=== PATIENT | female | born 1955 | race African-American/Black ===

== ENCOUNTER 2017-02-17 15:59 | Emergency (ER) | payer OTHER ==
[2017-02-17 17:03] LABS: #Eosinphils 0.2 thou/uL (0.0-0.7); #Lymphocytes 3.4 thou/uL (1.20-3.40); #Monocytes 0.9 thou/uL (0.11-0.59); #Neutrophils 5.4 thou/uL (1.40-6.50); %Basophils 0.5 % (0.0-1.0); %Eosinophils 1.8 % (0.0-10.0); Hematocrit 37.9 % (36.0-47.0); Mean Platelet Volume 5.7 fL (7.4-10.4); Red Blood Cell (RBC) Count 4.04 mill/uL (4.20-5.40); White Blood Cell (WBC) Count 9.9 thou/uL (4.8-10.8)
[2017-02-17 17:21] LABS: ALT (SGPT) 20 U/L (8-55); AST (SGOT) 18 U/L (5-34); Alkaline Phosphatase 105 U/L (40-150); Anion Gap 11 mmol/L (10-20); BUN (Urea Nitrogen) 14 mg/dL (9.8-20.1); Bilirubin, Total 0.4 mg/dL (0.2-1.2); Calc. Creatinine Clearance 0 mL/min (70-130); Calcium 9.7 mg/dL (7.8-10.44); Carbon Dioxide 32 mmol/L (23-31); Chloride 101 mmol/L (98-107); Estimated GFR-MDRD Greater than 90; Globulin 3.4 g/dL (2.4-3.5); Protein, Total 6.9 g/dL (6.0-8.3)
[2017-02-17 17:25] LABS: Troponin I Less than 0.010 ng/mL (< 0.028)
--- NOTE | 2017-02-17 17:46 | RAD ---
RADIOGRAPH CHEST 1 VIEW: Date: 02/17/17 Time: 1639 HOURS HISTORY: 62-year-old female with acute chest pain, wheezing, and atrial fibrillation. COMPARISON: 12/13/16. FINDINGS: Chronic severe volume loss of the right lung, with extensive scarring and stranding of the right mad[place] g, and ex vacuo cardiomediastinal shift to the right. No pulmonary edema or pneumothorax. Right apic al pleural thickening. New finding of mild streaky densities at the left lower lobe base. IMPRESSION: 1. Mild streaky densities at the base of the left lower lobe. Nonspecific. Recommend follow-up. 2. Severe volume loss and extensive chronic changes, involving the right lung. ETTA [] POS: [facility]
== END 2017-02-17 17:41 | disposition home or self-care (01) ==
LOC: ERS 15:59
DX: R07.9 Chest pain, unspecified (principal); G89.29 Other chronic pain; I25.10 Atherosclerotic heart disease of native coronary artery without angina pectoris; J43.9 Emphysema, unspecified; F31.9 Bipolar disorder, unspecified; F20.9 Schizophrenia, unspecified; Z87.891 Personal history of nicotine dependence; Z79.82 Long term (current) use of aspirin; Z79.899 Other long term (current) drug therapy; Z79.51 Long term (current) use of inhaled steroids
CPT/HCPCS: 36415; 71010; 80053; 82553; 84484; 85025; 93005; 94760

== ENCOUNTER 2017-02-26 13:38 | Emergency (ER) | payer OTHER ==
[2017-02-26] MEDS ORDERED: Dexamethasone 10 MG/ML VIAL ONE (14:13)
[2017-02-26 14:38] LABS: #Eosinphils 0.2 thou/uL (0.0-0.7); #Lymphocytes 1.9 thou/uL (1.20-3.40); #Monocytes 0.4 thou/uL (0.11-0.59); #Neutrophils 3.3 thou/uL (1.40-6.50); %Basophils 0.7 % (0.0-1.0); %Eosinophils 3.1 % (0.0-10.0); %Lymphocytes 32.5 % (21.0-51.0); %Monocytes 6.1 % (0.0-10.0); Hematocrit 38.2 % (36.0-47.0); Mean Platelet Volume 6.2 fL (7.4-10.4); Red Blood Cell (RBC) Count 4.05 mill/uL (4.20-5.40); White Blood Cell (WBC) Count 5.8 thou/uL (4.8-10.8)
--- NOTE | 2017-02-26 14:49 | RAD ---
PORTABLE CHEST: HISTORY: Chest pain. COMPARISON: 02/17/2017 FINDINGS: Heart size is enlarged. Chronic appearing lung changes are seen. No focal infiltrative process. IMPRESSION: Cardiomegaly with chronic appearing lung change. POS: [facility]
[2017-02-26 14:59] LABS: ALT (SGPT) 36 U/L (8-55); AST (SGOT) 30 U/L (5-34); Alkaline Phosphatase 97 U/L (40-150); Anion Gap 6 mmol/L (10-20); BUN (Urea Nitrogen) 11 mg/dL (9.8-20.1); Bilirubin, Total 0.6 mg/dL (0.2-1.2); CK (CPK) 106 U/L (29-168); Calc. Creatinine Clearance 0 mL/min (70-130); Calcium 10.1 mg/dL (7.8-10.44); Carbon Dioxide 36 mmol/L (23-31); Chloride 102 mmol/L (98-107); Estimated GFR-MDRD Greater than 90; Globulin 3.3 g/dL (2.4-3.5); Protein, Total 6.8 g/dL (6.0-8.3)
[2017-02-26 15:03] LABS: Troponin I Less than 0.010 ng/mL (< 0.028)
[2017-02-26 15:32] LABS: Bilirubin Negative (Negative); Blood, Urine Negative (Negative); Glucose, Urine (Dipstick) Negative (Negative); Ketone, Urine Negative (Negative); Protein, Urine (Dipstick) Negative (Neg-Trace)
[2017-02-26 15:34] LABS: Bacteria/HPF None Seen HPF (None Seen); Hyaline Casts/LPF 0-3 HYALINE CAST LPF (0-3 Hyaline); RBC/HPF 0-3 HPF (0-3); WBC/HPF 0-3 HPF (0-3)
[2017-02-26 15:35] LABS: Nitrite Unable to Interpret (Negative)
== END 2017-02-26 16:00 | disposition home or self-care (01) ==
LOC: ERS 13:38
DX: R07.9 Chest pain, unspecified (principal); I25.10 Atherosclerotic heart disease of native coronary artery without angina pectoris; J43.9 Emphysema, unspecified; F41.9 Anxiety disorder, unspecified; F31.9 Bipolar disorder, unspecified; F20.9 Schizophrenia, unspecified; Z87.891 Personal history of nicotine dependence; Z87.442 Personal history of urinary calculi
CPT/HCPCS: 51701; 71010; 80053; 81003; 81015; 82553; 84484; 85025; 93005; 94640; 94760; 96374; A4353; J1100

== ENCOUNTER 2017-03-21 15:28 | Emergency (ER) | payer OTHER ==
[2017-03-21 15:56] LABS: #Eosinphils 0.1 thou/uL (0.0-0.7); #Lymphocytes 2.5 thou/uL (1.20-3.40); #Monocytes 0.5 thou/uL (0.11-0.59); #Neutrophils 4.1 thou/uL (1.40-6.50); %Basophils 0.5 % (0.0-1.0); %Eosinophils 1.4 % (0.0-10.0); %Lymphocytes 34.9 % (21.0-51.0); %Monocytes 6.6 % (0.0-10.0); Hematocrit 37.7 % (36.0-47.0); Mean Platelet Volume 5.8 fL (7.4-10.4); Red Blood Cell (RBC) Count 3.95 mill/uL (4.20-5.40); White Blood Cell (WBC) Count 7.3 thou/uL (4.8-10.8)
--- NOTE | 2017-03-21 16:03 | RAD ---
CHEST ONE VIEW 03/21/17 HISTORY: Chest pain. COMPARISON: Chest one view 03/01/17. FINDINGS: Continued volume loss in the right lower lobe with rightward shift of the mediastinum. Left lung is r elatively clear. No pneumothorax. No focal air space consolidation. No acute osseous abnormality. IMPRESSION: Similar appearance of the chest. No acute intrathoracic abnormality. POS: [facility]
[2017-03-21 16:21] LABS: ALT (SGPT) 24 U/L (8-55); AST (SGOT) 21 U/L (5-34); Alkaline Phosphatase 97 U/L (40-150); Anion Gap 11 mmol/L (10-20); BUN (Urea Nitrogen) 14 mg/dL (9.8-20.1); Bilirubin, Total 0.3 mg/dL (0.2-1.2); CK (CPK) 115 U/L (29-168); Calc. Creatinine Clearance 0 mL/min (70-130); Calcium 9.6 mg/dL (7.8-10.44); Carbon Dioxide 31 mmol/L (23-31); Chloride 102 mmol/L (98-107); Estimated GFR-MDRD Greater than 90; Globulin 3.5 g/dL (2.4-3.5); Lipase 26 U/L (8-78); Magnesium 1.9 mg/dL (1.6-2.6); Protein, Total 7.4 g/dL (6.0-8.3)
[2017-03-21 16:22] LABS: Troponin I Less than 0.010 ng/mL (< 0.028)
[2017-03-21] MEDS ORDERED: Potassium Chloride 20 MEQ TAB ONE (16:44)
== END 2017-03-21 17:10 | disposition home or self-care (01) ==
LOC: ERS 15:28
DX: R07.89 Other chest pain (principal); F31.9 Bipolar disorder, unspecified; J44.9 Chronic obstructive pulmonary disease, unspecified; F41.9 Anxiety disorder, unspecified; F20.9 Schizophrenia, unspecified; Z87.891 Personal history of nicotine dependence
CPT/HCPCS: 71010; 80053; 82553; 83690; 83735; 83880; 84484; 85025; 93005

== ENCOUNTER 2017-04-22 10:03 | Emergency (ER) | payer OTHER ==
--- NOTE | 2017-05-05 15:51 | EKG ---
Test Reason : Blood Pressure : / mmHG Vent. Rate : 098 BPM Atrial Rate : 098 BPM P-R Int : 148 ms QRS Dur : 066 ms QT Int : 346 ms P-R-T Axes : 000 -12 150 degrees QTc Int : 441 ms Normal sinus rhythm Septal infarct , age undetermined Lateral infarct , age undetermined T wave abnormality, consider anterior ischemia Left ventricular hypertrophy Left axis deviation Abnormal ECG Confirmed by JEFF MANNING, RANDY Salazar ([id number]), department editor TARA VOGEL ([id number]) on 05/05/2017 3:50:31 PM Referred By: Confirmed By:RANDY AGUILAR MD
== END 2017-04-22 11:07 | disposition home or self-care (01) ==
LOC: ERS 10:03
DX: J44.9 Chronic obstructive pulmonary disease, unspecified (principal); I25.10 Atherosclerotic heart disease of native coronary artery without angina pectoris; F41.9 Anxiety disorder, unspecified; F20.0 Paranoid schizophrenia; F17.210 Nicotine dependence, cigarettes, uncomplicated; Z79.891 Long term (current) use of opiate analgesic; Z79.899 Other long term (current) drug therapy
CPT/HCPCS: 93005; 94760

== ENCOUNTER 2017-05-10 14:10 | Outpatient (CLI) | payer OTHER ==
--- NOTE | 2017-05-10 15:37 | CT ---
LOW DOSE CT CHEST WITHOUT IV CONTRAST: HISTORY: Thirty-year smoking history, COPD, coronary artery disease. FINDINGS: Comparison is made to the exam dated 09/06/16. Chronic changes of bruise formation, scarring, and traction bronchiectasis are again seen. The mass- like density in the medial right upper lung is stable. Volume loss in the right lung apex with retra ction of the mediastinum and right hilum redemonstrated. Calcific densities in the left lung apex with a surrounding soft tissue density are stable. A tiny p eripheral lung nodule is noted in the superior segment of the right lower lobe (image 16 series 3). IMPRESSION: Lung RADS-3, probably benign findings. Recommend continued followup with repeat low-dose CT in 6 mon ths. POS: [facility]
== END 2017-05-10 14:11 | disposition home or self-care (01) ==
LOC: CT 14:10
PROVIDERS: ATTEND Internal Medicine Sleep Medicine
DX: R93.8 Abnormal findings on diagnostic imaging of other specified body structures (principal); F17.211 Nicotine dependence, cigarettes, in remission
CPT/HCPCS: G0297

== ENCOUNTER 2017-05-22 12:10 | Emergency (ER) | payer OTHER ==
--- NOTE | 2017-05-22 12:55 | RAD ---
CHEST TWO VIEWS: Comparison: 03-21-17 Indication: Cough. FINDINGS: There is stable interstitial densities as well as a prominent region of lucency in the right hemithor ax. Reticular nodular density of the left upper lung zone is stable. There is biapical pleural irregu larity again seen. Chest is otherwise similar in appearance. IMPRESSION: Stable chest with evidence of bullous emphysema. POS: [facility]
[2017-05-22] MEDS ORDERED: predniSONE 20 MG TAB ONE (13:12)
== END 2017-05-22 14:00 | disposition home or self-care (01) ==
LOC: ERS 12:10
DX: J20.9 Acute bronchitis, unspecified (principal); I25.10 Atherosclerotic heart disease of native coronary artery without angina pectoris; J44.9 Chronic obstructive pulmonary disease, unspecified; F31.9 Bipolar disorder, unspecified; F41.9 Anxiety disorder, unspecified; B19.20 Unspecified viral hepatitis C without hepatic coma; F20.9 Schizophrenia, unspecified; Z87.891 Personal history of nicotine dependence; Z79.899 Other long term (current) drug therapy; Z79.82 Long term (current) use of aspirin
CPT/HCPCS: 71046; 94640; 99406; J7506; J7620

== ENCOUNTER 2017-06-02 20:27 | Emergency (ER) | payer OTHER ==
--- NOTE | 2017-06-02 21:02 | RAD ---
EXAM: ONE VIEW CHEST 06/02/17 HISTORY: Chest pain. COMPARISON: 03/21/17, 05/22/17. FINDINGS: Postsurgical and chronic changes in the right hemithorax with an overall decreased right lung volume. There is rightward deviation of the cardiomediastinal silhouette. Stable hyperinflation of the left lung. Stable configuration of the cardiac silhouette. No consolidation, No pleural effusion or pneumo thorax. IMPRESSION: No significant interval change. No acute cardiopulmonary process. POS: [facility]
[2017-06-02 21:12] LABS: #Basophils 0.1 thou/uL (0.0-0.2); #Eosinphils 0.1 thou/uL (0.0-0.7); #Lymphocytes 2.2 thou/uL (1.20-3.40); #Monocytes 0.5 thou/uL (0.11-0.59); #Neutrophils 5.2 thou/uL (1.40-6.50); %Basophils 0.9 % (0.0-1.0); %Eosinophils 1.2 % (0.0-10.0); %Lymphocytes 27.7 % (21.0-51.0); %Monocytes 5.8 % (0.0-10.0); %Neutrophils 64.5 % (42.0-75.0); Hemoglobin 12.5 g/dL (12.0-16.0); Mean Corpuscular HGB CONC 32.5 g/dL (32.0-36.0); Mean Corpuscular Hemoglobin 30.6 pg (27.0-31.0); Mean Platelet Volume 6.3 fL (7.4-10.4); Platelet Count 289 thou/uL (130-400); RBC Distribution Width 12.5 % (11.5-14.5); Red Blood Cell (RBC) Count 4.09 mill/uL (4.20-5.40); White Blood Cell (WBC) Count 8.1 thou/uL (4.8-10.8)
--- NOTE | 2017-06-02 21:26 | CT ---
NONCONTRAST HEAD CT 06/02/17 HISTORY: Palpitations. Myalgia. COMPARISON: 02/08/15. TECHNIQUE: Noncontrast head CT is performed from skull base to skull vertex. FINDINGS: No parenchymal hemorrhage. No extra-axial hematoma. No midline shift. Basilar cisterns are patent. Br ain volume is age appropriate. Cortical vo-white matter differentiation is preserved. Ventricles and sulci are patent and symmetric. Chronic small vessel ischemic changes of the white matter are noted. Intact calvarium. Adequate aeration of the sinuses and mastoid air cells. IMPRESSION: No acute intracranial process. POS: [facility]
[2017-06-02 21:29] LABS: ALT (SGPT) 23 U/L (8-55); AST (SGOT) 20 U/L (5-34); Alkaline Phosphatase 98 U/L (40-150); Anion Gap 14 mmol/L (10-20); BUN (Urea Nitrogen) 17 mg/dL (9.8-20.1); Bilirubin, Total 0.8 mg/dL (0.2-1.2); CK (CPK) 100 U/L (29-168); Calc. Creatinine Clearance 0 mL/min (70-130); Calcium 9.5 mg/dL (7.8-10.44); Carbon Dioxide 28 mmol/L (23-31); Chloride 102 mmol/L (98-107); Estimated GFR-MDRD Greater than 90; Globulin 3.3 g/dL (2.4-3.5); Glucose 97 mg/dL (80-115); Potassium 3.6 mmol/L (3.5-5.1); Protein, Total 7.3 g/dL (6.0-8.3); Sodium 140 mmol/L (136-145)
[2017-06-02 21:34] LABS: CKMB 2.4 ng/mL (0-6.6); Troponin I Less than 0.010 ng/mL (< 0.028)
--- NOTE | 2017-06-09 13:46 | EKG ---
Test Reason : PALPATATIONS
== END 2017-06-02 23:16 | disposition home or self-care (01) ==
LOC: ERS 20:27
DX: R00.2 Palpitations (principal); I25.10 Atherosclerotic heart disease of native coronary artery without angina pectoris; J43.9 Emphysema, unspecified; F41.9 Anxiety disorder, unspecified; F31.9 Bipolar disorder, unspecified; F20.9 Schizophrenia, unspecified; Z87.891 Personal history of nicotine dependence; Z79.82 Long term (current) use of aspirin; Z79.52 Long term (current) use of systemic steroids; Z79.899 Other long term (current) drug therapy
CPT/HCPCS: 36415; 70450; 71045; 80053; 82550; 82553; 84484; 85025; 93005

== ENCOUNTER 2017-06-30 11:52 | Emergency (ER) | payer OTHER ==
[2017-06-30] MEDS ORDERED: Dexamethasone 4 mg/ml Vial ONE (12:37)
[2017-06-30] MEDS ORDERED: Ketorolac Tromethamine 30 MG/ML VIAL ONE (12:39)
--- NOTE | 2017-06-30 14:31 | RAD ---
2 VIEWS CHEST: Date: 06/30/17 COMPARISON: 05/22/17. HISTORY: Productive cough with green sputum. FINDINGS: The lung parenchyma is markedly abnormal with architectural distortion and extensive interstitial pro minence with multifocal scarring and right hilar retraction, stable. Heart and mediastinal contours a re unchanged. There is no pneumothorax, pleural fluid, focal consolidation, or alveolar edema. The mirela ngs are hyperinflated. The severe interstitial opacity within both lungs was better assessed on CT ex am performed 05/10/17. Severe anterior wedge compression fracture noted at thoracolumbar junction, as seen on prior CT exam. IMPRESSION: Severe chronic findings as above. No focal consolidation or alveolar edema. POS: [facility]
== END 2017-06-30 13:34 | disposition home or self-care (01) ==
LOC: ERS 11:52
DX: J44.1 Chronic obstructive pulmonary disease with (acute) exacerbation (principal); I25.10 Atherosclerotic heart disease of native coronary artery without angina pectoris; F41.9 Anxiety disorder, unspecified; F31.9 Bipolar disorder, unspecified; F20.9 Schizophrenia, unspecified; Z87.891 Personal history of nicotine dependence
CPT/HCPCS: 71046; 94640; 96372; J1100; J1885; J7620

== ENCOUNTER 2017-07-15 19:03 | Emergency (ER) | payer OTHER ==
[2017-07-15 19:35] LABS: #Lymphocytes 1.8 thou/uL (1.20-3.40); #Monocytes 0.9 thou/uL (0.11-0.59); #Neutrophils 8.2 thou/uL (1.40-6.50); %Basophils 0.1 % (0.0-1.0); %Eosinophils 0.3 % (0.0-10.0); %Lymphocytes 16.1 % (21.0-51.0); %Monocytes 8.3 % (0.0-10.0); %Neutrophils 75.2 % (42.0-75.0); Hemoglobin 12.7 g/dL (12.0-16.0); Mean Corpuscular HGB CONC 32.9 g/dL (32.0-36.0); Mean Corpuscular Hemoglobin 30.7 pg (27.0-31.0); Mean Corpuscular Volume 93.3 fl (81.0-99.0); Platelet Count 286 thou/uL (130-400); RBC Distribution Width 12.8 % (11.5-14.5); Red Blood Cell (RBC) Count 4.14 mill/uL (4.20-5.40); White Blood Cell (WBC) Count 10.9 thou/uL (4.8-10.8)
--- NOTE | 2017-07-15 19:40 | RAD ---
PORTABLE CHEST ONE VIEW: Date: 07-15-17 Time: 7:22 p.m. History: Chest pain. Cough. FINDINGS: Comparison is made with exam of 06-30-17. There are chronic changes in the right lung with accompanying volume loss in the right hemithorax, st able. Heart size is stable. The left lung demonstrates no focal areas of consolidation, pneumothorace s, or pleural effusions are seen on either side. There are degenerative changes in the spine. IMPRESSION: Stable exam. No acute process. POS: [facility]
[2017-07-15 19:41] LABS: INR-International Normal Ratio 1.1; PTT 25.6 SEC (22.9-36.1); Prothrombin Time 13.9 SEC (12.0-14.7)
[2017-07-15] MEDS ORDERED: Dexamethasone 10 MG/ML VIAL ONE (19:46)
[2017-07-15 19:49] LABS: ALT (SGPT) 23 U/L (8-55); AST (SGOT) 18 U/L (5-34); Alkaline Phosphatase 108 U/L (40-150); Anion Gap 13 mmol/L (10-20); BUN (Urea Nitrogen) 14 mg/dL (9.8-20.1); Bilirubin, Total 0.5 mg/dL (0.2-1.2); CK (CPK) 110 U/L (29-168); Calc. Creatinine Clearance 0 mL/min (70-130); Calcium 9.3 mg/dL (7.8-10.44); Carbon Dioxide 28 mmol/L (23-31); Chloride 102 mmol/L (98-107); Estimated GFR-MDRD 85; Globulin 3.4 g/dL (2.4-3.5); Glucose 95 mg/dL (80-115); Potassium 3.5 mmol/L (3.5-5.1); Protein, Total 7.4 g/dL (6.0-8.3); Sodium 139 mmol/L (136-145)
[2017-07-15 19:53] LABS: CKMB 3.1 ng/mL (0-6.6); Troponin I Less than 0.010 ng/mL (< 0.028)
== END 2017-07-15 22:17 | disposition home or self-care (01) ==
LOC: ERS 19:03
DX: J44.9 Chronic obstructive pulmonary disease, unspecified (principal); F41.9 Anxiety disorder, unspecified; F31.9 Bipolar disorder, unspecified; F20.9 Schizophrenia, unspecified; Z87.891 Personal history of nicotine dependence; I25.10 Atherosclerotic heart disease of native coronary artery without angina pectoris; Z79.899 Other long term (current) drug therapy; Z79.82 Long term (current) use of aspirin
CPT/HCPCS: 71045; 80053; 82550; 82553; 84484; 85025; 85610; 85730; 93005; 94640; 94760; 96374; J1100; J7620

== ENCOUNTER 2017-08-02 11:38 | Emergency (ER) | payer OTHER ==
--- NOTE | 2017-08-02 12:49 | RAD ---
LUMBAR SPINE SERIES THREE VIEWS: History: Back pain status post injury. Comparison: Chest x-ray of 06-30-17. FINDINGS: Bones are demineralized. There is compression changes of the L1 vertebral body which are again noted. Compression is approximately 50%. There is some bony retropulsion. These findings are stable. Degene rative disc narrowing is seen at L4-5. Pedicles appear intact. Incidental note is made of some cupping to the superior endplate at the T10 and T11. IMPRESSION: Stable compression fracture of L1. POS: [facility]
--- NOTE | 2017-08-02 13:09 | RAD ---
RIGHT RIBS AND PA CHEST FOUR VIEWS: History: Patient is status post fall. Comparison: 06-30-17 FINDINGS: Sever chronic right lung changes appear stable. I do not see any signs of pneumothorax. The bones are demineralized. I do not appreciate any acute right rib fracture. Compression changes of the L1 vertebral body are noted as are some compression changes in some of the lower thoracic vertebral bodies. Changes appear stable. IMPRESSION: No evidence of acute fracture. POS: [facility]
== END 2017-08-02 13:07 | disposition home or self-care (01) ==
LOC: ERS 11:38
DX: S39.012A Strain of muscle, fascia and tendon of lower back, initial encounter (principal); S20.211A Contusion of right front wall of thorax, initial encounter; I25.10 Atherosclerotic heart disease of native coronary artery without angina pectoris; J43.9 Emphysema, unspecified; M81.0 Age-related osteoporosis without current pathological fracture; F41.9 Anxiety disorder, unspecified; F20.9 Schizophrenia, unspecified; F31.9 Bipolar disorder, unspecified; Z87.891 Personal history of nicotine dependence; Z79.52 Long term (current) use of systemic steroids; Z79.82 Long term (current) use of aspirin; Z79.899 Other long term (current) drug therapy; Z79.51 Long term (current) use of inhaled steroids; V43.92XA Unspecified car occupant injured in collision with other type car in traffic accident, initial encounter
CPT/HCPCS: 72100

== ENCOUNTER 2017-08-20 10:37 | Emergency (ER) | payer OTHER ==
[2017-08-20 12:28] LABS: #Eosinphils 0.2 thou/uL (0.0-0.7); #Monocytes 0.8 thou/uL (0.11-0.59); #Neutrophils 7.3 thou/uL (1.40-6.50); %Basophils 0.2 % (0.0-1.0); %Eosinophils 1.6 % (0.0-10.0); %Lymphocytes 26.8 % (21.0-51.0); %Neutrophils 64.4 % (42.0-75.0); Hemoglobin 12.7 g/dL (12.0-16.0); Mean Corpuscular HGB CONC 32.8 g/dL (32.0-36.0); Mean Corpuscular Hemoglobin 30.6 pg (27.0-31.0); Mean Corpuscular Volume 93.3 fl (81.0-99.0); Platelet Count 237 thou/uL (130-400); RBC Distribution Width 12.6 % (11.5-14.5); Red Blood Cell (RBC) Count 4.15 mill/uL (4.20-5.40); White Blood Cell (WBC) Count 11.3 thou/uL (4.8-10.8)
[2017-08-20 12:59] LABS: Bilirubin Negative (Negative); Blood, Urine Negative (Negative); Clarity CLEAR (Clear); Glucose, Urine (Dipstick) Negative (Negative); Leukocyte Negative (Negative); Nitrite Negative (Negative); Protein, Urine (Dipstick) Negative (Neg-Trace); Specific Gravity, Urine 1.017 (1.002-1.036); pH, Urine 6.5 (5.0-9.0)
[2017-08-20 12:59] LABS: ALT (SGPT) 21 U/L (8-55); AST (SGOT) 18 U/L (5-34); Albumin 3.7 g/dL (3.4-4.8); Alkaline Phosphatase 122 U/L (40-150); Anion Gap 7 mmol/L (10-20); BUN (Urea Nitrogen) 9 mg/dL (9.8-20.1); Bilirubin, Total 0.6 mg/dL (0.2-1.2); Calc. Creatinine Clearance 0 mL/min (70-130); Carbon Dioxide 34 mmol/L (23-31); Chloride 102 mmol/L (98-107); Estimated GFR-MDRD Greater than 90; Globulin 3.2 g/dL (2.4-3.5); Glucose 103 mg/dL (80-115); Potassium 3.4 mmol/L (3.5-5.1); Protein, Total 6.9 g/dL (6.0-8.3); Sodium 140 mmol/L (136-145)
--- NOTE | 2017-08-20 13:03 | RAD ---
SINGLE VIEW OF THE CHEST: COMPARISON: 07/15/17. HISTORY: Chronic bronchitis and cough. FINDINGS: A single view of the chest shows an enlarged but stable cardiomediastinal silhouette. There is stabl e volume loss in the right thorax with tenting of the right diaphragm. There is no evidence of conso lidation, mass, or pleural effusion. Biapical pleural thickening is seen. IMPRESSION: No evidence of acute cardiopulmonary disease. POS: [facility]
[2017-08-20] MEDS ORDERED: predniSONE 20 MG TAB ONE (13:44)
== END 2017-08-20 14:13 | disposition home or self-care (01) ==
LOC: ERS 10:37
DX: J06.9 Acute upper respiratory infection, unspecified (principal); J43.9 Emphysema, unspecified; M81.0 Age-related osteoporosis without current pathological fracture; F41.9 Anxiety disorder, unspecified; F31.9 Bipolar disorder, unspecified; F20.9 Schizophrenia, unspecified; Z87.891 Personal history of nicotine dependence; Z79.899 Other long term (current) drug therapy; Z79.82 Long term (current) use of aspirin; Z79.52 Long term (current) use of systemic steroids
CPT/HCPCS: 51701; 71045; 80053; 81003; 85025; 94640; A4353; J7506

== ENCOUNTER 2017-08-31 10:37 | Emergency (ER) | payer OTHER ==
--- NOTE | 2017-08-31 11:47 | RAD ---
LEFT HIP TWO VIEWS: History: Left hip pain. Injury. FINDINGS: Mild osteophytosis. Joint space is preserved. Femoral head contour intact. No acute fracture or dislo cation. Overlying radiopacities are noted at the level of the trochanters. IMPRESSION: 1. Mild osteoarthritis left hip. POS: [facility]
--- NOTE | 2017-08-31 11:48 | RAD ---
LEFT FOOT THREE VIEWS: Comparison: 01-01-13 FINDINGS: Lisfranc alignment is maintained. There is diffuse bone demineralization. Joint spaces are preserved. No fracture. IMPRESSION: No fracture. POS: [facility]
--- NOTE | 2017-08-31 11:52 | RAD ---
RADIOGRAPH LEFT KNEE FOUR VIEWS: Date: 08-31-17 Time: 11:19 a.m. History: 62-year-old female with left knee pain. Comparison: None. FINDINGS: There is periosteal elevation along the medial aspect of the distal femoral metaphysis. There is masood lar periosteal elevation along the lateral aspect of the proximal tibial metaphysis. The bone density is diffusely heterogeneous, with a permeative, bassett-eaten appearance of the visualized portions of t he distal femur and proximal tibia. There is a focal 1 cm lucency involving the anterior aspect of th e head of the fibula, visible only on the lateral view. There is minimal joint space narrowing of the medial compartment, where there is mild sclerosis of the articular surfaces. There are no large oste ophytes. Lateral and patellofemoral compartments are normal. No acute fracture is visualized. IMPRESSION: 1. Periosteal elevation of the distal femur and proximal tibia. 2. Permeative appearance of the bones. 3. Possible osteolytic lesion involving the fibular head. 4. The findings raise the possibility of osteomyelitis or metastatic involvement. 5. Recommend nuclear medicine 3-phase and whole body bone scan for further evaluation. Code T POS: [facility]
[2017-08-31 12:39] LABS: Bilirubin Negative (Negative); Blood, Urine Moderate (Negative); Clarity CLEAR (Clear); Glucose, Urine (Dipstick) Negative (Negative); Leukocyte Negative (Negative); Nitrite Negative (Negative); Protein, Urine (Dipstick) Negative (Neg-Trace); Urobilinogen 0.2 mg/dL (0.2-1.0)
[2017-08-31 12:40] LABS: Bacteria/HPF None Seen HPF (None Seen); Hyaline Casts/LPF 0-3 HYALINE CAST LPF (0-3 Hyaline); Squamous Epithelial None Seen HPF (0-3); WBC/HPF None Seen HPF (0-3)
== END 2017-08-31 13:25 | disposition home or self-care (01) ==
LOC: ERS 10:37
DX: J44.1 Chronic obstructive pulmonary disease with (acute) exacerbation (principal); I25.10 Atherosclerotic heart disease of native coronary artery without angina pectoris; M81.0 Age-related osteoporosis without current pathological fracture; F41.9 Anxiety disorder, unspecified; F31.9 Bipolar disorder, unspecified; F20.9 Schizophrenia, unspecified; Z87.891 Personal history of nicotine dependence; Z79.52 Long term (current) use of systemic steroids; Z79.82 Long term (current) use of aspirin; Z79.899 Other long term (current) drug therapy; Z79.51 Long term (current) use of inhaled steroids
CPT/HCPCS: 81003; 81015; 93005; 94640; J7620

== ENCOUNTER 2017-09-05 09:29 | Emergency (ER) | payer OTHER ==
[2017-09-05] MEDS ORDERED: Acetaminophen 500 MG TAB ONE (11:12)
[2017-09-05 11:37] LABS: Bilirubin Negative (Negative); Blood, Urine Negative (Negative); Clarity CLOUDY (Clear); Glucose, Urine (Dipstick) Negative (Negative); Leukocyte Negative (Negative); Nitrite Negative (Negative); Protein, Urine (Dipstick) Negative (Neg-Trace); Specific Gravity, Urine 1.015 (1.002-1.036); Urobilinogen 0.2 mg/dL (0.2-1.0)
--- NOTE | 2017-09-05 11:44 | RAD ---
RADIOGRAPH LEFT FOOT 3 VIEWS: HISTORY: A 62-year-old female with bilateral foot pain. FINDINGS: No fracture or dislocation. Hallux valgus. Bony enlargement of the medial aspect of the 1st metatar sage head. Minimal or mild DJD at first MTP. No high-grade DJD at any of the joints. IMPRESSION: 1. Hallux valgus metatarsus primus varus. 2. No fracture. POS: [facility]
--- NOTE | 2017-09-05 11:44 | RAD ---
RADIOGRAPH RIGHT FOOT THREE VIEWS: Date: 09-05-17 History: 62-year-old female with bilateral foot pain. FINDINGS: Hallux valgus with bony hypertrophy of medial aspect of the first metatarsal head. Minimal DJD at fir st MTP. No high grade DJD at any of the visualized joints. No acute fracture identified. IMPRESSION: 1. Hallux valgus metatarsus primus varus. 2. No fracture identified. POS: [facility]
== END 2017-09-05 12:10 | disposition home or self-care (01) ==
LOC: ERS 09:29
DX: J44.9 Chronic obstructive pulmonary disease, unspecified (principal); R60.0 Localized edema; R10.9 Unspecified abdominal pain; I25.10 Atherosclerotic heart disease of native coronary artery without angina pectoris; M81.0 Age-related osteoporosis without current pathological fracture; F31.9 Bipolar disorder, unspecified; F41.9 Anxiety disorder, unspecified; Z87.891 Personal history of nicotine dependence; Z79.82 Long term (current) use of aspirin; Z79.899 Other long term (current) drug therapy
CPT/HCPCS: 81003; 94640; J7620

== ENCOUNTER 2017-10-02 12:34 | Emergency (ER) | payer OTHER ==
[2017-10-02] MEDS ORDERED: Dexamethasone 4 MG TAB ONE (14:30)
--- NOTE | 2017-10-02 15:00 | RAD ---
PORTABLE UPRIGHT FRONTAL CHEST RADIOGRAPH: Date: 10-02-17 Comparison: 08-20-17 History: Shortness of breath. FINDINGS: There is volume loss within the right hemithorax with shift of the mediastinal structures to the righ t, a stable finding. There are coarse linear interstitial densities noted bilaterally, especially wit hin the right lung base, stable as well. There is no pneumothorax or pleural fluid. There is no lobar consolidation or alveolar edema. IMPRESSION: Chronic pulmonary parenchymal abnormalities as described above, not significantly changed. No acute f indings are appreciated. POS: [facility]
== END 2017-10-02 16:06 | disposition home or self-care (01) ==
LOC: ERS 12:34
DX: J44.1 Chronic obstructive pulmonary disease with (acute) exacerbation (principal); F41.9 Anxiety disorder, unspecified; F31.9 Bipolar disorder, unspecified; Z87.891 Personal history of nicotine dependence
CPT/HCPCS: 71045; 94640; J7620; J8540

== ENCOUNTER 2017-11-03 22:12 | Emergency (ER) | payer OTHER ==
[2017-11-03] MEDS ORDERED: predniSONE 20 MG TAB ONE (22:31)
== END 2017-11-03 22:38 | disposition home or self-care (01) ==
LOC: ERS 22:12
DX: J30.2 Other seasonal allergic rhinitis (principal); J44.9 Chronic obstructive pulmonary disease, unspecified; F31.9 Bipolar disorder, unspecified; F20.9 Schizophrenia, unspecified; Z87.442 Personal history of urinary calculi; M81.0 Age-related osteoporosis without current pathological fracture
CPT/HCPCS: J7506

== ENCOUNTER 2017-11-13 02:28 | Inpatient (IN) | payer OTHER ==
[2017-11-13 03:27] LABS: #Basophils 0.1 thou/uL (0.0-0.2); #Eosinphils 0.1 thou/uL (0.0-0.7); #Lymphocytes 3.5 thou/uL (1.20-3.40); #Monocytes 0.5 thou/uL (0.11-0.59); #Neutrophils 3.7 thou/uL (1.40-6.50); %Basophils 0.7 % (0.0-1.0); %Eosinophils 1.5 % (0.0-10.0); %Monocytes 6.9 % (0.0-10.0); %Neutrophils 46.8 % (42.0-75.0); Hemoglobin 12.8 g/dL (12.0-16.0); Mean Corpuscular HGB CONC 33.4 g/dL (32.0-36.0); Mean Corpuscular Hemoglobin 30.9 pg (27.0-31.0); Mean Corpuscular Volume 92.4 fL (78.0-98.0); Mean Platelet Volume 6.2 fL (7.4-10.4); Platelet Count 252 thou/uL (130-400); RBC Distribution Width 12.4 % (11.5-14.5); Red Blood Cell (RBC) Count 4.16 mill/uL (4.20-5.40); White Blood Cell (WBC) Count 7.8 thou/uL (4.8-10.8)
[2017-11-13 03:33] LABS: ALT (SGPT) 28 U/L (8-55); AST (SGOT) 27 U/L (5-34); Albumin 4.1 g/dL (3.4-4.8); Alkaline Phosphatase 125 U/L (40-150); Anion Gap 14 mmol/L (10-20); BUN (Urea Nitrogen) 13 mg/dL (9.8-20.1); Bilirubin, Total 0.5 mg/dL (0.2-1.2); Calc. Creatinine Clearance 0 mL/min (70-130); Calcium 10.4 mg/dL (7.8-10.44); Carbon Dioxide 32 mmol/L (23-31); Chloride 99 mmol/L (98-107); Estimated GFR-MDRD 90; Globulin 3.6 g/dL (2.4-3.5); Glucose 104 mg/dL (80-115); Potassium 3.6 mmol/L (3.5-5.1); Protein, Total 7.7 g/dL (6.0-8.3); Sodium 141 mmol/L (136-145)
[2017-11-13 03:37] LABS: Troponin I Less than 0.010 ng/mL (< 0.028)
[2017-11-13 04:03] LABS: CK (CPK) 132 U/L (29-168)
[2017-11-13] MEDS ORDERED: Phenazopyridine HCl 97.5 MG TABLET PO PRN (04:33)
[2017-11-13] MEDS ORDERED: Acetaminophen 325 MG TAB PO PRN (04:34)
[2017-11-13 06:02] VITALS: BMI 25.2
[2017-11-13 06:30] LABS: Troponin I 0.012 ng/mL (< 0.028)
--- NOTE | 2017-11-13 06:43 | HP ---
CODE STATUS: This patient is full code. PRIMARY CARE PHYSICIAN: The patient was brought in from assisted. TIME OF EVALUATION: 4:30 a.m. CHIEF COMPLAINT: Shortness of breath. HISTORY OF PRESENT ILLNESS: This is a 62-year-old female with past medical history of coronary arter y disease, hepatitis, COPD on home oxygen, who came to the hospital after having gradually worsening severe shortness of breath, for the past few days, with no clear triggers, no alleviating factors. A ssociated with chest pain, with no improvement with nitro. REVIEW OF SYSTEMS: CONSTITUTIONAL: No fever or chills, generalized weakness. RESPIRATORY: The patient has cough, no sputum production, shortness of breath. CARDIOVASCULAR: No chest pain, palpitation. The patient reports shortness of breath. GASTROINTESTI NAL: No nausea, no vomiting, diarrhea or abdominal pain. VICTIM WITNESS ADMINISTRATOR: No dizziness, headache or feeling lightheaded. : No burning on urination. EXTREMITIES: No leg swelling. All other systems were reviewed and negative except for history of present illness. PAST MEDICAL HISTORY: History of herpes simplex, PAD, hepatitis C, hepatitis B, kidney stones, chron ic obstructive pulmonary disease, emphysema, nausea, ____, bilateral cataracts, ovarian cysts, osteop orosis. PAST SURGICAL HISTORY: Ovarian cyst, CABG, kidney stent. PSYCHIATRIC HISTORY: Anxiety, bipolar disorder, renal failure. The patient has had previous psych a dmissions. SOCIAL HISTORY: The patient is in half-way, former drug user. FAMILY HISTORY: Reviewed and noncontributory to current presentation. ALLERGIES: IBUPROFEN. MEDICATIONS: None related. PHYSICAL EXAMINATION: VITAL SIGNS: On presentation, blood pressure 175/113, heart rate 134, respiratory rate was 35, tempe rature 98.2, pain 8/10, oxygen saturation was 98 on 2 liters. GENERAL: Patient is alert, oriented, in mild distress. HEENT: Normal conjunctivae. Moist oral mucosa. Anicteric. NECK: No JVD. RESPIRATORY: Bilateral air entry decreased, the patient had bilateral wheezing, no rales, symmetrica l expansion with good expansion. CARDIOVASCULAR: Sinus tachycardia, no murmurs, no gallop. No edema. ABDOMEN: Soft, normal bowel sounds. MUSCULOSKELETAL: Baseline range of motion and strength. No tenderness. SKIN: Warm and intact. No pallor, no rash. No redness. NEUROLOGIC: Normal sensory. No evidence of any new focal weakness, baseline speech. Cranial nerve, sensory intact. PSYCHIATRIC: The patient has underlying psych problems, cooperative to interview the patient only se ems to be in distress. Suboptimal judgment. LABORATORY DATA: Reviewed. White count 7.8, hemoglobin 12.8, platelet count 252. Chemistry; sodium 141, potassium 3.6, chloride 99, carbon dioxide 32, anion gap 14, BUN 13, creatinine 0.7, GFR 90, gl ucose 104. Lactic acid 1.3, calcium 10.4, total bilirubin 0.5, AST 27, ALT 28, alkaline phosphatase 125. CK 132. Troponin was negative x1, brain natriuretic peptide was normal. EKG was discussed wit h the physician from ER showed a sinus tachycardia with a rate of 109. No evidence of ST segment or T-wave abnormalities, central infarct. Chest x-ray was negative, no acute changes seen. ASSESSMENT AND PLAN: The patient was placed in the hospital for the following medical problems. 1. Chronic obstructive pulmonary disease exacerbation. We will place the patient on nebs and steroi ds, oxygen as needed. 2. History of hepatitis B and C, at this point seems to be chronic, seems to be stable. 3. History of coronary artery disease, chronic, seems to be stable. 4. Reported history of chronic respiratory failure. The patient is on home oxygen. Here saturation is appropriate with 2 liters. 5. Deep venous thrombosis prophylaxis.
[2017-11-13 07:53] VITALS: BP 134/76; TEMP 97.7
[2017-11-13] MEDS ORDERED: Enoxaparin Sodium 40 MG/0.4 ML SYRINGE SC SCH (09:00)
[2017-11-13 09:21] LABS: Troponin I Less than 0.010 ng/mL (< 0.028)
--- NOTE | 2017-11-13 09:54 | RAD ---
CHEST ONE VIEW: History: Dyspnea. Shortness of breath. Cough. Chest pain. FINDINGS: There is some rotation to the left. There is considerable linear parenchymal changes and pleural joe ges and volume loss in the right chest with shift of the heart and mediastinum to the right and secon chun hyperinflation of the left lung. This appears stable from 10-02-18. No new process. IMPRESSION: Stable chronic volume loss changes in the right chest with pleural and parenchymal chronic changes. N o overt new process. POS: [facility]
--- NOTE | 2017-11-13 11:18 | CT ---
CHEST CT SCAN WITHOUT IV CONTRAST: History: 62-year-old female with history of shortness of breath for one week. COPD. Comparison: 05-10-17 FINDINGS: Again noted are prominent volume loss changes of the right lung is fairly extensive bilateral bullous emphysema changes as well as some pleural thickening and pleural calcification with old granulomatou s disease. Stable right sided traction bronchiectasis. No mediastinal mass or adenopathy. No acute pl eural effusion. Upper abdomen is unremarkable. The very tiny pleural based nodule in the right safe expert ior chest is stable. IMPRESSION: Lung rads 3 - probable benign findings. Stable appearance of the extensive bullous emphysema changes and bronchiectasis and right sided volume loss from the prior study. Continued short term follow up w ith low dose CT in 6 months. POS: [facility]
[2017-11-13] MEDS ORDERED: Docusate 100 MG CAP PO PRN (12:56)
[2017-11-13] MEDS ORDERED: traZODone HCl 50 MG TAB PO SCH (21:00)
== END 2017-11-13 15:01 | DRG 191 ==
LOC: ERS 02:28 → 2NO 04:00
PROVIDERS: ADMIT Hospitalist; ATTEND Hospitalist
DX: J44.1 Chronic obstructive pulmonary disease with (acute) exacerbation (principal); B19.10 Unspecified viral hepatitis B without hepatic coma; J96.10 Chronic respiratory failure, unspecified whether with hypoxia or hypercapnia; Z87.891 Personal history of nicotine dependence; B19.20 Unspecified viral hepatitis C without hepatic coma; Z99.81 Dependence on supplemental oxygen; I25.10 Atherosclerotic heart disease of native coronary artery without angina pectoris
CPT/HCPCS: 36415; 71045; 71250; 80053; 82553; 83605; 83880; 84484; 85025; 87040; 93005; 94640; 94760; J1650; J2920; J7620

== ENCOUNTER 2017-11-28 14:49 | Emergency (ER) | payer OTHER ==
[2017-11-28] MEDS ORDERED: Iopamidol 370 76% 100 ML VIAL ONE (15:05)
[2017-11-28] MEDS ORDERED: Metoclopramide HCl 10 MG/2 ML VIAL ONE (15:57)
[2017-11-28] MEDS ORDERED: diphenhydrAMINE 50 MG/ML VIAL ONE (15:57)
[2017-11-28 16:04] LABS: #Basophils 0.1 thou/uL (0.0-0.2); #Eosinphils 0.2 thou/uL (0.0-0.7); #Lymphocytes 1.9 thou/uL (1.20-3.40); #Monocytes 0.7 thou/uL (0.11-0.59); #Neutrophils 5.3 thou/uL (1.40-6.50); %Basophils 0.7 % (0.0-1.0); %Lymphocytes 23.8 % (21.0-51.0); %Monocytes 9.1 % (0.0-10.0); %Neutrophils 64.5 % (42.0-75.0); Hemoglobin 11.7 g/dL (12.0-16.0); Mean Corpuscular HGB CONC 33.2 g/dL (32.0-36.0); Mean Corpuscular Hemoglobin 30.7 pg (27.0-31.0); Mean Corpuscular Volume 92.4 fL (78.0-98.0); Mean Platelet Volume 5.7 fL (7.4-10.4); Platelet Count 286 thou/uL (130-400); RBC Distribution Width 12.3 % (11.5-14.5); Red Blood Cell (RBC) Count 3.81 mill/uL (4.20-5.40); White Blood Cell (WBC) Count 8.2 thou/uL (4.8-10.8)
[2017-11-28 16:23] LABS: ALT (SGPT) 20 U/L (8-55); AST (SGOT) 20 U/L (5-34); Albumin 3.4 g/dL (3.4-4.8); Alkaline Phosphatase 100 U/L (40-150); Anion Gap 10 mmol/L (10-20); BUN (Urea Nitrogen) 11 mg/dL (9.8-20.1); Bilirubin, Total 0.4 mg/dL (0.2-1.2); Calc. Creatinine Clearance 0 mL/min (70-130); Calcium 8.9 mg/dL (7.8-10.44); Carbon Dioxide 33 mmol/L (23-31); Chloride 101 mmol/L (98-107); Estimated GFR-MDRD Greater than 90; Globulin 2.8 g/dL (2.4-3.5); Glucose 86 mg/dL (80-115); Potassium 3.6 mmol/L (3.5-5.1); Protein, Total 6.2 g/dL (6.0-8.3); Sodium 140 mmol/L (136-145)
--- NOTE | 2017-11-28 16:24 | RAD ---
CHEST ONE VIEW: 11/28/17 HISTORY: Chest pain. COMPARISON: Chest radiograph 10/02/17. FINDINGS: Chronic volume loss right lung. Rightward mediastinal shift, chronic. There is some scarring in the left upper lobe. IMPRESSION: Unchanged examination of chest without acute intrathoracic abnormality. POS: [facility]
[2017-11-28 16:29] LABS: CKMB 2.7 ng/mL (0-6.6); Troponin I Less than 0.010 ng/mL (< 0.028)
[2017-11-28 17:22] LABS: Bilirubin Negative (Negative); Blood, Urine Negative (Negative); Clarity CLEAR (Clear); Glucose, Urine (Dipstick) Negative (Negative); Leukocyte Negative (Negative); Nitrite Negative (Negative); Protein, Urine (Dipstick) Negative (Neg-Trace); Specific Gravity, Urine 1.006 (1.002-1.036); Urobilinogen 0.2 mg/dL (0.2-1.0); pH, Urine 7.5 (5.0-9.0)
--- NOTE | 2017-11-28 20:23 | CT ---
CT ANGIOGRAM OF THE CHEST 11/28/17 COMPARISON: 11/13/17, 12/31/14. HISTORY: Chest pain. TECHNIQUE: CT angiogram of the chest is performed in the axial plane. Three dimensional reformatted images are s ubmitted for interpretation. FINDINGS: There are chronic changes of the lung parenchyma with a diminished volume of the right lung. Extensiv e and essentially stable emphysematous change. Stable scarring in both lung apices. Rightward deviation of the mediastinum due to diminished right lung volume. No mediastinal mass, lymp hadenopathy, or hematoma. Normal heart size. The visualized aorta has an overall normal appearance. N o aneurysm, dissection, or periaortic fat stranding. The visualized upper solid organs are unremarkab le. Adequate contrast opacification of the pulmonary arterial system to the level of the segmental ar teries. No filling defect to suggest thromboembolism. There are extensive compressive fractures throughout the thoracic spine with moderate to severe loss of vertebral body height. Vertebra plana in the L2 vertebral body level is noted. Findings are unchan ged from recent CT. IMPRESSION: 1. No evidence of pulmonary artery embolism to the level of the segmental arteries. 2. Postoperative and chronic findings as described above. POS: [facility]
--- NOTE | 2017-12-01 11:15 | EKG ---
Test Reason : Blood Pressure : / mmHG Vent. Rate : 090 BPM Atrial Rate : 090 BPM P-R Int : 130 ms QRS Dur : 060 ms QT Int : 348 ms P-R-T Axes : 111 173 116 degrees QTc Int : 425 ms Suspect arm lead reversal, interpretation assumes no reversal Normal sinus rhythm Right axis deviation Abnormal ECG No ST elevation/AR Confirmed by QUINCY DAMON M.D. ([id number]), commissioning editor ESTELITA LAI ([id number]) on 12/01/2017 11:14:58 AM Referred By: Confirmed By:QUINCY DAMON M.D.
== END 2017-11-28 19:29 | disposition home or self-care (01) ==
LOC: ERS 14:49
DX: S32.029A Unspecified fracture of second lumbar vertebra, initial encounter for closed fracture (principal); J44.9 Chronic obstructive pulmonary disease, unspecified; I25.10 Atherosclerotic heart disease of native coronary artery without angina pectoris; F41.9 Anxiety disorder, unspecified; F31.9 Bipolar disorder, unspecified; F20.9 Schizophrenia, unspecified; Z87.891 Personal history of nicotine dependence; Z79.899 Other long term (current) drug therapy; Z87.442 Personal history of urinary calculi; Z79.82 Long term (current) use of aspirin; V89.2XXA Person injured in unspecified motor-vehicle accident, traffic, initial encounter
CPT/HCPCS: 71045; 71275; 80053; 81003; 82553; 83880; 84484; 85025; 85379; 93005; 96365; 96375; J1200; J2765

== ENCOUNTER 2017-12-04 20:35 | Emergency (ER) | payer OTHER | END 2017-12-04 20:56 | disposition left against medical advice (07) | LOC: ERS 20:35 | DX: Z53.21 Procedure and treatment not carried out due to patient leaving prior to being seen by health care provider (principal) ==

== ENCOUNTER 2017-12-06 15:33 | Emergency (ER) | payer OTHER ==
--- NOTE | 2017-12-06 16:16 | RAD ---
PORTABLE CHEST: 12/06/17 PROVIDED CLINICAL HISTORY: Dyspnea. FINDINGS: Comparison is made with the study dated 11/28/17. The cardiac and mediastinal silhouette is unchanged in appearance. Extensive postoperative changes ar e redemonstrated. There is shift of the mediastinal contents rightward on this basis. There are areas of parenchymal opacity The left lung appears unchanged. There is no definite pleural fluid or pneum othorax apparent. IMPRESSION: Foci of parenchymal opacity involving the right upper lung zone are potentially new. Correlate with c oncerns for pneumonia. Followup is recommended. POS: [facility]
[2017-12-06 16:42] LABS: #Eosinphils 0.2 thou/uL (0.0-0.7); #Lymphocytes 1.3 thou/uL (1.20-3.40); #Monocytes 0.5 thou/uL (0.11-0.59); #Neutrophils 3.7 thou/uL (1.40-6.50); %Basophils 0.2 % (0.0-1.0); %Lymphocytes 22.6 % (21.0-51.0); %Monocytes 8.3 % (0.0-10.0); %Neutrophils 65.8 % (42.0-75.0); Hemoglobin 12.1 g/dL (12.0-16.0); Mean Corpuscular HGB CONC 32.4 g/dL (32.0-36.0); Mean Corpuscular Hemoglobin 30.3 pg (27.0-31.0); Mean Corpuscular Volume 93.3 fL (78.0-98.0); Platelet Count 239 thou/uL (130-400); RBC Distribution Width 12.2 % (11.5-14.5); White Blood Cell (WBC) Count 5.7 thou/uL (4.8-10.8)
[2017-12-06 17:07] LABS: ALT (SGPT) 27 U/L (8-55); AST (SGOT) 22 U/L (5-34); Albumin 3.8 g/dL (3.4-4.8); Alkaline Phosphatase 119 U/L (40-150); Anion Gap 12 mmol/L (10-20); BUN (Urea Nitrogen) 9 mg/dL (9.8-20.1); Bilirubin, Total 0.6 mg/dL (0.2-1.2); Calc. Creatinine Clearance 0 mL/min (70-130); Carbon Dioxide 31 mmol/L (23-31); Chloride 101 mmol/L (98-107); Estimated GFR-MDRD 86; Globulin 3.4 g/dL (2.4-3.5); Glucose 91 mg/dL (80-115); Potassium 3.5 mmol/L (3.5-5.1); Protein, Total 7.2 g/dL (6.0-8.3); Sodium 140 mmol/L (136-145)
[2017-12-06 17:10] LABS: CKMB 2.8 ng/mL (0-6.6); Troponin I Less than 0.010 ng/mL (< 0.028)
[2017-12-06] MEDS ORDERED: Albuterol Sulfate 2.5 mg/0.5 ml Neb ONE ×2 (17:10)
[2017-12-06] MEDS ORDERED: Water For Inject, Bacteriostat 0 ML ONE (17:13)
[2017-12-06] MEDS ORDERED: methylPREDNISolone Sod Succ/PF 125 MG/2 ML VIAL ONE (17:13)
[2017-12-06] MEDS ORDERED: Doxycycline 100 MG CAP PO SCH (17:30)
[2017-12-06 17:31] LABS: Bilirubin Negative (Negative); Blood, Urine Negative (Negative); Clarity CLEAR (Clear); Glucose, Urine (Dipstick) Negative (Negative); Leukocyte Moderate (Negative); Nitrite Negative (Negative); Protein, Urine (Dipstick) Negative (Neg-Trace); Specific Gravity, Urine 1.012 (1.002-1.036); pH, Urine 7.5 (5.0-9.0)
[2017-12-06 17:34] LABS: Hyaline Casts/LPF 0-3 HYALINE CAST LPF (0-3 Hyaline); Pathc Cast-AUWi Flag 0.43 (0-2.49)
[2017-12-06 17:35] LABS: Yeast-AUWi Flag 38.9 (0-25.0)
[2017-12-06 17:50] LABS: Bacteria/HPF 2+ HPF (None Seen)
[2017-12-06 17:51] LABS: Renal Epithelial None Seen HPF (0-3); Transitional Epithelial NONE SEEN HPF (0-3); Yeast-All Forms Rare HPF (None Seen)
== END 2017-12-06 18:07 | disposition home or self-care (01) ==
LOC: ERS 15:33
DX: J18.9 Pneumonia, unspecified organism (principal); M54.2 Cervicalgia; R07.9 Chest pain, unspecified; G89.29 Other chronic pain; I25.810 Atherosclerosis of coronary artery bypass graft(s) without angina pectoris; Z86.19 Personal history of other infectious and parasitic diseases; Z87.442 Personal history of urinary calculi; J44.9 Chronic obstructive pulmonary disease, unspecified; Z99.81 Dependence on supplemental oxygen; M81.0 Age-related osteoporosis without current pathological fracture; F41.9 Anxiety disorder, unspecified; F31.9 Bipolar disorder, unspecified; F20.9 Schizophrenia, unspecified; Z87.891 Personal history of nicotine dependence; Z79.51 Long term (current) use of inhaled steroids; Z79.899 Other long term (current) drug therapy; Z79.82 Long term (current) use of aspirin
CPT/HCPCS: 36415; 71045; 80053; 81003; 81015; 82553; 83880; 84484; 85025; 94640; 96372; J2930; J7611

== ENCOUNTER 2017-12-12 13:41 | Outpatient (CLI) | payer OTHER | END 2017-12-12 13:42 | disposition home or self-care (01) | LOC: BICULT 13:41 | PROVIDERS: ATTEND Urology | DX: N20.0 Calculus of kidney (principal) | CPT/HCPCS: 36415; 74018; 76770; 80048; 81001; 87077; 87086; 87186 ==

== ENCOUNTER 2017-12-31 20:24 | Emergency (ER) | payer OTHER ==
[2017-12-31 21:39] LABS: Bilirubin Negative (Negative); Blood, Urine Moderate (Negative); Clarity CLOUDY (Clear); Glucose, Urine (Dipstick) Negative (Negative); Leukocyte Small (Negative); Nitrite Negative (Negative); Protein, Urine (Dipstick) Negative (Neg-Trace); Specific Gravity, Urine 1.019 (1.002-1.036); Urobilinogen 0.2 mg/dL (0.2-1.0); pH, Urine 7.5 (5.0-9.0)
[2017-12-31 21:42] LABS: Bacteria/HPF None Seen HPF (None Seen); Hyaline Casts/LPF 7-10 HYALINE CAST LPF (0-3 Hyaline); Pathc Cast-AUWi Flag 1.45 (0-2.49); RBC/HPF GREATER THAN 50-TNTC HPF (0-3); Squamous Epithelial 0-3 HPF (0-3); WBC/HPF 0-3 HPF (0-3)
[2017-12-31 22:07] LABS: #Eosinphils 0.2 thou/uL (0.0-0.7); #Lymphocytes 1.4 thou/uL (1.20-3.40); #Monocytes 0.6 thou/uL (0.11-0.59); #Neutrophils 3.9 thou/uL (1.40-6.50); %Basophils 0.7 % (0.0-1.0); %Eosinophils 3.2 % (0.0-10.0); %Monocytes 9.8 % (0.0-10.0); %Neutrophils 63.4 % (42.0-75.0); Hemoglobin 12.2 g/dL (12.0-16.0); Mean Corpuscular HGB CONC 32.4 g/dL (32.0-36.0); Mean Corpuscular Hemoglobin 29.9 pg (27.0-31.0); Mean Corpuscular Volume 92.2 fL (78.0-98.0); Mean Platelet Volume 6.3 fL (7.4-10.4); Platelet Count 225 thou/uL (130-400); RBC Distribution Width 12.4 % (11.5-14.5); Red Blood Cell (RBC) Count 4.08 mill/uL (4.20-5.40); White Blood Cell (WBC) Count 6.2 thou/uL (4.8-10.8)
[2017-12-31 22:15] LABS: PTT 26.6 SEC (22.9-36.1); Prothrombin Time 13.1 SEC (12.0-14.7)
[2017-12-31 22:29] LABS: ALT (SGPT) 26 U/L (8-55); AST (SGOT) 20 U/L (5-34); Albumin 3.3 g/dL (3.4-4.8); Alkaline Phosphatase 119 U/L (40-150); Anion Gap 9 mmol/L (10-20); BUN (Urea Nitrogen) 15 mg/dL (9.8-20.1); Bilirubin, Total 0.5 mg/dL (0.2-1.2); Calc. Creatinine Clearance 0 mL/min (70-130); Calcium 8.8 mg/dL (7.8-10.44); Carbon Dioxide 33 mmol/L (23-31); Chloride 101 mmol/L (98-107); Estimated GFR-MDRD 88; Glucose 153 mg/dL (80-115); Potassium 3.7 mmol/L (3.5-5.1); Protein, Total 6.3 g/dL (6.0-8.3); Sodium 139 mmol/L (136-145)
[2017-12-31 22:34] LABS: CKMB 2.7 ng/mL (0-6.6); Troponin I Less than 0.010 ng/mL (< 0.028)
--- NOTE | 2018-01-02 12:44 | EKG ---
Test Reason : Blood Pressure : / mmHG Vent. Rate : 093 BPM Atrial Rate : 093 BPM P-R Int : 124 ms QRS Dur : 060 ms QT Int : 344 ms P-R-T Axes : 065 008 070 degrees QTc Int : 427 ms Normal sinus rhythm Normal ECG Confirmed by ADRIAN ESTRADA D.O. ([id number]), editor book TARA VOGEL ([id number]) on 01/02/2018 12:44:19 PM Referred By: Confirmed By:ADRIAN ESTRADA D.O.
== END 2017-12-31 22:32 | disposition home or self-care (01) ==
LOC: ERS 20:24
DX: R39.89 Other symptoms and signs involving the genitourinary system (principal); F31.9 Bipolar disorder, unspecified; F20.9 Schizophrenia, unspecified; F41.9 Anxiety disorder, unspecified; H26.9 Unspecified cataract; I50.9 Heart failure, unspecified; I25.10 Atherosclerotic heart disease of native coronary artery without angina pectoris; J43.9 Emphysema, unspecified; Z79.899 Other long term (current) drug therapy; Z87.442 Personal history of urinary calculi; Z87.891 Personal history of nicotine dependence
CPT/HCPCS: 36415; 51701; 80053; 81003; 81015; 82553; 83880; 84484; 85025; 85610; 85730; 87086; 93005; A4353

== ENCOUNTER 2018-01-11 17:57 | Emergency (ER) | payer OTHER ==
--- NOTE | 2018-01-11 20:01 | RAD ---
LEFT KNEE FOUR VIEWS: 01/11/18 HISTORY: Left knee pain. COMPARISON: 08/31/17. FINDINGS: Joint spaces are preserved. No acute fracture, dislocation, or aggressive osseous erosions. The osseo us structures are demineralized. Nonaggressive periosteal reaction along the medial aspect of the dis joshua femur and the lateral aspect of the proximal tibia are less pronounced than on the prior study. N o aggressive osseous destruction is evident. IMPRESSION: 1. No acute osseous abnormalities are demonstrated. 2. Chronic findings of osteoporosis and benign appearing periosteal reaction are similar to the previous exam. It may be related to hypertrophic osteoarthropathy of chronic lung disease. POS: [facility]
--- NOTE | 2018-01-11 20:03 | RAD ---
CHEST ONE VIEW: 01/11/18 HISTORY: Chest pain. COMPARISON: 12/06/17. FINDINGS: Cardiac silhouette is magnified by projection. Rightward shift of mediastinum has become more pronoun quinton. Parenchymal scarring is again demonstrated at the right base. Left lung hyperinflated. No eviden ce of pneumothorax. IMPRESSION: Further atelectasis right lung with associated rightward shift mediastinum. Findings are otherwise st able. POS: [facility]
--- NOTE | 2018-01-11 20:05 | RAD ---
RIGHT KNEE FOUR VIEWS: 01/11/18 HISTORY: Right knee pain. FINDINGS: Joint spaces are preserved. No acute fracture, dislocation, or aggressive osseous erosions. Osseous s tructures are demineralized. Benign appearing periosteal reaction involves the distal femur. No aggre ssive osseous destruction. IMPRESSION: Osteoporosis. Benign appearing periosteal reaction is similar to the right knee and likely reflex hyp ertrophic osteoarthropathy related to chronic lung disease. POS: [facility]
[2018-01-11] MEDS ORDERED: Acetaminophen 500 MG TAB ONE (20:27)
== END 2018-01-11 21:09 | disposition home or self-care (01) ==
LOC: ERS 17:57
DX: S80.01XA Contusion of right knee, initial encounter (principal); S80.02XA Contusion of left knee, initial encounter; J44.1 Chronic obstructive pulmonary disease with (acute) exacerbation; I25.10 Atherosclerotic heart disease of native coronary artery without angina pectoris; I50.9 Heart failure, unspecified; F41.9 Anxiety disorder, unspecified; F31.9 Bipolar disorder, unspecified; F20.9 Schizophrenia, unspecified; Z87.891 Personal history of nicotine dependence; Z79.899 Other long term (current) drug therapy; Z79.82 Long term (current) use of aspirin; W51.XXXA Accidental striking against or bumped into by another person, initial encounter
CPT/HCPCS: 71045

== ENCOUNTER 2018-02-02 20:02 | Emergency (ER) | payer OTHER ==
[2018-02-02 21:09] LABS: #Eosinphils 0.2 thou/uL (0.0-0.7); #Lymphocytes 1.7 thou/uL (1.20-3.40); #Monocytes 0.6 thou/uL (0.11-0.59); #Neutrophils 3.6 thou/uL (1.40-6.50); %Basophils 0.7 % (0.0-1.0); %Eosinophils 3.1 % (0.0-10.0); %Lymphocytes 27.5 % (21.0-51.0); %Monocytes 9.2 % (0.0-10.0); %Neutrophils 59.5 % (42.0-75.0); Hemoglobin 12.1 g/dL (12.0-16.0); Mean Corpuscular Hemoglobin 29.7 pg (27.0-31.0); Mean Corpuscular Volume 92.8 fL (78.0-98.0); Mean Platelet Volume 6.3 fL (7.4-10.4); Platelet Count 273 thou/uL (130-400); RBC Distribution Width 12.4 % (11.5-14.5); Red Blood Cell (RBC) Count 4.07 mill/uL (4.20-5.40); White Blood Cell (WBC) Count 6.1 thou/uL (4.8-10.8)
--- NOTE | 2018-02-02 21:27 | RAD ---
RADIOGRAPH CHEST 2 VIEWS: Date: 02/02/18 Time: 8:48 p.m. HISTORY: 63-year-old female with left sided chest pain. COMPARISON: 01/11/18. FINDINGS: Chronic cardiomediastinal shift to the right. Right pulmonary scarring and distortion. Hyperinflation bilaterally consistent with COPD. Biapical chronic fibrotic pulmonary changes, right greater than le ft. No pleural effusion. Several compression fractures of thoracic vertebral bodies. No pleural effus ion or pneumothorax. No interval change overall. IMPRESSION: 1. No acute findings. 2. Emphysema. 3. Status post right lower lobectomy. 4. Chronic changes, including scarring, especially at the lung apices. 5. Several age-indeterminate compression fractures of the thoracic spine. 6. No major interval change. ETTA [] POS: [facility]
[2018-02-02 21:29] LABS: ALT (SGPT) 25 U/L (8-55); AST (SGOT) 27 U/L (5-34); Albumin 3.8 g/dL (3.4-4.8); Alkaline Phosphatase 102 U/L (40-150); Anion Gap 8 mmol/L (10-20); BUN (Urea Nitrogen) 13 mg/dL (9.8-20.1); Bilirubin, Total 0.7 mg/dL (0.2-1.2); Calc. Creatinine Clearance 0 mL/min (70-130); Calcium 9.5 mg/dL (7.8-10.44); Carbon Dioxide 35 mmol/L (23-31); Chloride 100 mmol/L (98-107); Estimated GFR-MDRD 89; Globulin 3.6 g/dL (2.4-3.5); Glucose 71 mg/dL (80-115); Lipase 27 U/L (8-78); Protein, Total 7.4 g/dL (6.0-8.3); Sodium 139 mmol/L (136-145)
[2018-02-02 21:34] LABS: Troponin I Less than 0.010 ng/mL (< 0.028)
[2018-02-02] MEDS ORDERED: predniSONE 20 MG TAB ONE (21:42)
[2018-02-02] MEDS ORDERED: Acetaminophen 500 MG TAB ONE (21:57)
== END 2018-02-02 23:02 | disposition home or self-care (01) ==
LOC: ERS 20:02
DX: J44.1 Chronic obstructive pulmonary disease with (acute) exacerbation (principal); R07.89 Other chest pain; I25.10 Atherosclerotic heart disease of native coronary artery without angina pectoris; I50.9 Heart failure, unspecified; M81.0 Age-related osteoporosis without current pathological fracture; F31.9 Bipolar disorder, unspecified; F41.9 Anxiety disorder, unspecified; F20.9 Schizophrenia, unspecified; Z87.891 Personal history of nicotine dependence
CPT/HCPCS: 36415; 71046; 80053; 82553; 83690; 83880; 84484; 85025; 93005; 94640; 94760; J7506; J7620

== ENCOUNTER 2018-02-15 17:04 | Emergency (ER) | payer OTHER | END 2018-02-15 18:21 | disposition home or self-care (01) | LOC: ERS 17:04 | DX: J06.9 Acute upper respiratory infection, unspecified (principal); I25.10 Atherosclerotic heart disease of native coronary artery without angina pectoris; I50.9 Heart failure, unspecified; M81.0 Age-related osteoporosis without current pathological fracture; F41.9 Anxiety disorder, unspecified; F20.9 Schizophrenia, unspecified; F31.9 Bipolar disorder, unspecified; Z87.891 Personal history of nicotine dependence | CPT/HCPCS: 99283 ==

== ENCOUNTER 2018-02-26 19:49 | Emergency (ER) | payer OTHER ==
[2018-02-26] MEDS ORDERED: Ondansetron ODT 4 MG TAB ONE (20:41)
[2018-02-26 21:03] LABS: Bilirubin Negative (Negative); Blood, Urine Negative (Negative); Clarity CLEAR (Clear); Glucose, Urine (Dipstick) Negative (Negative); Leukocyte Small (Negative); Nitrite Negative (Negative); Protein, Urine (Dipstick) Negative (Neg-Trace); Specific Gravity, Urine 1.013 (1.002-1.036); Urobilinogen 0.2 mg/dL (0.2-1.0); pH, Urine 6.5 (5.0-9.0)
[2018-02-26 21:05] LABS: Bacteria/HPF None Seen HPF (None Seen); Hyaline Casts/LPF 0-3 HYALINE CAST LPF (0-3 Hyaline); Pathc Cast-AUWi Flag 0.29 (0-2.49); Squamous Epithelial 0-3 HPF (0-3); WBC/HPF 0-3 HPF (0-3)
== END 2018-02-26 21:30 | disposition home or self-care (01) ==
LOC: ERS 19:49
DX: B37.9 Candidiasis, unspecified (principal); I25.10 Atherosclerotic heart disease of native coronary artery without angina pectoris; I50.9 Heart failure, unspecified; J44.9 Chronic obstructive pulmonary disease, unspecified; F41.9 Anxiety disorder, unspecified; F31.9 Bipolar disorder, unspecified; F20.9 Schizophrenia, unspecified; Z87.891 Personal history of nicotine dependence; Z79.899 Other long term (current) drug therapy; Z79.82 Long term (current) use of aspirin
CPT/HCPCS: 81003; 81015; J7620; Q0162

== ENCOUNTER 2018-03-15 11:53 | Emergency (ER) | payer OTHER | END 2018-03-15 13:06 | disposition home or self-care (01) | LOC: ERS 11:53 | DX: J44.1 Chronic obstructive pulmonary disease with (acute) exacerbation (principal); I50.9 Heart failure, unspecified; F41.9 Anxiety disorder, unspecified; F31.9 Bipolar disorder, unspecified; F20.9 Schizophrenia, unspecified; M81.0 Age-related osteoporosis without current pathological fracture; Z87.891 Personal history of nicotine dependence; Z79.82 Long term (current) use of aspirin; Z79.899 Other long term (current) drug therapy | CPT/HCPCS: 94640 ==

== ENCOUNTER 2018-03-17 18:09 | Observation (INO) | payer OTHER ==
[2018-03-17 18:41] LABS: Actual Bicarbonate (HCO3a) 28.8 mEq/L (22-28); Analyzer IN Cardio ER; Base Excess (BEa) 4.8 mEq/L (-2.0 to +3.0); CO2 Tension 40.4 mmHg (35.0-45.0); Calcium, Ionized 1.26 mmol/L (1.12-1.30); Carboxyhemoglobin (COHb) 0.3 gm% (0.0-3.0); Hemoglobin (Hb) 12.9 g/dL (12.0-16.0); O2 Tension (PaO2) 113.1 mmHg (> 80.0); Potassium - ABG Lab 3.63 mmol/L (3.70-5.30); pH, Arterial 7.47 (7.35-7.45)
[2018-03-17 18:43] LABS: Puncture Site L RADIAL
[2018-03-17 18:44] LABS: #Eosinphils 0.2 thou/uL (0.0-0.7); #Lymphocytes 2.9 thou/uL (1.20-3.40); #Monocytes 0.6 thou/uL (0.11-0.59); #Neutrophils 2.7 thou/uL (1.40-6.50); %Basophils 0.7 % (0.0-1.0); %Eosinophils 2.4 % (0.0-10.0); %Lymphocytes 45.1 % (21.0-51.0); %Monocytes 8.8 % (0.0-10.0); %Neutrophils 42.9 % (42.0-75.0); Hemoglobin 12.7 g/dL (12.0-16.0); Mean Corpuscular Hemoglobin 28.2 pg (27.0-31.0); Mean Corpuscular Volume 90.8 fL (78.0-98.0); Mean Platelet Volume 6.3 fL (7.4-10.4); Platelet Count 298 thou/uL (130-400); RBC Distribution Width 12.4 % (11.5-14.5); Red Blood Cell (RBC) Count 4.49 mill/uL (4.20-5.40); White Blood Cell (WBC) Count 6.4 thou/uL (4.8-10.8)
[2018-03-17] MEDS ORDERED: methylPREDNISolone Sod Succ/PF 125 MG/2 ML VIAL ONE (18:54)
--- NOTE | 2018-03-17 19:05 | RAD ---
UPRIGHT PORTABLE CHEST ONE VIEW: History: 63-year-old female with history of dyspnea, chest pain, wheezing. Comparison: None. FINDINGS: Marked right sided volume loss with some apical pleural thickening as well as some linear and parench ymal changes. Secondary hyperinflation of the left chest. Increased markings in the left upper lobe a nd apex, stable. Flattening of the hemidiaphragms. Multiple collapsed thoracic vertebral bodies. Some sclerosis of both humeral heads, nonspecific. IMPRESSION: Stable appearing chest with right sided volume loss and right pleural and parenchymal changes and min imal parenchymal changes in the left upper lobe with bony demineralization and multiple collapsed tho racic vertebral bodies, unchanged. POS: [facility]
[2018-03-17 19:33] LABS: ALT (SGPT) 30 U/L (8-55); AST (SGOT) 32 U/L (5-34); Alkaline Phosphatase 89 U/L (40-150); Anion Gap 13 mmol/L (10-20); BUN (Urea Nitrogen) 13 mg/dL (9.8-20.1); Calc. Creatinine Clearance 0 mL/min (70-130); Calcium 10.8 mg/dL (7.8-10.44); Carbon Dioxide 31 mmol/L (23-31); Chloride 97 mmol/L (98-107); Estimated GFR-MDRD Greater than 90; Globulin 3.9 g/dL (2.4-3.5); Glucose 79 mg/dL (80-115); Potassium 3.8 mmol/L (3.5-5.1); Protein, Total 7.9 g/dL (6.0-8.3); Sodium 137 mmol/L (136-145)
--- NOTE | 2018-03-17 19:33 | PDOC.FPRHP ---
- History of Present Illness Chief Complaint: Wheezing History of Present Illness: Patient presents from long term with CC of difficulty breathing/wheezing. Was seen in clinic Sunday and given rx for steroids for exacerbation. Went to long term on Sunday and reports she has not received her home meds or inhalers since being there. Worsening wheezing, SOB, green productive cough since that time. Denies fever. Additionally reports pain in various areas of her body. Reports dysuria. ED Course: duoneb, methylprednisolone 125 - Allergies/Adverse Reactions Allergies Allergy/AdvReac Type Severity Reaction Status Date / Time ibuprofen Allergy "get Verified 03/17/18 21:48 shakey" NSAIDS (Non-Steroidal Allergy Verified 03/17/18 21:48 Anti-Inflamma naproxen AdvReac Severe shaky Verified 03/17/18 21:48 - Home Medications Medication Instructions Recorded Confirmed Type Calcium Carbonate [Caltrate 600] 600 mg PO DAILY 06/09/14 03/17/18 History Alendronate Sodium 70 mg PO Q7D 12/31/14 03/17/18 History traZODone HCl [Desyrel] 50 mg PO HS 08/07/15 03/17/18 History Budesonide-Formoterol [Symbicort 1 puff INH BID 04/14/16 03/17/18 History 160-4.5] predniSONE 20 mg PO BID-WM #10 tab 11/13/17 03/17/18 Rx Acyclovir [Zovirax] 400 mg PO BID 03/17/18 03/17/18 History Albuterol Sulfate [Ventolin Hfa] 18 gm IH ONE PRN 03/17/18 03/17/18 History Aspirin [Aspirin Chewable] 81 mg PO DAILY 03/17/18 03/17/18 History Dextromethorphan Polistirex 30 mg PO BID PRN 03/17/18 03/17/18 History [Delsym] Ipratropium [Atrovent HFA] 2 puff INH DAILY 03/17/18 03/17/18 History tiZANidine HCl [Tizanidine HCl] 4 mg PO DAILY 03/17/18 03/17/18 History - History PMHx: COPD, SHV, Nephrolithiasis, Hep B, Hep C, CAD, osteoporosis, anxiety, bipolar, schizoprenia, peripheral neuropathy PSHx: b/l cataracts, CABG, renal stents, R oopherectomy FHx: noncontributory Social: Denies alcohol and drug use. (previous hx of cocaine use per records). Reports quit smoking 1 year ago, exact history difficult to obtain. - Review of Systems General: reports: fatigue. denies: fever/chills Eyes: denies: eye pain, vision changes ENT: denies: nasal congestion, rhinorrhea Respiratory: reports: cough, shortness of breath, exercise intolerance Cardiovascular: reports: chest pain. denies: palpitation Gastrointestinal: denies: nausea, vomiting, diarrhea, constipation Genitourinary: reports: incontinence, dysuria Skin: denies: rashes, lesions Musculoskeletal: reports: pain, tenderness Neurological: denies: numbness, syncope - Vital signs BP: 135/84 HR: 96 RR: 23 Pox: 89% on 2L Wt: 52 kg - Physical Exam Constitutional: NAD, awake, alert and oriented HEENT: normocephalic and atraumatic, PERRLA, grossly normal vision, grossly normal hearing, MMM, oropharynx clear Neck: supple, trachea midline Heart: RRR, normal S1/S2, no edema Lungs: other (diffuse expiratory wheeze, decreased breath sounds lala lower lobes ) Abdomen: soft, bowel sounds present, no masses/distention Musculoskeletal: normal structure, normal tone Neurological: no focal deficit Skin: no rash/lesions, good turgor, capillary refill <2 seconds Heme/Lymphatic: no unusual bruising or bleeding Psychiatric: intact recent and remote memory FMR H&P: Results - Labs Result Diagrams: 03/17/18 18:37 03/17/18 19:02 Lab results: WBC 6.4 thou/uL (4.8-10.8) 03/17/18 18:37 Hgb 12.7 g/dL (12.0-16.0) 03/17/18 18:37 Hct 40.8 % (36.0-47.0) 03/17/18 18:37 MCV 90.8 fL (78.0-98.0) 03/17/18 18:37 Plt Count 298 thou/uL (130-400) 03/17/18 18:37 Neutrophils % 42.9 % (42.0-75.0) 03/17/18 18:37 ABG pH 7.47 (7.35-7.45) H 03/17/18 18:35 ABG pCO2 40.4 mmHg (35.0-45.0) 03/17/18 18:35 ABG pO2 113.1 mmHg (> 80.0) H 03/17/18 18:35 FMR H&P: A/P - Problem List (1) COPD with acute exacerbation Current Visit: No Status: Acute Code(s): J44.1 - CHRONIC OBSTRUCTIVE PULMONARY DISEASE W (ACUTE) EXACERBATION (2) Dysuria Current Visit: Yes Status: Acute Code(s): R30.0 - DYSURIA (3) CAD (coronary artery disease), [place] coronary artery Current Visit: No Status: Chronic Code(s): I25.10 - ATHSCL HEART DISEASE OF [place] CORONARY ARTERY W/O ANG PCTRS (4) Hypertension Current Visit: No Status: Chronic Code(s): I10 - ESSENTIAL (PRIMARY) HYPERTENSION (5) Nephrolithiasis Current Visit: No Status: Acute (6) Bipolar 2 disorder Current Visit: No Status: Chronic Code(s): F31.81 - BIPOLAR II DISORDER (7) Chronic hepatitis B Current Visit: No Status: Chronic Code(s): B18.1 - CHRONIC VIRAL HEPATITIS B WITHOUT DELTA-AGENT (8) Chronic obstructive lung disease Current Visit: No Status: Chronic - Plan 63 yo F with PMH COPD presents with wheezing, increased sputum and is admitted for COPD exacerbation. COPD Exacerbation - increased sputum production, wheezing, difficulty breathing, afebrile, no leukocytosis - received steroids in ED - was started on prednisone 40 daily in outpatient setting 03/13 for 10 day course. Continue prednisone 40 daily. - start levaquin (03/17) for 5 day course - duonebs q4h - on 2L NC at home. No increased O2 requirement now. Dysuria - hx of nephrolithiasis with stents - UA pending HSV - continue home acyclovir Peripheral neuropathy - continue home gabapentin and tizanadine Bipolar - continue home trazodone Osteoporosis - continue alendronate, calcium Hx of Hep B and C Diet: Dispo: admit for observation FMR H&P: Upper Level - Pertinent history 63 yo AAF with PMH of end stage COPD on chronic home oxygen therapy presenting from long term with worsening productive cough, SOB, and wheezing. Per pt, she was sent to long term on Sunday by rolloff truck driver due to a warrant without bail and they have not been giving her her regular medications. Over the weekend, the pt has had more green sputum production, SOB, and wheezing. Pt also c/o dysuria. - Pertinent findings Gen: thin in NAD CV: RRR Resp: prolonged expiratory phase with diffuse exp wheezing BL - Plan Date/Time: 03/17/18 193 I, Haresh Neal MD PGY3, have evaluated this patient and agree with findings/ plan as outlined by security intern resident. Pertinent changes/additions are listed here. 1. Acute COPD exacerbation -Pt presents with worsening productive cough, SOB, and wheezing after not having regular medications for 2-3 days. ABG reveals no hypoxia or hypercapnia. Will observe overnight. -Continue with duonebs and baseline oxygen supplementation. -Continue prednisone 40 mg PO daily as pt began outpatient course on 03/13 for 10 days. -Start pt on PO Levaquin for 5 day course 2. Dysuria -Afebrile without leukocytosis but will obtain UA. -Pt covered with Levaquin. Home medications will be continued for other chronic medical conditions. FULL code PPx: SCDs for VTE, no GI indicated disposition: Admit to observation for anticipated length of stay less than two midnights, pending clinical course. Attending Addendum - Attending Addendum Date/Time: 03/17/18 3928 I personally evaluated the patient and discussed the management with Dr. Lim and Ángel I agree with the History, Examination, Assessment and Plan documented above with any addition or exceptions noted below- 63 yo female with h/o COPD on chronic O2 therapy, bipolar d/o, and chronic Hepatitis B presented c/o increasing SOB for the last 4 days. Had been seen in clinic on Sunday and started on prednisone for COPD exacerbation. Patient reports that she was placed in long term and per patient has not received her medications for the last 2 days. Since then she has had increasing SOB, cough productive of green sputum. Denies any fever. PMH/PSH/Meds/All reviewed and agree with resident's documentation. Afebrile VSS. Exam repeated by me and agree with resident's findings. Labs: WBC=6.4, H/H= 12.7/40.8, Na= 137, K=3.8, Cl=97, CO2=31, BUN/Cr= 13/0.75, Ca=10.8, AST/ALT= 32/30, CXR- chronic changes with right sided volume loss, and pleural and parenchymal changes. Flattened diaphragms. A/P: 1) COPD exacerbation- place in obs; continue duonebs q4 hours. Resume prednisone. Start on abx.
[2018-03-17 19:37] LABS: CKMB 2.9 ng/mL (0-6.6); Troponin I Less than 0.010 ng/mL (< 0.028)
[2018-03-17] MEDS ORDERED: Acetaminophen 325 MG TAB PO PRN ×2 (20:46→21:16)
[2018-03-17] MEDS ORDERED: Ondansetron ODT 4 MG TAB SL PRN (20:46)
[2018-03-17] MEDS ORDERED: Ondansetron PF 4 MG/2 ML Vial IVP PRN (20:46)
[2018-03-17] MEDS ORDERED: Ondansetron ODT 4 MG TAB PO PRN (21:16)
[2018-03-17 23:06] VITALS: BMI 22.1
[2018-03-18] MEDS ORDERED: Dextromethorphan Polistirex 30 MG/5 ML (89 ML BOTTLE) PO PRN (00:44)
[2018-03-18] MEDS ORDERED: Alendronate Sodium 70 mg Tablet PO SCH (00:45)
[2018-03-18 01:22] LABS: Troponin I Less than 0.010 ng/mL (< 0.028)
--- NOTE | 2018-03-18 06:15 | PDOC.FM ---
- Subjective Subjective: Ms. Silva is resting comfortably in bed, she has no complaints today. Denies chest pain or shortness of breath. - Objective Vital Signs & Weight: Vital Signs (12 hours) Temp Pulse Resp BP Pulse Ox 03/18/18 05:00 97.6 F 113 H 19 136/73 100 03/18/18 02:32 92 18 100 03/18/18 00:08 79 18 100 03/17/18 21:16 97.8 F 86 24 H 131/71 99 03/17/18 20:52 97.8 F 86 22 H 131/71 99 Weight Weight 49.623 kg I&O: 03/16/18 03/17/18 03/18/18 06:59 06:59 06:59 Intake Total 400 Balance 400 Result Diagrams: 03/17/18 18:37 03/17/18 19:02 <Yariel Benavidez - Last Filed: 03/18/18 08:33> - Objective Vital Signs & Weight: Vital Signs (12 hours) Temp Pulse Resp BP Pulse Ox 03/18/18 11:31 98.3 F 113 H 22 H 126/65 99 03/18/18 10:47 106 H 20 100 03/18/18 07:57 97.5 F L 83 20 112/65 100 03/18/18 07:22 99 03/18/18 07:19 83 16 99 03/18/18 05:00 97.6 F 113 H 19 136/73 100 Weight Weight 49.623 kg I&O: 03/17/18 03/18/18 03/19/18 06:59 06:59 06:59 Intake Total 400 480 Balance 400 480 Result Diagrams: 03/17/18 18:37 03/18/18 08:25 <Stephanie Reed - Last Filed: 03/18/18 16:35> Phys Exam - Physical Examination Constitutional: NAD HEENT: moist MMs Respiratory: wheezing present Cardiovascular: RRR, no significant murmur Gastrointestinal: non-tender, no distention Psychiatric: normal affect Skin: no rash <Yariel Benavidez - Last Filed: 03/18/18 08:33> Dx/Plan (1) COPD with acute exacerbation Code(s): J44.1 - CHRONIC OBSTRUCTIVE PULMONARY DISEASE W (ACUTE) EXACERBATION Status: Acute (2) Dysuria Code(s): R30.0 - DYSURIA Status: Acute (3) Hypertension Code(s): I10 - ESSENTIAL (PRIMARY) HYPERTENSION Status: Chronic (4) HSV (herpes simplex virus) infection Code(s): B00.9 - HERPESVIRAL INFECTION, UNSPECIFIED Status: Acute (5) Bipolar 2 disorder Code(s): F31.81 - BIPOLAR II DISORDER Status: Chronic - Plan Plan: COPD Exacerbation - increased sputum production, wheezing, difficulty breathing, afebrile, no leukocytosis - received steroids in ED - was started on prednisone 40 daily in outpatient setting 03/13 for 10 day course. Continue prednisone 40 daily. - begin doxycycline bid for 5 days - duonebs q4h - on 2L NC at home. No increased O2 requirement now. Dysuria - hx of nephrolithiasis with stents - UA pending HSV - continue home acyclovir Peripheral neuropathy - continue home gabapentin and tizanadine Bipolar - continue home trazodone Osteoporosis - continue alendronate, calcium Hx of Hep B and C Diet: Dispo: possible DC today <Yariel Benavidez - Last Filed: 03/18/18 08:33> Attending Addendum - Attending Addendum Date/Time: 03/18/18 [id number] I personally evaluated the patient and discussed the management with Dr. Benavidez. I agree with the History, Examination, Assessment and Plan documented above with any addition or exceptions noted below. The patient is on her baseline oxygen level os 2L via NC. We have restarted home copd meds and pt is feeling better. She will continue steroids and antibiotics and is cleared to return to longterm. <Stephanie Reed - Last Filed: 03/18/18 16:35>
[2018-03-18 07:02] LABS: Bilirubin Negative (Negative); Blood, Urine Negative (Negative); Clarity CLEAR (Clear); Glucose, Urine (Dipstick) Negative (Negative); Leukocyte Trace (Negative); Nitrite Negative (Negative); Protein, Urine (Dipstick) Negative (Neg-Trace); Specific Gravity, Urine 1.013 (1.002-1.036); Urobilinogen 0.2 mg/dL (0.2-1.0); pH, Urine 6.5 (5.0-9.0)
[2018-03-18 07:03] LABS: Bacteria/HPF None Seen HPF (None Seen); Hyaline Casts/LPF 0-3 HYALINE CAST LPF (0-3 Hyaline); Pathc Cast-AUWi Flag 0.72 (0-2.49); RBC/HPF 0-3 HPF (0-3); Squamous Epithelial 0-3 HPF (0-3); WBC/HPF 0-3 HPF (0-3)
[2018-03-18] MEDS ORDERED: tiZANidine HCl 4 MG TAB PO PRN (07:28)
[2018-03-18] MEDS ORDERED: predniSONE 20 MG TAB PO SCH (08:00)
[2018-03-18] MEDS ORDERED: PROVENTIL INHALER 6.7 G (200 INHALATIONS) INH PRN (08:30)
[2018-03-18] MEDS ORDERED: Acyclovir 200 mg Capsule PO SCH (09:00)
[2018-03-18] MEDS ORDERED: tiZANidine HCl 4 MG TAB PO SCH (09:00)
[2018-03-18] MEDS ORDERED: Acyclovir 400 mg Tablet PO SCH (09:00)
[2018-03-18] MEDS ORDERED: Calcium Carbonate 600 MG TAB PO SCH (09:00)
[2018-03-18] MEDS ORDERED: Ipratropium Oral Inhaler (200 INHALATIONS) INH SCH (09:00)
[2018-03-18] MEDS ORDERED: Doxycycline 100 MG CAP PO SCH (09:00)
[2018-03-18 09:10] LABS: ALT (SGPT) 27 U/L (8-55); AST (SGOT) 26 U/L (5-34); Albumin 3.8 g/dL (3.4-4.8); Alkaline Phosphatase 90 U/L (40-150); Anion Gap 12 mmol/L (10-20); BUN (Urea Nitrogen) 13 mg/dL (9.8-20.1); Bilirubin, Total 0.5 mg/dL (0.2-1.2); Calc. Creatinine Clearance 56 mL/min (70-130); Calcium 9.9 mg/dL (7.8-10.44); Carbon Dioxide 33 mmol/L (23-31); Chloride 95 mmol/L (98-107); Estimated GFR-MDRD 85; Globulin 3.9 g/dL (2.4-3.5); Glucose 241 mg/dL (80-115); Protein, Total 7.7 g/dL (6.0-8.3); Sodium 136 mmol/L (136-145)
--- NOTE | 2018-03-18 11:39 | PDOC.EVN ---
Event Note - Event Note Event Note: paged regarding pt stating she was unable to walk (while moving legs around in bed) and therefore unable to go back to senior care. Pt. was in a wheelchair on admission, assumed to be at baseline. Pt is a poor historian and further history would be unreliable. Continue DC to senior care.
[2018-03-18 11:48] VITALS: BP 126/65; TEMP 98.3
[2018-03-18] MEDS ORDERED: Mometasone/Formoterol 120 PUFF INHALER INH SCH (18:30)
[2018-03-18] MEDS ORDERED: Gabapentin 100 MG CAP PO SCH (20:00)
[2018-03-18] MEDS ORDERED: traZODone HCl 50 MG TAB PO SCH (21:00)
--- NOTE | 2018-03-18 21:47 | DIS-2 ---
DATE OF ADMISSION: 03/17/2018 DATE OF DISCHARGE: 03/18/2018 RESIDENT: Yariel Benavidez DO ADMITTING ATTENDING: Dr. Polina Altman. DISCHARGE ATTENDING: Dr. Stephanie Reed. CONSULTATIONS: None. PROCEDURES: Chest x-ray, impression: Stable appearing chest with right-sided volume loss and right pleura and parenchymal changes and minimal parenchymal changes in the left upper lobe with bony demineralization and multiple left thoracic vertebral bodies, unchanged. PRIMARY DIAGNOSIS: Chronic obstructive pulmonary disease exacerbation. SECONDARY DIAGNOSES: 1. Dysuria. 2. Herpes simplex virus. 3. Peripheral neuropathy. 4. Bipolar. 5. Osteoporosis. 6. History of hepatitis B and C. DISCHARGE MEDICATIONS: 1. Calcium carbonate 600 mg p.o. daily. 2. Alendronate 70 mg p.o. q.7 days. 3. Trazodone 50 mg p.o. at bedtime. 4. Symbicort 1 puff inhaled b.i.d. 5. Ventolin 18 grams inhaled 1 p.r.n. 6. Delsym 30 mg p.o. b.i.d. p.r.n. 7. Acyclovir 400 mg p.o. b.i.d. 8. Tizanidine 4 mg p.o. t.i.d. p.r.n. 9. Atrovent HFA 2 puff inhaled daily. 10. Doxycycline 10 mg p.o. b.i.d. for 5 days. 11. Prednisone 40 mg p.o. q.a.m. for 5 days. DISCONTINUED MEDICATIONS: Prednisone 20 mg. HISTORY OF PRESENT ILLNESS AND HOSPITAL COURSE: Ms. Silva is a 63-year-old female that [facility] today from [facility] after a 2-day history of shortness of breath, cough, and wheezing. Upon admission to [facility] on Sunday, she reports that her home COPD medicines were not resumed and since then she has had increasing shortness of breath and green productive sputum. She was seen in the ED and given DuoNebs and methylprednisone 125. Upon admission to the hospital for her home medicines were restarted. Her respiratory status improved. She was saturating well on her home dose of 2 liters O2 NC. Vital signs stable, not tachypneic or hypercapnic. Her venous blood gas determined at baseline in regard to functioning O2/CO2 level stable to discharge back to [facility]. Patient reported she was not able to walk at this point. It was noted that at baseline, she had presented to the hospital in a wheelchair. Due to patient being a poor historian and expressing desire to not go back to [facility]. She was deemed stable to discharge back to [facility] in a wheelchair. DISCHARGE INSTRUCTIONS: 1. Location: [facility]. 2. Diet: Diabetic diet. 3. Activity: As tolerated. 4. Follow up in 7 days with her PCP. TERRIE
== END 2018-03-18 12:39 ==
LOC: ERS 18:09 → EEVIPCON 18:09 → 2SW 19:20 → ERS 20:45
PROVIDERS: ADMIT Family Medicine; ATTEND Family Medicine
DX: J44.1 Chronic obstructive pulmonary disease with (acute) exacerbation (principal); R30.0 Dysuria; B00.9 Herpesviral infection, unspecified; I25.10 Atherosclerotic heart disease of native coronary artery without angina pectoris; G62.9 Polyneuropathy, unspecified; F31.81 Bipolar II disorder; M81.0 Age-related osteoporosis without current pathological fracture; F20.9 Schizophrenia, unspecified; F41.9 Anxiety disorder, unspecified; I10 Essential (primary) hypertension; B18.1 Chronic viral hepatitis B without delta-agent; Z79.82 Long term (current) use of aspirin; Z79.83 Long term (current) use of bisphosphonates; Z79.899 Other long term (current) drug therapy; Z88.6 Allergy status to analgesic agent; Z88.8 Allergy status to other drugs, medicaments and biological substances
CPT/HCPCS: 36415; 71045; 80053; 81003; 81015; 82553; 82805; 83880; 84484; 85025; 90471; 90686; 93005; 94640; 94760; 96374; G0008; G0378; J2930; J7506; J7620

== ENCOUNTER 2018-03-29 11:36 | Emergency (ER) | payer OTHER | END 2018-03-29 13:55 | disposition home or self-care (01) | LOC: ERS 11:36 | DX: S90.415A Abrasion, left lesser toe(s), initial encounter (principal); I50.9 Heart failure, unspecified; J44.9 Chronic obstructive pulmonary disease, unspecified; Z87.891 Personal history of nicotine dependence; F41.9 Anxiety disorder, unspecified; F31.9 Bipolar disorder, unspecified; X58.XXXA Exposure to other specified factors, initial encounter | CPT/HCPCS: 36416; 99283 ==

== ENCOUNTER 2018-04-08 11:07 | Emergency (ER) | payer OTHER ==
[2018-04-08] MEDS ORDERED: predniSONE 20 MG TAB ONE (11:45)
[2018-04-08 11:58] LABS: Bilirubin Negative (Negative); Clarity CLEAR (Clear); Glucose, Urine (Dipstick) Negative (Negative); Leukocyte Trace (Negative); Nitrite Negative (Negative); Protein, Urine (Dipstick) Negative (Neg-Trace); Specific Gravity, Urine 1.013 (1.002-1.036); Urobilinogen 0.2 mg/dL (0.2-1.0)
[2018-04-08 12:00] LABS: Bacteria/HPF None Seen HPF (None Seen); Hyaline Casts/LPF 0-3 HYALINE CAST LPF (0-3 Hyaline); Pathc Cast-AUWi Flag 0.14 (0-2.49); Squamous Epithelial None Seen HPF (0-3); WBC/HPF 0-3 HPF (0-3)
[2018-04-08 12:09] LABS: #Eosinphils 0.1 thou/uL (0.0-0.7); #Lymphocytes 1.6 thou/uL (1.20-3.40); #Monocytes 0.5 thou/uL (0.11-0.59); #Neutrophils 5.9 thou/uL (1.40-6.50); %Basophils 0.4 % (0.0-1.0); %Eosinophils 0.6 % (0.0-10.0); %Lymphocytes 19.7 % (21.0-51.0); %Monocytes 6.1 % (0.0-10.0); %Neutrophils 73.2 % (42.0-75.0); Hemoglobin 11.8 g/dL (12.0-16.0); Mean Corpuscular HGB CONC 31.6 g/dL (32.0-36.0); Mean Corpuscular Hemoglobin 28.8 pg (27.0-31.0); Mean Corpuscular Volume 91.2 fL (78.0-98.0); Mean Platelet Volume 6.6 fL (7.4-10.4); Platelet Count 225 thou/uL (130-400); Red Blood Cell (RBC) Count 4.09 mill/uL (4.20-5.40); White Blood Cell (WBC) Count 8.1 thou/uL (4.8-10.8)
[2018-04-08 12:24] LABS: Blood, Urine Trace (Negative)
[2018-04-08 12:32] LABS: ALT (SGPT) 25 U/L (8-55); AST (SGOT) 20 U/L (5-34); Albumin 3.7 g/dL (3.4-4.8); Alkaline Phosphatase 105 U/L (40-150); Anion Gap 9 mmol/L (10-20); BUN (Urea Nitrogen) 16 mg/dL (9.8-20.1); Bilirubin, Total 0.4 mg/dL (0.2-1.2); Calc. Creatinine Clearance 0 mL/min (70-130); Calcium 9.9 mg/dL (7.8-10.44); Carbon Dioxide 35 mmol/L (23-31); Chloride 99 mmol/L (98-107); Estimated GFR-MDRD Greater than 90; Globulin 3.4 g/dL (2.4-3.5); Glucose 139 mg/dL (80-115); Protein, Total 7.1 g/dL (6.0-8.3); Sodium 139 mmol/L (136-145)
[2018-04-08 12:34] LABS: Troponin I Less than 0.010 ng/mL (< 0.028)
--- NOTE | 2018-04-08 13:29 | RAD ---
SINGLE VIEW OF THE CHEST: COMPARISON: 03/17/2018. HISTORY: Headache and chest pain. Dyspnea. FINDINGS: A single view of the chest shows a cardiomediastinal silhouette which is upper limits of normal in si ze. There is scarring the right lung base. There is no evidence of consolidation, mass, or pleural effusion. Degenerative changes are seen in the spine. IMPRESSION: No evidence of acute cardiopulmonary disease. POS: [facility]
== END 2018-04-08 12:57 | disposition home or self-care (01) ==
LOC: ERS 11:07
DX: J44.1 Chronic obstructive pulmonary disease with (acute) exacerbation (principal); I25.10 Atherosclerotic heart disease of native coronary artery without angina pectoris; F41.9 Anxiety disorder, unspecified; F32.9 Major depressive disorder, single episode, unspecified; F20.9 Schizophrenia, unspecified; M81.0 Age-related osteoporosis without current pathological fracture; Z87.891 Personal history of nicotine dependence; Z79.899 Other long term (current) drug therapy; Z79.82 Long term (current) use of aspirin
CPT/HCPCS: 36415; 71045; 80053; 81003; 81015; 84484; 85025; 93005; 94640; J7506; J7620

== ENCOUNTER 2018-06-13 18:32 | Emergency (ER) | payer OTHER ==
[2018-06-13] MEDS ORDERED: predniSONE 20 MG TAB ONE (19:14)
[2018-06-13 19:28] LABS: #Eosinphils 0.2 thou/uL (0.0-0.7); #Lymphocytes 1.6 thou/uL (1.20-3.40); #Monocytes 0.4 thou/uL (0.11-0.59); #Neutrophils 3.5 thou/uL (1.40-6.50); %Basophils 0.2 % (0.0-1.0); %Eosinophils 2.9 % (0.0-10.0); %Monocytes 7.7 % (0.0-10.0); %Neutrophils 61.2 % (42.0-75.0); Hemoglobin 11.9 g/dL (12.0-16.0); Mean Corpuscular HGB CONC 31.9 g/dL (32.0-36.0); Mean Corpuscular Hemoglobin 29.5 pg (27.0-31.0); Mean Corpuscular Volume 92.5 fL (78.0-98.0); Mean Platelet Volume 5.9 fL (7.4-10.4); Platelet Count 263 thou/uL (130-400); RBC Distribution Width 12.8 % (11.5-14.5); Red Blood Cell (RBC) Count 4.03 mill/uL (4.20-5.40); White Blood Cell (WBC) Count 5.8 thou/uL (4.8-10.8)
[2018-06-13 19:47] LABS: ALT (SGPT) 30 U/L (8-55); AST (SGOT) 30 U/L (5-34); Albumin 3.7 g/dL (3.4-4.8); Alkaline Phosphatase 115 U/L (40-150); Anion Gap 9 mmol/L (10-20); BUN (Urea Nitrogen) 14 mg/dL (9.8-20.1); Bilirubin, Total 0.6 mg/dL (0.2-1.2); Calc. Creatinine Clearance 0 mL/min (70-130); Calcium 9.7 mg/dL (7.8-10.44); Carbon Dioxide 35 mmol/L (23-31); Chloride 101 mmol/L (98-107); Estimated GFR-MDRD Greater than 90; Globulin 3.7 g/dL (2.4-3.5); Glucose 114 mg/dL (80-115); Potassium 3.7 mmol/L (3.5-5.1); Protein, Total 7.4 g/dL (6.0-8.3); Sodium 141 mmol/L (136-145)
--- NOTE | 2018-06-13 19:54 | RAD ---
AP VIEW CHEST: 06/13/18 HISTORY: Cough. AP view chest obtained on 06/13/18. Comparison made to a previous exam from 04/08/18. AP view chest demonstrates shift of the mediastinum from left to right. Areas of lung parenchymal scarring seen in the right lung base. Areas of scarring also seen in the ri ght upper lobe and left upper lobe regions. No definite evidence of pneumonia seen. IMPRESSION: Shift of mediastinum from midline toward right. No other significant abnormality seen. Radiographic a ppearance of the chest is stable. POS: [facility]
[2018-06-13] MEDS ORDERED: Ketorolac Tromethamine 30 MG/ML VIAL ONE (20:30)
[2018-06-13] MEDS ORDERED: Aspirin 325 MG TAB ONE (20:50)
== END 2018-06-13 21:00 | disposition home or self-care (01) ==
LOC: ERS 18:32
DX: J44.1 Chronic obstructive pulmonary disease with (acute) exacerbation (principal); F41.9 Anxiety disorder, unspecified; F20.9 Schizophrenia, unspecified; I25.10 Atherosclerotic heart disease of native coronary artery without angina pectoris; I50.9 Heart failure, unspecified; Z87.891 Personal history of nicotine dependence; Z79.51 Long term (current) use of inhaled steroids; Z79.82 Long term (current) use of aspirin; Z79.899 Other long term (current) drug therapy
CPT/HCPCS: 71045; 80053; 83880; 84484; 85025; 87804; 93005; 96372; J1885; J7506; J7620

== ENCOUNTER 2018-06-21 09:57 | Emergency (ER) | payer OTHER ==
--- NOTE | 2018-06-21 11:07 | RAD ---
CHEST 1 VIEW: Date: 06/21/18 COMPARISON: 06/13/18. HISTORY: Cough. Hypertension. FINDINGS: There is stable compensatory hyperinflation of the left lung with a diminished right lung volume. The re is stable rightward deviation of the cardiomediastinal silhouette. No pneumothorax or acute osseou s abnormalities. IMPRESSION: No significant interval change. POS: [facility]
[2018-06-21 12:10] LABS: #Eosinphils 0.2 thou/uL (0.0-0.7); #Lymphocytes 1.7 thou/uL (1.20-3.40); #Monocytes 0.5 thou/uL (0.11-0.59); #Neutrophils 3.1 thou/uL (1.40-6.50); %Basophils 0.6 % (0.0-1.0); %Lymphocytes 30.1 % (21.0-51.0); %Neutrophils 56.4 % (42.0-75.0); Mean Corpuscular HGB CONC 31.1 g/dL (32.0-36.0); Mean Corpuscular Hemoglobin 29.1 pg (27.0-31.0); Mean Corpuscular Volume 93.6 fL (78.0-98.0); Mean Platelet Volume 6.4 fL (7.4-10.4); Platelet Count 312 thou/uL (130-400); RBC Distribution Width 13.1 % (11.5-14.5); Red Blood Cell (RBC) Count 4.12 mill/uL (4.20-5.40); White Blood Cell (WBC) Count 5.5 thou/uL (4.8-10.8)
[2018-06-21 12:29] LABS: ALT (SGPT) 22 U/L (8-55); AST (SGOT) 23 U/L (5-34); Albumin 3.7 g/dL (3.4-4.8); Alkaline Phosphatase 115 U/L (40-150); Anion Gap 11 mmol/L (10-20); BUN (Urea Nitrogen) 12 mg/dL (9.8-20.1); Bilirubin, Total 0.5 mg/dL (0.2-1.2); Calc. Creatinine Clearance 0 mL/min (70-130); Calcium 9.2 mg/dL (7.8-10.44); Carbon Dioxide 30 mmol/L (23-31); Chloride 103 mmol/L (98-107); Estimated GFR-MDRD Greater than 90; Globulin 3.5 g/dL (2.4-3.5); Glucose 79 mg/dL (80-115); Potassium 4.1 mmol/L (3.5-5.1); Protein, Total 7.2 g/dL (6.0-8.3); Sodium 140 mmol/L (136-145)
== END 2018-06-21 13:10 | disposition home or self-care (01) ==
LOC: ERS 09:57
DX: J44.1 Chronic obstructive pulmonary disease with (acute) exacerbation (principal); I25.10 Atherosclerotic heart disease of native coronary artery without angina pectoris; M81.0 Age-related osteoporosis without current pathological fracture; I50.9 Heart failure, unspecified; F41.9 Anxiety disorder, unspecified; F31.9 Bipolar disorder, unspecified; F20.9 Schizophrenia, unspecified; Z87.891 Personal history of nicotine dependence; Z79.51 Long term (current) use of inhaled steroids; Z79.899 Other long term (current) drug therapy; Z79.82 Long term (current) use of aspirin
CPT/HCPCS: 36415; 71045; 80053; 83880; 84484; 85025; 93005; 94640; 94760; J7620

== ENCOUNTER 2018-07-16 14:23 | Inpatient (IN) | payer OTHER ==
[~2018-07-16 14:23] MED LIST: Iopamidol 370 76% 100 ML VIAL ONE
[2018-07-16] MEDS ORDERED: Albuterol Sulfate 2.5 mg/0.5 ml Neb ONE ×4 (14:58→14:59)
[2018-07-16 15:23] LABS: Hemoglobin 11.6 g/dL (12.0-16.0); Mean Corpuscular HGB CONC 30.9 g/dL (32.0-36.0); Mean Corpuscular Hemoglobin 28.9 pg (27.0-31.0); Mean Corpuscular Volume 93.8 fL (78.0-98.0); Mean Platelet Volume 6.7 fL (7.4-10.4); Platelet Count 275 thou/uL (130-400); RBC Distribution Width 12.9 % (11.5-14.5); Red Blood Cell (RBC) Count 4.02 mill/uL (4.20-5.40); White Blood Cell (WBC) Count 6.8 thou/uL (4.8-10.8)
--- NOTE | 2018-07-16 15:24 | RAD ---
CHEST 1 VIEW: Date: 07/16/18 HISTORY: Chest pain. Productive cough. COMPARISON: Radiograph dated 06/21/18. FINDINGS: Continued volume loss right lung. Calcified granulomas left lung. No acute osseous abnormality. IMPRESSION: Unchanged examination of the chest. POS: [facility]
[2018-07-16 15:41] LABS: Band 4 % (5-11); Eosinophils 3 % (0-10); Lymphocytes 27 % (21-51); MDiff Complete? YES; Monocytes 6 % (0-10); Neutrophil 59 % (42-75); Platelet Morphology Comment Appears Adequate; Polychromasia SLIGHT = 2-3 cells (100X) (0-2/hpf)
[2018-07-16 15:52] LABS: ALT (SGPT) 22 U/L (8-55); AST (SGOT) 22 U/L (5-34); Albumin 3.4 g/dL (3.4-4.8); Alkaline Phosphatase 153 U/L (40-150); Anion Gap 8 mmol/L (10-20); BUN (Urea Nitrogen) 12 mg/dL (9.8-20.1); Bilirubin, Total 0.3 mg/dL (0.2-1.2); Calc. Creatinine Clearance 0 mL/min (70-130); Calcium 9.6 mg/dL (7.8-10.44); Carbon Dioxide 31 mmol/L (23-31); Chloride 102 mmol/L (98-107); Estimated GFR-MDRD Greater than 90; Globulin 3.7 g/dL (2.4-3.5); Glucose 136 mg/dL (80-115); Potassium 4.3 mmol/L (3.5-5.1); Protein, Total 7.1 g/dL (6.0-8.3); Sodium 137 mmol/L (136-145)
[2018-07-16 17:12] LABS: Bilirubin Negative (Negative); Blood, Urine Negative (Negative); Clarity CLEAR (Clear); Glucose, Urine (Dipstick) Negative (Negative); Leukocyte Moderate (Negative); Nitrite Negative (Negative); Protein, Urine (Dipstick) Negative (Neg-Trace); Specific Gravity, Urine 1.032 (1.002-1.036); Urobilinogen 0.2 mg/dL (0.2-1.0); pH, Urine 6.5 (5.0-9.0)
[2018-07-16 17:13] LABS: Bacteria/HPF None Seen HPF (None Seen); Hyaline Casts/LPF 0-3 HYALINE CAST LPF (0-3 Hyaline); Squamous Epithelial 0-3 HPF (0-3)
[2018-07-16] MEDS ORDERED: Morphine 2 MG/ML SYRINGE ONE (17:15)
[2018-07-16] MEDS ORDERED: Enoxaparin Sodium 60 MG/0.6 ML SYRINGE ONE (17:15)
[2018-07-16 17:21] LABS: Amphetamine Not Detected (NotDetected); Barbiturates Screen Not Detected (NotDetected); Benzodiazepine Screen Not Detected (NotDetected); Cocaine Metabolite Screen Not Detected (NotDetected); Medtox Control Line Valid? VALID (VALID); Medtox Reader # READER 4; Methadone Not Detected (NotDetected); Methamphetamine Not Detected (NotDetected); Opiate Screen Not Detected (NotDetected); Oxycodone Screen Not Detected (NotDetected); Phencyclidine (PCP) Not Detected (NotDetected); THC/Cannabinoid Screen Not Detected (NotDetected); Tricyclic Screen Detected (NotDetected)
--- NOTE | 2018-07-16 17:31 | CT ---
There is a hypodensity in hepatic segment V with peripheral enhancement measuring 8 mm. May reflect h emangioma although incompletely evaluated on this examination. Mild distention of the urinary bladder . Mild urethral hyperenhancement. There are no dilated loops of large or small bowel. Moderate stool burden throughout the colon. Exten sive atherosclerotic plaque of the aortoiliac system without aneurysmal dilatation. The adrenal glands are unremarkable. Nonobstructive 3 mm, 4 mm right inferior renal calculi as well a s 2 mm interpolar right renal calculus. There is compression fracture of L1 with a burst component with minimal narrowing of the thecal sac. There is also a compression fracture of T11 with minimal retropulsion. T10 compression fracture is pr esent. SI joints are unremarkable. Avascular necrosis both femoral heads. IMPRESSION: 1. Nonobstructive right sided renal calculi. 2. No acute inflammatory process in the abdomen or pelvis. 3. 8 mm hypodensity hepatic segment V with a peripheral single area of enhancement may reflect a hemangioma, although is incompletely evaluated on this examination. 4. No evidence for bowel obstruction. 5. Multiple compression fractures thoracolumbar spine. 6. Avascular necrosis both femoral heads without articular surface collapse yet appreciated. POS: [facility]
[2018-07-16] MEDS ORDERED: cefTRIAXone\\ROCEPHIN 1 GM VIAL ONE (17:36)
[2018-07-16] MEDS ORDERED: predniSONE 20 MG TAB ONE (17:36)
--- NOTE | 2018-07-16 17:49 | CT ---
CTA THORAX WITH CONTRAST: 07/16/18 (Computed Tomographic Angiography, chest(noncoronary) with contrast material, and image postprocessin g) (PE protocol) HISTORY: 63-year-old female with dyspnea and cough. Dr. Harrell reported the PE by telephone to Dr. Zhao of the Emergency Department at 4:43 p.m. on . TECHNIQUE: IV injection of iodinated contrast: 100 mL Isovue 370 Scan acquisition timing attempted to coincide with iodinated contrast bolus reaching maximal density in pulmonary arteries. 3D MIP reconstructions. FINDINGS: Numerous bullae at the apical and posteromedial upper aspects of bilateral hemithoracic cavities. Sev ere hyperlucency involving much of the right lower lobe with architectural distortion. Severe right u pper lobe scarring with architectural distortion, including superior retraction of the right hilum, a nd distortion of bronchi. Cardiomediastinal shift to the right due to chronic right volume loss. Focal plate-like stellate lesion with spiculation at posterolateral aspect of left lung, along latera l periphery of left major fissure, abutting pleural surface, and measuring approximately 1.5 x 1.5 x 0.6 cm. This is favored to represent scar, less likely primary lung cancer, although that is not excl uded (coronal image 82 of 123, series 600; axial image 32 of 104, series 2). There are filling defects consistent with clot, in the distorted right upper lobe pulmonary artery an d its branches. There is no such clot in the contralateral left pulmonary artery branches, bilateral main pulmonary arteries, or pulmonary trunk. There are multiple compression fractures of the thoracic spine and upper lumbar spine, of indeterminate ages, but at least most of which are old. No pleural effusion or pneumothorax. IMPRESSION: 1. Positive for pulmonary thromboembolism involving right upper lobe pulmonary artery and its br anches. 2. Severe architectural distortion and volume loss of the right lung, resulting in cardiomedias tinal shift to the right. 3. Severe right apical pulmonary scarring with chronic right upper lobe atelectasis. 4. Paraseptal emphysema and possibly panlobular emphysema. 5. Stellate lesion along the left major fissure. This could represent scar or primary lung cance r. Further evaluation with PET scan is recommended. 6. Multiple compression fractures of thoracic spine and lumbar spine, mostly old. Code CR jn[] POS: [facility]
--- NOTE | 2018-07-16 17:51 | PDOC.FPRHP ---
- History of Present Illness Chief Complaint: SOB, abdominal pain History of Present Illness: This is a 63yo F who presents with a CC of SOB and abdominal pain. Patient has a hx significant for COPD. Patient endorses wheezing abdominal distention and cramping. She states that she first noticed symptoms that started on Sunday and have progressed over the weekend. She endorses SOB along with a cough productive of clear/yellow sputum. The SOB is associated with wheezing. She states that she has become more SOB during her daily activities such as cleaning the house. Patient endorses fever and chills. Patient uses home O2 and is on 2L at home. Patient also complains of pain and numbness in her bilateral LE. She states the pain is sharp in nature and comes and goes. She also endorses chest pain that has been present over the same time frame, is located in the left chest, does not radiate. She endorses palpitations. She states it hurts to touch the left area of her chest. Patient also has hx of avascular necrosis of the hip/back and she states she has significant pain from this. ED Course: prednisone 50mg oral, ceftriaxone 1g IV, morphine 2mg IV, lovenox 1mg/kg subq, albuterol sulfate 10mg neb, ipratropium 0.5mg neb - Allergies/Adverse Reactions Allergies Allergy/AdvReac Type Severity Reaction Status Date / Time ibuprofen Allergy "get Verified 03/17/18 21:48 shakey" NSAIDS (Non-Steroidal Allergy Verified 03/17/18 21:48 Anti-Inflamma naproxen AdvReac Severe shaky Verified 03/17/18 21:48 - Home Medications Medication Instructions Recorded Confirmed Type traZODone HCl [Desyrel] 50 mg PO HS 08/07/15 07/17/18 History Budesonide-Formoterol [Symbicort 1 puff INH BID 04/14/16 07/17/18 History 160-4.5] Albuterol Sulfate [Proair HFA] 1 puff INH Q4HR PRN 07/17/18 07/17/18 History Amitriptyline HCl 25 mg PO HS 07/17/18 07/17/18 History Amlodipine [Norvasc] 2.5 mg PO DAILY 07/17/18 07/17/18 History Apixaban [Eliquis] 5 mg PO BID #42 tablet 07/17/18 Rx Apixaban [Eliquis] 10 mg PO BID #14 tablet 07/17/18 Rx Aspirin [Aspirin EC] 81 mg PO DAILY 07/17/18 07/17/18 History Azithromycin [Zithromax] 250 mg PO DAILY #4 tab 07/17/18 Rx Calcium Citrate/Vitamin D3 [[place] 1 tab PO DAILY 07/17/18 07/17/18 History Calcium + D Tablet] Citalopram Hydrobromide 10 mg PO DAILY 07/17/18 07/17/18 History [Citalopram HBr] DULoxetine HCl 30 mg PO BID 07/17/18 07/17/18 History Fluticasone Propionate [Flonase 2 spray NASAL DAILY 07/17/18 07/17/18 History Nasal [place]] Gabapentin 600 mg PO TID 07/17/18 07/17/18 History Tiotropium [place] [Spiriva 2 inh IH DAILY 07/17/18 07/17/18 History Respimat] predniSONE 40 mg PO DAILY #6 tab 07/17/18 Rx - History PMHx: CAD, cataracts, Hep C, kidney stones, osteoporosis, emphysema w/ home O2 at 2L, anxiety, bipolar, and schizophrenia PSHx: bypass graft surgery, cataract surgery, ovarian cyst removal, kidney stents s/p stones FHx: non contributory Social: former tobacco use, denies alcohol or drug use - Review of Systems General: reports: fever/chills, fatigue. denies: weight/appetite/sleep changes , night sweats Eyes: denies: eye pain, vision changes ENT: denies: nasal congestion, rhinorrhea Respiratory: reports: cough, congestion, shortness of breath, exercise intolerance Cardiovascular: reports: chest pain, palpitation. denies: edema Gastrointestinal: reports: abdominal pain. denies: nausea, vomiting, diarrhea, constipation Genitourinary: reports: other (states she cannot "empty her bladder") Skin: denies: rashes, lesions, jaundice Musculoskeletal: reports: pain, tenderness, stiffness Neurological: reports: numbness (in bilateral LE) - Vital signs BP: 156/89 HR: 98 RR: 18 Tmax: 98.1 Pox: 92% on 2LNC Wt: 53.52kg - Physical Exam Constitutional: awake, alert and oriented, well developed -Constitutional: mild distress HEENT: normocephalic and atraumatic, EOMI, no scleral icterus, grossly normal vision, normal nasal mucosa, MMM Neck: supple, FROM, trachea midline Chest: no-tender to palpation Heart: RRR, normal S1/S2, no murmurs/rubs/gallops, pulses present, no edema Lungs: no retractions -Lungs: CTAB, mild exp wheeze on anterior chest Abdomen: bowel sounds present, no hernias -Abdomen: Tense, distended, TTP in bilateral lower quadrants, fluid wave not present Musculoskeletal: normal structure, normal tone, ROM grossly normal Neurological: no focal deficit Skin: no rash/lesions, good turgor, capillary refill <2 seconds Heme/Lymphatic: no unusual bruising or bleeding Psychiatric: normal mood and affect FMR H&P: Results - Labs Result Diagrams: 07/17/18 03:17 07/17/18 03:17 Lab results: WBC 6.8 thou/uL (4.8-10.8) 07/16/18 15:02 Hgb 11.6 g/dL (12.0-16.0) L 07/16/18 15:02 Hct 37.7 % (36.0-47.0) 07/16/18 15:02 MCV 93.8 fL (78.0-98.0) 07/16/18 15:02 Plt Count 275 thou/uL (130-400) 07/16/18 15:02 Band Neuts % (Manual) 4 % (5-11) L 07/16/18 15:02 Sodium 137 mmol/L (136-145) 07/16/18 14:55 Potassium 4.3 mmol/L (3.5-5.1) 07/16/18 14:55 Chloride 102 mmol/L (98-107) 07/16/18 14:55 Carbon Dioxide 31 mmol/L (23-31) 07/16/18 14:55 BUN 12 mg/dL (9.8-20.1) 07/16/18 14:55 Creatinine 0.73 mg/dL (0.6-1.1) 07/16/18 14:55 Glucose 136 mg/dL (80-115) H 07/16/18 14:55 Lactic Acid 1.5 mmol/L (0.5-2.2) 07/16/18 14:55 Calcium 9.6 mg/dL (7.8-10.44) 07/16/18 14:55 Total Bilirubin 0.3 mg/dL (0.2-1.2) 07/16/18 14:55 AST 22 U/L (5-34) 07/16/18 14:55 ALT 22 U/L (8-55) 07/16/18 14:55 Alkaline Phosphatase 153 U/L (40-150) H 07/16/18 14:55 B-Natriuretic Peptide 10.3 pg/mL (0-100) 07/16/18 15:02 Serum Total Protein 7.1 g/dL (6.0-8.3) 07/16/18 14:55 Albumin 3.4 g/dL (3.4-4.8) 07/16/18 14:55 Urine Ketones Negative mg/dL (Negative) 07/16/18 16:40 Urine Blood Negative (Negative) 07/16/18 16:40 Urine Nitrite Negative (Negative) 07/16/18 16:40 Ur Leukocyte Esterase Moderate (Negative) H 07/16/18 16:40 Urine RBC 4-6 HPF (0-3) 07/16/18 16:40 Urine WBC 4-6 HPF (0-3) H 07/16/18 16:40 Ur Squamous Epith Cells 0-3 HPF (0-3) 07/16/18 16:40 Urine Bacteria None Seen HPF (None Seen) 07/16/18 16:40 - Radiology Interpretation Chest x-ray Status: report reviewed by me (continued volume loss right lung, calcifeid granulomas left lung, no acute process) FMR H&P: A/P - Problem List (1) Pulmonary embolism Status: Acute Code(s): I26.99 - OTHER PULMONARY EMBOLISM WITHOUT ACUTE COR PULMONALE (2) History of colonic polyps Status: Acute Code(s): Z86.010 - PERSONAL HISTORY OF COLONIC POLYPS (3) Nephrolithiasis Status: Acute (4) Right ovarian cyst Status: Acute Code(s): N83.201 - UNSPECIFIED OVARIAN CYST, RIGHT SIDE (5) Chronic obstructive lung disease Status: Chronic (6) Hypertension Status: Chronic Code(s): I10 - ESSENTIAL (PRIMARY) HYPERTENSION (7) Tobacco abuse Status: Chronic Code(s): Z72.0 - TOBACCO USE (8) Avascular necrosis Status: Acute Code(s): M87.00 - IDIOPATHIC ASEPTIC NECROSIS OF UNSPECIFIED BONE - Plan Acute on chronic hypoxic resp failure Likely 2/2 to COPD and PE - Currently stable on usual O2 requirement of 2L - Will obtain ABG to further evaluate Pulm Embolism - PE on CT scan in RUL - Unknown source of this PE. EKG shows sinus tachycardia and pt has no hx of atrial fibrillation or coagulopathy. No recent hx of immobility. No obvious swelling in bilateral LE. - Plan, telemetry monitoring for cardiac causes. Coag lab as patient has unprovked PE. Doppler US ordered of LE and UE because of complaints of "knots", though it was not found on exam. Trop neg X 2. - Therapeutic lovenox at 1mg/kg BID for PE, transition to xarelto tomorrow after discussion with CM on appropriate home med for anticoagulation. - Blood cx pending COPD exacerbation Pt has hx of COPD. Presenting with increased SOB and cough - Will continue azithromycin for abx coverage - Continue albuterol/ipratropium, steroid and O2 supplementation as needed. Incidental Spirculated Mass - Per Radiology, likely a scar. - Will recommend follow up outpatient for monitoring. Previous CT commented on scarring in apices. Abdominal pain At this time, no obvious cause, but carnett test positive, suggesting abd wall pain rather then visceral causes. CT did not identify acute causes either. - UA pos for leukocytes and WBCs; UCx pending - Will continue to monitor BMs and abdominal distention Avascular Necrosis - Known issue from CT 2 years ago. Advise follow up with PCP for med management Non obstructive renal calculi None issue from previously. Will monitor at this time and reevaluate if patient symptomatic FMR H&P: Upper Level - Pertinent history 63F with known history of COPD presents for evaluation of weakness. She states this occurred lasts [place], 4 days prior. She describes it as severe fatigue. Associated with "knots" in arm, green purulent sputum, increased O2 use over her 2L at baseline, SOB, and cough. She specifically denies any fever, chest pain, immobility, LE edema long drives. Family endorse she is active at home. Incidentally she complains of abd pain, generalized, but no diarrhea, constipation. At ER, she has CTA showing RUL PE. She has been started on therapeutic lovenox. There was concern for possible copd exacerbation, so was started on ceftriaxone , steroid, albuterol, ipratropium. - Pertinent findings Vitals: 156/89, Resp 18, Pulse 98, Temp 98.1, 95 on 2L O2 Gen: Alert, oriented, thin, appear older then stated age. HEENT: Moist mucosal membrane, nasal cannula on, hearing and vision grossly intact Resp: Decreased breath sound bilat. No crackles, rhonchi or rales heard CV: RRR, no apparent m/g/r GI: Distended but soft, generalized pain to palpation of all quadrant, but no guarding. Pain same with palpation while patient tensed abdominal muscle. Ext: Pain out of proportion to palpation of both upper and lower ext. No pitting edema in LE. Bigginess around right elbow. Derm: No obvious lesion Psych: Anxious appearing Neuro: No focal deficit - Plan Date/Time: 07/16/181748 1. Acute on chronic hypoxic resp failure - Patient currently stable on her usual O2 requirement. - Both COPD and PE may be contributing to this. - Plan, obtain ABG to further evaluate. 2. Pulm Embolism - PE on CT scan - Unknown source of this PE. EKG shows no dysthrmia besides sinus tach and no hx of afib. Patient without history of coagulopathy. There is no history of immobility. No obvious swelling in ext. - Plan, telemetry monitoring for cardiac causes. Coag lab as patient has apparent unprovked PE. Doppler US ordered of LE and UE because of complaints of "knots", though it was not found on exam. Therapeutic lovenox at 1mg/kg BID for PE, transition to xarelto tomorrow after discussion with CM on appropriate home med for anticoagulation. 3. COPD exacerbation - Can not rule out COPD exacerbation. Patient has 3 cardinal symptom: purulence , increase sob and cough - Plan, switch ceftriaxone to azithromycin. Continue albuterol/ipratropium, steroid and O2 support. 4. Incidental Spirculated Mass - Per Radiology, likely a scar. Will recommend follow up outpatient for monitoring. Previous CT commented on scarring in apices. 5. Abdominal pain - At this time, no obvious cause, but carnett test positive, suggesting abd wall pain rather then visceral causes. CT did not identify acute causes either. - Plan, obtain UA/Ucx result. At this time, will manage with watchful monitoring 6. Avascular Necrosis - Known issue from CT 2 years ago. Advise follow up with PCP for med management of risk factor. 7. Non obstructive renal calculi - None issue from previously.Will monitor at this time, reevaluate if patient symptomatic I, [Hayden Anderson], have evaluated this patient and agree with findings/plan as outlined by manager of international resident. Pertinent changes/additions are listed here. Addendum - Attending - Attending Attestation Date/Time: 07/16/181953 I personally evaluated the patient and discussed the management with Dr. Bryant and Dr. Anderson I agree with the History, Examination, Assessment and Plan documented above with any addition or exceptions noted below. 63 yo female with multiple medical conditions presents for evaluation of pain and SOB. Patient dx with Right sided pulmonary PE. Patient also reported abdominal pain, cough, and congestion. VS reviewed. Labs reviewed. Imaging reviewed. NAD. On supplemental O2 (home dose) Poor air movement. Wheezing. Faint crackles. Right pulm artery PE: No significant cardiac strain on EKG. Place on tele. If any changes on tele, would get ECHO. Unsure last ECHO. Start oral anticoagulant. Workup pending. Rule out other VTEs. No change in respiratory status. COPD ex: Mild. Will add steroids and azithro. Left lung lesion: Likely scar but needs to be followed up outpatient. Adjust home meds as needed. Marco
[2018-07-16 20:04] LABS: Troponin I Less than 0.010 ng/mL (< 0.028)
[2018-07-16 20:13] LABS: Actual Bicarbonate (HCO3a) 33.1 mEq/L (22-28); Analyzer IN Cardio ER; Base Excess (BEa) 7.1 mEq/L (-2.0 to +3.0); Calcium, Ionized 1.21 mmol/L (1.12-1.30); Carboxyhemoglobin (COHb) 0.1 gm% (0.0-3.0); Hemoglobin (Hb) 12.1 g/dL (12.0-16.0); O2 Tension (PaO2) 94.8 mmHg (> 80.0); Potassium - ABG Lab 4.03 mmol/L (3.70-5.30); pH, Arterial 7.41 (7.35-7.45)
[2018-07-16 20:16] LABS: Puncture Site LRA
[2018-07-16] MEDS ORDERED: Ondansetron PF 4 MG/2 ML Vial IVP PRN (20:16)
[2018-07-16] MEDS ORDERED: Ondansetron ODT 4 MG TAB PO PRN (20:16)
[2018-07-16 21:53] LABS: Troponin I Less than 0.010 ng/mL (< 0.028)
--- NOTE | 2018-07-16 22:18 | ULT ---
BILATERAL UPPER EXTREMITY VENOUS DOPPLER WITH SPECTRAL ANALYSIS AND COLOR FLOW EVALUATION 07/16/18 HISTORY: Patient with pulmonary embolus and bilateral upper extremity pain. FINDINGS: [place] scale, color flow, doppler evaluation with spectral analysis of the bilateral upper extremity ve nous structures is performed with 2D imaging. There is normal lumen compressibility and flow within the bilateral internal jugular, axillary, and b rachial veins. Flow is seen within each subclavian vein with flow also demonstrated in the bilateral upper extremity radial and ulnar veins. There is normal lumen compressibility and flow seen within the bilateral upper extremity basilic and cephalic veins. However, the left cephalic vein at the level of the antecubital fossa is not visualiz ed due to intravenous catheter in place and difficulty in imaging. IMPRESSION: No evidence of a DVT involving the visualized deep venous structures bilateral upper extremities. POS: BRENNAN
--- NOTE | 2018-07-16 22:22 | ULT ---
BILATERAL LOWER EXTREMITY VENOUS DOPPLER WITH SPECTRAL ANALYSIS AND COLOR FLOW EVALUATION 07/16/18 HISTORY: Bilateral lower extremity pain. FINDINGS: [place] scale, color flow, doppler evaluation, with spectral analysis of the bilateral lower extremity v enous structures is performed with 2D imaging. The bilateral lower extremity common femoral, superfic ial femoral, popliteal, posterior tibial, most proximal greater saphenous and profunda femoral veins are imaged. There is normal lumen compressibility, flow and augmentation in the visualized deep venous structures of the bilateral lower extremities. IMPRESSION: No evidence of a DVT involving the visualized deep venous structures bilateral lower extremities. POS: BRENNAN
[2018-07-16 22:35] LABS: INR-International Normal Ratio 0.9; Prothrombin Time 12.4 SEC (12.0-14.7)
[2018-07-16 22:36] LABS: PTT 33.1 SEC (22.9-36.1)
[2018-07-16 22:37] LABS: D-Dimer Test 2.06 *mcg/mL (0.27-0.43)
[2018-07-16] MEDS ORDERED: HYDROcodone/Acetaminophen 7.5/325 mg Tablet ONE (22:52)
[2018-07-16] MEDS: HYDROcodone/Acetaminophen 7.5/325 mg Tablet PO PRN (22:56)
[2018-07-17 03:33] LABS: #Lymphocytes 0.9 thou/uL (1.20-3.40); #Monocytes 0.1 thou/uL (0.11-0.59); #Neutrophils 5.4 thou/uL (1.40-6.50); %Basophils 0.2 % (0.0-1.0); %Eosinophils 0.2 % (0.0-10.0); %Lymphocytes 13.8 % (21.0-51.0); %Monocytes 1.8 % (0.0-10.0); Hemoglobin 11.6 g/dL (12.0-16.0); Mean Corpuscular HGB CONC 31.5 g/dL (32.0-36.0); Mean Corpuscular Hemoglobin 29.7 pg (27.0-31.0); Mean Corpuscular Volume 94.2 fL (78.0-98.0); Mean Platelet Volume 6.6 fL (7.4-10.4); Platelet Count 279 thou/uL (130-400); RBC Distribution Width 12.8 % (11.5-14.5); Red Blood Cell (RBC) Count 3.92 mill/uL (4.20-5.40); White Blood Cell (WBC) Count 6.5 thou/uL (4.8-10.8)
[2018-07-17 03:42] LABS: INR-International Normal Ratio 0.9; PTT 31.8 SEC (22.9-36.1); Prothrombin Time 12.6 SEC (12.0-14.7)
[2018-07-17 03:53] LABS: Anion Gap 13 mmol/L (10-20); BUN (Urea Nitrogen) 13 mg/dL (9.8-20.1); Calc. Creatinine Clearance 0 mL/min (70-130); Calcium 9.6 mg/dL (7.8-10.44); Carbon Dioxide 31 mmol/L (23-31); Chloride 98 mmol/L (98-107); Estimated GFR-MDRD 84; Glucose 276 mg/dL (80-115); Potassium 4.3 mmol/L (3.5-5.1); Sodium 138 mmol/L (136-145)
[2018-07-17 05:20] VITALS: BMI 24.6
--- NOTE | 2018-07-17 05:34 | PDOC.FM ---
- Subjective Subjective: Pleasant 63 yo F here for PE. States she is feeling much better, less SOB, chest pain has resolved. Reports her belly pain is improved. States that she needs to leave today to be home to protect her things. - Objective Vital Signs & Weight: Vital Signs (12 hours) Temp Pulse Resp BP Pulse Ox 07/17/18 03:40 98.0 F 117 H 20 130/72 97 07/17/18 02:23 111 H 20 100 Weight Weight 55.293 kg Result Diagrams: 07/17/18 03:17 07/17/18 03:17 Phys Exam - Physical Examination Constitutional: NAD HEENT: moist MMs Neck: no nodes, supple decreased breath sounds at bases bilat, expiratory wheeze present Cardiovascular: RRR, no significant murmur Gastrointestinal: soft, non-tender, no distention, positive bowel sounds Musculoskeletal: no edema, pulses present Neurological: moves all 4 limbs Psychiatric: normal affect, A&O x 3 Skin: no rash, normal turgor, cap refill <2 seconds Dx/Plan (1) Avascular necrosis Code(s): M87.00 - IDIOPATHIC ASEPTIC NECROSIS OF UNSPECIFIED BONE Status: Acute (2) Pulmonary embolism Code(s): I26.99 - OTHER PULMONARY EMBOLISM WITHOUT ACUTE COR PULMONALE Status : Acute (3) COPD with acute exacerbation Code(s): J44.1 - CHRONIC OBSTRUCTIVE PULMONARY DISEASE W (ACUTE) EXACERBATION Status: Acute (4) Nephrolithiasis Status: Acute (5) Chronic obstructive lung disease Status: Chronic - Plan Plan: Acute on chronic hypoxic resp failure Likely 2/2 to COPD and PE - Currently stable on usual O2 requirement of 2L - ABG consistent Pulm Embolism - PE on CT scan in RUL - Unknown source of this PE. EKG shows sinus tachycardia and pt has no hx of atrial fibrillation or coagulopathy. No recent hx of immobility. No obvious swelling in bilateral LE. Reports a history of prior blood clot - Plan, telemetry monitoring for cardiac causes. Coag lab as patient has unprovoked PE. Doppler US negative for upper or lower extremity DVTs. Trop neg X 2. - Therapeutic lovenox at 1mg/kg BID for PE, transition to xarelto today after discussion with CM on appropriate home med for anticoagulation. - Blood cx pending COPD exacerbation Pt has hx of COPD. Presenting with increased SOB and cough - Will continue azithromycin for abx coverage - Continue albuterol/ipratropium, steroid and O2 supplementation as needed. Incidental Spiculated Mass - Per Radiology, likely a scar. - Will recommend follow up outpatient for monitoring. Previous CT commented on scarring in apices. Abdominal pain At this time, no obvious cause, but carnett test positive, suggesting abd wall pain rather then visceral causes. CT did not identify acute causes either. - UA pos for leukocytes and WBCs; UCx pending - Will continue to monitor BMs and abdominal distention Avascular Necrosis - Known issue from CT 2 years ago. Advise follow up with PCP for med management Non obstructive renal calculi None issue from previously. Will monitor at this time and reevaluate if patient symptomatic PCP: Wyatt Dispo: Home today if xarelto an option, otherwise will need to be transitioned to warfarin
[2018-07-17 07:44] VITALS: TEMP 97.5
[2018-07-17] MEDS: Azithromycin 250 MG TAB PO SCH ×2 (07:46→07:47)
[2018-07-17] MEDS: HYDROcodone/Acetaminophen 7.5/325 mg Tablet PO PRN (07:49)
[2018-07-17] MEDS ORDERED: Citalopram 10 MG TAB PO SCH (09:00)
[2018-07-17] MEDS ORDERED: Amlodipine 5 MG TAB PO SCH (09:00)
[2018-07-17] MEDS ORDERED: DULoxetine 30 MG CAP PO SCH (09:00)
[2018-07-17] MEDS ORDERED: Enoxaparin Sodium 60 MG/0.6 ML SYRINGE SC SCH (09:00)
[2018-07-17] MEDS ORDERED: predniSONE 20 MG TAB PO SCH (09:00)
[2018-07-17] MEDS ORDERED: Prevnar 13-Val Conj/PF 0.5 ML SYRINGE IM ONE (09:00)
--- NOTE | 2018-07-17 11:34 | PRG ---
DATE OF SERVICE: 07/17/2018 SUBJECTIVE: Ms. Silva is a 63-year-old black female, who was admitted with shortness of breath. She was found to have a pulmonary embolus. In addition, she was found to have a stellate lesion with spiculation in the posterolateral aspect of the left lung along a lateral periphery of the left major fissure abutting the pleural surface. It measured 1.5 x 1.5 x 0.6 cm. It was likely a scar, but could also represent a primary lung cancer not excluded by this study. We should likely proceed with a PET scan as planning for long-term treatment for pulmonary embolus would involve Lovenox, if this is a malignancy versus Xarelto or Eliquis if it is not. In the event clinically, Ms. Silva feels much better this morning, although she is upset that some of her blood pressure medications have not been started, although we just found out about them 10 minutes before rounds. We will continue to monitor. Job ID: [id number]
[2018-07-17 11:59] VITALS: BP 141/79
[2018-07-17] MEDS ORDERED: Gabapentin 300 MG CAP PO SCH (15:00)
[2018-07-17 17:36] LABS: Cardiolipin IgA Ab 5.4 APL-U/mL (<14 Negative); Cardiolipin IgG Ab 1.9 GPL-U/mL (<10 Negative); Cardiolipin IgM Ab 0.8 MPL-U/mL (<10 Negative); EliA APS New Method **** NEW METHOD ****
[2018-07-17] MEDS ORDERED: Amitriptyline HCl 25 MG TAB PO SCH (21:00)
--- NOTE | 2018-07-17 22:21 | DIS ---
DATE OF ADMISSION: 07/16/2018 DATE OF DISCHARGE: 07/17/2018 RESIDENT: Coarzon Martinez MD. CONSULTS: None. PROCEDURES: 1. Chest x-ray on 07/16/2018, findings; continued volume loss of right lung. Calcified granulomas of left lung. Unchanged examination of the chest. 2. Chest CTA on 07/16/2018, findings; numerous bullae at the apical and posterior medial aspect of the bilateral hemithoracic cavities. Severe hyperlucency involving much of the right lower lobe with architectural distortion. Severe right upper lobe scarring with architectural distortion, including superior retraction of the right hilum, distortion of bronchi. Cardiomediastinal shift to the right due to chronic right volume loss. 3. Spiculated stellate lesion with spiculation at posterolateral aspect of the left lung along the lateral periphery of the left major fissure, abutting pleural surface, and measuring approximately 1.5 x 1.5 x 0.6 cm. This is favored to represent a scar, less likely primary lung cancer, although that is not excluded. Filling defect consistent with a clot in the right upper lobe pulmonary arteries and its branches positive for pulmonary thromboembolism. Recommend follow up PET. 4. Venogram on 07/16/2018, impression; no evidence of DVT in the upper or lower bilateral extremities. PRIMARY DIAGNOSES: 1. Acute on chronic hypoxic respiratory failure. 2. Pulmonary embolism. SECONDARY DIAGNOSES: 1. Chronic obstructive pulmonary disease exacerbation. 2. Incidental spiculated mass in lung. 3. Abdominal pain. 4. Avascular necrosis. 5. Nonobstructive renal calculi. 6. Coronary artery disease. 7. Hepatitis B and C. 8. Osteoporosis. 9. Emphysema. 10. Anxiety. 11. Bipolar. 12. Schizophrenia. DISCHARGE MEDICATIONS: 1. Azithromycin 250 mg p.o. daily for 3 days starting 07/17/2018. 2. Prednisone 40 mg p.o. daily for next 3 days starting 07/18/2018. 3. Apixaban 10 mg p.o. b.i.d. for 7 days, then 5 mg p.o. b.i.d. after that. 4. Trazodone 50 mg p.o. at bedtime. 5. Symbicort 1 puff b.i.d. 6. Aspirin 81 mg p.o. daily. 7. Citalopram 10 mg p.o. daily. 8. Amitriptyline 25 mg p.o. at bedtime. 9. Amlodipine 2.5 mg p.o. daily. 10. Fluoxetine 30 mg p.o. b.i.d. 11. Gabapentin 600 mg p.o. t.i.d. 12. Tiotropium 2 inhalations daily. 13. Fluticasone 2 sprays nasal daily. 14. Albuterol 1 puff q.4 hours p.r.n. for shortness of breath or wheezing. 15. Calcium citrate plus D tablets 1 tablet p.o. daily. DISCONTINUE MEDICATIONS: None. HISTORY OF PRESENT ILLNESS: This is a 63-year-old female with chief complaint of shortness of breath and abdominal pain. The patient has a history significant for COPD. The patient endorsed wheezing, abdominal distention, and cramping. She states that she first noticed the symptoms have started 4 days ago and progressed. She endorsed shortness of breath along with cough productive of clear yellow sputum. Shortness of breath is associated with wheezing. States she has become more short of breath during daily activities of just cleaning the house. Endorsed fever and chills. The patient uses home O2 and is on 2 L at home. She also complains of pain and numbness in her bilateral lower extremities. She states the pain is sharp in nature and comes and goes. She also endorsed chest pain has been present over the same timeframe, it is located in the left chest that does not radiate. She endorses palpitations. She states it hurts to touch the left area of her chest. She has a history of avascular necrosis of the hip and back and states that she has significant pain from this. In the ED, she was given prednisone 50 mg oral, ceftriaxone, morphine, Lovenox 1 mcg per kg, albuterol sulfate nebulized, and ipratropium neb. The patient was found to have a pulmonary embolus on CT scan in the right upper lobe. There is no known source for the PE. Coagulation/ thrombotic panel was drawn (after the patient was started on heparin) and those results are pending, but will be most likely inaccurate. Doppler ultrasound was negative for upper and lower extremity DVTs. The patient was transitioned to Eliquis. COPD exacerbation. The patient was started on a 5-day course of steroids and azithromycin. The patient was refusing azithromycin while in the hospital and asking for other antibiotics. Incidental spiculated mass was seen on chest CT. Recommend outpatient PET scan as cancer cannot be excluded. On admission, the patient was complaining of abdominal pain that was most likely abdominal wall pain is carnett test was positive. UA did not show infection. The patient's abdominal pain resolved overnight during her stay. DISPOSITION: Stable. DISCHARGE INSTRUCTIONS: LOCATION: Home. DIET: Regular diet. ACTIVITY: As tolerated. FOLLOWUP: Follow up with Dr. Schneider within 1 week of discharge. Continue eliquis for anticoagulation. Recommend outpatient follow up PET for lung mass. Job ID: [id number] [facility]
[2018-07-18] MEDS ORDERED: Cholecalciferol (Vitamin D3) 400 UNITS TAB PO SCH (09:00)
[2018-07-18] MEDS ORDERED: Calcium Citrate 950 MG TAB PO SCH (09:00)
[2018-07-18] MEDS ORDERED: Fluticasone Propionate Nasal Spray 16 gm Bottle NASAL SCH (09:00)
[2018-07-18] MEDS ORDERED: Aspirin Chewable 81 MG TAB PO SCH (09:00)
[2018-07-18 13:47] LABS: Protein C Activity 140 % (78-152)
[2018-07-18 13:49] LABS: Factor VIII Test 196.9 % ACTIVE (56-157)
[2018-07-18 15:25] LABS: HEX PHOS LA Tube 1 63.8 SEC; HEX PHOS LA Tube 2 54.4 SEC; Hexagonal Phospholipid Neut 9.4 SEC (0-8.0)
== END 2018-07-17 16:52 | disposition home or self-care (01) | DRG 175 ==
LOC: ERS 14:23 → ERHOLD 17:33 → EEVIPCON 17:33 → 2NO 07-17 04:47
PROVIDERS: ADMIT Student in an Organized Health Care Education/Training Program; ATTEND Student in an Organized Health Care Education/Training Program
DX: I26.99 Other pulmonary embolism without acute cor pulmonale (principal); J96.21 Acute and chronic respiratory failure with hypoxia; J44.1 Chronic obstructive pulmonary disease with (acute) exacerbation; M87.88 Other osteonecrosis, other site; I25.10 Atherosclerotic heart disease of native coronary artery without angina pectoris; B19.20 Unspecified viral hepatitis C without hepatic coma; M81.0 Age-related osteoporosis without current pathological fracture; F41.9 Anxiety disorder, unspecified; F31.9 Bipolar disorder, unspecified; F20.9 Schizophrenia, unspecified; N20.0 Calculus of kidney; N83.201 Unspecified ovarian cyst, right side; I10 Essential (primary) hypertension; R91.8 Other nonspecific abnormal finding of lung field; R10.9 Unspecified abdominal pain; Z88.8 Allergy status to other drugs, medicaments and biological substances; Z87.891 Personal history of nicotine dependence; Z86.010 Personal history of colon polyps; Z99.81 Dependence on supplemental oxygen
CPT/HCPCS: 36415; 71045; 71275; 74177; 80048; 80053; 80306; 81003; 81015; 81240; 81241; 82805; 83090; 83605; 83880; 84145; 84484; 85025; 85240; 85300; 85303; 85305; 85307; 85379; 85598; 85610; 85730; 86147; 87040; 87086; 87804; 93005; 93970; 94644; 94760; J0696; J1650; J2270; J7611; J7620; Q9967

== ENCOUNTER 2018-07-23 12:14 | Outpatient (CLI) | payer OTHER ==
--- NOTE | 2018-07-23 15:38 | PET ---
PET WITH CT SKULL TO MID THIGH 07/23/18 CLINICAL HISTORY: Solitary pulmonary nodule. Reference made to prior CTA thorax 07/16/18. There is appropriate biodistribution of radiotracer activity. RADIOPHARMACEUTICAL: 10.6 millicuries fluorine 18 FDG intermixed with 10 mL 0.9% sodium chloride. FINDINGS: The previously mentioned area of nodular soft tissue density along the posterior superior left major fissure does not reveal evidence of hyper metabolic activity. This may relate to an area of scar give n its curvilinear morphology. There are multiple additional sites of parenchymal density of each lung which may also represent scar with superimposed pulmonary emphysema. There is no evidence of hyperme tabolic mass or adenopathy. There are numerous compression deformities throughout the spine without hypermetabolic activity indic ative of chronic abnormalities. There is scattered vascular disease. Colonic diverticulosis is presen t. There are nodular densities of the ventral left abdominal subcutaneous tissues which may represen t sequela from recent injections. IMPRESSION: No abnormal hypermetabolic activity localizes to the previously described nodular density involving the left major fissure. Recommend CT imaging followup in six months for continued assessment. POS: [facility]
== END 2018-07-23 12:15 | disposition home or self-care (01) ==
LOC: PET 12:14
PROVIDERS: ATTEND Internal Medicine Hematology & Oncology
DX: R91.1 Solitary pulmonary nodule (principal)
CPT/HCPCS: 78815; A9552

== ENCOUNTER 2018-08-03 19:23 | Emergency (ER) | payer OTHER ==
[~2018-08-03 19:23] MED LIST changes: +ISOVUE-370 76%-LOCM 1 ML ONE; -Iopamidol 370 76% 100 ML VIAL ONE
--- NOTE | 2018-08-03 20:09 | RAD ---
PORTABLE CHEST: 08/03/18 HISTORY: Shortness of breath. COMPARISON: 07/16/18. Patient is rotated which mildly distorts the chest. Right apical pleural opacity is again seen. Stran ding of the right lower lung appears stable. Left lung remains clear and unchanged. Heart and mediast inum unchanged in appearance. IMPRESSION: Stable chest findings. POS: [facility]
[2018-08-03] MEDS ORDERED: methylPREDNISolone Sod Succ/PF 125 MG/2 ML VIAL ONE (20:39)
[2018-08-03] MEDS ORDERED: Magnesium 2 GM/50 ML BAG (IN WATER) ONE (20:39)
[2018-08-03 20:43] LABS: #Eosinphils 0.2 thou/uL (0.0-0.7); #Lymphocytes 2.5 thou/uL (1.20-3.40); #Monocytes 0.5 thou/uL (0.11-0.59); #Neutrophils 4.4 thou/uL (1.40-6.50); %Basophils 0.6 % (0.0-1.0); %Eosinophils 2.1 % (0.0-10.0); %Lymphocytes 32.9 % (21.0-51.0); %Neutrophils 57.5 % (42.0-75.0); Hemoglobin 10.8 g/dL (12.0-16.0); Mean Corpuscular HGB CONC 31.1 g/dL (32.0-36.0); Mean Corpuscular Hemoglobin 29.3 pg (27.0-31.0); Mean Corpuscular Volume 94.2 fL (78.0-98.0); Mean Platelet Volume 7.1 fL (7.4-10.4); Platelet Count 229 thou/uL (130-400); Red Blood Cell (RBC) Count 3.69 mill/uL (4.20-5.40); White Blood Cell (WBC) Count 7.7 thou/uL (4.8-10.8)
[2018-08-03 20:49] LABS: PTT 27.9 SEC (22.9-36.1); Prothrombin Time 12.7 SEC (12.0-14.7)
[2018-08-03 21:08] LABS: ALT (SGPT) 43 U/L (8-55); AST (SGOT) 24 U/L (5-34); Albumin 3.7 g/dL (3.4-4.8); Alkaline Phosphatase 169 U/L (40-150); Anion Gap 11 mmol/L (10-20); BUN (Urea Nitrogen) 15 mg/dL (9.8-20.1); Bilirubin, Total 0.5 mg/dL (0.2-1.2); CK (CPK) 102 U/L (29-168); Calc. Creatinine Clearance 0 mL/min (70-130); Calcium 9.4 mg/dL (7.8-10.44); Carbon Dioxide 35 mmol/L (23-31); Chloride 98 mmol/L (98-107); Estimated GFR-MDRD Greater than 90; Globulin 3.1 g/dL (2.4-3.5); Glucose 217 mg/dL (80-115); Magnesium 1.7 mg/dL (1.6-2.6); Potassium 3.8 mmol/L (3.5-5.1); Protein, Total 6.8 g/dL (6.0-8.3); Sodium 140 mmol/L (136-145)
[2018-08-03 21:21] LABS: Bilirubin Negative (Negative); Blood, Urine Moderate (Negative); Clarity CLOUDY (Clear); Glucose, Urine (Dipstick) Negative (Negative); Leukocyte Small (Negative); Nitrite Negative (Negative); Protein, Urine (Dipstick) Negative (Neg-Trace); Specific Gravity, Urine 1.017 (1.002-1.036); pH, Urine 7.5 (5.0-9.0)
[2018-08-03 21:23] LABS: Bacteria/HPF None Seen HPF (None Seen); Hyaline Casts/LPF 0-3 HYALINE CAST LPF (0-3 Hyaline); RBC/HPF GREATER THAN 50-TNTC HPF (0-3); Squamous Epithelial 0-3 HPF (0-3)
[2018-08-03 21:30] LABS: Medtox Reader # READER 1; Tricyclic Screen Detected (NotDetected)
[2018-08-03 21:31] LABS: Amphetamine Not Detected (NotDetected); Barbiturates Screen Not Detected (NotDetected); Benzodiazepine Screen Not Detected (NotDetected); Cocaine Metabolite Screen Not Detected (NotDetected); Medtox Control Line Valid? VALID (VALID); Methadone Not Detected (NotDetected); Methamphetamine Not Detected (NotDetected); Opiate Screen Not Detected (NotDetected); Oxycodone Screen Not Detected (NotDetected); Phencyclidine (PCP) Not Detected (NotDetected); THC/Cannabinoid Screen Not Detected (NotDetected)
[2018-08-03] MEDS ORDERED: HYDROcodone/Acetaminophen 10/325 mg Tablet ONE (21:31)
--- NOTE | 2018-08-03 22:27 | CT ---
CTA CHEST WITH CONTRAST: 08/03/18 Multiple axial tomograms obtained through the chest following a pulmonary angio protocol with multipl lowell reconstructions and 3D postprocessing. INDICATIONS: Dyspnea. History of prior pulmonary embolus. Comparison made to CTA 07/16/18. FINDINGS: Filling defect in the right upper lobe possible pulmonary artery is unchanged in appearance from rece nt exam of 07/16/18. No new pulmonary embolus. No significant interval change in appearance. There is scarring in the right lung apex with cicatrization and shift of the mediastinum into the rig ht apical region. Posterior pleural thickening and scarring is noted as described previously. Emphyse matous change. No evidence of new infiltrate. There has been no significant change in the appearance of the chest when compared to 07/16/18. IMPRESSION: Filling defect consistent with embolus in a right upper lobe pulmonary artery is unchanged in appeara nce from the recent exam of 07/16/18. Scarring and cicatrization of the right apical region is again noted. Chronic parenchymal changes in both lungs appear stable from 07/16/18. POS: [facility]
== END 2018-08-03 23:29 | disposition home or self-care (01) ==
LOC: ERS 19:23
DX: J44.1 Chronic obstructive pulmonary disease with (acute) exacerbation (principal); I50.9 Heart failure, unspecified; I25.10 Atherosclerotic heart disease of native coronary artery without angina pectoris; F41.9 Anxiety disorder, unspecified; F31.9 Bipolar disorder, unspecified; Z87.891 Personal history of nicotine dependence; Z79.899 Other long term (current) drug therapy
CPT/HCPCS: 36415; 71045; 71275; 80053; 80306; 81003; 81015; 82550; 83605; 83735; 83880; 84484; 85025; 85379; 85610; 85730; 87040; 87804; 93005; 94640; 94760; J2930; J3475; J7620; Q9966

== ENCOUNTER 2018-08-05 09:54 | Inpatient (IN) | payer OTHER ==
[2018-08-05 11:01] LABS: #Eosinphils 0.1 thou/uL (0.0-0.7); #Lymphocytes 1.7 thou/uL (1.20-3.40); #Monocytes 0.5 thou/uL (0.11-0.59); #Neutrophils 6.7 thou/uL (1.40-6.50); %Basophils 0.4 % (0.0-1.0); %Eosinophils 1.4 % (0.0-10.0); %Lymphocytes 18.9 % (21.0-51.0); %Monocytes 5.9 % (0.0-10.0); %Neutrophils 73.4 % (42.0-75.0); Hemoglobin 12.1 g/dL (12.0-16.0); Mean Corpuscular HGB CONC 32.1 g/dL (32.0-36.0); Mean Corpuscular Hemoglobin 30.1 pg (27.0-31.0); Mean Corpuscular Volume 93.8 fL (78.0-98.0); Platelet Count 249 thou/uL (130-400); RBC Distribution Width 13.1 % (11.5-14.5); White Blood Cell (WBC) Count 9.1 thou/uL (4.8-10.8)
[2018-08-05 11:24] LABS: ALT (SGPT) 69 U/L (8-55); AST (SGOT) 36 U/L (5-34); Alkaline Phosphatase 198 U/L (40-150); Anion Gap 13 mmol/L (10-20); BUN (Urea Nitrogen) 16 mg/dL (9.8-20.1); Bilirubin, Total 0.5 mg/dL (0.2-1.2); CK (CPK) 234 U/L (29-168); Calc. Creatinine Clearance 0 mL/min (70-130); Calcium 9.6 mg/dL (7.8-10.44); Carbon Dioxide 33 mmol/L (23-31); Chloride 99 mmol/L (98-107); Estimated GFR-MDRD Greater than 90; Globulin 3.2 g/dL (2.4-3.5); Glucose 167 mg/dL (80-115); Potassium 4.5 mmol/L (3.5-5.1); Protein, Total 7.2 g/dL (6.0-8.3); Sodium 140 mmol/L (136-145)
--- NOTE | 2018-08-05 11:24 | CT ---
FExam: Head CT without contrast HISTORY: Headache. Blurred vision. Left-sided body numbness. COMPARISON: 06/02/2017 FINDINGS: Hemorrhage: No intraparenchymal hemorrhage or extra-axial hematoma. Brain parenchyma: Cortical vo-white matter differentiation is preserved. No mass effect or midline shift. Basilar cisterns are patent. Stable white matter hypodensities in the left frontal subcortical white matter Ventricular system: Ventricles and sulci are patent and symmetric. Calvarium: Intact. Sinuses and mastoid air cells: Adequate aeration. IMPRESSION: No acute intracranial process. Results of study discussed with Dr. Jauregui 08/05/2018 at 11:21 AM Code CR
[2018-08-05] MEDS ORDERED: ISOVUE-370 76%-LOCM 1 ML ONE (11:59)
--- NOTE | 2018-08-05 12:15 | CT ---
CTA HEAD WITH CONTRAST: Date: 08/05/18 Multiple axial tomograms obtained through the head following a cerebral angio protocol with multiplan ar reconstruction and 3D postprocessing. INDICATION: Stroke alert. Left side paresthesia. FINDINGS: The intracranial internal carotid arteries appear patent. There is focal luminal narrowing in the cav ernous portion of the right ICA with narrowing estimated in the 40-50% range. There is a tiny 1-2 mm outpouching at this location which could represent focus of ulceration or tiny aneurysm within the ca vernous ICA. There is another focal outpouching which appears to represent an infundibulum from an or iginating vessel. The middle cerebral arteries appear unremarkable. Anterior cerebral arteries are unremarkable. Basilar artery and posterior cerebrals are unremarkable. IMPRESSION: 1. There is luminal narrowing in the cavernous right internal carotid artery and questioned tiny ane urysm or ulceration at this location. This could be better assessed with catheter angiogram as indica kristel. 2. CT angio of cerebral circulation otherwise unremarkable. CTA NECK: Multiple axial tomograms obtained through neck with angio protocol. Multiplanar reconstruction and 3D postprocessing. INDICATION: Stroke protocol. Left paresthesia. FINDINGS: There is no evidence of stenosis at the origin of the arch vessels. Both common carotids are tortuous and there is mild kinking at this tortuosity proximally which may r epresent luminal narrowing; however, there is no atherosclerotic change or other evidence of stenosis . The carotid bulbs and extracranial internal carotid arteries are unremarkable. No atherosclerotic brennan nge or stenosis seen. The vertebral arteries are patent and symmetric. The lung apices show chronic parenchymal change and there is nodularity in the left apex associated w ith an area of calcification. Refer to prior CT chest exam. IMPRESSION: The common carotid arteries are very tortuous just beyond this origin and this tortuosity produces mi ld kinking. The extracranial carotid arteries and vertebral arteries are otherwise unremarkable. Findings discussed with Dr. Jauregui. CODE CR. POS: [facility]
--- NOTE | 2018-08-05 12:37 | RAD ---
PORTABLE CHEST 1 VIEW: Date: 08/05/18 Time: 1145 hours HISTORY: Headache, chest pain. FINDINGS: Comparison made with exam of 08/03/18. Chronic changes in the lung coronado are again seen, right greater than left. No lobar consolidation, p neumothoraces, daron pulmonary edema, or pleural effusions are identified. The heart size is stable. IMPRESSION: Stable exam. No acute process. POS: [facility]
--- NOTE | 2018-08-05 13:18 | PDOC.FPRHP ---
- History of Present Illness Chief Complaint: Somnolent, SOB History of Present Illness: This is a 63 yo female with a pmh of COPD, recent pulmonary embolism on anticoagulation, CAD, Hepatitis B and C, who presents to the ED accompanied by her [employer] assistant football coach with a cc muscle weakness and somnolence. Pts friend reports she was at a counseling session at 0830 and at ~0900 she started having left facial tightness with difficulty walking. The friend reports that they were in the ED waiting room when the pt started looking glazed over and became somnolent. In the ED room, pt was on 2L of O2 at 100%. She had a hard time answering questions and had to be regularly aroused. ED Course: Dalia frost x1 - Allergies/Adverse Reactions Allergies Allergy/AdvReac Type Severity Reaction Status Date / Time ibuprofen Allergy "get Verified 03/17/18 21:48 shakey" NSAIDS (Non-Steroidal Allergy Verified 03/17/18 21:48 Anti-Inflamma naproxen AdvReac Severe shaky Verified 03/17/18 21:48 - Home Medications Medication Instructions Recorded Confirmed Type traZODone HCl [Desyrel] 50 mg PO HS 08/07/15 08/05/18 History Budesonide-Formoterol [Symbicort 1 puff INH BID 04/14/16 08/05/18 History 160-4.5] Albuterol Sulfate [Proair HFA] 1 puff INH Q4HR PRN 07/17/18 08/05/18 History Amitriptyline HCl 25 mg PO HS 07/17/18 08/05/18 History Amlodipine [Norvasc] 2.5 mg PO DAILY 07/17/18 08/05/18 History Apixaban [Eliquis] 5 mg PO BID #42 tablet 07/17/18 08/05/18 Rx Aspirin [Aspirin EC] 81 mg PO DAILY 07/17/18 08/05/18 History Calcium Citrate/Vitamin D3 [[place] 1 tab PO DAILY 07/17/18 08/05/18 History Calcium + D Tablet] Citalopram Hydrobromide 10 mg PO DAILY 07/17/18 08/05/18 History [Citalopram HBr] DULoxetine HCl 30 mg PO BID 07/17/18 08/05/18 History Fluticasone Propionate [Flonase 2 spray NASAL DAILY 07/17/18 08/05/18 History Nasal [place]] Gabapentin 600 mg PO TID 07/17/18 08/05/18 History Tiotropium [place] [Spiriva 2 inh IH DAILY 07/17/18 08/05/18 History Respimat] - History PMHx: recent hx of PE, COPD, CAD, Hepatitis B and C, Osteoporosis, anxiety, bipolar, schizophrenia PSHx: bypass graft surgery, cataract surgery, ovarian cyst removal, kidney sstones s/p stents FHx: Non contributory Social: former tobacco abuse, denies alcohol or drug abuse - Review of Systems ROS unobtainable: other (due to somnolence) General: reports: fatigue. denies: fever/chills, weight/appetite/sleep changes Eyes: reports: vision changes Respiratory: reports: shortness of breath. denies: cough Cardiovascular: denies: chest pain, palpitation Gastrointestinal: reports: abdominal pain. denies: nausea, vomiting, diarrhea, constipation, GI bleeding Genitourinary: denies: incontinence, dysuria Skin: denies: rashes, lesions Musculoskeletal: reports: pain (pain all over). denies: tenderness, stiffness Neurological: reports: weakness. denies: numbness, syncope Psychological: reports: anxiety, depression - Vital signs BP: 109/67 HR: 80 RR: 20 Tmax: 97.9 Pox: 100% on 2L Wt: 57.61 - Physical Exam Constitutional: well developed, other (Oriented x3, GCS 14) HEENT: normocephalic and atraumatic, PERRLA, EOMI, conjunctiva clear, MMM Neck: trachea midline, no JVD, other (tracheal retractions) Chest: no lesions, other (tenderness to palpation) Heart: RRR, normal S1/S2, no murmurs/rubs/gallops, pulses present Lungs: other (Mild respirator distress, end expiratory wheezing, decreased air movement to lungs) Abdomen: soft, bowel sounds present, no masses/distention, other (pt grimaces to palpation and reports she has bruise on her abdomen) Musculoskeletal: normal structure, normal tone, ROM grossly normal, other (Pt moving all 4 extremities, difficult to fully assess neurologic status) Neurological: CN II-XII intact, other Skin: no rash/lesions, good turgor, capillary refill <2 seconds Heme/Lymphatic: no unusual bruising or bleeding, no purpura Psychiatric: other (Somnolent) FMR H&P: Results - Labs Result Diagrams: 08/05/18 10:53 08/05/18 10:53 Lab results: WBC 9.1 thou/uL (4.8-10.8) 08/05/18 10:53 Hgb 12.1 g/dL (12.0-16.0) 08/05/18 10:53 Hct 37.5 % (36.0-47.0) 08/05/18 10:53 MCV 93.8 fL (78.0-98.0) 08/05/18 10:53 Plt Count 249 thou/uL (130-400) 08/05/18 10:53 Neutrophils % 73.4 % (42.0-75.0) 08/05/18 10:53 Sodium 140 mmol/L (136-145) 08/05/18 10:53 Potassium 4.5 mmol/L (3.5-5.1) 08/05/18 10:53 Chloride 99 mmol/L (98-107) 08/05/18 10:53 Carbon Dioxide 33 mmol/L (23-31) H 08/05/18 10:53 BUN 16 mg/dL (9.8-20.1) 08/05/18 10:53 Creatinine 0.72 mg/dL (0.6-1.1) 08/05/18 10:53 Glucose 167 mg/dL (80-115) H 08/05/18 10:53 Calcium 9.6 mg/dL (7.8-10.44) 08/05/18 10:53 Total Bilirubin 0.5 mg/dL (0.2-1.2) 08/05/18 10:53 AST 36 U/L (5-34) H 08/05/18 10:53 ALT 69 U/L (8-55) H 08/05/18 10:53 Alkaline Phosphatase 198 U/L (40-150) H 08/05/18 10:53 Creatine Kinase 234 U/L (29-168) H 08/05/18 10:53 B-Natriuretic Peptide 36.3 pg/mL (0-100) 08/05/18 10:53 Serum Total Protein 7.2 g/dL (6.0-8.3) 08/05/18 10:53 Albumin 4.0 g/dL (3.4-4.8) 08/05/18 10:53 Additional comment: ABG pH 7.38 CO2 59.8 O2 66.9 Bicarb 34.7 - Radiology Interpretation CT scan - head Status: report reviewed by me (1. There is luminal narrowing in the cavernous right internal carotid artery and questioned tiny ane urysm or ulceration at this location. This could be better assessed with catheter angiogram as indica kristel. 2. CT angio of cerebral circulation otherwise unremarkable.) Additional comment: CT head shows now intracranial process Chest x-ray Status: report reviewed by me (Stable exam, no acute process) FMR H&P: A/P - Problem List (1) COPD with acute exacerbation Current Visit: No Status: Acute Code(s): J44.1 - CHRONIC OBSTRUCTIVE PULMONARY DISEASE W (ACUTE) EXACERBATION (2) Recurrent pulmonary embolism Current Visit: Yes Status: Acute Code(s): I26.99 - OTHER PULMONARY EMBOLISM WITHOUT ACUTE COR PULMONALE (3) Schizophrenia Current Visit: Yes Status: Acute Code(s): F20.9 - SCHIZOPHRENIA, UNSPECIFIED (4) Anxiety Current Visit: Yes Status: Acute Code(s): F41.9 - ANXIETY DISORDER, UNSPECIFIED (5) Osteoporosis Current Visit: Yes Status: Acute Code(s): M81.0 - AGE-RELATED OSTEOPOROSIS W /O CURRENT PATHOLOGICAL FRACTURE (6) Bipolar 2 disorder Current Visit: No Status: Chronic Code(s): F31.81 - BIPOLAR II DISORDER (7) CAD (coronary artery disease), [place] coronary artery Current Visit: No Status: Chronic Code(s): I25.10 - ATHSCL HEART DISEASE OF [place] CORONARY ARTERY W/O ANG PCTRS (8) Chronic hepatitis B Current Visit: No Status: Chronic Code(s): B18.1 - CHRONIC VIRAL HEPATITIS B WITHOUT DELTA-AGENT (9) Hypertension Current Visit: No Status: Chronic Code(s): I10 - ESSENTIAL (PRIMARY) HYPERTENSION - Plan This is a 63 yo female with a pmh of COPD, recent pulmonary embolism on anticoagulation, CAD, Hepatitis B and C History concerning for CVA -Admit to stroke -Last normal at 0830 this AM -CT and CTA show no sign of acute intracranial bleed -Aspirin 325 -NPO pending bedside swallow -Statin therapy -Pending echo cardiogram COPD exacerbation -Prednisone, doxycycline -Pending procal -Felicia and PRN duonebs Recent PE on anticoagulation -Pending CTA chest -Continue Eliquis HTN -Continue home meds Bipolar -Continue home meds Anxiety -Continue home meds Schizophrenia -Continue home meds Code: Full Prophylaxis: none Family: Friend at bedside Diet: heart healthy PCP:[facility] Disposition: home in 2-3 days FMR H&P: Upper Level - Pertinent history 63 yr old female with PMH of CAD, recent PE on anticoagulation, COPD who presents with somnolence and generalized weakness. Much of history is taken by her [employer] assistant football coach who is at bedside. She reports that she picked Ms. Silva up at 0830 this morning at which time she was normal appearing. She had a video conference counseling session from [phone] and during that time, apparently the counselor commented on Ms. Silva's change in mentation and even asked her if she had ever had a stroke before. The [employer] assistant football coach stated that Ms. Silva required assistance walking. The [employer] assistant football coach notes that since being at the ER, Ms Silva has become more out of it and weak. - Pertinent findings CTA: luminal narrowing in the cavernous right ICA and questioned tiny aneurysm or ulceration at this location. CT angio of cerebral circulation otherwise unremarkable. Common carotid arteries are very tortuous just beyond this origin and this tortuosity produces mild kinking. extracranial carotid and vertebral arteries are otherwise unremarkable. Gen: arousable but in and out of somnolence. When arrousable, she can answer person, place, time, and situation Heart: RRR, no M/R/G Lungs: poor air movement and poor effort with faint expiratory wheezes diffusely. Crackles in bilateral lower lobes. Neuro: at the time of my exam, patient was unable to participate in neuro exam however she was moving all 4 limbs with equal strength in bilateral upper and lower extremities. There was no facial droop or slurred speech. Ext: No LE swelling - Plan Date/Time: 08/05/18 1317 I, [Selma Graves], have evaluated this patient and agree with findings/plan as outlined by internal audit manager resident. Pertinent changes/additions are listed here. 63 yr old female here with stroke like symptoms CVA vs TIA r/o -ABG hypercapneic but appears chronic in nature and otherwise unremarkable so unlikely to be sole cause of somnolence -CTA head and neck without evidence of occlusion -MRI in AM -statin, ASA -echo COPD exacerbation -has been on treatment for a couple days -cont steroids, abx, and duonebs. -do not apply oxygen unless O2 < 92%. subacute PE -cont anticoagulation other chronic medical problems per interns note above.
[2018-08-05 13:38] LABS: Actual Bicarbonate (HCO3a) 34.7 mEq/L (22-28); Analyzer IN Cardio ER; Base Excess (BEa) 7.8 mEq/L (-2.0 to +3.0); CO2 Tension 59.8 mmHg (35.0-45.0); Calcium, Ionized 1.21 mmol/L (1.12-1.30); Carboxyhemoglobin (COHb) 0.3 gm% (0.0-3.0); Hemoglobin (Hb) 12.2 g/dL (12.0-16.0); O2 Tension (PaO2) 66.9 mmHg (> 80.0); Potassium - ABG Lab 4.14 mmol/L (3.70-5.30); pH, Arterial 7.38 (7.35-7.45)
[2018-08-05 13:39] LABS: Puncture Site RRA
[2018-08-05] MEDS ORDERED: Acetaminophen 500 MG TAB ONE (14:00)
[2018-08-05 16:40] VITALS: BMI 25.6
[2018-08-05] MEDS ORDERED: Ondansetron ODT 4 MG TAB PO PRN (16:40)
[2018-08-05] MEDS ORDERED: Ondansetron PF 4 MG/2 ML Vial IVP PRN (16:40)
[2018-08-05] MEDS ORDERED: Acetaminophen 650 MG Suppository PR PRN (16:40)
[2018-08-05] MEDS ORDERED: Acetaminophen 325 MG TAB PO PRN (16:40)
[2018-08-05] MEDS: Mometasone/Formoterol 120 PUFF INHALER INH SCH (18:52)
[2018-08-05] MEDS: PROVENTIL INHALER 6.7 G (200 INHALATIONS) INH SCH ×2 (18:58→22:02)
[2018-08-05] MEDS: DULoxetine 30 MG CAP PO SCH (20:23)
[2018-08-05] MEDS: Famotidine 20 MG TAB PO SCH (20:24)
[2018-08-05] MEDS: Apixaban 5 MG TAB PO SCH (20:24)
[2018-08-05] MEDS: Gabapentin 300 MG CAP PO SCH (20:24)
[2018-08-05] MEDS: traZODone HCl 50 MG TAB PO SCH (20:24)
[2018-08-05] MEDS: Amitriptyline HCl 25 MG TAB PO SCH (20:24)
[2018-08-05] MEDS: Famotidine/PF 20 mg/2ml Vial SLOW IVP SCH (20:25)
[2018-08-05] MEDS ORDERED: Doxycycline 100 MG in Syringe 0 ML IVPB SCH (21:00)
[2018-08-05] MEDS ORDERED: Calcium Carbonate 500 MG ChewTAB PO PRN (21:41)
[2018-08-06] MEDS: PROVENTIL INHALER 6.7 G (200 INHALATIONS) INH SCH ×6 (02:40→22:08)
[2018-08-06 05:45] LABS: #Eosinphils 0.2 thou/uL (0.0-0.7); #Lymphocytes 2.1 thou/uL (1.20-3.40); #Monocytes 0.6 thou/uL (0.11-0.59); #Neutrophils 3.2 thou/uL (1.40-6.50); %Basophils 0.8 % (0.0-1.0); %Eosinophils 2.8 % (0.0-10.0); %Lymphocytes 35.1 % (21.0-51.0); %Monocytes 9.4 % (0.0-10.0); %Neutrophils 51.9 % (42.0-75.0); Hemoglobin 11.5 g/dL (12.0-16.0); Mean Corpuscular HGB CONC 30.7 g/dL (32.0-36.0); Mean Corpuscular Hemoglobin 29.3 pg (27.0-31.0); Mean Corpuscular Volume 95.5 fL (78.0-98.0); Mean Platelet Volume 7.5 fL (7.4-10.4); Platelet Count 237 thou/uL (130-400); RBC Distribution Width 13.3 % (11.5-14.5); Red Blood Cell (RBC) Count 3.92 mill/uL (4.20-5.40); White Blood Cell (WBC) Count 6.1 thou/uL (4.8-10.8)
--- NOTE | 2018-08-06 06:03 | PDOC.FM ---
- Subjective Subjective: Pt states her breathing improved overnight. She continues to complain of pain all over. She states that she is still having some facial tightness. - Objective MAR Reviewed: Yes Vital Signs & Weight: Vital Signs (12 hours) Temp Pulse Resp BP Pulse Ox 08/06/18 03:42 97.6 F 99 16 133/78 100 08/06/18 00:00 97.4 F L 95 16 104/54 L 94 L 08/05/18 22:01 99 18 97 08/05/18 19:32 97.5 F L 118 H 16 129/78 98 08/05/18 18:41 107 H 16 97 Weight Weight 57.606 kg I&O: 08/04/18 08/05/18 08/06/18 06:59 06:59 06:59 Intake Total 300 Balance 300 Result Diagrams: 08/06/18 05:12 08/06/18 05:12 Phys Exam - Physical Examination Constitutional: NAD HEENT: moist MMs Neck: supple, full ROM End expiratory wheezing. Good air movement Cardiovascular: RRR, no significant murmur Gastrointestinal: soft, non-tender, no distention, positive bowel sounds Musculoskeletal: no edema, pulses present Neurological: moves all 4 limbs Decreased movement of her left side with ttp on the left arm Psychiatric: normal affect, A&O x 3 Skin: cap refill <2 seconds Dx/Plan (1) COPD with acute exacerbation Code(s): J44.1 - CHRONIC OBSTRUCTIVE PULMONARY DISEASE W (ACUTE) EXACERBATION Status: Acute (2) Recurrent pulmonary embolism Code(s): I26.99 - OTHER PULMONARY EMBOLISM WITHOUT ACUTE COR PULMONALE Status : Acute (3) Schizophrenia Code(s): F20.9 - SCHIZOPHRENIA, UNSPECIFIED Status: Acute (4) Anxiety Code(s): F41.9 - ANXIETY DISORDER, UNSPECIFIED Status: Acute (5) Osteoporosis Code(s): M81.0 - AGE-RELATED OSTEOPOROSIS W/O CURRENT PATHOLOGICAL FRACTURE Status: Acute (6) Bipolar 2 disorder Code(s): F31.81 - BIPOLAR II DISORDER Status: Chronic (7) CAD (coronary artery disease), [place] coronary artery Code(s): I25.10 - ATHSCL HEART DISEASE OF [place] CORONARY ARTERY W/O ANG PCTRS Status: Chronic (8) Chronic hepatitis B Code(s): B18.1 - CHRONIC VIRAL HEPATITIS B WITHOUT DELTA-AGENT Status: Chronic (9) Hypertension Code(s): I10 - ESSENTIAL (PRIMARY) HYPERTENSION Status: Chronic - Plan Plan: This is a 63 yo female with a pmh of COPD, recent pulmonary embolism on anticoagulation, CAD, Hepatitis B and C History concerning for CVA -CT and CTA show no sign of acute intracranial bleed -Heart healthy diet -Statin therapy -MRI shows no acute infarct -Echo shows possible diastolic dysfunction with ef of 50-55% COPD exacerbation -Prednisone -procal negative, stopping abx -Felicia and PRN duonebs Recent PE on anticoagulation -Pending CTA chest -Continue Eliquis HTN -Continue home meds Bipolar -Continue home meds Anxiety -Continue home meds Schizophrenia -Continue home meds
[2018-08-06 06:09] LABS: ALT (SGPT) 53 U/L (8-55); AST (SGOT) 25 U/L (5-34); Albumin 3.3 g/dL (3.4-4.8); Alkaline Phosphatase 168 U/L (40-150); Anion Gap 14 mmol/L (10-20); BUN (Urea Nitrogen) 15 mg/dL (9.8-20.1); Bilirubin, Total 0.2 mg/dL (0.2-1.2); Calc. Creatinine Clearance 73 mL/min (70-130); Calcium 8.8 mg/dL (7.8-10.44); Carbon Dioxide 28 mmol/L (23-31); Chloride 102 mmol/L (98-107); Estimated GFR-MDRD Greater than 90; Globulin 3.3 g/dL (2.4-3.5); Glucose 183 mg/dL (80-115); Potassium 3.9 mmol/L (3.5-5.1); Protein, Total 6.6 g/dL (6.0-8.3); Sodium 140 mmol/L (136-145)
[2018-08-06] MEDS: Ipratropium Oral Inhaler (200 INHALATIONS) INH SCH (06:27)
[2018-08-06] MEDS: Mometasone/Formoterol 120 PUFF INHALER INH SCH ×2 (06:27→18:29)
[2018-08-06] MEDS: Apixaban 5 MG TAB PO SCH ×2 (07:59→22:00)
[2018-08-06] MEDS: Calcium Citrate 950 MG TAB PO SCH (07:59)
[2018-08-06] MEDS: Gabapentin 300 MG CAP PO SCH ×3 (07:59→22:00)
[2018-08-06] MEDS: DULoxetine 30 MG CAP PO SCH ×2 (07:59→22:00)
[2018-08-06] MEDS: predniSONE 20 MG TAB PO SCH (07:59)
[2018-08-06] MEDS: Amlodipine 5 MG TAB PO SCH (07:59)
[2018-08-06] MEDS: Famotidine 20 MG TAB PO SCH ×2 (07:59→22:00)
[2018-08-06] MEDS ORDERED: predniSONE 20 MG TAB PO SCH (08:00)
--- NOTE | 2018-08-06 08:03 | HP ---
I have examined the patient. I have discussed the case with Dr. Wilber Bond and agree with his assessment and plan. Briefly, Ms. Silva is a 63-year-old black lady, who began developing profound shortness of breath and somnolence earlier today. Her friend brought her to the ER, where she was noted to be very somnolent. An arterial blood gas was obtained and showed her usual respiratory acidosis with metabolic compensation. By the time I examined the patient, she was awake, alert, and in fact very talkative. She was, however, profoundly short of breath, although she did speak in complete sentences. PHYSICAL EXAMINATION: GENERAL: Ms. Silva seems to be at her baseline. She is alert and oriented, talkative, but obviously short of breath. VITAL SIGNS: Her blood pressure is 133/78. She is afebrile. Her pulse rate is 99 and regular, and O2 sats 99% on 2 L nasal cannula. EAR, NOSE, AND THROAT: No erythema or exudate. NECK: Supple. CARDIAC: Heart rhythm regular. Heart sounds are distant. LUNGS: Expiratory wheezing. Use of accessory muscles with retraction. ABDOMEN: Flat and soft. NEUROLOGIC: No focal deficits. LABORATORY DATA: CBC; white count is 9100, hemoglobin 12.1, hematocrit 37.5 with an MCV of 94. ABG on 28% O2, her pH is 7.38, pCO2 is 59.8, her pO2 is 66.9, and her bicarb is 35. These are consistent with a respiratory acidosis with metabolic compensation. Chemistries; sodium 140, potassium 4.5, chloride 99, bicarb 33, BUN 16, and creatinine 0.72. Liver enzymes slightly elevated. Alkaline phosphatase elevated. CK slightly elevated. Troponin negative. ASSESSMENT: 1. Exacerbation of chronic obstructive pulmonary disease. 2. Pulmonary embolus, which she was diagnosed with last hospitalization. PLAN: Continue DuoNeb. Continue Eliquis. May require some further studies on her LFTs. Job ID: [id number]
[2018-08-06 08:36] LABS: Cardiac Risk 3.6 (Less than 4.5)
[2018-08-06] MEDS ORDERED: CALCIUM CITRATE PO SCH (09:00)
[2018-08-06] MEDS ORDERED: Aspirin Chewable 81 MG TAB PO SCH (09:00)
[2018-08-06] MEDS ORDERED: Enoxaparin Sodium 40 MG/0.4 ML SYRINGE SC SCH (09:00)
[2018-08-06] MEDS ORDERED: VITAMIN D3 PO SCH (09:00)
[2018-08-06] MEDS ORDERED: [UNRECOGNIZED DRUG - OTHER] PO SCH (09:00)
--- NOTE | 2018-08-06 09:00 | MRI ---
FExam: Brain MRI with and without contrast HISTORY: Evaluate for stroke, CVA. Headache. Blurred vision. Left-sided numbness. COMPARISON: None FINDINGS: Gradient echo sequence: No hemorrhage Calvarium: Appropriate T1 marrow signal intensity Midline brain parenchyma: Unremarkable Cerebrum: No parenchymal masses, mass effect or midline shift. Brain volume, age appropriate. Cortica l vo-white matter differentiation is preserved. T2 and FLAIR white matter hyperintensities due to c hronic small vessel ischemic change Ventricles: No evidence of hydrocephalus. Sinuses and mastoid air cells: Adequate aeration Diffusion: Central arterial flow is maintained. Absent restricted diffusion. Postcontrast images: No pathologic enhancement of the brain parenchyma. IMPRESSION: 1. Absent restricted diffusion. No acute infarct 2. Chronic small vessel ischemic changes and white matter 3. No pathologic enhancement of the brain parenchyma. 4. Chronic small vessel ischemic changes of white matter
[2018-08-06] MEDS: Citalopram 10 MG TAB PO SCH (09:42)
[2018-08-06] MEDS: Aspirin 325 MG TAB PO SCH (09:42)
[2018-08-06] MEDS: Famotidine/PF 20 mg/2ml Vial SLOW IVP SCH ×2 (09:43→22:00)
[2018-08-06] MEDS: Fluticasone Propionate Nasal Spray 16 gm Bottle NASAL SCH (11:24)
--- NOTE | 2018-08-06 11:43 | PRG ---
DATE OF SERVICE: 08/06/2018 Ms. Silva is awake and alert this morning on her breathing treatment. She is still having audible expiratory wheezing and still feels slightly short of breath, although, overall she feels improved. She still describes a left-sided headache, even though, her MRI was normal showing only small-vessel disease. Her sedimentation rate is only 15 and her CRP is barely elevated at 0.56, although, she is on steroids. We will continue to treat her COPD. We will continue her on Eliquis for her pulmonary embolus. Job ID: [id number]
[2018-08-06] MEDS: Amitriptyline HCl 25 MG TAB PO SCH (22:00)
[2018-08-06] MEDS: traZODone HCl 50 MG TAB PO SCH (22:01)
[2018-08-07] MEDS: PROVENTIL INHALER 6.7 G (200 INHALATIONS) INH SCH ×3 (02:02→10:47)
[2018-08-07 05:33] LABS: #Eosinphils 0.1 thou/uL (0.0-0.7); #Lymphocytes 1.9 thou/uL (1.20-3.40); #Neutrophils 8.2 thou/uL (1.40-6.50); %Lymphocytes 17.3 % (21.0-51.0); %Monocytes 9.1 % (0.0-10.0); %Neutrophils 72.6 % (42.0-75.0); Hemoglobin 11.1 g/dL (12.0-16.0); Mean Corpuscular Hemoglobin 30.2 pg (27.0-31.0); Mean Corpuscular Volume 94.4 fL (78.0-98.0); Mean Platelet Volume 7.2 fL (7.4-10.4); Platelet Count 235 thou/uL (130-400); RBC Distribution Width 13.1 % (11.5-14.5); Red Blood Cell (RBC) Count 3.66 mill/uL (4.20-5.40); White Blood Cell (WBC) Count 11.2 thou/uL (4.8-10.8)
[2018-08-07 06:00] LABS: ALT (SGPT) 74 U/L (8-55); AST (SGOT) 33 U/L (5-34); Albumin 3.5 g/dL (3.4-4.8); Alkaline Phosphatase 275 U/L (40-150); Anion Gap 11 mmol/L (10-20); BUN (Urea Nitrogen) 13 mg/dL (9.8-20.1); Bilirubin, Total 0.4 mg/dL (0.2-1.2); Calc. Creatinine Clearance 76 mL/min (70-130); Calcium 9.5 mg/dL (7.8-10.44); Carbon Dioxide 36 mmol/L (23-31); Chloride 98 mmol/L (98-107); Estimated GFR-MDRD Greater than 90; Globulin 3.3 g/dL (2.4-3.5); Glucose 277 mg/dL (80-115); Potassium 3.6 mmol/L (3.5-5.1); Protein, Total 6.8 g/dL (6.0-8.3); Sodium 141 mmol/L (136-145)
--- NOTE | 2018-08-07 06:04 | PDOC.FM ---
- Subjective Subjective: Pt states that she had pain over night she states that her breathing is improved. She states that her weakness has been coming on for 2 months now. She is also complaining of burning on urination and is concerned for infection. She states this morning that she wants to go home. - Objective MAR Reviewed: Yes Vital Signs & Weight: Vital Signs (12 hours) Temp Pulse Resp BP Pulse Ox 08/07/18 04:00 98.4 F 120 H 20 134/64 95 08/07/18 02:04 101 H 16 08/07/18 00:00 98.2 F 118 H 20 160/70 H 98 08/06/18 22:07 111 H 16 98 08/06/18 20:50 100 08/06/18 20:00 98.4 F 100 22 H 135/72 126 H 08/06/18 18:10 102 H 20 99 Weight Weight 57.606 kg I&O: 08/05/18 08/06/18 08/07/18 06:59 06:59 06:59 Intake Total 300 1500 Balance 300 1500 Result Diagrams: 08/07/18 04:54 08/07/18 04:54 Phys Exam - Physical Examination Constitutional: NAD HEENT: moist MMs Neck: no JVD, full ROM Mild end expiratory wheezine Cardiovascular: no significant murmur Tachycardia Gastrointestinal: soft, no distention, positive bowel sounds Tenderness to palpation Musculoskeletal: no edema, pulses present Neurological: moves all 4 limbs Continues to have left sided weakness Skin: cap refill <2 seconds Dx/Plan (1) COPD with acute exacerbation Code(s): J44.1 - CHRONIC OBSTRUCTIVE PULMONARY DISEASE W (ACUTE) EXACERBATION Status: Acute (2) Recurrent pulmonary embolism Code(s): I26.99 - OTHER PULMONARY EMBOLISM WITHOUT ACUTE COR PULMONALE Status : Acute (3) Schizophrenia Code(s): F20.9 - SCHIZOPHRENIA, UNSPECIFIED Status: Acute (4) Anxiety Code(s): F41.9 - ANXIETY DISORDER, UNSPECIFIED Status: Acute (5) Osteoporosis Code(s): M81.0 - AGE-RELATED OSTEOPOROSIS W/O CURRENT PATHOLOGICAL FRACTURE Status: Acute (6) Bipolar 2 disorder Code(s): F31.81 - BIPOLAR II DISORDER Status: Chronic (7) CAD (coronary artery disease), [place] coronary artery Code(s): I25.10 - ATHSCL HEART DISEASE OF [place] CORONARY ARTERY W/O ANG PCTRS Status: Chronic (8) Chronic hepatitis B Code(s): B18.1 - CHRONIC VIRAL HEPATITIS B WITHOUT DELTA-AGENT Status: Chronic (9) Hypertension Code(s): I10 - ESSENTIAL (PRIMARY) HYPERTENSION Status: Chronic - Plan Plan: This is a 63 yo female with a pmh of COPD, recent pulmonary embolism on anticoagulation, CAD, Hepatitis B and C History concerning for CVA -CT and CTA show no sign of acute intracranial bleed -Heart healthy diet -Statin therapy -MRI shows no acute infarct -Echo shows possible diastolic dysfunction with ef of 50-55% -Sees Dr. Granados, global polyneuropathy that may be obscuring clinical exam, follow up with neuro as she is concerned for seizures COPD exacerbation -Prednisone -procal negative, stopping abx -Felicia and PRN duonebs -Pt uses home O2 -To follow up with Dr. Suarez Pulmonology Deconditioning -PT recommends home health with PT -Consult CM for HH Recent PE on anticoagulation -Pending CTA chest -Continue Eliquis HTN -Continue home meds Bipolar -Continue home meds Anxiety -Continue home meds Schizophrenia -Continue home meds
[2018-08-07] MEDS: Mometasone/Formoterol 120 PUFF INHALER INH SCH (07:08)
[2018-08-07] MEDS: Ipratropium Oral Inhaler (200 INHALATIONS) INH SCH (07:10)
[2018-08-07] MEDS: predniSONE 20 MG TAB PO SCH (08:38)
[2018-08-07] MEDS: Gabapentin 300 MG CAP PO SCH (08:38)
[2018-08-07] MEDS: Apixaban 5 MG TAB PO SCH (08:38)
[2018-08-07] MEDS: Amlodipine 5 MG TAB PO SCH (08:39)
[2018-08-07] MEDS: DULoxetine 30 MG CAP PO SCH (08:39)
[2018-08-07] MEDS: Aspirin 325 MG TAB PO SCH (08:40)
[2018-08-07] MEDS: Citalopram 10 MG TAB PO SCH (08:40)
[2018-08-07] MEDS: Famotidine 20 MG TAB PO SCH (08:40)
[2018-08-07] MEDS: Calcium Citrate 950 MG TAB PO SCH (08:40)
[2018-08-07] MEDS: Famotidine/PF 20 mg/2ml Vial SLOW IVP SCH (10:05)
[2018-08-07] MEDS: Fluticasone Propionate Nasal Spray 16 gm Bottle NASAL SCH (10:05)
[2018-08-07 10:49] LABS: Bilirubin Negative (Negative); Blood, Urine Large (Negative); Clarity CLOUDY (Clear); Glucose, Urine (Dipstick) >=1000 mg/dL (Negative); Leukocyte Small (Negative); Nitrite Negative (Negative); Protein, Urine (Dipstick) Negative (Neg-Trace); Specific Gravity, Urine 1.021 (1.002-1.036); Urobilinogen 0.2 mg/dL (0.2-1.0); pH, Urine 5.5 (5.0-9.0)
[2018-08-07 10:52] LABS: Hyaline Casts/LPF 0-3 HYALINE CAST LPF (0-3 Hyaline); Squamous Epithelial 0-3 HPF (0-3)
[2018-08-07 11:05] LABS: Bacteria/HPF 4+ HPF (None Seen)
[2018-08-07 11:06] LABS: Urine Culture Reflex Yes Yes
--- NOTE | 2018-08-07 11:08 | PRG ---
DATE OF SERVICE: 08/07/2018 Ms. Silva is looking and feeling much better. Her breathing is much improved. A repeat blood gas done several days ago on 28% inspired O2 shows a pH is 7.38, pCO2 of 59.8, pO2 of 66.9 with a bicarb of 35. This represents a respiratory acidosis with metabolic compensation, which is chronic for Ms. Silva. She will be continued on her COPD medications as well as Eliquis for her pulmonary emboli. She has follow up with Pulmonary upon discharge and with her PCP next week. Job ID: [id number]
[2018-08-07] MEDS ORDERED: cefTRIAXone\\ROCEPHIN 1 GM in Sodium Chloride 0.9% 100 ML IVPB SCH (11:15)
[2018-08-07 11:42] VITALS: BP 145/86; TEMP 98.4
--- NOTE | 2018-08-07 16:51 | EKG ---
Test Reason : Blood Pressure : / mmHG Vent. Rate : 113 BPM Atrial Rate : 113 BPM P-R Int : 128 ms QRS Dur : 070 ms QT Int : 306 ms P-R-T Axes : 070 023 089 degrees QTc Int : 419 ms Sinus tachycardia Nonspecific T wave abnormality Abnormal ECG When compared with ECG of 05-AUG-2018 10:33, (Unconfirmed) No significant change was found Confirmed by DORITA MANNING, DR. S. ([id number]) on 08/07/2018 4:51:19 PM Referred By: EILEEN Horta Confirmed By:DR. Adri KEVIN MD
[2018-08-07] MEDS ORDERED: Carvedilol 3.125 MG TAB PO SCH (17:00)
[2018-08-07] MEDS ORDERED: Atorvastatin Calcium 10 MG TAB PO SCH (21:00)
== END 2018-08-07 12:30 | disposition home health service (06) | DRG 190 ==
LOC: ERS 09:54 → OBSVTOIN 15:59 → 2SE 15:59
PROVIDERS: ADMIT Family Medicine; ATTEND Family Medicine
DX: J44.1 Chronic obstructive pulmonary disease with (acute) exacerbation (principal); I26.99 Other pulmonary embolism without acute cor pulmonale; F31.81 Bipolar II disorder; B18.1 Chronic viral hepatitis B without delta-agent; E87.2 Acidosis; I50.32 Chronic diastolic (congestive) heart failure; F20.9 Schizophrenia, unspecified; F41.9 Anxiety disorder, unspecified; M81.0 Age-related osteoporosis without current pathological fracture; I25.10 Atherosclerotic heart disease of native coronary artery without angina pectoris; I11.0 Hypertensive heart disease with heart failure
CPT/HCPCS: 36415; 36416; 70450; 70496; 70498; 70553; 71045; 71275; 80053; 80061; 80306; 81001; 81003; 81015; 82550; 82805; 83605; 83735; 83880; 84145; 84484; 85025; 85379; 85610; 85652; 85730; 86140; 87040; 87077; 87086; 87186; 87804; 93005; 93010; 93306; 94640; 94760; 96361; 96365; 96375; J2930; J3475; J7050; J7620; Q9966; S0028

== ENCOUNTER 2018-08-09 10:43 | Outpatient (CLI) | payer OTHER ==
--- NOTE | 2018-08-09 11:39 | MMO ---
Bilateral MAMMO Bilat Screen DDI. CLINICAL HISTORY: Patient is 63 years old and is seen for screening. The patient has no family history of breast cancer. The patient has no personal history of cancer. VIEWS: The views performed were: bilateral craniocaudal and bilateral mediolateral oblique. FILMS COMPARED: The present examination has been compared to prior imaging studies performed at [facility] on 09/04/2006, 09/13/2006, 02/28/2008, 06/12/2014, 06/15/2015 and 03/28/2017. This study has been interpreted with the assistance of computer-aided detection. MAMMOGRAM FINDINGS: There are scattered fibroglandular densities. There are no suspicious masses, suspicious calcifications, or new areas of architectural distortion. IMPRESSION: THERE IS NO MAMMOGRAPHIC EVIDENCE OF MALIGNANCY. A ROUTINE FOLLOW-UP MAMMOGRAM IN 1 YEAR IS RECOMMENDED. ACR BI-RADS Category 1 - Negative MAMMOGRAPHY NOTE: 1. A negative mammogram report should not delay a biopsy if a dominant of clinically suspicious mass is present. 2. Approximately 10% to 15% of breast cancers are not detected by mammography. 3. Adenosis and dense breasts may obscure an underlying neoplasm.
== END 2018-08-09 10:44 | disposition home or self-care (01) ==
LOC: BICMAMMO 10:43
PROVIDERS: ATTEND Family Medicine
DX: Z12.31 Encounter for screening mammogram for malignant neoplasm of breast (principal)
CPT/HCPCS: 77067

== ENCOUNTER 2018-08-21 13:53 | Emergency (ER) | payer OTHER ==
--- NOTE | 2018-08-21 14:35 | RAD ---
EXAM: Single view of the chest HISTORY: COPD exacerbation COMPARISON: 08/05/2018 FINDINGS: Single view of the chest shows a normal sized cardiomediastinal silhouette. Scarring is se en in the right thorax and is stable. There is no evidence of consolidation, mass, or pleural effusion. Degenerative changes are seen in the spine. IMPRESSION: No evidence of acute cardiopulmonary disease
[2018-08-21 14:36] LABS: #Eosinphils 0.1 thou/uL (0.0-0.7); #Lymphocytes 3.2 thou/uL (1.20-3.40); #Monocytes 0.7 thou/uL (0.11-0.59); #Neutrophils 5.6 thou/uL (1.40-6.50); %Basophils 0.2 % (0.0-1.0); %Eosinophils 1.1 % (0.0-10.0); %Lymphocytes 33.2 % (21.0-51.0); %Monocytes 7.3 % (0.0-10.0); %Neutrophils 58.1 % (42.0-75.0); Hemoglobin 11.4 g/dL (12.0-16.0); Mean Corpuscular HGB CONC 30.9 g/dL (32.0-36.0); Mean Corpuscular Hemoglobin 29.2 pg (27.0-31.0); Mean Corpuscular Volume 94.4 fL (78.0-98.0); Mean Platelet Volume 6.7 fL (7.4-10.4); Platelet Count 275 thou/uL (130-400); RBC Distribution Width 13.4 % (11.5-14.5); Red Blood Cell (RBC) Count 3.92 mill/uL (4.20-5.40); White Blood Cell (WBC) Count 9.6 thou/uL (4.8-10.8)
--- NOTE | 2018-08-21 14:45 | CT ---
Exam: CT brain without contrast HISTORY: Altered mental status and aphasia COMPARISON: 08/05/2018 TECHNIQUE: Multiple contiguous axial images were obtained and a CT of the brain without contrast. FINDINGS: There are scattered hypodensities in the subcortical and periventricular white matter consi stent with small vessel ischemic disease. There is no evidence of hydrocephalus, intracranial hemorrhage, or extra-axial fluid collection. The calvarium and overlying soft tissues are unremarkable. The visualized paranasal sinuses and masto id air cells are well aerated. IMPRESSION: No evidence of acute intracranial abnormality
[2018-08-21 15:00] LABS: ALT (SGPT) 59 U/L (8-55); AST (SGOT) 23 U/L (5-34); Acetaminophen Less than 6.0 mcg/mL (10.0-30.0); Albumin 3.8 g/dL (3.4-4.8); Alcohol Less than 10 mg/dL (Less than 10); Alkaline Phosphatase 180 U/L (40-150); Anion Gap 11 mmol/L (10-20); BUN (Urea Nitrogen) 20 mg/dL (9.8-20.1); Bilirubin, Total 0.4 mg/dL (0.2-1.2); CK (CPK) 117 U/L (29-168); Calc. Creatinine Clearance 0 mL/min (70-130); Calcium 9.5 mg/dL (7.8-10.44); Carbon Dioxide 34 mmol/L (23-31); Chloride 97 mmol/L (98-107); Estimated GFR-MDRD 89; Globulin 3.3 g/dL (2.4-3.5); Glucose 205 mg/dL (80-115); Lipase 25 U/L (8-78); Potassium 3.4 mmol/L (3.5-5.1); Protein, Total 7.1 g/dL (6.0-8.3); Salicylate Less than 8.0 mg/dL (15.0-30.0); Sodium 139 mmol/L (136-145)
[2018-08-21 17:25] LABS: Bilirubin Negative (Negative); Blood, Urine Large (Negative); Clarity TURBID (Clear); Glucose, Urine (Dipstick) 500 mg/dL (Negative); Leukocyte Small (Negative); Nitrite Negative (Negative); Protein, Urine (Dipstick) Negative (Neg-Trace); Specific Gravity, Urine 1.018 (1.002-1.036); Urobilinogen 0.2 mg/dL (0.2-1.0)
[2018-08-21 17:27] LABS: Bacteria/HPF None Seen HPF (None Seen); Hyaline Casts/LPF 0-3 HYALINE CAST LPF (0-3 Hyaline); RBC/HPF GREATER THAN 50-TNTC HPF (0-3); Squamous Epithelial 0-3 HPF (0-3)
[2018-08-21 17:37] LABS: Amphetamine Not Detected (NotDetected); Barbiturates Screen Not Detected (NotDetected); Benzodiazepine Screen Not Detected (NotDetected); Cocaine Metabolite Screen Not Detected (NotDetected); Medtox Control Line Valid? VALID (VALID); Medtox Reader # READER 1; Methadone Not Detected (NotDetected); Methamphetamine Not Detected (NotDetected); Opiate Screen Not Detected (NotDetected); Oxycodone Screen Not Detected (NotDetected); Phencyclidine (PCP) Not Detected (NotDetected); THC/Cannabinoid Screen Not Detected (NotDetected); Tricyclic Screen Not Detected (NotDetected)
== END 2018-08-21 18:20 | disposition home or self-care (01) ==
LOC: ERS 13:53
DX: N39.0 Urinary tract infection, site not specified (principal); Z86.711 Personal history of pulmonary embolism; Z86.718 Personal history of other venous thrombosis and embolism; I25.10 Atherosclerotic heart disease of native coronary artery without angina pectoris; M81.0 Age-related osteoporosis without current pathological fracture; F31.9 Bipolar disorder, unspecified; F41.9 Anxiety disorder, unspecified; F20.9 Schizophrenia, unspecified; I50.9 Heart failure, unspecified; Z87.891 Personal history of nicotine dependence; Z79.899 Other long term (current) drug therapy; Z79.82 Long term (current) use of aspirin
CPT/HCPCS: 36415; 36416; 70450; 71045; 80053; 80306; 80307; 81003; 81015; 82550; 83690; 84484; 85025; 93005; 94760

== ENCOUNTER 2018-09-08 10:10 | Emergency (ER) | payer OTHER ==
[2018-09-08 10:51] LABS: #Eosinphils 0.1 thou/uL (0.0-0.7); #Lymphocytes 1.9 thou/uL (1.20-3.40); #Monocytes 0.6 thou/uL (0.11-0.59); %Basophils 0.3 % (0.0-1.0); %Eosinophils 1.3 % (0.0-10.0); %Lymphocytes 24.6 % (21.0-51.0); %Monocytes 7.4 % (0.0-10.0); %Neutrophils 66.4 % (42.0-75.0); Hemoglobin 12.1 g/dL (12.0-16.0); Mean Corpuscular HGB CONC 31.6 g/dL (32.0-36.0); Mean Corpuscular Hemoglobin 29.6 pg (27.0-31.0); Mean Corpuscular Volume 93.8 fL (78.0-98.0); Mean Platelet Volume 6.7 fL (7.4-10.4); Platelet Count 230 thou/uL (130-400); White Blood Cell (WBC) Count 7.5 thou/uL (4.8-10.8)
--- NOTE | 2018-09-08 11:09 | RAD ---
EXAM: XR Chest 1 View Portable PROVIDED CLINICAL HISTORY: Chest pain COMPARISON: 08/21/2018 FINDINGS: Cardiac and mediastinal silhouette is unchanged in appearance. Right hemithoracic volume loss with sh ift of mediastinum rightward is redemonstrated, stable. No focal consolidation, pleural fluid or pneumothorax apparent. IMPRESSION: Stable radiographic appearance of the chest.
[2018-09-08 11:15] LABS: ALT (SGPT) 40 U/L (8-55); AST (SGOT) 24 U/L (5-34); Albumin 3.9 g/dL (3.4-4.8); Alkaline Phosphatase 141 U/L (40-150); Anion Gap 10 mmol/L (10-20); BUN (Urea Nitrogen) 15 mg/dL (9.8-20.1); Bilirubin, Total 0.5 mg/dL (0.2-1.2); Calc. Creatinine Clearance 0 mL/min (70-130); Calcium 9.5 mg/dL (7.8-10.44); Carbon Dioxide 34 mmol/L (23-31); Chloride 99 mmol/L (98-107); Estimated GFR-MDRD 87; Glucose 115 mg/dL (80-115); Potassium 4.5 mmol/L (3.5-5.1); Protein, Total 6.9 g/dL (6.0-8.3); Sodium 138 mmol/L (136-145)
[2018-09-08 11:20] LABS: Bilirubin Negative (Negative); Blood, Urine Negative (Negative); Clarity CLEAR (Clear); Protein, Urine (Dipstick) Negative (Neg-Trace); Specific Gravity, Urine 1.016 (1.002-1.036); pH, Urine 6.5 (5.0-9.0)
[2018-09-08 11:25] LABS: Bacteria/HPF None Seen HPF (None Seen); Hyaline Casts/LPF 0-3 HYALINE CAST LPF (0-3 Hyaline); RBC/HPF 0-3 HPF (0-3); Squamous Epithelial 0-3 HPF (0-3); WBC/HPF 0-3 HPF (0-3)
[2018-09-08 11:26] LABS: Glucose, Urine (Dipstick) Unable to Interpret mg/dL (Negative); Leukocyte Negative (Negative); Nitrite Unable to Interpret (Negative)
[2018-09-08 11:35] LABS: Crystals/HPF None Seen HPF (Negative)
== END 2018-09-08 14:56 | disposition home or self-care (01) ==
LOC: ERS 10:10
DX: J44.1 Chronic obstructive pulmonary disease with (acute) exacerbation (principal); Z86.711 Personal history of pulmonary embolism; Z86.718 Personal history of other venous thrombosis and embolism; I25.10 Atherosclerotic heart disease of native coronary artery without angina pectoris; M81.0 Age-related osteoporosis without current pathological fracture; I50.9 Heart failure, unspecified; F41.9 Anxiety disorder, unspecified; F31.9 Bipolar disorder, unspecified; F20.9 Schizophrenia, unspecified; Z87.891 Personal history of nicotine dependence; Z79.899 Other long term (current) drug therapy; Z79.82 Long term (current) use of aspirin; Z79.01 Long term (current) use of anticoagulants
CPT/HCPCS: 36415; 51701; 71045; 80053; 81003; 81015; 84484; 85025; 85379; 87086; 93005; 94640; 94760; A4353; J7620

== ENCOUNTER 2018-09-19 08:40 | Emergency (ER) | payer OTHER ==
[2018-09-19] MEDS ORDERED: methylPREDNISolone Sod Succ/PF 125 MG/2 ML VIAL ONE (09:04)
[2018-09-19 09:11] LABS: #Eosinphils 0.1 thou/uL (0.0-0.7); #Lymphocytes 2.3 thou/uL (1.20-3.40); #Monocytes 0.4 thou/uL (0.11-0.59); #Neutrophils 3.3 thou/uL (1.40-6.50); %Basophils 0.4 % (0.0-1.0); %Lymphocytes 37.9 % (21.0-51.0); %Monocytes 6.8 % (0.0-10.0); %Neutrophils 53.9 % (42.0-75.0); Hemoglobin 13.5 g/dL (12.0-16.0); Mean Corpuscular HGB CONC 30.4 g/dL (32.0-36.0); Mean Corpuscular Hemoglobin 28.3 pg (27.0-31.0); Mean Corpuscular Volume 93.3 fL (78.0-98.0); Mean Platelet Volume 6.5 fL (7.4-10.4); Platelet Count 276 thou/uL (130-400); RBC Distribution Width 13.1 % (11.5-14.5); Red Blood Cell (RBC) Count 4.78 mill/uL (4.20-5.40); White Blood Cell (WBC) Count 6.1 thou/uL (4.8-10.8)
[2018-09-19 09:30] LABS: ALT (SGPT) 37 U/L (8-55); AST (SGOT) 27 U/L (5-34); Albumin 3.8 g/dL (3.4-4.8); Alkaline Phosphatase 112 U/L (40-150); BUN (Urea Nitrogen) 20 mg/dL (9.8-20.1); Bilirubin, Total 0.7 mg/dL (0.2-1.2); CK (CPK) 99 U/L (29-168); Calc. Creatinine Clearance 0 mL/min (70-130); Calcium 10.1 mg/dL (7.8-10.44); Estimated GFR-MDRD 78; Glucose 120 mg/dL (80-115); Protein, Total 7.8 g/dL (6.0-8.3)
[2018-09-19 09:40] LABS: Anion Gap 18 mmol/L (10-20); Carbon Dioxide 32 mmol/L (23-31); Chloride 96 mmol/L (98-107); Potassium 4.8 mmol/L (3.5-5.1); Sodium 141 mmol/L (136-145)
--- NOTE | 2018-09-19 09:41 | RAD ---
FRONTAL VIEW CHEST: COMPARISON: 09/08/2018. INDICATION: Dyspnea. FINDINGS: There is evidence of emphysema more notable on the right. The cardiomediastinal silhouette is accent uated by patient rotation and portable technique. The chest is otherwise similar. IMPRESSION: Chronic obstructive pulmonary disease. POS: [facility]
[2018-09-19] MEDS ORDERED: cefTRIAXone\\ROCEPHIN 2 GM VIAL ONE (09:57)
--- NOTE | 2018-09-21 11:04 | EKG ---
Test Reason : Blood Pressure : / mmHG Vent. Rate : 123 BPM Atrial Rate : 123 BPM P-R Int : 126 ms QRS Dur : 062 ms QT Int : 310 ms P-R-T Axes : 079 019 101 degrees QTc Int : 443 ms Sinus tachycardia Biatrial enlargement Nonspecific ST and T wave abnormality Abnormal ECG Confirmed by DR. Feliciano COLLINS ([id number]) on 09/21/2018 11:04:06 AM Referred By: Confirmed By:DR. Feliciano COLLINS
== END 2018-09-19 10:15 | disposition home or self-care (01) ==
LOC: ERS 08:40
DX: J20.9 Acute bronchitis, unspecified (principal); I25.10 Atherosclerotic heart disease of native coronary artery without angina pectoris; I50.9 Heart failure, unspecified; M81.0 Age-related osteoporosis without current pathological fracture; F41.9 Anxiety disorder, unspecified; F31.9 Bipolar disorder, unspecified; F20.9 Schizophrenia, unspecified; Z87.891 Personal history of nicotine dependence; Z87.442 Personal history of urinary calculi; Z86.718 Personal history of other venous thrombosis and embolism; Z79.899 Other long term (current) drug therapy; Z79.82 Long term (current) use of aspirin; Z86.11 Personal history of tuberculosis
CPT/HCPCS: 71045; 80053; 82550; 83880; 84484; 85025; 93005; 94640; 94760; 96374; 96375; J0696; J2930; J7620

== ENCOUNTER 2018-09-25 09:43 | Outpatient (CLI) | payer OTHER ==
--- NOTE | 2018-09-26 07:33 | ULT ---
Exam: Pelvic ultrasound HISTORY: Pelvic pain COMPARISON: None TECHNIQUE: Multiple grayscale and color Doppler images were obtained in a transabdominal and transvag inal pelvic ultrasound. Spectral analysis of the Doppler waveforms of the ovaries were performed. FINDINGS: CERVIX: Not well visualized, but where seen has a grossly normal sonographic appearance. UTERUS: Small in size measuring 5.1 cm x 3.4 cm x 2.7 cm. The endometrial stripe measures 0.2 cm on e ndovaginal imaging without fluid or fluid collection seen in the endometrial canal. Endometrial stripe is not well seen on transabdominal imaging No free fluid is present. The ovaries are not visualized on transabdominal or on endovaginal imaging. No adnexal mass is seen. IMPRESSION: 1. Nonvisualization of the bilateral ovaries. 2. Uterus demonstrates a normal sonographic appearance.
== END 2018-09-25 09:44 | disposition home or self-care (01) ==
LOC: ULT 09:43
PROVIDERS: ATTEND Obstetrics & Gynecology
DX: R10.2 Pelvic and perineal pain (principal); Z91.410 Personal history of adult physical and sexual abuse
CPT/HCPCS: 76856

== ENCOUNTER 2018-09-25 12:10 | Emergency (ER) | payer OTHER ==
[2018-09-25 13:24] LABS: #Eosinphils 0.1 thou/uL (0.0-0.7); #Monocytes 0.3 thou/uL (0.11-0.59); #Neutrophils 9.5 thou/uL (1.40-6.50); %Basophils 0.2 % (0.0-1.0); %Eosinophils 0.7 % (0.0-10.0); %Lymphocytes 9.4 % (21.0-51.0); %Monocytes 2.6 % (0.0-10.0); %Neutrophils 87.1 % (42.0-75.0); Hemoglobin 12.2 g/dL (12.0-16.0); Mean Corpuscular HGB CONC 31.4 g/dL (32.0-36.0); Mean Corpuscular Hemoglobin 29.7 pg (27.0-31.0); Mean Corpuscular Volume 94.5 fL (78.0-98.0); Mean Platelet Volume 6.6 fL (7.4-10.4); Platelet Count 259 thou/uL (130-400); Red Blood Cell (RBC) Count 4.12 mill/uL (4.20-5.40); White Blood Cell (WBC) Count 10.9 thou/uL (4.8-10.8)
--- NOTE | 2018-09-25 13:39 | RAD ---
PORTABLE CHEST: DATE: 09/25/2018. PROVIDED CLINICAL HISTORY: Chest pain. FINDINGS: Comparison is made with the study dated 09/19/2018. Cardiac and mediastinal silhouette is unchanged i n appearance. Postoperative changes involving the right hemithorax appear stable. Prominent emphyse matous changes are redemonstrated. No focal consolidation, pleural fluid, or pneumothorax apparent. IMPRESSION: Stable radiographic appearance of the chest. POS: [facility]
[2018-09-25 14:05] LABS: ALT (SGPT) 35 U/L (8-55); AST (SGOT) 15 U/L (5-34); Albumin 3.9 g/dL (3.4-4.8); Alkaline Phosphatase 161 U/L (40-150); Anion Gap 14 mmol/L (10-20); BUN (Urea Nitrogen) 14 mg/dL (9.8-20.1); Bilirubin, Total 0.3 mg/dL (0.2-1.2); CK (CPK) 50 U/L (29-168); Calc. Creatinine Clearance 0 mL/min (70-130); Calcium 9.7 mg/dL (7.8-10.44); Carbon Dioxide 32 mmol/L (23-31); Chloride 90 mmol/L (98-107); Estimated GFR-MDRD 82; Globulin 2.9 g/dL (2.4-3.5); Glucose 316 mg/dL (80-115); Lipase 18 U/L (8-78); Potassium 4.2 mmol/L (3.5-5.1); Protein, Total 6.8 g/dL (6.0-8.3); Sodium 132 mmol/L (136-145)
== END 2018-09-25 13:37 | disposition left against medical advice (07) ==
LOC: ERS 12:10
DX: Z53.21 Procedure and treatment not carried out due to patient leaving prior to being seen by health care provider (principal)
CPT/HCPCS: 36415; 71045; 80053; 82550; 83690; 84484; 85025; 93005

== ENCOUNTER 2018-10-16 12:10 | Emergency (ER) | payer OTHER ==
--- NOTE | 2018-10-16 13:11 | RAD ---
XR Chest 1 View Portable HISTORY: Dyspnea COMPARISON: 09/25/2018 FINDINGS: The heart size is stable. Mediastinal shift to the right and postoperative changes in the r ight hemithorax are stable. Emphysematous changes are again seen. No focal areas of consolidation, pneumothoraces or large effusions are identified. IMPRESSION: Stable exam.
--- NOTE | 2018-10-16 13:53 | ULT ---
ULTRASOUND WITH DOPPLER DUPLEX VENOUS LOWER EXTREMITY LEFT CPT: 34210 ICD-10-PCS: B54D HISTORY: Pain/edema. TECHNIQUE: Color flow Doppler, spectral waveform analysis of pulsed Doppler, and vo-scale imaging with moni jeanne and augmentation, were used to evaluate the left common femoral, femoral, popliteal, posterior t ibial, and superficial femoral, veins; and the proximal portions of the profunda femoral and greater saphenous, veins. FINDINGS: There is appropriate compressibility and flow within the imaged deep vein system of the left lower ex tremity. IMPRESSION: No DVT. POS: [facility]
== END 2018-10-16 14:12 | disposition home or self-care (01) ==
LOC: ERS 12:10
DX: E11.40 Type 2 diabetes mellitus with diabetic neuropathy, unspecified (principal); Z86.711 Personal history of pulmonary embolism; Z86.718 Personal history of other venous thrombosis and embolism; I25.10 Atherosclerotic heart disease of native coronary artery without angina pectoris; I50.9 Heart failure, unspecified; M81.0 Age-related osteoporosis without current pathological fracture; F31.9 Bipolar disorder, unspecified; F41.9 Anxiety disorder, unspecified; F20.9 Schizophrenia, unspecified; Z79.899 Other long term (current) drug therapy; Z79.82 Long term (current) use of aspirin; Z79.51 Long term (current) use of inhaled steroids
CPT/HCPCS: 71045; 93005; J7620

== ENCOUNTER 2018-11-08 20:31 | Emergency (ER) | payer OTHER ==
--- NOTE | 2018-11-08 21:04 | RAD ---
Exam: Chest one view HISTORY:Shortness of breath. COPD. Comparison: 10/16/2018 FINDINGS: Cardiac silhouette:Persistent cardiomegaly and rightward deviation cardiac mediastinal silhouette. Pulmonary vessels: Unchanged Costophrenic angles: Small right-sided pleural effusion. LUNGS: Chronic changes in the right lung with diminished lung volumes. Retraction of the cardiac medi astinal silhouettes of the right. Stable hyperinflation of the left lung. Pneumothorax: None Osseous abnormalities: None IMPRESSION: 1. No acute cardiopulmonary process. 2. No significant interval change.
[2018-11-08 21:18] LABS: Bilirubin Negative (Negative); Blood, Urine 2+ (Negative); Clarity Clear (Clear); Glucose, Urine (Dipstick) Normal (Negative); Leukocyte Negative Leu/uL (Negative); Nitrite Negative (Negative); Protein, Urine (Dipstick) 10 mg/dL (Neg-Trace); RBC/HPF Greater than 50 HPF (0-3); Urobilinogen Normal mg/dL (Less than 2)
[2018-11-08 21:19] LABS: #Eosinphils 0.2 thou/uL (0.0-0.7); #Lymphocytes 1.4 thou/uL (1.20-3.40); #Monocytes 0.5 thou/uL (0.11-0.59); %Basophils 0.6 % (0.0-1.0); %Eosinophils 4.8 % (0.0-10.0); %Lymphocytes 33.6 % (21.0-51.0); %Monocytes 11.1 % (0.0-10.0); Hemoglobin 11.5 g/dL (12.0-16.0); Mean Corpuscular Hemoglobin 29.9 pg (27.0-31.0); Mean Corpuscular Volume 93.4 fL (78.0-98.0); Mean Platelet Volume 6.3 fL (7.4-10.4); Platelet Count 303 thou/uL (130-400); RBC Distribution Width 12.9 % (11.5-14.5); Red Blood Cell (RBC) Count 3.84 mill/uL (4.20-5.40); White Blood Cell (WBC) Count 4.1 thou/uL (4.8-10.8)
[2018-11-08 21:40] LABS: ALT (SGPT) 45 U/L (8-55); AST (SGOT) 47 U/L (5-34); Albumin 3.6 g/dL (3.4-4.8); Alkaline Phosphatase 90 U/L (40-150); Anion Gap 12 mmol/L (10-20); BUN (Urea Nitrogen) 10 mg/dL (9.8-20.1); Bilirubin, Total 0.5 mg/dL (0.2-1.2); Calc. Creatinine Clearance 0 mL/min (70-130); Calcium 9.5 mg/dL (7.8-10.44); Carbon Dioxide 34 mmol/L (23-31); Chloride 98 mmol/L (98-107); Estimated GFR-MDRD 84; Globulin 4.2 g/dL (2.4-3.5); Glucose 95 mg/dL (80-115); Potassium 4.1 mmol/L (3.5-5.1); Protein, Total 7.8 g/dL (6.0-8.3); Sodium 140 mmol/L (136-145)
[2018-11-08] MEDS ORDERED: Dexamethasone 4 MG TAB ONE (22:59)
--- NOTE | 2018-11-09 00:14 | CT ---
Exam: Abdomen CT without contrast Pelvic CT without contrast HISTORY: Flank pain. COMPARISON: 01/13/2017, 07/16/2018 FINDINGS: Abdomen CT: Lung bases:Emphysematous changes. Heart size: Limited evaluation Aorta: Normal caliber. Atherosclerosis is noted Solid organs: Limited evaluation due to the lack of IV contrast. Grossly no solid organ abnormality. Lymph nodes: Mildly large gastric hepatic lymph node measuring 1.1 x 0.7 cm Gallbladder: Contracted, likely due to a nonfasting state. Mesentery: No mass, lymphadenopathy, free air or free fluid Kidneys: Nonobstructing 2 to 4 mm calculi in the right intrarenal collecting system. Bilaterally no h ydronephrosis or perinephric fat stranding. Bilateral ureters have a normal caliber. No hydroureter, periureteral fat stranding or ureterolithiasis. Alimentary canal: Limited evaluation due to technique. No evidence of bowel obstruction. Ileocecal ju nction is normal. Normal caliber appendix. Scattered fecal material in a nondistended, nondilated colon. Diverticulosis, without evidence of diverticulitis CT PELVIS: No mass, adenopathy, free air or free fluid. Uterus and adnexal structures are grossly unremarkable. Urinary bladder: Unremarkable. Osseous structures: Remote compression fractures are noted in the distal thoracic spine and at the L1 vertebral body level. Avascular necrosis of bilateral femoral heads IMPRESSION: 1. Nonobstructing right intrarenal calculi. Bilaterally no evidence of obstructive uropathy. 2. Normal caliber appendix. 3. Diverticulosis, without evidence of diverticulitis.
== END 2018-11-09 01:20 | disposition home or self-care (01) ==
LOC: ERS 20:31
DX: M54.5 Low back pain (principal); G89.29 Other chronic pain; J43.9 Emphysema, unspecified; I25.10 Atherosclerotic heart disease of native coronary artery without angina pectoris; I50.9 Heart failure, unspecified; F41.9 Anxiety disorder, unspecified; F31.9 Bipolar disorder, unspecified; F20.9 Schizophrenia, unspecified; Z87.891 Personal history of nicotine dependence; Z86.711 Personal history of pulmonary embolism; Z86.718 Personal history of other venous thrombosis and embolism; Z79.01 Long term (current) use of anticoagulants; Z79.82 Long term (current) use of aspirin; Z79.899 Other long term (current) drug therapy
CPT/HCPCS: 36415; 71045; 74176; 80053; 81003; 85025; 87086; 93005; A4353; J8540

== ENCOUNTER 2018-11-19 10:07 | Outpatient (CLI) | payer OTHER ==
--- NOTE | 2018-11-19 14:26 | NM ---
Radionucleotide whole-body bone scan HISTORY: Left chest wall pain. FINDINGS: Markedly increased uptake at the left humeral head correlates with the osteonecrotic appear ance on recent chest radiograph. Heterogeneous uptake throughout the spine and peripheral joints consistent with osteoarthritis. Large amount of uptake overlies the urinary bladder. Patient was unab le to void for better imaging. Uptake is apparent at the anterior aspect of the right fourth and fifth ribs. Distribution suggests p ossibility of recent injury. Uptake associated with the right posterior fourth, 6, and 7 costovertebral junction, likely degenerative. Uptake at the maxilla has the appearance of chronic den joshua process. IMPRESSION: Osteoarthritis and other chronic-type findings as detailed above. No abnormalities of the left chest wall are apparent to explain the patient's pain.
== END 2018-11-19 10:08 | disposition home or self-care (01) ==
LOC: NM 10:07
PROVIDERS: ATTEND Oral & Maxillofacial Surgery
DX: R07.89 Other chest pain (principal); M47.9 Spondylosis, unspecified
CPT/HCPCS: 78306; A9503

== ENCOUNTER 2018-11-21 17:29 | Emergency (ER) | payer OTHER ==
--- NOTE | 2018-11-21 18:35 | RAD ---
EXAM: XR Chest 1 View Portable PROVIDED CLINICAL HISTORY: Dyspnea COMPARISON: 11/08/2018 FINDINGS: Cardiac and mediastinal silhouette is unchanged in appearance. Right hemithoracic volume loss appears stable. No focal consolidation, pleural fluid or pneumothorax apparent. IMPRESSION: Stable radiographic appearance of the chest.
[2018-11-21 18:44] LABS: #Eosinphils 0.2 thou/uL (0.0-0.7); #Lymphocytes 2.4 thou/uL (1.20-3.40); #Monocytes 0.3 thou/uL (0.11-0.59); #Neutrophils 4.6 thou/uL (1.40-6.50); %Basophils 0.6 % (0.0-1.0); %Eosinophils 3.2 % (0.0-10.0); %Lymphocytes 31.4 % (21.0-51.0); %Monocytes 4.4 % (0.0-10.0); %Neutrophils 60.4 % (42.0-75.0); Hemoglobin 11.1 g/dL (12.0-16.0); Mean Corpuscular HGB CONC 30.9 g/dL (32.0-36.0); Mean Corpuscular Hemoglobin 28.5 pg (27.0-31.0); Mean Corpuscular Volume 92.1 fL (78.0-98.0); Mean Platelet Volume 6.5 fL (7.4-10.4); Platelet Count 342 thou/uL (130-400); RBC Distribution Width 12.9 % (11.5-14.5); White Blood Cell (WBC) Count 7.6 thou/uL (4.8-10.8)
[2018-11-21] MEDS ORDERED: Albuterol Sulfate 2.5 mg/3 ml Neb ONE (18:52)
[2018-11-21 19:03] LABS: ALT (SGPT) 29 U/L (8-55); AST (SGOT) 25 U/L (5-34); Albumin 3.6 g/dL (3.4-4.8); Alkaline Phosphatase 121 U/L (40-150); Anion Gap 14 mmol/L (10-20); BUN (Urea Nitrogen) 7 mg/dL (9.8-20.1); Bilirubin, Total 0.4 mg/dL (0.2-1.2); Calc. Creatinine Clearance 0 mL/min (70-130); Calcium 9.7 mg/dL (7.8-10.44); Carbon Dioxide 27 mmol/L (23-31); Chloride 102 mmol/L (98-107); Estimated GFR-MDRD 89; Globulin 3.6 g/dL (2.4-3.5); Glucose 170 mg/dL (80-115); Potassium 3.8 mmol/L (3.5-5.1); Protein, Total 7.2 g/dL (6.0-8.3); Sodium 139 mmol/L (136-145)
[2018-11-21 19:46] LABS: Amphetamine Not Detected (NotDetected); Barbiturates Screen Not Detected (NotDetected); Benzodiazepine Screen Not Detected (NotDetected); Cocaine Metabolite Screen Not Detected (NotDetected); Medtox Control Line Valid? VALID (VALID); Medtox Reader # READER 1; Methadone Not Detected (NotDetected); Methamphetamine Not Detected (NotDetected); Opiate Screen Not Detected (NotDetected); Oxycodone Screen Not Detected (NotDetected); Phencyclidine (PCP) Not Detected (NotDetected); THC/Cannabinoid Screen Not Detected (NotDetected); Tricyclic Screen Detected (NotDetected)
--- NOTE | 2018-11-23 13:05 | EKG ---
Test Reason : Blood Pressure : / mmHG Vent. Rate : 122 BPM Atrial Rate : 122 BPM P-R Int : 130 ms QRS Dur : 066 ms QT Int : 334 ms P-R-T Axes : 074 018 085 degrees QTc Int : 475 ms Sinus tachycardia Otherwise normal ECG Confirmed by JEFF MANNING, RANDY Salazar ([id number]), editor trade journal ESTELITA LAI ([id number]) on 11/23/2018 1:04:41 PM Referred By: Confirmed By:RANDY AGUILAR MD
== END 2018-11-21 20:42 | disposition home or self-care (01) ==
LOC: ERS 17:29
DX: J44.1 Chronic obstructive pulmonary disease with (acute) exacerbation (principal); I25.10 Atherosclerotic heart disease of native coronary artery without angina pectoris; I50.9 Heart failure, unspecified; F31.9 Bipolar disorder, unspecified; F41.9 Anxiety disorder, unspecified; F20.9 Schizophrenia, unspecified; Z87.891 Personal history of nicotine dependence; Z79.899 Other long term (current) drug therapy; Z79.82 Long term (current) use of aspirin; Z79.01 Long term (current) use of anticoagulants; Z86.711 Personal history of pulmonary embolism
CPT/HCPCS: 36415; 51701; 71045; 80053; 80306; 84484; 85025; 93005; 94640; A4353; J7611; J7620

== ENCOUNTER 2018-11-30 09:36 | Emergency (ER) | payer OTHER ==
[2018-11-30] MEDS ORDERED: hydrOXYzine 25 MG TAB ONE (10:49)
[2018-11-30] MEDS ORDERED: Dexamethasone 10 MG/ML VIAL ONE (10:49)
--- NOTE | 2018-11-30 11:08 | RAD ---
PORTABLE CHEST 1 VIEW: Date: 11/30/18 Time: 1021 hours HISTORY: Dyspnea. Cough. FINDINGS: Comparison made with exam of 11/21/18. The cardiac and mediastinal structures are stable with continued volume loss in the right hemithorax and mediastinal shift to the right. Chronic changes are again seen in the lung coronado. No lobar conso lidation, pneumothoraces, or large effusions are identified. IMPRESSION: Stable exam. No acute process. POS: [facility]
[2018-11-30 11:26] LABS: #Eosinphils 0.2 thou/uL (0.0-0.7); #Lymphocytes 2.4 thou/uL (1.20-3.40); #Monocytes 0.8 thou/uL (0.11-0.59); #Neutrophils 6.3 thou/uL (1.40-6.50); %Basophils 0.1 % (0.0-1.0); %Eosinophils 1.7 % (0.0-10.0); %Lymphocytes 24.9 % (21.0-51.0); %Monocytes 8.3 % (0.0-10.0); Hemoglobin 11.1 g/dL (12.0-16.0); Mean Corpuscular Hemoglobin 29.6 pg (27.0-31.0); Mean Corpuscular Volume 92.7 fL (78.0-98.0); Mean Platelet Volume 6.1 fL (7.4-10.4); Platelet Count 287 thou/uL (130-400); RBC Distribution Width 12.9 % (11.5-14.5); Red Blood Cell (RBC) Count 3.76 mill/uL (4.20-5.40); White Blood Cell (WBC) Count 9.8 thou/uL (4.8-10.8)
[2018-11-30 11:47] LABS: ALT (SGPT) 21 U/L (8-55); AST (SGOT) 17 U/L (5-34); Albumin 3.6 g/dL (3.4-4.8); Alkaline Phosphatase 136 U/L (40-150); Anion Gap 12 mmol/L (10-20); BUN (Urea Nitrogen) 10 mg/dL (9.8-20.1); Bilirubin, Total 0.4 mg/dL (0.2-1.2); Calc. Creatinine Clearance 0 mL/min (70-130); Calcium 9.5 mg/dL (7.8-10.44); Carbon Dioxide 33 mmol/L (23-31); Chloride 97 mmol/L (98-107); Estimated GFR-MDRD Greater than 90; Globulin 3.5 g/dL (2.4-3.5); Glucose 206 mg/dL (80-115); Potassium 3.4 mmol/L (3.5-5.1); Protein, Total 7.1 g/dL (6.0-8.3); Sodium 139 mmol/L (136-145)
== END 2018-11-30 14:12 | disposition home or self-care (01) ==
LOC: ERS 09:36
DX: J43.9 Emphysema, unspecified (principal); M81.0 Age-related osteoporosis without current pathological fracture; I50.9 Heart failure, unspecified; I25.10 Atherosclerotic heart disease of native coronary artery without angina pectoris; F41.9 Anxiety disorder, unspecified; F31.9 Bipolar disorder, unspecified; F20.9 Schizophrenia, unspecified; Z86.718 Personal history of other venous thrombosis and embolism; Z87.891 Personal history of nicotine dependence; Z87.442 Personal history of urinary calculi; Z79.51 Long term (current) use of inhaled steroids; Z79.899 Other long term (current) drug therapy; Z86.711 Personal history of pulmonary embolism
CPT/HCPCS: 36415; 71045; 80053; 84484; 85025; 93005; 94760; J1100

== ENCOUNTER 2018-12-18 16:15 | Emergency (ER) | payer OTHER ==
[2018-12-18 16:49] LABS: #Lymphocytes 0.6 thou/uL (1.20-3.40); #Monocytes 0.2 thou/uL (0.11-0.59); #Neutrophils 5.1 thou/uL (1.40-6.50); %Eosinophils 0.3 % (0.0-10.0); %Lymphocytes 10.7 % (21.0-51.0); %Monocytes 2.6 % (0.0-10.0); %Neutrophils 86.3 % (42.0-75.0); Mean Corpuscular HGB CONC 32.2 g/dL (32.0-36.0); Mean Corpuscular Hemoglobin 29.8 pg (27.0-31.0); Mean Corpuscular Volume 92.8 fL (78.0-98.0); Mean Platelet Volume 6.6 fL (7.4-10.4); Platelet Count 251 thou/uL (130-400); RBC Distribution Width 12.7 % (11.5-14.5); Red Blood Cell (RBC) Count 4.04 mill/uL (4.20-5.40)
[2018-12-18] MEDS ORDERED: methylPREDNISolone Sod Succ/PF 125 MG/2 ML VIAL ONE (16:51)
--- NOTE | 2018-12-18 17:00 | RAD ---
PORTABLE CHEST 12/18/18 PROVIDED CLINICAL HISTORY: Dyspnea. FINDINGS: Comparison 11/30/18. Cardiac and mediastinal silhouette is unchanged in appearance. Volume loss involving the right hemith orax with shift of the mediastinal structures rightward and associated parenchymal opacity appears si milar to the prior study. There is no definite air space disease involving the left lung with limitat ions due to overlying leads. No pneumothorax is evident. IMPRESSION: Stable radiographic appearance of the chest. POS: [facility]
[2018-12-18 17:14] LABS: ALT (SGPT) 28 U/L (8-55); AST (SGOT) 24 U/L (5-34); Albumin 3.7 g/dL (3.4-4.8); Alkaline Phosphatase 133 U/L (40-150); Anion Gap 9 mmol/L (10-20); BUN (Urea Nitrogen) 8 mg/dL (9.8-20.1); Bilirubin, Total 0.4 mg/dL (0.2-1.2); Calc. Creatinine Clearance 0 mL/min (70-130); Calcium 9.6 mg/dL (7.8-10.44); Carbon Dioxide 31 mmol/L (23-31); Chloride 100 mmol/L (98-107); Estimated GFR-MDRD Greater than 90; Globulin 3.4 g/dL (2.4-3.5); Glucose 192 mg/dL (80-115); Potassium 4.4 mmol/L (3.5-5.1); Protein, Total 7.1 g/dL (6.0-8.3); Sodium 136 mmol/L (136-145)
[2018-12-18] MEDS ORDERED: Dexamethasone 4 mg/ml Vial ONE (18:21)
== END 2018-12-18 18:36 | disposition home or self-care (01) ==
LOC: ERS 16:15
DX: J44.9 Chronic obstructive pulmonary disease, unspecified (principal); I25.10 Atherosclerotic heart disease of native coronary artery without angina pectoris; I50.9 Heart failure, unspecified; F31.9 Bipolar disorder, unspecified; F41.9 Anxiety disorder, unspecified; F20.9 Schizophrenia, unspecified; Z87.891 Personal history of nicotine dependence; Z86.711 Personal history of pulmonary embolism; Z86.718 Personal history of other venous thrombosis and embolism; Z79.01 Long term (current) use of anticoagulants; Z79.82 Long term (current) use of aspirin; Z79.899 Other long term (current) drug therapy; Z79.51 Long term (current) use of inhaled steroids
CPT/HCPCS: 36415; 71045; 80053; 83880; 84484; 85025; 93005; 94640; J1100; J2930; J7620

== ENCOUNTER 2018-12-23 07:32 | Emergency (ER) | payer OTHER ==
[2018-12-23] MEDS ORDERED: predniSONE 20 MG TAB ONE (07:53)
== END 2018-12-23 09:07 | disposition home or self-care (01) ==
LOC: ERS 07:32
DX: J44.1 Chronic obstructive pulmonary disease with (acute) exacerbation (principal); E11.9 Type 2 diabetes mellitus without complications; I50.9 Heart failure, unspecified; I25.10 Atherosclerotic heart disease of native coronary artery without angina pectoris; F41.9 Anxiety disorder, unspecified; F31.9 Bipolar disorder, unspecified; F20.9 Schizophrenia, unspecified; Z87.891 Personal history of nicotine dependence; Z86.711 Personal history of pulmonary embolism; Z86.718 Personal history of other venous thrombosis and embolism
CPT/HCPCS: 94640; J7512; J7620

== ENCOUNTER 2018-12-26 14:13 | Outpatient (CLI) | payer OTHER ==
--- NOTE | 2018-12-26 14:46 | RAD ---
EXAM: XR Abdomen 1 View/KUB PROVIDED CLINICAL HISTORY: Kidney stones. Calculus of kidney. COMPARISON: 04/15/[address] abdomen and pelvis on 11/08/2018. FINDINGS: There is overlying artifact obscuring the mid abdomen with retained fecal material in the colon obscu ring the region of the renal shadows. The right renal calculi seen on recent CT scan exam are not definitively seen on this study. Phleboliths overlie the pelvis. No additional suspicious calcified l esions are seen. Bowel gas pattern is nonspecific. There is linear scarring present at each lung base. Degenerative change seen in the spine. There is a compression fracture involving the L1 vertebr al body with severe loss of height centrally. This fracture was seen on the prior CT scan exam. IMPRESSION: 1. No definite calculi are seen overlying the expected location of the renal shadows or along the cou rse of either ureter. Right renal calculi were seen on recent CT scan exam which was not definitively seen on this study. 2. Compression fracture with severe height loss centrally involving the L1 vertebral body. This fract ure seen on CT exam.
--- NOTE | 2018-12-26 17:26 | ULT ---
ULTRASOUND RETROPERITONEUM COMPLETE: (RENAL) DATE: 12/26/2018. HISTORY: N20.0, calculus of kidney in a 63-year-old female. FINDINGS: The right kidney measures 10.5 x 5 x 4.5 cm. The left kidney measures 10.5 x 4 x 4 cm. Both kidneys have normal cortical thickness and normal cortical echogenicity. There is no hydronephrosis. Curso ry images of the urinary bladder demonstrate no gross abnormality. IMPRESSION: Normal jn [] POS: [facility]
== END 2018-12-26 14:14 | disposition home or self-care (01) ==
LOC: BICRAD 14:13
PROVIDERS: ATTEND Urology
DX: N20.0 Calculus of kidney (principal); S32.019A Unspecified fracture of first lumbar vertebra, initial encounter for closed fracture; Z87.442 Personal history of urinary calculi
CPT/HCPCS: 36415; 74018; 76770; 80048; 81001; 87086

== ENCOUNTER 2019-02-05 17:30 | Emergency (ER) | payer OTHER ==
[2019-02-05] MEDS ORDERED: predniSONE 20 MG TAB ONE (19:32)
[2019-02-05 19:43] LABS: #Eosinphils 0.2 thou/uL (0.0-0.7); #Lymphocytes 2.2 thou/uL (1.20-3.40); #Monocytes 0.6 thou/uL (0.11-0.59); #Neutrophils 4.4 thou/uL (1.40-6.50); %Basophils 0.3 % (0.0-1.0); %Eosinophils 2.7 % (0.0-10.0); %Lymphocytes 29.2 % (21.0-51.0); %Monocytes 7.8 % (0.0-10.0); %Neutrophils 59.9 % (42.0-75.0); Hemoglobin 12.2 g/dL (12.0-16.0); Mean Corpuscular HGB CONC 32.4 g/dL (32.0-36.0); Mean Corpuscular Hemoglobin 28.8 pg (27.0-31.0); Mean Corpuscular Volume 88.8 fL (78.0-98.0); Mean Platelet Volume 6.4 fL (7.4-10.4); Platelet Count 278 thou/uL (130-400); RBC Distribution Width 12.7 % (11.5-14.5); Red Blood Cell (RBC) Count 4.24 mill/uL (4.20-5.40); White Blood Cell (WBC) Count 7.4 thou/uL (4.8-10.8)
[2019-02-05 20:08] LABS: ALT (SGPT) 24 U/L (8-55); AST (SGOT) 21 U/L (5-34); Albumin 3.9 g/dL (3.4-4.8); Alkaline Phosphatase 155 U/L (40-110); Anion Gap 11 mmol/L (10-20); BUN (Urea Nitrogen) 12 mg/dL (9.8-20.1); Bilirubin, Total 0.4 mg/dL (0.2-1.2); Calc. Creatinine Clearance 0 mL/min (70-130); Calcium 9.5 mg/dL (7.8-10.44); Carbon Dioxide 32 mmol/L (23-31); Chloride 100 mmol/L (98-107); Estimated GFR-MDRD 89; Globulin 3.1 g/dL (2.4-3.5); Glucose 136 mg/dL (80-115); Potassium 3.6 mmol/L (3.5-5.1); Sodium 139 mmol/L (136-145)
--- NOTE | 2019-02-05 20:13 | RAD ---
RADIOGRAPH CHEST 1 VIEW: DATE: 02/05/2019 TIME: 7:24 PM HISTORY: 64-year-old female with cough COMPARISON: 12/18/2018 and 08/05/2016 FINDINGS: Somewhat severe chronic volume loss of right lung resulting in tracheal, mediastinal, and cardiac bruce ft to the right. Extensive pulmonary scars at right mid, lower, and upper lung zones. Right apical chronic pleural thickening. Small patchy density in left upper lobe is probably scar, unchanged since 08/05/2016 no pulmonary edema or consolidation. Compensatory hyperinflation of left lung. No new consolidation or pneumothorax. No interval change overall.. IMPRESSION: 1. Chronic changes involving right lung including chronic volume loss and scarring. 2. Hyperinflation, compensatory, of left lung. 3. Small focal left upper lobe nodular lesion is probably scar. 4. No definite acute findings
[2019-02-05 20:41] LABS: Bacteria/HPF None Seen HPF (None Seen); Bilirubin 1+ (Negative); Blood, Urine 2+ (Negative); Clarity Turbid (Clear); Glucose, Urine (Dipstick) Normal (Negative); Leukocyte Negative Leu/uL (Negative); Nitrite 1+ (Negative); Protein, Urine (Dipstick) 20 mg/dL (Neg-Trace); RBC/HPF Greater than 50 HPF (0-3); Squamous Epithelial 0-3 HPF (0-3)
--- NOTE | 2019-02-08 12:11 | EKG ---
Test Reason : Blood Pressure : / mmHG Vent. Rate : 121 BPM Atrial Rate : 121 BPM P-R Int : 130 ms QRS Dur : 060 ms QT Int : 328 ms P-R-T Axes : 062 013 080 degrees QTc Int : 465 ms Sinus tachycardia Otherwise normal ECG Confirmed by CATHERINE DANG ([id number]), book editor TARA VOGEL ([id number]) on 02/08/2019 12:10:37 PM Referred By: Confirmed By:CATHERINE DANG
== END 2019-02-05 22:32 | disposition home or self-care (01) ==
LOC: ERS 17:30
DX: J44.1 Chronic obstructive pulmonary disease with (acute) exacerbation (principal); N39.0 Urinary tract infection, site not specified; R04.0 Epistaxis; E11.9 Type 2 diabetes mellitus without complications; Z86.711 Personal history of pulmonary embolism; Z86.718 Personal history of other venous thrombosis and embolism; I50.9 Heart failure, unspecified; M81.0 Age-related osteoporosis without current pathological fracture; F41.9 Anxiety disorder, unspecified; F31.9 Bipolar disorder, unspecified; F20.9 Schizophrenia, unspecified; Z87.891 Personal history of nicotine dependence; Z79.84 Long term (current) use of oral hypoglycemic drugs; Z79.51 Long term (current) use of inhaled steroids
CPT/HCPCS: 36415; 71045; 80053; 81003; 81015; 83880; 84484; 85025; 87086; 93005; 94640; J7512; J7620

== ENCOUNTER 2019-02-16 12:39 | Emergency (ER) | payer OTHER ==
[2019-02-16 13:39] LABS: #Lymphocytes 1.3 thou/uL (1.20-3.40); #Monocytes 0.4 thou/uL (0.11-0.59); #Neutrophils 4.3 thou/uL (1.40-6.50); %Basophils 0.3 % (0.0-1.0); %Eosinophils 0.6 % (0.0-10.0); %Lymphocytes 21.6 % (21.0-51.0); %Neutrophils 70.5 % (42.0-75.0); Hemoglobin 12.1 g/dL (12.0-16.0); Mean Corpuscular HGB CONC 33.4 g/dL (32.0-36.0); Mean Corpuscular Hemoglobin 29.7 pg (27.0-31.0); Mean Corpuscular Volume 88.8 fL (78.0-98.0); Platelet Count 229 thou/uL (130-400); RBC Distribution Width 13.4 % (11.5-14.5); Red Blood Cell (RBC) Count 4.07 mill/uL (4.20-5.40); White Blood Cell (WBC) Count 6.1 thou/uL (4.8-10.8)
[2019-02-16 14:04] LABS: ALT (SGPT) 28 U/L (8-55); AST (SGOT) 20 U/L (5-34); Albumin 3.9 g/dL (3.4-4.8); Alkaline Phosphatase 108 U/L (40-110); Anion Gap 12 mmol/L (10-20); BUN (Urea Nitrogen) 14 mg/dL (9.8-20.1); Bilirubin, Total 0.5 mg/dL (0.2-1.2); Calc. Creatinine Clearance 0 mL/min (70-130); Calcium 9.2 mg/dL (7.8-10.44); Carbon Dioxide 32 mmol/L (23-31); Chloride 102 mmol/L (98-107); Estimated GFR-MDRD 88; Globulin 2.9 g/dL (2.4-3.5); Glucose 150 mg/dL (80-115); Potassium 3.9 mmol/L (3.5-5.1); Protein, Total 6.8 g/dL (6.0-8.3); Sodium 142 mmol/L (136-145)
--- NOTE | 2019-02-16 14:06 | RAD ---
Chest one view HISTORY: Dyspnea. Cough. COMPARISON: 02/05/2019. FINDINGS: Marked rightward shift of the mediastinum with extensive scarring throughout the right lung and hyperinflation of the left lung are similar in appearance to the prior study. Thickening of the pleura at the right costophrenic angle is again demonstrated. No new areas of airspace consolidat ion. No evidence of pneumothorax. IMPRESSION: Chronic-type findings are stable.
[2019-02-16 14:10] LABS: Bilirubin Negative (Negative); Blood, Urine 3+ (Negative); Clarity Turbid (Clear); Glucose, Urine (Dipstick) Normal (Negative); Leukocyte 25 Leu/uL (Negative); Nitrite Negative (Negative); Protein, Urine (Dipstick) 10 mg/dL (Neg-Trace); RBC/HPF Greater than 50 HPF (0-3); Squamous Epithelial 0-3 HPF (0-3); Urobilinogen Normal mg/dL (Less than 2)
[2019-02-16 14:30] LABS: Bacteria/HPF 1+ HPF (None Seen)
[2019-02-16] MEDS ORDERED: predniSONE 20 MG TAB ONE (14:54)
[2019-02-16] MEDS ORDERED: cefTRIAXone\\ROCEPHIN 1 GM VIAL ONE (15:44)
[2019-02-16] MEDS ORDERED: Morphine 4 MG/ML VIAL ONE (18:03)
== END 2019-02-16 17:27 | disposition home or self-care (01) ==
LOC: ERS 12:39
DX: J44.1 Chronic obstructive pulmonary disease with (acute) exacerbation (principal); N39.0 Urinary tract infection, site not specified; E11.9 Type 2 diabetes mellitus without complications; I25.10 Atherosclerotic heart disease of native coronary artery without angina pectoris; I50.9 Heart failure, unspecified; B19.20 Unspecified viral hepatitis C without hepatic coma; F31.9 Bipolar disorder, unspecified; F20.9 Schizophrenia, unspecified; F41.9 Anxiety disorder, unspecified; Z86.711 Personal history of pulmonary embolism; Z86.718 Personal history of other venous thrombosis and embolism; Z87.891 Personal history of nicotine dependence; Z79.899 Other long term (current) drug therapy; Z79.84 Long term (current) use of oral hypoglycemic drugs; Z79.51 Long term (current) use of inhaled steroids
CPT/HCPCS: 36415; 71045; 80053; 81003; 81015; 84484; 85025; 87086; 87804; 93005; 94640; 94760; 96365; 96375; J0696; J2270; J7512; J7620

== ENCOUNTER 2019-02-18 09:22 | Outpatient (CLI) | payer OTHER ==
--- NOTE | 2019-02-18 10:41 | CT ---
EXAM: CT of the chest without contrast HISTORY: History of lung nodule COMPARISON: 11/13/2017 TECHNIQUE: Multiple contiguous axial images were obtained in a CT the chest without contrast. Coronal and sagittal reformats were performed. FINDINGS: HEART: Normal in size without focal cardiac abnormality MEDIASTINUM: No hilar or mediastinal lymphadenopathy. Evaluation of the mediastinum is limited withou t IV contrast. Calcified right hilar lymph nodes are seen. LUNGS: Scarring and bronchiectasis is seen in both lung apices. Calcified granulomas are seen in the left upper lobe. PLEURAL SPACE: No pneumothorax or pleural effusion. There is thickening along the left major fissure, unchanged. CHEST WALL SOFT TISSUES: Unremarkable OSSEOUS STRUCTURES: Degenerative changes in the spine. VISUALIZED SUBDIAPHRAGMATIC STRUCTURES: Unremarkable IMPRESSION: Chronic changes in lungs without suspicious pulmonary nodule.
== END 2019-02-18 09:23 | disposition home or self-care (01) ==
LOC: BICCT 09:22
PROVIDERS: ATTEND Internal Medicine Critical Care Medicine
DX: R91.1 Solitary pulmonary nodule (principal)
CPT/HCPCS: 71250

== ENCOUNTER 2019-03-14 18:35 | Emergency (ER) | payer OTHER ==
[2019-03-14] MEDS ORDERED: Albuterol Sulfate 2.5 mg/3 ml Neb ONE (18:46)
[2019-03-14] MEDS ORDERED: predniSONE 20 MG TAB ONE (19:03)
== END 2019-03-14 20:27 | disposition home or self-care (01) ==
LOC: ERS 18:35
DX: J44.1 Chronic obstructive pulmonary disease with (acute) exacerbation (principal); E11.9 Type 2 diabetes mellitus without complications; Z86.711 Personal history of pulmonary embolism; Z86.718 Personal history of other venous thrombosis and embolism; I25.10 Atherosclerotic heart disease of native coronary artery without angina pectoris; I50.9 Heart failure, unspecified; M81.0 Age-related osteoporosis without current pathological fracture; F41.9 Anxiety disorder, unspecified; F31.9 Bipolar disorder, unspecified; F20.9 Schizophrenia, unspecified; Z87.891 Personal history of nicotine dependence; Z79.51 Long term (current) use of inhaled steroids; Z79.84 Long term (current) use of oral hypoglycemic drugs; Z79.899 Other long term (current) drug therapy
CPT/HCPCS: 94640; J7512; J7611; J7620

== ENCOUNTER 2019-03-25 23:31 | Emergency (ER) | payer OTHER | END 2019-03-26 01:32 | disposition home or self-care (01) | LOC: ERS 23:31 | DX: R06.00 Dyspnea, unspecified (principal); E11.9 Type 2 diabetes mellitus without complications; J44.9 Chronic obstructive pulmonary disease, unspecified; Z86.711 Personal history of pulmonary embolism; Z86.718 Personal history of other venous thrombosis and embolism; M81.0 Age-related osteoporosis without current pathological fracture; I50.9 Heart failure, unspecified; F41.9 Anxiety disorder, unspecified; F31.9 Bipolar disorder, unspecified; F20.9 Schizophrenia, unspecified; Z87.891 Personal history of nicotine dependence | CPT/HCPCS: 99284 ==

== ENCOUNTER 2019-03-29 21:52 | Emergency (ER) | payer OTHER ==
[2019-03-29] MEDS ORDERED: hydrOXYzine 25 MG TAB ONE (23:08)
== END 2019-03-30 00:03 | disposition home or self-care (01) ==
LOC: ERS 21:52
DX: F41.9 Anxiety disorder, unspecified (principal); I25.10 Atherosclerotic heart disease of native coronary artery without angina pectoris; I50.9 Heart failure, unspecified; J43.9 Emphysema, unspecified; F31.9 Bipolar disorder, unspecified; M81.0 Age-related osteoporosis without current pathological fracture; F20.9 Schizophrenia, unspecified; Z87.891 Personal history of nicotine dependence; Z86.718 Personal history of other venous thrombosis and embolism
CPT/HCPCS: 99284

== ENCOUNTER 2019-03-31 20:13 | Emergency (ER) | payer OTHER | END 2019-03-31 21:10 | disposition left against medical advice (07) | LOC: ERS 20:13 | DX: Z53.21 Procedure and treatment not carried out due to patient leaving prior to being seen by health care provider (principal) ==

== ENCOUNTER 2019-03-31 21:28 | Emergency (ER) | payer OTHER ==
--- NOTE | 2019-03-31 22:56 | CT ---
CT BRAIN WITHOUT CONTRAST: HISTORY: Headache. COMPARISON: 08/21/2018 FINDINGS: No evidence of acute infarct, hemorrhage, midline shift or abnormal extraaxial fluid collections is s een. The ventricular size is normal and the basilar cisterns are patent. Changes of mild chronic smal l vessel ischemic disease are again noted. The bony calvarium is intact. The visualized paranasal sin uses and mastoid air cells are well aerated. IMPRESSION: No CT evidence of acute intracranial process. POS: [facility]
== END 2019-03-31 23:30 | disposition home or self-care (01) ==
LOC: ERS 21:28
DX: S09.90XA Unspecified injury of head, initial encounter (principal); E11.9 Type 2 diabetes mellitus without complications; J43.9 Emphysema, unspecified; I50.9 Heart failure, unspecified; Z87.891 Personal history of nicotine dependence; W18.30XA Fall on same level, unspecified, initial encounter
CPT/HCPCS: 70450

== ENCOUNTER 2019-05-10 19:00 | Emergency (ER) | payer OTHER ==
[2019-05-10] MEDS ORDERED: HYDROcodone/Acetaminophen 10/325 mg Tablet ONE (19:14)
[2019-05-10] MEDS ORDERED: methylPREDNISolone Sod Succ/PF 125 MG/2 ML VIAL ONE (19:32)
[2019-05-10 19:42] LABS: #Eosinphils 0.1 thou/uL (0.0-0.7); #Lymphocytes 1.7 thou/uL (1.20-3.40); #Monocytes 0.5 thou/uL (0.11-0.59); #Neutrophils 3.4 thou/uL (1.40-6.50); %Basophils 0.6 % (0.0-1.0); %Lymphocytes 29.3 % (21.0-51.0); %Monocytes 8.7 % (0.0-10.0); %Neutrophils 59.4 % (42.0-75.0); Mean Corpuscular HGB CONC 32.4 g/dL (32.0-36.0); Mean Corpuscular Volume 92.4 fL (78.0-98.0); Mean Platelet Volume 6.8 fL (7.4-10.4); Platelet Count 272 thou/uL (130-400); RBC Distribution Width 12.4 % (11.5-14.5); Red Blood Cell (RBC) Count 3.99 mill/uL (4.20-5.40); White Blood Cell (WBC) Count 5.8 thou/uL (4.8-10.8)
--- NOTE | 2019-05-10 20:03 | RAD ---
PORTABLE CHEST ONE VIEW: 05/10/19 at 7:46 p.m. HISTORY: Chest pain and difficulty breathing. FINDINGS: Comparison made with exam of 02/16/19. Right sided mediastinal shift is stable. Chronic parenchymal changes in the lungs are again seen bila terally. No other consolidation or pleural effusions are identified. No pneumothoraces are seen. The heart size is stable. There are degenerative changes in the spine. IMPRESSION: Stable exam. No acute process. POS: [facility]
[2019-05-10 20:04] LABS: ALT (SGPT) 31 U/L (8-55); AST (SGOT) 24 U/L (5-34); Albumin 3.8 g/dL (3.4-4.8); Alkaline Phosphatase 185 U/L (40-110); Anion Gap 12 mmol/L (10-20); BUN (Urea Nitrogen) 7 mg/dL (9.8-20.1); Bilirubin, Total 0.2 mg/dL (0.2-1.2); Calc. Creatinine Clearance 0 mL/min (70-130); Calcium 9.7 mg/dL (7.8-10.44); Carbon Dioxide 36 mmol/L (23-31); Chloride 98 mmol/L (98-107); Estimated GFR-MDRD Greater than 90; Glucose 159 mg/dL (80-115); Lipase 30 U/L (8-78); Potassium 3.9 mmol/L (3.5-5.1); Protein, Total 7.8 g/dL (6.0-8.3); Sodium 142 mmol/L (136-145)
== END 2019-05-10 20:35 | disposition home or self-care (01) ==
LOC: ERS 19:00
DX: J44.1 Chronic obstructive pulmonary disease with (acute) exacerbation (principal); E11.9 Type 2 diabetes mellitus without complications; I25.10 Atherosclerotic heart disease of native coronary artery without angina pectoris; I50.9 Heart failure, unspecified; M81.0 Age-related osteoporosis without current pathological fracture; F20.9 Schizophrenia, unspecified; F31.9 Bipolar disorder, unspecified; F41.9 Anxiety disorder, unspecified; Z86.711 Personal history of pulmonary embolism; Z86.718 Personal history of other venous thrombosis and embolism; Z86.73 Personal history of transient ischemic attack (TIA), and cerebral infarction without residual deficits; Z87.442 Personal history of urinary calculi; Z86.19 Personal history of other infectious and parasitic diseases; Z87.891 Personal history of nicotine dependence; Z79.01 Long term (current) use of anticoagulants; Z79.82 Long term (current) use of aspirin; Z79.84 Long term (current) use of oral hypoglycemic drugs; Z79.899 Other long term (current) drug therapy; Z79.51 Long term (current) use of inhaled steroids
CPT/HCPCS: 71045; 80053; 83690; 84484; 85025; 93005; 96372; J2930; J7620

== ENCOUNTER 2019-05-18 21:42 | Emergency (ER) | payer OTHER ==
[2019-05-18 22:05] LABS: #Eosinphils 0.2 thou/uL (0.0-0.7); #Monocytes 0.8 thou/uL (0.11-0.59); #Neutrophils 8.3 thou/uL (1.40-6.50); %Basophils 0.1 % (0.0-1.0); %Eosinophils 1.8 % (0.0-10.0); %Lymphocytes 17.4 % (21.0-51.0); %Neutrophils 73.7 % (42.0-75.0); Hemoglobin 11.7 g/dL (12.0-16.0); Mean Corpuscular HGB CONC 31.8 g/dL (32.0-36.0); Mean Corpuscular Hemoglobin 30.1 pg (27.0-31.0); Mean Corpuscular Volume 94.6 fL (78.0-98.0); Mean Platelet Volume 6.5 fL (7.4-10.4); Platelet Count 299 thou/uL (130-400); RBC Distribution Width 12.8 % (11.5-14.5); Red Blood Cell (RBC) Count 3.89 mill/uL (4.20-5.40); White Blood Cell (WBC) Count 11.3 thou/uL (4.8-10.8)
--- NOTE | 2019-05-18 22:12 | RAD ---
Chest AP view INDICATION: Cough and shortness of breath COMPARISON: May 10, 2019 FINDINGS: Lungs:Bilateral lung scarring is stable. Scattered areas of bronchiectasis is stable. Slight shifting the mediastinum to the right is stable. No airspace consolidation is evident. Cardiac silhouette:Mild cardiomegaly is stable. Pulmonary vasculature:Normal Pleural spaces:No pleural effusion or pneumothorax is demonstrated. Upper abdomen:No abnormality seen. Osseous structures: No acute osseous abnormality. Additional findings:None. IMPRESSION: No acute cardiopulmonary abnormality.
[2019-05-18] MEDS ORDERED: Dexamethasone 10 MG/ML VIAL ONE (22:21)
[2019-05-18 22:29] LABS: ALT (SGPT) 33 U/L (8-55); AST (SGOT) 19 U/L (5-34); Albumin 3.6 g/dL (3.4-4.8); Alkaline Phosphatase 207 U/L (40-110); Anion Gap 12 mmol/L (10-20); BUN (Urea Nitrogen) 9 mg/dL (9.8-20.1); Bilirubin, Total 0.4 mg/dL (0.2-1.2); Calc. Creatinine Clearance 0 mL/min (70-130); Calcium 8.9 mg/dL (7.8-10.44); Carbon Dioxide 37 mmol/L (23-31); Chloride 95 mmol/L (98-107); Estimated GFR-MDRD 83; Globulin 3.4 g/dL (2.4-3.5); Glucose 251 mg/dL (80-115); Potassium 4.1 mmol/L (3.5-5.1); Sodium 140 mmol/L (136-145)
== END 2019-05-18 23:08 | disposition home or self-care (01) ==
LOC: ERS 21:42
DX: J45.909 Unspecified asthma, uncomplicated (principal); E11.9 Type 2 diabetes mellitus without complications; I50.9 Heart failure, unspecified; J44.9 Chronic obstructive pulmonary disease, unspecified; I25.10 Atherosclerotic heart disease of native coronary artery without angina pectoris; F41.9 Anxiety disorder, unspecified; F31.9 Bipolar disorder, unspecified; F20.9 Schizophrenia, unspecified; Z87.891 Personal history of nicotine dependence; Z79.899 Other long term (current) drug therapy; Z79.51 Long term (current) use of inhaled steroids; Z79.01 Long term (current) use of anticoagulants; Z86.711 Personal history of pulmonary embolism; Z86.73 Personal history of transient ischemic attack (TIA), and cerebral infarction without residual deficits; Z86.718 Personal history of other venous thrombosis and embolism; Z79.84 Long term (current) use of oral hypoglycemic drugs; Z79.52 Long term (current) use of systemic steroids
CPT/HCPCS: 36415; 71045; 80053; 83880; 84484; 85025; 93005; 94640; 94760; 96374; J1100; J7620

== ENCOUNTER 2019-05-27 14:16 | Emergency (ER) | payer OTHER ==
[2019-05-27 14:55] LABS: Bacteria/HPF None Seen HPF (None Seen); Bilirubin Negative (Negative); Blood, Urine 1+ (Negative); Clarity Clear (Clear); Glucose, Urine (Dipstick) Normal (Negative); Leukocyte Negative Leu/uL (Negative); Nitrite Negative (Negative); Protein, Urine (Dipstick) 10 mg/dL (Neg-Trace); RBC/HPF 21-50 HPF (0-3); Squamous Epithelial None Seen HPF (0-3); Urobilinogen Normal mg/dL (Less than 2)
[2019-05-27] MEDS ORDERED: Iopamidol-370 76% 500 ML 1 ML ONE (15:25)
--- NOTE | 2019-05-27 15:27 | RAD ---
EXAM: CHEST ONE VIEW HISTORY: Dyspnea COMPARISON: 05/18/2019 and 02/16/2019 FINDINGS: Again noted are scattered linear areas of scarring much greater involving the right hemithorax with p ersistent shift of the mediastinal structures to the right. Pleural and parenchymal scarring right lung apex is again present. Bronchiectasis right lower lobe is suspected with mild peribronchial thic kening involving a right lower lobe bronchus. No new area of consolidation or pleural fluid is seen. Findings related to avascular necrosis involving the left humeral head are again noted. There i s suggestion of a small fragment superomedially also seen on prior exam. Chest is overall stable compared to prior exam. IMPRESSION: 1. Stable chronic changes involving the right hemithorax and to a lesser extent on the left. 2. No acute cardiopulmonary process. 3. Avascular necrosis involving the left humeral head.
[2019-05-27 15:38] LABS: #Basophils 0.1 thou/uL (0.0-0.2); #Eosinphils 0.2 thou/uL (0.0-0.7); #Lymphocytes 2.7 thou/uL (1.20-3.40); #Monocytes 0.7 thou/uL (0.11-0.59); #Neutrophils 6.1 thou/uL (1.40-6.50); %Basophils 0.6 % (0.0-1.0); %Eosinophils 1.8 % (0.0-10.0); %Lymphocytes 27.6 % (21.0-51.0); %Neutrophils 63.1 % (42.0-75.0); Hemoglobin 12.3 g/dL (12.0-16.0); Mean Corpuscular HGB CONC 31.2 g/dL (32.0-36.0); Mean Corpuscular Hemoglobin 29.6 pg (27.0-31.0); Mean Corpuscular Volume 94.9 fL (78.0-98.0); Mean Platelet Volume 7.3 fL (7.4-10.4); Platelet Count 238 thou/uL (130-400); RBC Distribution Width 12.6 % (11.5-14.5); Red Blood Cell (RBC) Count 4.15 mill/uL (4.20-5.40); White Blood Cell (WBC) Count 9.6 thou/uL (4.8-10.8)
[2019-05-27 15:59] LABS: ALT (SGPT) 39 U/L (8-55); AST (SGOT) 21 U/L (5-34); Albumin 3.5 g/dL (3.4-4.8); Alkaline Phosphatase 148 U/L (40-110); Anion Gap 14 mmol/L (10-20); BUN (Urea Nitrogen) 13 mg/dL (9.8-20.1); Bilirubin, Total 0.4 mg/dL (0.2-1.2); Calc. Creatinine Clearance 0 mL/min (70-130); Calcium 8.4 mg/dL (7.8-10.44); Carbon Dioxide 34 mmol/L (23-31); Chloride 91 mmol/L (98-107); Estimated GFR-MDRD Greater than 90; Globulin 3.1 g/dL (2.4-3.5); Glucose 232 mg/dL (80-115); Lipase 33 U/L (8-78); Potassium 4.1 mmol/L (3.5-5.1); Protein, Total 6.6 g/dL (6.0-8.3); Sodium 135 mmol/L (136-145)
[2019-05-27] MEDS ORDERED: Lidocaine Viscous Sol 2% 15 ml UD Cup ONE (16:13)
[2019-05-27] MEDS ORDERED: Mag-Al 1200 mg/1200 mg/30 ML UDCUP ONE (16:13)
--- NOTE | 2019-05-27 18:07 | ULT ---
EXAM: US Gallbladder RUQ CLINICAL HISTORY: Abdominal pain. COMPARISON: None. FINDINGS: Pancreas: Obscured by bowel gas Liver:Increased echogenicity which may be due to hepatic steatosis or hepatocellular disease. Limited evaluation for hepatic masses and intrahepatic biliary dilatation. Right hepatic lobe measures 16.2 cm Gallbladder: No sonographic evidence of cholelithiasis, gallbladder wall thickening or pericholecysti c fluid. Nunez's sign:Negative Portal Vein: Patent. Appropriate directional flow Bile ducts: 0.25 cm common bile duct diameter Right kidney: No hydronephrosis. Right kidney measures 10.9 cm in length. IMPRESSION: 1. No sonographic evidence of cholelithiasis or cholecystitis. 2. Increased echogenicity of the liver which may be due to hepatic steatosis or hepatocellular diseas e. Limited evaluation for hepatic masses and intrahepatic biliary dilatation. If there is further concern, nonemergent abdomen MRI or liver mass protocol CT can be performed. Transcribed Date/Time: 05/27/2019 6:18 PM
--- NOTE | 2019-05-27 18:43 | CT ---
EXAM: CT ABDOMEN AND PELVIS HISTORY: Abdominal pain. Bloating. COMPARISON: 07/16/2018 Procedure: Multiple contiguous axial images were obtained and a CT of the abdomen and pelvis with IV contrast. C oronal reformats were performed. FINDINGS: Lower Chest: Chronic emphysematous changes. Vessels: Atherosclerosis of a nonaneurysmal aorta, unchanged Heart: Upper normal heart size. No significant pericardial fluid Abdomen: Portal vein:Patent Gallbladder: No calcified gallstones. Normal caliber wall. Liver: Diffuse hypoattenuation due to hepatic steatosis. No enhancing masses in the hepatic parenchym a. Stable 0.9 cm hypodensity in the hepatic segment 5 with peripheral enhancement. Pancreas: within normal limits. Spleen: within normal limits. Adrenals: within normal limits. Kidneys: Symmetric enhancement. No obstructive uropathy. Peritoneum: No ascites or free air, no fluid collection. Bowel: Limited evaluation due to the lack of oral contrast administration. No evidence of bowel obstr uction. Ileocecal junction is unremarkable. Normal caliber appendix. Scattered fecal material in a nondistended, nondilated colon. Diverticulosis, without evidence of diverticulitis. Mesentery and Retroperitoneum: No enlarged mesenteric or retroperitoneal lymph nodes. Abdominal Wall: Small umbilical hernia containing mesenteric fat. Pelvis: Reproductive Organs: Reproductive organs are unremarkable. Pelvis: No mass, lymphadenopathy, free air or free fluid. Bladder: Moderately distended urinary bladder. Encourage spontaneous voiding Bones: Chronic compression fracture at L1. IMPRESSION: No evidence of acute intraabdominal\pelvic abnormality.
== END 2019-05-27 19:10 | disposition home or self-care (01) ==
LOC: ERS 14:16
DX: R10.9 Unspecified abdominal pain (principal); R19.7 Diarrhea, unspecified; R06.2 Wheezing; E11.9 Type 2 diabetes mellitus without complications; J44.9 Chronic obstructive pulmonary disease, unspecified; I25.10 Atherosclerotic heart disease of native coronary artery without angina pectoris; I50.9 Heart failure, unspecified; F41.9 Anxiety disorder, unspecified; F31.9 Bipolar disorder, unspecified; F20.9 Schizophrenia, unspecified; Z87.891 Personal history of nicotine dependence; Z79.899 Other long term (current) drug therapy; Z79.51 Long term (current) use of inhaled steroids; Z79.01 Long term (current) use of anticoagulants; Z86.711 Personal history of pulmonary embolism; Z86.718 Personal history of other venous thrombosis and embolism; Z79.52 Long term (current) use of systemic steroids; Z79.84 Long term (current) use of oral hypoglycemic drugs; Z86.73 Personal history of transient ischemic attack (TIA), and cerebral infarction without residual deficits
CPT/HCPCS: 36415; 51701; 71045; 74177; 76705; 80053; 81003; 81015; 83690; 84484; 85025; 93005; 94640; 96372; A4353; J0500; J7620; Q9967

== ENCOUNTER 2019-06-05 20:51 | Emergency (ER) | payer OTHER ==
[2019-06-05] MEDS ORDERED: Ketorolac Tromethamine 30 MG/ML VIAL ONE (22:07)
== END 2019-06-05 22:26 | disposition home or self-care (01) ==
LOC: ERS 20:51
DX: R59.0 Localized enlarged lymph nodes (principal); L72.8 Other follicular cysts of the skin and subcutaneous tissue; E11.9 Type 2 diabetes mellitus without complications; J43.9 Emphysema, unspecified; I25.10 Atherosclerotic heart disease of native coronary artery without angina pectoris; I50.9 Heart failure, unspecified; F31.9 Bipolar disorder, unspecified; F20.9 Schizophrenia, unspecified; M81.0 Age-related osteoporosis without current pathological fracture; Z86.73 Personal history of transient ischemic attack (TIA), and cerebral infarction without residual deficits; Z86.711 Personal history of pulmonary embolism; Z86.718 Personal history of other venous thrombosis and embolism; Z87.891 Personal history of nicotine dependence; Z86.19 Personal history of other infectious and parasitic diseases
CPT/HCPCS: 99283; J1885

== ENCOUNTER 2019-06-12 13:29 | Emergency (ER) | payer OTHER ==
[2019-06-12 14:14] LABS: #Eosinphils 0.1 thou/uL (0.0-0.7); #Lymphocytes 1.7 thou/uL (1.20-3.40); #Monocytes 0.5 thou/uL (0.11-0.59); #Neutrophils 3.7 thou/uL (1.40-6.50); %Basophils 0.2 % (0.0-1.0); %Eosinophils 1.8 % (0.0-10.0); %Lymphocytes 28.3 % (21.0-51.0); %Neutrophils 61.7 % (42.0-75.0); Hemoglobin 11.7 g/dL (12.0-16.0); Mean Corpuscular Hemoglobin 29.8 pg (27.0-31.0); Mean Corpuscular Volume 96.3 fL (78.0-98.0); Mean Platelet Volume 6.7 fL (7.4-10.4); Platelet Count 239 thou/uL (130-400); Red Blood Cell (RBC) Count 3.91 mill/uL (4.20-5.40); White Blood Cell (WBC) Count 5.9 thou/uL (4.8-10.8)
--- NOTE | 2019-06-12 14:23 | RAD ---
XR Chest 1 View Portable HISTORY: Cough COMPARISON: 05/27/2019 FINDINGS: The heart size is normal. Chronic parenchymal changes are again seen with mediastinal shift to the right. No lobar consolidation, pneumothoraces or large effusions are seen. 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 IMPRESSION: No radiographic evidence of acute cardiopulmonary process.
[2019-06-12 14:33] LABS: ALT (SGPT) 36 U/L (8-55); AST (SGOT) 17 U/L (5-34); Albumin 3.7 g/dL (3.4-4.8); Alkaline Phosphatase 167 U/L (40-110); BUN (Urea Nitrogen) 12 mg/dL (9.8-20.1); Bilirubin, Total 0.3 mg/dL (0.2-1.2); Calc. Creatinine Clearance 0 mL/min (70-130); Estimated GFR-MDRD Greater than 90; Globulin 3.3 g/dL (2.4-3.5); Glucose 224 mg/dL (80-115)
[2019-06-12 14:43] LABS: Anion Gap 12 mmol/L (10-20); Carbon Dioxide 37 mmol/L (23-31); Chloride 94 mmol/L (98-107); Potassium 3.9 mmol/L (3.5-5.1); Sodium 139 mmol/L (136-145)
[2019-06-12 15:04] LABS: Bacteria/HPF 1+ HPF (None Seen); Bilirubin Negative (Negative); Blood, Urine 3+ (Negative); Clarity Turbid (Clear); Glucose, Urine (Dipstick) 300 mg/dL (Negative); Leukocyte 75 Leu/uL (Negative); Nitrite Negative (Negative); Protein, Urine (Dipstick) Negative (Neg-Trace); RBC/HPF Greater than 50 HPF (0-3); Squamous Epithelial 0-3 HPF (0-3); Urobilinogen Normal mg/dL (Less than 2)
== END 2019-06-12 15:15 | disposition home or self-care (01) ==
LOC: ERS 13:29
DX: J44.1 Chronic obstructive pulmonary disease with (acute) exacerbation (principal); E11.9 Type 2 diabetes mellitus without complications; I25.10 Atherosclerotic heart disease of native coronary artery without angina pectoris; M81.0 Age-related osteoporosis without current pathological fracture; Z86.73 Personal history of transient ischemic attack (TIA), and cerebral infarction without residual deficits; F41.9 Anxiety disorder, unspecified; F31.9 Bipolar disorder, unspecified; F20.9 Schizophrenia, unspecified; I50.9 Heart failure, unspecified; Z86.711 Personal history of pulmonary embolism; Z86.718 Personal history of other venous thrombosis and embolism; Z87.442 Personal history of urinary calculi; Z87.891 Personal history of nicotine dependence
CPT/HCPCS: 71045; 80053; 81003; 81015; 83880; 84484; 85025; 87804; 93005

== ENCOUNTER 2019-06-23 11:57 | Emergency (ER) | payer OTHER ==
[2019-06-23] MEDS ORDERED: Fluorescein Opthalmic Strip ONE (12:59)
[2019-06-23] MEDS ORDERED: Proparacaine 0.5% Opth 15 ML BOT ONE (12:59)
--- NOTE | 2019-06-23 14:07 | RAD ---
PORTABLE CHEST: Date: 06/23/2019 HISTORY: Cough. COMPARISON: exam. FINDINGS: Volume loss changes of the right lung are stable as compared to the prior exam. No confluent infiltra tive process seen. Bones appear demineralized. IMPRESSION: Stable chest. POS: [facility]
[2019-06-23] MEDS ORDERED: cefTRIAXone\\ROCEPHIN 1 GM VIAL ONE (14:36)
[2019-06-23 15:15] LABS: #Eosinphils 0.1 thou/uL (0.0-0.7); #Lymphocytes 1.9 thou/uL (1.20-3.40); #Monocytes 0.7 thou/uL (0.11-0.59); #Neutrophils 4.3 thou/uL (1.40-6.50); %Basophils 0.3 % (0.0-1.0); %Lymphocytes 26.7 % (21.0-51.0); %Monocytes 9.6 % (0.0-10.0); %Neutrophils 62.4 % (42.0-75.0); Hemoglobin 12.3 g/dL (12.0-16.0); Mean Corpuscular HGB CONC 32.5 g/dL (32.0-36.0); Mean Corpuscular Hemoglobin 30.6 pg (27.0-31.0); Mean Corpuscular Volume 94.4 fL (78.0-98.0); Platelet Count 274 thou/uL (130-400); RBC Distribution Width 13.1 % (11.5-14.5); Red Blood Cell (RBC) Count 4.01 mill/uL (4.20-5.40); White Blood Cell (WBC) Count 6.9 thou/uL (4.8-10.8)
[2019-06-23 15:28] LABS: Bacteria/HPF None Seen HPF (None Seen); Bilirubin Negative (Negative); Blood, Urine 2+ (Negative); Clarity Clear (Clear); Glucose, Urine (Dipstick) Greater than 1000 mg/dL (Negative); Leukocyte 25 Leu/uL (Negative); Nitrite Negative (Negative); Protein, Urine (Dipstick) Negative (Neg-Trace); RBC/HPF 21-50 HPF (0-3); Squamous Epithelial 0-3 HPF (0-3); Urobilinogen Normal mg/dL (Less than 2); WBC/HPF 21-50 HPF (0-3)
[2019-06-23 15:41] LABS: ALT (SGPT) 46 U/L (8-55); AST (SGOT) 20 U/L (5-34); Albumin 3.7 g/dL (3.4-4.8); Alkaline Phosphatase 242 U/L (40-110); Anion Gap 11 mmol/L (10-20); BUN (Urea Nitrogen) 12 mg/dL (9.8-20.1); Bilirubin, Total 0.3 mg/dL (0.2-1.2); Calc. Creatinine Clearance 0 mL/min (70-130); Calcium 9.5 mg/dL (7.8-10.44); Carbon Dioxide 33 mmol/L (23-31); Chloride 95 mmol/L (98-107); Estimated GFR-MDRD 88; Globulin 3.5 g/dL (2.4-3.5); Glucose 446 mg/dL (80-115); Lipase 35 U/L (8-78); Potassium 4.3 mmol/L (3.5-5.1); Protein, Total 7.2 g/dL (6.0-8.3); Sodium 135 mmol/L (136-145)
== END 2019-06-23 17:15 | disposition home or self-care (01) ==
LOC: ERS 11:57
DX: H10.9 Unspecified conjunctivitis (principal); N39.0 Urinary tract infection, site not specified; R06.02 Shortness of breath; J43.9 Emphysema, unspecified; E11.9 Type 2 diabetes mellitus without complications; I25.10 Atherosclerotic heart disease of native coronary artery without angina pectoris; I50.9 Heart failure, unspecified; Z86.73 Personal history of transient ischemic attack (TIA), and cerebral infarction without residual deficits; F41.9 Anxiety disorder, unspecified; F31.9 Bipolar disorder, unspecified; F20.9 Schizophrenia, unspecified; M81.0 Age-related osteoporosis without current pathological fracture; Z86.718 Personal history of other venous thrombosis and embolism; Z86.711 Personal history of pulmonary embolism; Z87.891 Personal history of nicotine dependence
CPT/HCPCS: 36415; 71045; 80053; 81003; 81015; 83605; 83690; 85025; 87040; 93005; 94640; 96365; J0696; J7620

== ENCOUNTER 2019-06-24 17:44 | Emergency (ER) | payer OTHER ==
[2019-06-24 18:47] LABS: Anion Gap 14 mmol/L (10-20); BUN (Urea Nitrogen) 14 mg/dL (9.8-20.1); Calc. Creatinine Clearance 0 mL/min (70-130); Calcium 9.5 mg/dL (7.8-10.44); Carbon Dioxide 33 mmol/L (23-31); Chloride 92 mmol/L (98-107); Estimated GFR-MDRD 70; Glucose 490 mg/dL (80-115); Potassium 4.1 mmol/L (3.5-5.1); Sodium 135 mmol/L (136-145)
== END 2019-06-24 19:32 | disposition home or self-care (01) ==
LOC: ERS 17:44
DX: E11.65 Type 2 diabetes mellitus with hyperglycemia (principal); J45.909 Unspecified asthma, uncomplicated; J44.9 Chronic obstructive pulmonary disease, unspecified; I25.10 Atherosclerotic heart disease of native coronary artery without angina pectoris; I50.9 Heart failure, unspecified; F41.9 Anxiety disorder, unspecified; F31.9 Bipolar disorder, unspecified; F20.9 Schizophrenia, unspecified; Z87.891 Personal history of nicotine dependence; Z79.84 Long term (current) use of oral hypoglycemic drugs; Z79.899 Other long term (current) drug therapy
CPT/HCPCS: 36415; 36416; 80048; 94640; J7620

== ENCOUNTER 2019-07-02 12:29 | Emergency (ER) | payer OTHER ==
[2019-07-02] MEDS ORDERED: Albuterol Sulfate 2.5 mg/3 ml Neb ONE (13:11)
[2019-07-02] MEDS ORDERED: predniSONE 20 MG TAB ONE (13:27)
--- NOTE | 2019-07-02 13:29 | RAD ---
Exam: Chest one view HISTORY:Cough. Flulike symptoms. Comparison: 06/23/2019 FINDINGS: Cardiac silhouette:Stable rightward deviation of the cardiac silhouette due to decreased right lung v olume Aorta: Unchanged Pulmonary vessels: Normal Costophrenic angles: Small right-sided pleural effusion is suspected LUNGS: Compensatory hyperinflation of the left lung with left lung crossing midline. There is stable rightward deviation of the trachea. Interval interstitial and alveolar opacities in the left lung base are suggested. Pneumothorax: None Osseous abnormalities: Stable sclerosis of the left and right humeral head IMPRESSION: 1. Probable left lower lobe infiltrate. Otherwise, no change.
== END 2019-07-02 15:02 | disposition home or self-care (01) ==
LOC: ERS 12:29
DX: J44.1 Chronic obstructive pulmonary disease with (acute) exacerbation (principal); B34.9 Viral infection, unspecified; I50.9 Heart failure, unspecified; F41.9 Anxiety disorder, unspecified; E11.9 Type 2 diabetes mellitus without complications; F31.9 Bipolar disorder, unspecified; F20.9 Schizophrenia, unspecified; Z86.718 Personal history of other venous thrombosis and embolism; Z86.73 Personal history of transient ischemic attack (TIA), and cerebral infarction without residual deficits; Z86.711 Personal history of pulmonary embolism
CPT/HCPCS: 71045; 94644; J7512; J7611

== ENCOUNTER 2019-07-09 09:35 | Emergency (ER) | payer OTHER ==
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
[2019-07-09] MEDS ORDERED: HYDROcodone/Acetaminophen 10/325 mg Tablet ONE (11:52)
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
== END 2019-07-09 12:36 | disposition home or self-care (01) ==
LOC: ERS 09:35
DX: S42.202A Unspecified fracture of upper end of left humerus, initial encounter for closed fracture (principal); S16.1XXA Strain of muscle, fascia and tendon at neck level, initial encounter; E11.9 Type 2 diabetes mellitus without complications; J44.9 Chronic obstructive pulmonary disease, unspecified; I25.10 Atherosclerotic heart disease of native coronary artery without angina pectoris; I11.0 Hypertensive heart disease with heart failure; I50.9 Heart failure, unspecified; F41.9 Anxiety disorder, unspecified; F31.9 Bipolar disorder, unspecified; F20.9 Schizophrenia, unspecified; Z77.22 Contact with and (suspected) exposure to environmental tobacco smoke (acute) (chronic); Z86.718 Personal history of other venous thrombosis and embolism; V89.2XXA Person injured in unspecified motor-vehicle accident, traffic, initial encounter
CPT/HCPCS: 72125

== ENCOUNTER 2019-07-11 10:14 | Emergency (ER) | payer OTHER ==
[2019-07-11 11:07] LABS: #Basophils 0.1 thou/uL (0.0-0.2); #Eosinphils 0.2 thou/uL (0.0-0.7); #Monocytes 0.8 thou/uL (0.11-0.59); #Neutrophils 8.6 thou/uL (1.40-6.50); %Basophils 0.7 % (0.0-1.0); %Eosinophils 1.3 % (0.0-10.0); %Lymphocytes 17.3 % (21.0-51.0); %Monocytes 6.8 % (0.0-10.0); Hemoglobin 12.6 g/dL (12.0-16.0); Mean Corpuscular HGB CONC 31.9 g/dL (32.0-36.0); Mean Corpuscular Hemoglobin 30.3 pg (27.0-31.0); Mean Corpuscular Volume 94.8 fL (78.0-98.0); Mean Platelet Volume 6.6 fL (7.4-10.4); Platelet Count 335 thou/uL (130-400); Red Blood Cell (RBC) Count 4.17 mill/uL (4.20-5.40); White Blood Cell (WBC) Count 11.7 thou/uL (4.8-10.8)
[2019-07-11 11:27] LABS: ALT (SGPT) 38 U/L (8-55); AST (SGOT) 18 U/L (5-34); Albumin 3.5 g/dL (3.4-4.8); Alkaline Phosphatase 188 U/L (40-110); Anion Gap 12 mmol/L (10-20); BUN (Urea Nitrogen) 12 mg/dL (9.8-20.1); Bilirubin, Total 0.3 mg/dL (0.2-1.2); Calc. Creatinine Clearance 0 mL/min (70-130); Calcium 9.5 mg/dL (7.8-10.44); Carbon Dioxide 33 mmol/L (23-31); Chloride 94 mmol/L (98-107); Estimated GFR-MDRD Greater than 90; Globulin 2.9 g/dL (2.4-3.5); Glucose 290 mg/dL (80-115); Lipase 17 U/L (8-78); Potassium 4.8 mmol/L (3.5-5.1); Protein, Total 6.4 g/dL (6.0-8.3); Sodium 134 mmol/L (136-145)
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
[2019-07-11] MEDS ORDERED: Morphine 4 MG/ML VIAL ONE (13:31)
[2019-07-11] MEDS ORDERED: Iopamidol-370 76% 500 ML 1 ML ONE (13:48)
[2019-07-11 14:02] LABS: Bacteria/HPF None Seen HPF (None Seen); Bilirubin Negative (Negative); Blood, Urine 1+ (Negative); Clarity Clear (Clear); Glucose, Urine (Dipstick) Greater than 1000 mg/dL (Negative); Leukocyte Negative Leu/uL (Negative); Nitrite Negative (Negative); Protein, Urine (Dipstick) Negative (Neg-Trace); Squamous Epithelial 0-3 HPF (0-3); Urobilinogen Normal mg/dL (Less than 2); WBC/HPF 0-3 HPF (0-3)
== END 2019-07-11 16:32 | disposition home or self-care (01) ==
LOC: ERS 10:14
DX: S20.212A Contusion of left front wall of thorax, initial encounter (principal); S20.211A Contusion of right front wall of thorax, initial encounter; V89.2XXA Person injured in unspecified motor-vehicle accident, traffic, initial encounter; E11.9 Type 2 diabetes mellitus without complications; J43.9 Emphysema, unspecified; I25.10 Atherosclerotic heart disease of native coronary artery without angina pectoris; I50.9 Heart failure, unspecified; M81.0 Age-related osteoporosis without current pathological fracture; Z86.73 Personal history of transient ischemic attack (TIA), and cerebral infarction without residual deficits; Z86.718 Personal history of other venous thrombosis and embolism; Z86.711 Personal history of pulmonary embolism; F41.9 Anxiety disorder, unspecified; F31.9 Bipolar disorder, unspecified; F20.9 Schizophrenia, unspecified; Z77.22 Contact with and (suspected) exposure to environmental tobacco smoke (acute) (chronic); Z79.84 Long term (current) use of oral hypoglycemic drugs
CPT/HCPCS: 36415; 71045; 71260; 74177; 80053; 81003; 81015; 83690; 83880; 84484; 85025; 93005; 96361; 96374; J2270

== ENCOUNTER 2019-07-19 14:04 | Inpatient (IN) | payer OTHER ==
[2019-07-19 14:43] LABS: #Basophils 0.1 thou/uL (0.0-0.2); #Eosinphils 0.1 thou/uL (0.0-0.7); #Lymphocytes 1.6 thou/uL (1.20-3.40); #Monocytes 0.6 thou/uL (0.11-0.59); #Neutrophils 4.5 thou/uL (1.40-6.50); %Basophils 1.2 % (0.0-1.0); %Eosinophils 1.6 % (0.0-10.0); %Lymphocytes 23.5 % (21.0-51.0); %Monocytes 8.2 % (0.0-10.0); %Neutrophils 65.5 % (42.0-75.0); Hemoglobin 12.4 g/dL (12.0-16.0); Mean Corpuscular HGB CONC 32.6 g/dL (32.0-36.0); Mean Corpuscular Hemoglobin 30.6 pg (27.0-31.0); Mean Platelet Volume 6.8 fL (7.4-10.4); Platelet Count 302 thou/uL (130-400); RBC Distribution Width 13.1 % (11.5-14.5); Red Blood Cell (RBC) Count 4.06 mill/uL (4.20-5.40); White Blood Cell (WBC) Count 6.8 thou/uL (4.8-10.8)
[2019-07-19 14:49] LABS: INR-International Normal Ratio 0.9; PTT 24.2 SEC (22.9-36.1)
--- NOTE | 2019-07-19 14:51 | RAD ---
Chest one view HISTORY: Dyspnea. COMPARISON: 07/11/2019. FINDINGS: Rightward deviation of the cardiac silhouette is again demonstrated, corresponding postoper ative changes at the right hilum. Right cardiac margin is now more obscured. Pulmonary vasculature upper limits of normal. Hyperinflation of the left lung is similar in appearanc e. No evidence of pneumothorax. IMPRESSION: subtle obscuration the right cardiac margin may reflect developing infiltrate within the area of the right middle lobe. Clinical correlation regarding other signs and symptoms of inflammatory changes at the right anterior lung base is required.
[2019-07-19] MEDS ORDERED: methylPREDNISolone Sod Succ/PF 125 MG/2 ML VIAL ONE ×3 (14:58→15:01)
[2019-07-19 15:10] LABS: ALT (SGPT) 35 U/L (8-55); AST (SGOT) 17 U/L (5-34); Albumin 3.4 g/dL (3.4-4.8); Alkaline Phosphatase 184 U/L (40-110); Anion Gap 11 mmol/L (10-20); BUN (Urea Nitrogen) 9 mg/dL (9.8-20.1); Bilirubin, Total 0.5 mg/dL (0.2-1.2); Calc. Creatinine Clearance 0 mL/min (70-130); Calcium 9.3 mg/dL (7.8-10.44); Carbon Dioxide 37 mmol/L (23-31); Chloride 95 mmol/L (98-107); Estimated GFR-MDRD 89; Globulin 3.1 g/dL (2.4-3.5); Glucose 291 mg/dL (80-115); Protein, Total 6.5 g/dL (6.0-8.3); Sodium 139 mmol/L (136-145)
[2019-07-19 15:18] LABS: Bicarbonate (HCO3v) 36.2 mmol/L (22.0-28.0); CO2 Tension (PvCO2) 60.4 mmHg (40.0-50.0); Calcium, Ionized 1.17 mmol/L (See Comments:); Chloride 95 mmol/L (98-107); Hemoglobin - Calc 13.4 g/dL (12.0-16.0); Potassium 4.1 mmol/L (3.5-5.1); Sodium 140 mmol/L (138-145); T. Carbon Dioxide 38.1 mmol/L (22.0-28.0); vO2 Saturation-calc 98.6 % (60.0-85.0)
[2019-07-19] MEDS ORDERED: cefTRIAXone\\ROCEPHIN 1 GM VIAL ONE (15:26)
[2019-07-19] MEDS ORDERED: Morphine 4 MG/ML VIAL ONE (15:45)
[2019-07-19] MEDS ORDERED: Azithromycin 500 MG VIAL ONE (16:25)
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
[2019-07-19 17:30] VITALS: BMI 28.2
[2019-07-19] MEDS ORDERED: Acetaminophen 325 MG TAB PO PRN (17:44)
[2019-07-19 18:34] LABS: Lactic Acid 3.2 mmol/L (0.5-2.2)
[2019-07-19] MEDS ORDERED: PROVENTIL INHALER 6.7 G (200 INHALATIONS) INH PRN (19:11)
[2019-07-19] MEDS ORDERED: Mometasone/Formoterol 120 PUFF INHALER INH SCH (20:00)
[2019-07-19] MEDS ORDERED: Furosemide 20 MG/2 ML VIAL SLOW IVP SCH (20:30)
[2019-07-19] MEDS ORDERED: Morphine 2 MG/ML SYRINGE SLOW IVP SCH (20:30)
[2019-07-19] MEDS: Gabapentin 300 MG CAP PO SCH (20:46)
[2019-07-19] MEDS: Acyclovir 400 mg Tablet PO SCH (20:46)
[2019-07-19] MEDS: OLANZapine 5 MG TAB PO SCH (20:46)
[2019-07-19] MEDS: Senokot S 8.6-50 MG TAB PO SCH (20:47)
[2019-07-19] MEDS: Apixaban 5 MG TAB PO SCH (20:48)
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
[2019-07-19 21:56] LABS: Bilirubin Negative (Negative); Blood, Urine Trace (Negative); Glucose, Urine (Dipstick) >=1000 mg/dL (Negative); Leukocyte Negative (Negative); Nitrite Negative (Negative); Protein, Urine (Dipstick) Negative (Neg-Trace); Urobilinogen 0.2 mg/dL (Less than 2)
[2019-07-19 22:00] LABS: Bacteria/HPF None Seen HPF (None Seen); Clarity Clear (Clear); RBC/HPF 0-3 HPF (0-3); Squamous Epithelial None Seen HPF (0-3); WBC/HPF 0-3 HPF (0-3)
[2019-07-19 22:38] LABS: Lactic Acid 5.6 mmol/L (0.5-2.2)
[2019-07-20] MEDS ORDERED: Lactated Ringer's 500 ML IV SCH ×2 (02:00→02:30)
[2019-07-20] MEDS: traMADol HCl 50 MG TAB PO PRN ×2 (02:51→09:00)
[2019-07-20 03:36] LABS: Amphetamine Not Detected (NotDetected); Barbiturates Screen Not Detected (NotDetected); Benzodiazepine Screen Not Detected (NotDetected); Cocaine Metabolite Screen Not Detected (NotDetected); Medtox Control Line Valid? VALID (VALID); Medtox Reader # READER 4; Methadone Not Detected (NotDetected); Methamphetamine Not Detected (NotDetected); Opiate Screen Detected (NotDetected); Oxycodone Screen Not Detected (NotDetected); Phencyclidine (PCP) Not Detected (NotDetected); THC/Cannabinoid Screen Not Detected (NotDetected); Tricyclic Screen Not Detected (NotDetected)
[2019-07-20 05:04] LABS: Anion Gap 20 mmol/L (10-20); BUN (Urea Nitrogen) 14 mg/dL (9.8-20.1); Calc. Creatinine Clearance 51 mL/min (70-130); Carbon Dioxide 23 mmol/L (23-31); Chloride 91 mmol/L (98-107); Estimated GFR-MDRD 59; Potassium 5.2 mmol/L (3.5-5.1); Sodium 129 mmol/L (136-145)
[2019-07-20 05:07] LABS: Glucose 744 mg/dL (80-115); Lactic Acid 6.8 mmol/L (0.5-2.2)
[2019-07-20 05:17] LABS: #Lymphocytes 0.9 thou/uL (1.20-3.40); #Monocytes 0.3 thou/uL (0.11-0.59); #Neutrophils 13.7 thou/uL (1.40-6.50); %Eosinophils 0.3 % (0.0-10.0); %Lymphocytes 6.1 % (21.0-51.0); %Monocytes 1.7 % (0.0-10.0); %Neutrophils 91.9 % (42.0-75.0); Hemoglobin 12.2 g/dL (12.0-16.0); Mean Corpuscular HGB CONC 30.9 g/dL (32.0-36.0); Mean Corpuscular Hemoglobin 29.4 pg (27.0-31.0); Mean Corpuscular Volume 95.2 fL (78.0-98.0); Mean Platelet Volume 7.2 fL (7.4-10.4); Platelet Count 276 thou/uL (130-400); RBC Distribution Width 13.4 % (11.5-14.5); Red Blood Cell (RBC) Count 4.15 mill/uL (4.20-5.40); White Blood Cell (WBC) Count 14.9 thou/uL (4.8-10.8)
[2019-07-20] MEDS ORDERED: Dextrose 50% Abboject 50 ML SYRINGE SLOW IVP PRN (05:49)
[2019-07-20] MEDS ORDERED: Insulin Regular 300 UNITS/3 ML VIAL SC PRN (05:49)
[2019-07-20] MEDS ORDERED: Dextrose 5% in Water 1,000 ML IV PRN (05:49)
[2019-07-20] MEDS ORDERED: Sodium Chloride 0.9% 500 ML IV SCH (06:00)
[2019-07-20] MEDS ORDERED: Insulin Regular 300 UNITS/3 ML VIAL SC SCH (06:00)
[2019-07-20] MEDS: Mometasone/Formoterol 120 PUFF INHALER INH SCH ×2 (06:34→18:48)
--- NOTE | 2019-07-20 06:37 | PDOC.FM ---
- Subjective Subjective: Pt states she is feeling well this morning. Denies any breathing difficulties. No events overnight. Ate ice cream and multiple servings of bread overnight and had an elevation in her glucose from this and the steroids she got in the ED. - Objective Vital Signs & Weight: Vital Signs (12 hours) Temp Pulse Resp BP Pulse Ox 07/20/19 04:57 97.5 F L 116 H 18 115/68 96 07/20/19 01:00 97.8 F 119 H 18 101/67 96 07/19/19 22:06 115 H 16 95 07/19/19 20:04 96 07/19/19 20:01 98 F 115 H 20 126/78 96 Weight Weight 62.686 kg I&O: 07/18/19 07/19/19 07/20/19 06:59 06:59 06:59 Output Total 500 Balance -500 Result Diagrams: 07/20/19 04:31 07/20/19 07:11 Phys Exam - Physical Examination Constitutional: NAD HEENT: moist MMs, sclera anicteric Neck: full ROM Diffuse expiratory wheezing throughout Cardiovascular: RRR, no significant murmur Gastrointestinal: soft, non-tender, positive bowel sounds Distention has improved from yesterday Musculoskeletal: no edema, pulses present Neurological: non-focal, moves all 4 limbs Psychiatric: normal affect, A&O x 3 Skin: no rash, cap refill <2 seconds Dx/Plan (1) Urinary retention with incomplete bladder emptying Code(s): R33.9 - RETENTION OF URINE, UNSPECIFIED Status: Acute (2) Pneumonia Code(s): J18.9 - PNEUMONIA, UNSPECIFIED ORGANISM Status: Acute Qualifiers: Laterality: left Lung location: upper lobe of lung (3) Schizophrenia Code(s): F20.9 - SCHIZOPHRENIA, UNSPECIFIED Status: Acute (4) Sepsis Code(s): A41.9 - SEPSIS, UNSPECIFIED ORGANISM Status: Acute (5) Bipolar 2 disorder Code(s): F31.81 - BIPOLAR II DISORDER Status: Chronic (6) Chronic hepatitis B Code(s): B18.1 - CHRONIC VIRAL HEPATITIS B WITHOUT DELTA-AGENT Status: Chronic (7) Chronic obstructive lung disease Status: Chronic (8) Hypertension Code(s): I10 - ESSENTIAL (PRIMARY) HYPERTENSION Status: Chronic - Plan Plan: Sepsis due to CAP in the presence of COPD, asthma, emphysema - RML pneumonia seen on CXR and clinically correlated - Azithro and rocephin abx - Received prednisone in ED, since likely bacterial PNA etiology with hold steroids - Continue home rx: symbicort, spiriva, duonebs, albuterol inhaler - Resp status improved Urinary Retention - Continued retention last night, vyas placed - Will likely pull tomorrow with trial voids - Consider urology consult if no improvement Abdominal Distention and Pain - Could be 2/2 to urinary retention - Continued to be distended and in pain following vyas placement and urine drainage - CT abd ordered last night, read pending Hyperglycemia - Likely related to steroid given in ED - Glucose >700 this morning, borderline anion gap - 10u sc insulin ordered - q2hr BMP - Accuchecks ACHS - BHB ordered - Received 1L bolus, will initiate maintenance fluids LR @ 150 Lactic Acidosis - Lactic continued to climb overnight - Likely related to metabolic acidosis from hyperglycemia Chronic Dx: HTN: Amlodipine DM II: Metformin, gabapentin Schizoaffective: Citalopram, zyprexa Genital Herpes: Acyclovir PE: Eliquis CAD: ASA Diet: Diabetic IVF: SL Code: Full Dispo: Admit to medical for IV abx and urine output monitoring PCP: Dr. Schneider - [facility]
[2019-07-20 07:44] LABS: Anion Gap 14 mmol/L (10-20); BUN (Urea Nitrogen) 13 mg/dL (9.8-20.1); Calc. Creatinine Clearance 61 mL/min (70-130); Calcium 8.9 mg/dL (7.8-10.44); Carbon Dioxide 31 mmol/L (23-31); Chloride 94 mmol/L (98-107); Estimated GFR-MDRD 74; Glucose 470 mg/dL (80-115); Potassium 4.7 mmol/L (3.5-5.1); Sodium 134 mmol/L (136-145)
[2019-07-20] MEDS ORDERED: metFORMIN 500 MG TAB PO SCH (08:00)
--- NOTE | 2019-07-20 08:29 | CT ---
PRELIMINARY REPORT/[facility]/EMERGENCY AFTER HOURS PROCEDURE EXAM: CT Abdomen and Pelvis with Intravenous Contrast CLINICAL HISTORY: ABDOMINAL PAIN, LACTIC ACIDOSIS TECHNIQUE: Axial computed tomography images of the abdomen and pelvis with intravenous contrast. CONTRAST: With; ISOVUE 370,100mL COMPARISON: None provided. FINDINGS: LUNG BASES: No basilar airspace consolidation or pleural effusion. Emphysematous changes of the lung s. LIVER: Diffuse decreased parenchymal attenuation of the liver. GALLBLADDER AND BILE DUCTS: Unremarkable. No calcified stone. No ductal dilation. PANCREAS: Unremarkable. SPLEEN: Unremarkable. ADRENAL GLANDS: Unremarkable. KIDNEYS, URETERS, AND BLADDER: Unremarkable. No hydronephrosis. Few punctate calcifications in the r ight kidney. No ureteral or bladder calculi. Inserted Tellez catheter within a decompressed urinary bladder. STOMACH AND BOWEL: No obstruction. No wall thickening. Scattered colonic diverticulosis. No CT evid ence of colitis or acute diverticulitis. APPENDIX: No CT evidence for appendicitis. PERITONEUM: No free fluid. No free air. LYMPH NODES: No lymphadenopathy. REPRODUCTIVE: Unremarkable as visualized. VASCULATURE: No aortic aneurysm. BONES: No fracture or suspicious osseous abnormality. Multilevel degenerative changes of the spine. Chronic compression fracture deformity of L1 vertebral body. ABDOMINAL WALL AND SOFT TISSUES: Unremarkable. IMPRESSION: No acute intra-abdominal or pelvic abnormality. Scattered colonic diverticulosis. Hepatic steatosis. Few punctate nonobstructing right nephroliths. ELECTRONICALLY SIGNED BY: Tavon Muñiz DO Jul 20, 2019 3:39:27 AM CDT This report is intended for review by the ordering physician only, in accordance of law. If you recei ve this report in error, please call [facility] at [phone]. FINAL REPORT CT abdomen and pelvis noncontrast 07/20/2019 performed on emergency basis at 0326 hours HISTORY: Abdominal pain. Lactic acidosis. COMPARISON: 05/27/2019. FINDINGS: Agree with the preliminary report by Dr. Muñiz from [facility]. Nonobstructing right r enal calculi are confirmed. No acute abnormalities are demonstrated. Subtle nonspecific enhancement of the gallbladder fundus. No evidence of biliary obstruction. Chronic compression of the L1 vertebral body. Code QA. Transcribed Date/Time: 07/20/2019 8:56 AM
[2019-07-20] MEDS: Calcium Carbonate 600 MG + Vit D TAB PO SCH (09:00)
[2019-07-20] MEDS: Acyclovir 400 mg Tablet PO SCH ×2 (09:00→20:18)
[2019-07-20] MEDS: Aspirin 81 mg Enteric Coated Tablet PO SCH (09:00)
[2019-07-20] MEDS ORDERED: Lactated Ringer's 1,000 ML IV SCH (09:00)
[2019-07-20] MEDS ORDERED: FLU VACC QS2019-20(6MOS UP)/PF 60 MCG/0.5 ML SYRINGE IM ONE (09:00)
[2019-07-20] MEDS ORDERED: Non-Formulary Item 1 EACH (Tiotropium Bromide [Spiriva Respimat] 2 INH) IH SCH (09:00)
[2019-07-20] MEDS: Senokot S 8.6-50 MG TAB PO SCH ×2 (09:01→20:18)
[2019-07-20] MEDS: Gabapentin 300 MG CAP PO SCH ×3 (09:04→20:18)
[2019-07-20] MEDS: Apixaban 5 MG TAB PO SCH ×2 (09:05→20:18)
[2019-07-20] MEDS: Citalopram 10 MG TAB PO SCH (09:05)
[2019-07-20] MEDS: Amlodipine 5 MG TAB PO SCH (09:08)
[2019-07-20] MEDS: HumaLOG 300 UNITS/3 ML VIAL SC PRN ×6 (09:09→22:10)
[2019-07-20 09:37] LABS: Lactic Acid 3.4 mmol/L (0.5-2.2)
[2019-07-20 10:03] LABS: Anion Gap 14 mmol/L (10-20); BUN (Urea Nitrogen) 13 mg/dL (9.8-20.1); Calc. Creatinine Clearance 65 mL/min (70-130); Carbon Dioxide 32 mmol/L (23-31); Chloride 95 mmol/L (98-107); Estimated GFR-MDRD 80; Glucose 428 mg/dL (80-115); Potassium 4.1 mmol/L (3.5-5.1); Sodium 137 mmol/L (136-145)
--- NOTE | 2019-07-20 11:34 | PRG ---
DATE OF SERVICE: 07/20/2019 Please see note from Dr. Tamez, for which I agree. The patient was seen, discussed, evaluated, and examined with the residents by bedside. Basically, she started developing a lactic acidosis and compensatory metabolic alkalosis as her bicarb went up, and so because of that, a CT of the abdomen was done and it looked pretty benign. There is fatty liver. Her sugars bumped up really high probably because of steroids and sounds like she was eating a lot. Her breathing is better. She is initially admitted with pneumonia. Still a little bit of wheezing. Abdomen is puffy and distended, but more body habitus. No more suprapubic tenderness. Tellez catheter is in place. Sugars were pretty high this morning at 470. Specifically, we will give her some fluids for the lactic acidosis, assuming that this is not infectious other than maybe from the pneumonia, may all be actually from metformin and will make sure we do not restart the metformin. Her white count did elevate, but she is not having fever. Make sure we watch her urinalysis, make sure she is not developing a UTI from the catheterization now, although it does not seem to be. She has neurogenic bladder is bladder distention, the retention seems to be a recurring problem, whether apparently another hospitalizations as well. We are going to get Urology involved. Otherwise, continue same antibiotics for pneumonia. Job ID: [id number]
[2019-07-20 11:54] LABS: Lactic Acid 4.2 mmol/L (0.5-2.2)
[2019-07-20 12:25] LABS: Chloride 94 mmol/L (98-107); Potassium 4.3 mmol/L (3.5-5.1)
[2019-07-20 12:26] LABS: Sodium 137 mmol/L (136-145)
[2019-07-20 12:27] LABS: Glucose 495 mg/dL (80-115)
[2019-07-20 12:28] LABS: Anion Gap 15 mmol/L (10-20); Carbon Dioxide 32 mmol/L (23-31)
[2019-07-20 12:30] LABS: Calc. Creatinine Clearance 61 mL/min (70-130); Estimated GFR-MDRD 74
[2019-07-20 12:31] LABS: BUN (Urea Nitrogen) 13 mg/dL (9.8-20.1)
[2019-07-20] MEDS: cefTRIAXone\\ROCEPHIN 1 GM in Sodium Chloride 0.9% 100 ML IVPB SCH (14:41)
[2019-07-20] MEDS: Azithromycin 500 MG in Sodium Chloride 0.9% 250 ML 250 ML IVPB SCH (17:04)
[2019-07-20] MEDS: OLANZapine 5 MG TAB PO SCH (20:17)
[2019-07-21] MEDS: HumaLOG 300 UNITS/3 ML VIAL SC PRN ×9 (00:04→22:30)
[2019-07-21] MEDS: Mometasone/Formoterol 120 PUFF INHALER INH SCH ×2 (06:33→18:32)
--- NOTE | 2019-07-21 06:54 | PDOC.FM ---
- Subjective Subjective: Pt states she is doing well this morning, sitting up eating breakfast. glucose 200-low 300 overnight, required 3 and 6 units of SSI. no acute overnight events. denies CP, SOB. - Objective MAR Reviewed: Yes Vital Signs & Weight: Vital Signs (12 hours) Temp Pulse Resp BP Pulse Ox 07/21/19 06:30 104 H 18 96 07/21/19 04:13 98.6 F 104 H 18 99/65 95 07/21/19 04:04 98.4 F 104 H 18 99/65 95 07/20/19 21:00 98.3 F 118 H 18 118/68 97 Weight Weight 62.596 kg I&O: 07/19/19 07/20/19 07/21/19 06:59 06:59 06:59 Intake Total 2500 3440 Output Total 4050 2400 Balance -1550 1040 Result Diagrams: 07/21/19 08:31 07/21/19 08:31 Phys Exam - Physical Examination Constitutional: NAD HEENT: moist MMs, sclera anicteric Neck: no nodes, supple, full ROM Respiratory: wheezing present (slight end expiratory wheezing. ) Cardiovascular: RRR, no rub Gastrointestinal: soft, non-tender, no distention, positive bowel sounds Musculoskeletal: no edema, pulses present Neurological: non-focal, moves all 4 limbs Psychiatric: normal affect, A&O x 3 Skin: no rash, normal turgor, cap refill <2 seconds Dx/Plan (1) Urinary retention with incomplete bladder emptying Code(s): R33.9 - RETENTION OF URINE, UNSPECIFIED Status: Acute (2) Pneumonia Code(s): J18.9 - PNEUMONIA, UNSPECIFIED ORGANISM Status: Acute Qualifiers: Laterality: left Lung location: upper lobe of lung (3) Sepsis Code(s): A41.9 - SEPSIS, UNSPECIFIED ORGANISM Status: Acute (4) Chronic obstructive lung disease Status: Chronic (5) Hypertension Code(s): I10 - ESSENTIAL (PRIMARY) HYPERTENSION Status: Chronic - Plan Plan: Sepsis due to CAP in the presence of COPD, asthma, emphysema - RML pneumonia seen on CXR and clinically correlated - Azithro and rocephin abx, will transition to doxycycline PO - Received prednisone in ED, since likely bacterial PNA etiology with hold steroids - Continue home rx: symbicort, spiriva, duonebs, albuterol inhaler - Resp status improved Urinary Retention, hx of neurogenic bladder - Continued retention last night, vyas placed - trial voids today, will need outpt urology referral as she has hx of neurogenic bladder. Abdominal Distention and Pain - Could be 2/2 to urinary retention - Continued to be distended and in pain following vyas placement and urine drainage - CT abd ordered last night, read pending Hyperglycemia, improving - Likely related to steroid given in ED - Glucose >700 07/19, borderline anion gap. - Insulin started and pt's glucose lowered. - Accuchecks ACHS, SSI - BHB 0.15 - pt to be d/c's on metformin and possible insulin. Lactic Acidosis - Lactic continued to climb overnight - Likely related to metabolic acidosis from hyperglycemia - lactic acid and BMP pending this AM. HTN: Amlodipine DM II: Metformin, gabapentin Schizoaffective: Citalopram, zyprexa Genital Herpes: Acyclovir PE: Eliquis CAD: ASA Diet: Diabetic IVF: SL Code: Full Dispo: Admit to medical for IV abx and urine output monitoring PCP: Dr. Schneider - [facility] Addendum - Attending - Attending Attestation Date/Time: 07/21/19 0583 I personally evaluated the patient and discussed the management with Dr. Marcano. I agree with the History, Examination, Assessment and Plan documented above with any addition or exceptions noted below.
[2019-07-21] MEDS: Calcium Carbonate 600 MG + Vit D TAB PO SCH (07:59)
[2019-07-21] MEDS: Acyclovir 400 mg Tablet PO SCH ×2 (07:59→20:43)
[2019-07-21] MEDS: Aspirin 81 mg Enteric Coated Tablet PO SCH (07:59)
[2019-07-21] MEDS: Amlodipine 5 MG TAB PO SCH (07:59)
[2019-07-21] MEDS: Senokot S 8.6-50 MG TAB PO SCH ×2 (07:59→20:43)
[2019-07-21] MEDS: Gabapentin 300 MG CAP PO SCH ×3 (08:00→20:44)
[2019-07-21] MEDS: Citalopram 10 MG TAB PO SCH (08:00)
[2019-07-21] MEDS: Apixaban 5 MG TAB PO SCH ×2 (08:00→20:44)
[2019-07-21] MEDS: traMADol HCl 50 MG TAB PO PRN ×2 (08:29→14:56)
[2019-07-21 09:04] LABS: Anion Gap 12 mmol/L (10-20); BUN (Urea Nitrogen) 11 mg/dL (9.8-20.1); Calc. Creatinine Clearance 71 mL/min (70-130); Calcium 7.9 mg/dL (7.8-10.44); Carbon Dioxide 31 mmol/L (23-31); Chloride 100 mmol/L (98-107); Estimated GFR-MDRD 88; Glucose 386 mg/dL (80-115); Lactic Acid 3.2 mmol/L (0.5-2.2); Potassium 3.7 mmol/L (3.5-5.1); Sodium 139 mmol/L (136-145)
[2019-07-21 09:24] LABS: Hemoglobin 11.1 g/dL (12.0-16.0); Mean Corpuscular Volume 96.5 fL (78.0-98.0); Mean Platelet Volume 6.9 fL (7.4-10.4); Platelet Count 281 thou/uL (130-400); RBC Distribution Width 13.3 % (11.5-14.5); Red Blood Cell (RBC) Count 3.83 mill/uL (4.20-5.40); White Blood Cell (WBC) Count 9.2 thou/uL (4.8-10.8)
[2019-07-21] MEDS: Insulin Glargine 10 UNITS in Pre-Filled Syringe 1 EACH SC SCH (12:46)
[2019-07-21] MEDS: cefTRIAXone\\ROCEPHIN 1 GM in Sodium Chloride 0.9% 100 ML IVPB SCH (14:40)
[2019-07-21] MEDS: Azithromycin 500 MG in Sodium Chloride 0.9% 250 ML 250 ML IVPB SCH (15:53)
[2019-07-21] MEDS: OLANZapine 5 MG TAB PO SCH (20:43)
[2019-07-21] MEDS: Doxycycline 100 MG CAP PO SCH (20:44)
[2019-07-22] MEDS: HumaLOG 300 UNITS/3 ML VIAL SC PRN ×4 (00:14→12:37)
[2019-07-22 04:23] VITALS: TEMP 98.3
[2019-07-22 06:37] LABS: Anion Gap 10 mmol/L (10-20); BUN (Urea Nitrogen) 10 mg/dL (9.8-20.1); Calc. Creatinine Clearance 76 mL/min (70-130); Calcium 8.6 mg/dL (7.8-10.44); Carbon Dioxide 36 mmol/L (23-31); Chloride 99 mmol/L (98-107); Estimated GFR-MDRD Greater than 90; Glucose 269 mg/dL (80-115); Potassium 3.8 mmol/L (3.5-5.1); Sodium 141 mmol/L (136-145)
--- NOTE | 2019-07-22 06:49 | PDOC.FM ---
- Subjective Subjective: Pt passed voiding trial, and vyas cath was removed. She has been urinating on her own overnight and this AM. Denies further CP or SOB. Feels capable to take insulin on her own at home with the education she has received here. No acute overnight events. - Objective MAR Reviewed: Yes Vital Signs & Weight: Vital Signs (12 hours) Temp Pulse Resp BP BP Pulse Ox 07/22/19 04:00 98.3 F 109 H 20 126/70 96 07/21/19 23:59 98.8 F 102 H 20 116/68 98 07/21/19 19:14 97.6 F 80 20 130/56 L 97 Weight Weight 62.271 kg I&O: 07/20/19 07/21/19 07/22/19 06:59 06:59 06:59 Intake Total 2500 3440 1250 Output Total 4050 2400 1650 Balance -1550 1040 -400 Result Diagrams: 07/21/19 08:31 07/22/19 06:08 Phys Exam - Physical Examination Constitutional: NAD HEENT: moist MMs, sclera anicteric Neck: no nodes, supple, full ROM Respiratory: no wheezing, no rales, no rhonchi, clear to auscultation bilateral Cardiovascular: no rub regular rhythm and tachycardic Gastrointestinal: soft, non-tender, no distention, positive bowel sounds Musculoskeletal: no edema, pulses present Neurological: non-focal, normal sensation, moves all 4 limbs Psychiatric: normal affect, A&O x 3 Skin: no rash, normal turgor, cap refill <2 seconds Dx/Plan (1) Urinary retention with incomplete bladder emptying Code(s): R33.9 - RETENTION OF URINE, UNSPECIFIED Status: Acute (2) Pneumonia Code(s): J18.9 - PNEUMONIA, UNSPECIFIED ORGANISM Status: Acute Qualifiers: Laterality: left Lung location: upper lobe of lung (3) Sepsis Code(s): A41.9 - SEPSIS, UNSPECIFIED ORGANISM Status: Acute (4) Chronic obstructive lung disease Status: Chronic (5) Hypertension Code(s): I10 - ESSENTIAL (PRIMARY) HYPERTENSION Status: Chronic - Plan Plan: Sepsis due to CAP in the presence of COPD, asthma, emphysema - RML pneumonia seen on CXR and clinically correlated - given Azithro and rocephin IV abx, transitioned to doxycycline PO 07/20 - Received prednisone in ED, since likely bacterial PNA etiology with hold steroids - Continue home rx: symbicort, spiriva, duonebs, albuterol inhaler - Resp status improved Urinary Retention, hx of neurogenic bladder - Improved, pt voiding urine without vyas cath. - will need outpt urology referral as she has hx of neurogenic bladder. Abdominal Distention and Pain - Could be 2/2 to urinary retention - Improved - CT abd ordered last night, read pending Hyperglycemia, improving - Likely related to steroid given in ED - Glucose >700 07/19, borderline anion gap. - Insulin started and pt's glucose lowered. - Accuchecks ACHS, SSI - BHB 0.15 - pt to be d/c's on metformin and lantus. Will optimize in outpt setting. Lactic Acidosis, improving - Lactic continued to climb overnight - Likely related to metabolic acidosis from hyperglycemia - lactic acid and BMP pending this AM. HTN: Amlodipine DM II: Metformin, gabapentin Schizoaffective: Citalopram, zyprexa Genital Herpes: Acyclovir PE: Eliquis CAD: ASA Diet: Diabetic IVF: SL Code: Full Dispo: stable, possible d/c home today PCP: Dr. Schneider - [facility] Addendum - Attending - Attending Attestation Date/Time: 07/22/19 1100 I personally evaluated the patient and discussed the management with Dr. Marcano. I agree with the History, Examination, Assessment and Plan documented above with any addition or exceptions noted below.
[2019-07-22] MEDS: Mometasone/Formoterol 120 PUFF INHALER INH SCH (07:37)
[2019-07-22 08:52] VITALS: BP 128/76
[2019-07-22] MEDS: Insulin Glargine 10 UNITS in Pre-Filled Syringe 1 EACH SC SCH (08:59)
[2019-07-22] MEDS: Gabapentin 300 MG CAP PO SCH (09:00)
[2019-07-22] MEDS: Apixaban 5 MG TAB PO SCH (09:00)
[2019-07-22] MEDS: Acyclovir 400 mg Tablet PO SCH (09:00)
[2019-07-22] MEDS: Citalopram 10 MG TAB PO SCH (09:00)
[2019-07-22] MEDS: Senokot S 8.6-50 MG TAB PO SCH (09:00)
[2019-07-22] MEDS: Aspirin 81 mg Enteric Coated Tablet PO SCH (09:00)
[2019-07-22] MEDS: Calcium Carbonate 600 MG + Vit D TAB PO SCH (09:00)
[2019-07-22] MEDS: Amlodipine 5 MG TAB PO SCH (09:00)
[2019-07-22] MEDS: Doxycycline 100 MG CAP PO SCH (09:04)
[2019-07-22] MEDS: traMADol HCl 50 MG TAB PO PRN (10:03)
--- NOTE | 2019-07-22 23:40 | DIS ---
DATE OF ADMISSION: 07/19/2019 DATE OF DISCHARGE: 07/22/2019 ADMITTING ATTENDING: We will update. DISCHARGE ATTENDING: Dr. Eden. CONSULTS: None. PROCEDURES: None. PRIMARY DIAGNOSES: 1. Sepsis secondary to pneumonia. 2. Hyperglycemia, type 2 diabetes mellitus, insulin dependent. 3. Chronic obstructive pulmonary disease. 4. Asthma. 5. Emphysema. 6. Coronary artery disease. 7. Hepatitis B and C. 8. Osteoporosis. 9. Schizophrenia. 10. Congestive heart failure. 11. Neurogenic bladder with urinary retention. 12. Right nephrolithiasis, nonobstructing. DISCHARGE MEDICATIONS: Doxycycline 100 mg p.o. b.i.d. for 5 more days. gabapentin 600 mg PO TID acyclovir 400 mg PO BID proair hfa 1 puff q4h prn symbicort 1 puff BID citalopram 10 mg po daily citrus moustapha + D 1 tab daily asa 81 mg daily norvasc 2.5 mg daily duonebs QID PRN M eliquis 5 mg BID metformin 1000 mg BID zyprexa 10 mg po hs lantus 10 units SC QAM Discontinued medications: metformin held in hospital stay, will f/u with PCP to decide if still necessary. HISTORY OF PRESENT ILLNESS/HOSPITAL COURSE: Ms. Silva is a 64-year-old female with a history of COPD, asthma, and emphysema, comes into the emergency department with abdominal distention and shortness of breath. She was diagnosed with sepsis secondary to pneumonia and also urinary retention causing her abdominal pain due to neurogenic bladder that she has a history of. The patient was started on azithromycin and Rocephin IV antibiotic therapy. She was also given steroids in the emergency department. This was not continued as it was deemed unnecessary for my team as they thought that this was more likely pneumonia and COPD exacerbation. She was started on DuoNebs which also helped her respiratory status. We continued her home COPD, asthma, and emphysema medications. Her respiratory status improved over her hospital stay. However, her blood glucose slowly elevated. Her lactic acid was elevated upon admission. We initially thought that this might be brought on by her metformin use. However, she has a history of this elevated lactic acidosis, and her renal function is grossly normal. We continued the metformin use upon discharge because her blood sugar is so unstable and hard to keep low. Also started her on 10 units of Lantus q.a.m. and to follow up with her primary care physician in about one week to recheck her blood sugars and monitor for her blood sugar improvement. On the day of discharge, her blood sugars have been leveling out about 197 to 270s; however, she did have one reading of 550. She is completely asymptomatic and was given sliding scale insulin, this came down to the 200s, so she was still discharged on her regimen. The patient had a voiding trial after her Tellez for a couple of days and she did pass this and is able to void urine on her own. She needs to follow up with Urology, and she was established with Dr. Tello. It is my recommendation that she is to see Dr. Tello for further treatment of her neurogenic bladder. The patient also was requiring a GI consult for possible liver disease. It is my recommendation that she is to see GI in outpatient setting for further workup on this study. She was discharged on doxycycline after being transitioned to this on the and tolerating that medication well for just a few more days of therapy. DISPOSITION: Stable upon discharge. She is eager to go home and agreeable to do so. DISCHARGE INSTRUCTIONS: 1. Location: Home. 2. Diet: Consistent carb. The patient has been noncompliant with her diet throughout the hospital course, but it is still my recommendation that she is to continue a low carb diet. 3. Activity: As tolerated. 4. Follow up with Dr. Tello in 1 week; primary care in 1 week; and Gastroenterology in 2 to 3 weeks. Job ID: [id number] MTDD
== END 2019-07-22 13:49 | disposition home or self-care (01) | DRG 871 ==
LOC: ERS 14:04 → T4-A 17:21
PROVIDERS: ADMIT Family Medicine; ATTEND Family Medicine
DX: A41.9 Sepsis, unspecified organism (principal); J18.9 Pneumonia, unspecified organism; B18.1 Chronic viral hepatitis B without delta-agent; F31.81 Bipolar II disorder; E87.2 Acidosis; J43.9 Emphysema, unspecified; I25.10 Atherosclerotic heart disease of native coronary artery without angina pectoris; F25.9 Schizoaffective disorder, unspecified; R33.8 Other retention of urine; N31.9 Neuromuscular dysfunction of bladder, unspecified; N20.0 Calculus of kidney; E11.65 Type 2 diabetes mellitus with hyperglycemia; K59.00 Constipation, unspecified; F41.9 Anxiety disorder, unspecified; I11.0 Hypertensive heart disease with heart failure; B18.2 Chronic viral hepatitis C; E78.5 Hyperlipidemia, unspecified; E80.6 Other disorders of bilirubin metabolism; A60.00 Herpesviral infection of urogenital system, unspecified; I50.9 Heart failure, unspecified; T38.0X5A Adverse effect of glucocorticoids and synthetic analogues, initial encounter; Z87.891 Personal history of nicotine dependence; Z86.711 Personal history of pulmonary embolism; Z79.84 Long term (current) use of oral hypoglycemic drugs; Z95.1 Presence of aortocoronary bypass graft; Z98.49 Cataract extraction status, unspecified eye
CPT/HCPCS: 36415; 36416; 71045; 74177; 80048; 80053; 80306; 81001; 82010; 82330; 82803; 83605; 83880; 84145; 84484; 85025; 85027; 85610; 85730; 86141; 87040; 87086; 87804; 93005; 94640; 96365; 96367; 96375; J0456; J0696; J1815; J1940; J2270; J2930; J3490; J7050; J7620

== ENCOUNTER 2019-08-15 15:24 | Emergency (ER) | payer OTHER ==
[~2019-08-15 15:24] MED LIST changes: -ISOVUE-370 76%-LOCM 1 ML ONE; +Iopamidol-370 76% 500 ML 1 ML ONE
[2019-08-15 16:36] LABS: #Eosinphils 0.2 thou/uL (0.0-0.7); #Lymphocytes 2.4 thou/uL (1.20-3.40); #Monocytes 0.8 thou/uL (0.11-0.59); %Basophils 0.3 % (0.0-1.0); %Eosinophils 2.3 % (0.0-10.0); %Lymphocytes 25.3 % (21.0-51.0); %Monocytes 8.3 % (0.0-10.0); %Neutrophils 63.7 % (42.0-75.0); Hemoglobin 12.5 g/dL (12.0-16.0); Mean Corpuscular HGB CONC 33.3 g/dL (32.0-36.0); Mean Corpuscular Hemoglobin 31.2 pg (27.0-31.0); Mean Corpuscular Volume 93.7 fL (78.0-98.0); Mean Platelet Volume 7.6 fL (7.4-10.4); Platelet Count 283 thou/uL (130-400); RBC Distribution Width 13.1 % (11.5-14.5); Red Blood Cell (RBC) Count 4.01 mill/uL (4.20-5.40); White Blood Cell (WBC) Count 9.4 thou/uL (4.8-10.8)
[2019-08-15 17:54] LABS: ALT (SGPT) 31 U/L (8-55); AST (SGOT) 26 U/L (5-34); Albumin 3.7 g/dL (3.4-4.8); Alkaline Phosphatase 129 U/L (40-110); BUN (Urea Nitrogen) 9 mg/dL (9.8-20.1); Bilirubin, Total 0.5 mg/dL (0.2-1.2); CK (CPK) 67 U/L (29-168); Calc. Creatinine Clearance 0 mL/min (70-130); Calcium 9.5 mg/dL (7.8-10.44); Estimated GFR-MDRD 90; Globulin 3.4 g/dL (2.4-3.5); Glucose 238 mg/dL (80-115); Protein, Total 7.1 g/dL (6.0-8.3)
[2019-08-15 18:03] LABS: Anion Gap 12 mmol/L (10-20); Carbon Dioxide 35 mmol/L (23-31); Chloride 97 mmol/L (98-107); Sodium 140 mmol/L (136-145)
--- NOTE | 2019-08-15 18:57 | CT ---
CTA CHEST WITH CONTRAST: 08/15/19 Multiple axial tomograms obtained following a pulmonary angio protocol. Multiplanar reconstruction an d 3D postprocessing. INDICATIONS: Shortness of breath. FINDINGS: There is mild volume loss in the right hemithorax. Chronic lung changes are seen. Bilateral stranding . Right apical pleural thickening and parenchymal scarring. Emphysematous changes with scattered bull ae throughout both lungs. No evidence of pulmonary embolus identified. Thoracic aorta unremarkable. IMPRESSION: 1. There are chronic lung changes with emphysematous changes bilaterally with parenchymal scarri ng. Apical pleural thickening with parenchymal opacity in the right apex appears chronic. 2. No evidence of pulmonary embolus. POS: AGW
[2019-08-15] MEDS ORDERED: Adacel (T-DAP) 0.5 ML SYRINGE ONE (19:22)
== END 2019-08-15 19:43 | disposition home or self-care (01) ==
LOC: ERS 15:24
DX: J44.1 Chronic obstructive pulmonary disease with (acute) exacerbation (principal); Z20.828 Contact with and (suspected) exposure to other viral communicable diseases; E11.9 Type 2 diabetes mellitus without complications; I25.10 Atherosclerotic heart disease of native coronary artery without angina pectoris; I50.9 Heart failure, unspecified; F31.9 Bipolar disorder, unspecified; F41.9 Anxiety disorder, unspecified; F20.9 Schizophrenia, unspecified; M19.90 Unspecified osteoarthritis, unspecified site; Z77.22 Contact with and (suspected) exposure to environmental tobacco smoke (acute) (chronic); Z86.73 Personal history of transient ischemic attack (TIA), and cerebral infarction without residual deficits; Z79.84 Long term (current) use of oral hypoglycemic drugs; Z79.899 Other long term (current) drug therapy
CPT/HCPCS: 36415; 71275; 80053; 82550; 83605; 83880; 84484; 85025; 87040; 87081; 87430; 87635; 87804; 90471; 90715; 93005; Q9967; U0003

== ENCOUNTER 2019-09-08 18:29 | Emergency (ER) | payer OTHER ==
--- NOTE | 2019-09-08 19:24 | RAD ---
RADIOGRAPH CHEST 1 VIEW: Date: 09-08-2019 Time: 7:09 P.M. HISTORY: 64-year-old female with dyspnea. COMPARISON: 07-19-2019 FINDINGS: Chronic right lung volume loss resulting in chronic tracheal, mediastinal, and cardiac shift to the r ight. Architectural distortion and vertically oriented streaky plate-like densities from right hilum to right hemidiaphragmatic surface. Small left upper lobe scar. No new consolidation or pneumothorax. Hyperinflation consistent with COPD. No interval change. IMPRESSION: 1. No acute findings. 2. Emphysema. 3. Chronic volume loss and architectural distortion of right lung. JN POS: JIN
--- NOTE | 2019-09-18 16:50 | EKG ---
Test Reason : SOB Blood Pressure : / mmHG Vent. Rate : 115 BPM Atrial Rate : 115 BPM P-R Int : 134 ms QRS Dur : 064 ms QT Int : 348 ms P-R-T Axes : 064 028 072 degrees QTc Int : 481 ms Sinus tachycardia Otherwise normal ECG Confirmed by CARRIE MANNING, YARITZA ([id number]), news assignment editor TARA VOGEL ([id number]) on 09/18/2019 4:49:31 PM Referred By: Confirmed By:YARITZA BUTLER MD
== END 2019-09-08 20:56 | disposition home or self-care (01) ==
LOC: ERS 18:29
DX: R06.00 Dyspnea, unspecified (principal); E11.9 Type 2 diabetes mellitus without complications; J43.9 Emphysema, unspecified; I50.9 Heart failure, unspecified; F41.9 Anxiety disorder, unspecified
CPT/HCPCS: 71045; 93005

== ENCOUNTER 2019-09-17 10:49 | Outpatient (CLI) | payer OTHER ==
--- NOTE | 2019-09-17 13:32 | RAD ---
TWO VIEW CHEST: 09/17/19 HISTORY: Dyspnea. COMPARISON: 09/12/19 two view chest exam. Chronic changes in the right lung again noted with stranding and retraction of the mediastinum. Apica l pleural thickening and stranding in the right apex appears stable. Left lung is better expanded and remains clear. Borderline cardiomegaly again noted. Vascular markings within normal range. No eviden ce of acute infiltrate or interval change. Vertebral body compression deformities are again noted. IMPRESSION: Stable chest findings. POS: AGW
== END 2019-09-17 10:50 | disposition home or self-care (01) ==
LOC: RAD 10:49
PROVIDERS: ATTEND Internal Medicine Critical Care Medicine
DX: R06.00 Dyspnea, unspecified (principal); J92.9 Pleural plaque without asbestos; I51.7 Cardiomegaly
CPT/HCPCS: 71046

== ENCOUNTER 2019-10-21 15:09 | Emergency (ER) | payer OTHER ==
--- NOTE | 2019-10-21 16:25 | RAD ---
XR Chest Pa Lat STANDARD HISTORY: Shortness of breath COMPARISON: 09/17/2019 FINDINGS: Chronic changes in the right lung with volume loss and mediastinal shift to the right are a gain seen. The heart size is stable. No focal areas of consolidation, pneumothoraces or pleural effusions are seen. Vertebral body compression deformities are redemonstrated. IMPRESSION: Stable exam. No acute process.
[2019-10-21] MEDS ORDERED: predniSONE 20 MG TAB ONE (17:07)
== END 2019-10-21 18:14 | disposition home or self-care (01) ==
LOC: ERS 15:09
DX: J44.1 Chronic obstructive pulmonary disease with (acute) exacerbation (principal); E11.9 Type 2 diabetes mellitus without complications; I25.10 Atherosclerotic heart disease of native coronary artery without angina pectoris; I50.9 Heart failure, unspecified; F41.9 Anxiety disorder, unspecified; F31.9 Bipolar disorder, unspecified; F20.9 Schizophrenia, unspecified; Z77.22 Contact with and (suspected) exposure to environmental tobacco smoke (acute) (chronic); Z86.718 Personal history of other venous thrombosis and embolism; Z79.84 Long term (current) use of oral hypoglycemic drugs; Z79.899 Other long term (current) drug therapy
CPT/HCPCS: 71046; J7512

== ENCOUNTER 2019-11-09 12:22 | Emergency (ER) | payer OTHER ==
[2019-11-09] MEDS ORDERED: Albuterol 200 PUFF (6.7GM INHALER) ONE (12:29)
[2019-11-09 13:11] LABS: #Lymphocytes 2.2 thou/uL (1.20-3.40); #Monocytes 0.9 thou/uL (0.11-0.59); #Neutrophils 10.6 thou/uL (1.40-6.50); %Basophils 0.2 % (0.0-1.0); %Eosinophils 0.3 % (0.0-10.0); %Lymphocytes 16.3 % (21.0-51.0); %Monocytes 6.5 % (0.0-10.0); %Neutrophils 76.7 % (42.0-75.0); Hemoglobin 10.3 g/dL (12.0-16.0); Mean Corpuscular HGB CONC 31.6 g/dL (32.0-36.0); Mean Corpuscular Hemoglobin 29.4 pg (27.0-31.0); Mean Platelet Volume 6.7 fL (7.4-10.4); Platelet Count 393 thou/uL (130-400); RBC Distribution Width 13.8 % (11.5-14.5); White Blood Cell (WBC) Count 13.8 thou/uL (4.8-10.8)
[2019-11-09 13:33] LABS: Anion Gap 18 mmol/L (10-20); BUN (Urea Nitrogen) 16 mg/dL (9.8-20.1); Calc. Creatinine Clearance 0 mL/min (70-130); Calcium 9.1 mg/dL (7.8-10.44); Carbon Dioxide 23 mmol/L (23-31); Chloride 96 mmol/L (98-107); Estimated GFR-MDRD 63; Glucose 472 mg/dL (80-115); Potassium 4.6 mmol/L (3.5-5.1); Sodium 132 mmol/L (136-145)
--- NOTE | 2019-11-09 14:09 | RAD ---
PORTABLE CHEST: Date: 11-09-2019 Provided Clinical History: Dyspnea. FINDINGS: Comparison 09-08-2019. Cardiac and mediastinal silhouette is unchanged in appearance. Shift of the mediastinal contents righ tward and right hemithoracic volume loss and scarring are again seen. Left lung appears similar. No d efinite focal consolidation or pneumothorax apparent. IMPRESSION: Stable radiographic appearance of the chest. POS: SHYLA
[2019-11-09] MEDS ORDERED: methylPREDNISolone Sod Succ/PF 125 MG/2 ML VIAL ONE (15:03)
--- NOTE | 2019-11-09 15:50 | PDOC.FPRHP ---
- History of Present Illness Chief Complaint: Dyspnea - Allergies/Adverse Reactions Allergies Allergy/AdvReac Type Severity Reaction Status Date / Time NSAIDS (Non-Steroidal Allergy Mild Verified 07/29/19 14:29 Anti-Inflamma ibuprofen Allergy "get Verified 07/29/19 14:29 shakey" naproxen AdvReac Severe shaky Verified 07/29/19 14:29 - Home Medications Medication Instructions Recorded Confirmed Type Budesonide-Formoterol [Symbicort 1 puff INH BID 04/14/16 07/19/19 History 160-4.5] Albuterol Sulfate [Proair HFA] 1 puff INH Q4HR PRN 07/17/18 07/19/19 History Amlodipine [Norvasc] 2.5 mg PO DAILY 07/17/18 07/19/19 History Apixaban [Eliquis] 5 mg PO BID #42 tablet 07/17/18 07/19/19 Rx Aspirin [Aspirin EC] 81 mg PO DAILY 07/17/18 07/19/19 History Calcium Citrate/Vitamin D3 [[place] 1 tab PO DAILY 07/17/18 07/19/19 History Calcium + D Tablet] Citalopram Hydrobromide 10 mg PO DAILY 07/17/18 07/19/19 History [Citalopram HBr] Gabapentin 600 mg PO TID 07/17/18 07/19/19 History Tiotropium [place] [Spiriva 2 inh IH DAILY 07/17/18 07/19/19 History Respimat] Acyclovir 400 mg PO BID 07/19/19 07/19/19 History Ipratropium/Albuterol Sulfate 3 ml NEB QID 07/19/19 07/19/19 History [DuoNeb] OLANZapine [Zyprexa] 10 mg PO HS 07/19/19 07/19/19 History metFORMIN HCl [Metformin HCl] 1,000 mg PO BID 07/19/19 07/19/19 History Doxycycline [Vibramycin] 100 mg PO BID #10 cap 07/22/19 Rx Insulin Glargine [Lantus Vial] 10 units SC QAM #4 vial 07/22/19 Rx - History PMHx: PSHx: FHx: Social: - Vital signs BP: [] HR: [] RR: [] Tmax: [] Pox: []% on [] Wt: [] FMR H&P: Results - Labs Result Diagrams: 11/09/19 12:54 11/09/19 12:54 Lab results: WBC 13.8 thou/uL (4.8-10.8) H 11/09/19 12:54 Hgb 10.3 g/dL (12.0-16.0) L 11/09/19 12:54 Hct 32.5 % (36.0-47.0) L 11/09/19 12:54 MCV 93.0 fL (78.0-98.0) 11/09/19 12:54 Plt Count 393 thou/uL (130-400) 11/09/19 12:54 Neutrophils % 76.7 % (42.0-75.0) H 11/09/19 12:54 Sodium 132 mmol/L (136-145) L 11/09/19 12:54 Potassium 4.6 mmol/L (3.5-5.1) 11/09/19 12:54 Chloride 96 mmol/L (98-107) L 11/09/19 12:54 Carbon Dioxide 23 mmol/L (23-31) 11/09/19 12:54 BUN 16 mg/dL (9.8-20.1) 11/09/19 12:54 Creatinine 1.06 mg/dL (0.6-1.1) 11/09/19 12:54 Glucose 472 mg/dL (80-115) H 11/09/19 12:54 Calcium 9.1 mg/dL (7.8-10.44) 11/09/19 12:54 FMR H&P: Upper Level - Plan Date/Time: 11/09/19 6203 I, [], have evaluated this patient and agree with findings/plan as outlined by intelligence intern resident. Pertinent changes/additions are listed here.
[2019-11-09] MEDS ORDERED: Ketorolac Tromethamine 30 MG/ML VIAL ONE (16:07)
== END 2019-11-09 17:13 | disposition home or self-care (01) ==
LOC: ERS 12:22
DX: J44.1 Chronic obstructive pulmonary disease with (acute) exacerbation (principal); E86.0 Dehydration; I25.10 Atherosclerotic heart disease of native coronary artery without angina pectoris; I50.9 Heart failure, unspecified; E11.9 Type 2 diabetes mellitus without complications; F41.9 Anxiety disorder, unspecified; F31.9 Bipolar disorder, unspecified; F20.9 Schizophrenia, unspecified; M81.0 Age-related osteoporosis without current pathological fracture; Z86.718 Personal history of other venous thrombosis and embolism; Z86.711 Personal history of pulmonary embolism; Z79.82 Long term (current) use of aspirin; Z87.442 Personal history of urinary calculi; Z79.899 Other long term (current) drug therapy; Z79.84 Long term (current) use of oral hypoglycemic drugs; Z86.73 Personal history of transient ischemic attack (TIA), and cerebral infarction without residual deficits
CPT/HCPCS: 71045; 80048; 83880; 84484; 85025; 93005; 94760; 96365; 96366; 96375; J1885; J1956; J2930

== ENCOUNTER 2019-11-19 15:01 | Emergency (ER) | payer OTHER ==
--- NOTE | 2019-11-19 17:21 | RAD ---
PORTABLE CHEST: 11/19/19 INDICATIONS: Dyspnea. COMPARISON: 11/10/19. Chronic changes in the right chest again noted. Shift of the mediastinum to the right. Apical pleural thickening. There is cardiomegaly with mild vascular congestion, stable from the prior exam. Bluntin g of the CP angles is stable. Electronic device now overlies the left chest which is new from prior e xam. IMPRESSION: Cardiomegaly with vascular congestion and chronic parenchymal and pleural changes in the right chest all appears stable. POS: AGW
[2019-11-19 17:34] LABS: #Eosinphils 0.1 thou/uL (0.0-0.7); #Lymphocytes 2.3 thou/uL (1.20-3.40); #Monocytes 0.9 thou/uL (0.11-0.59); #Neutrophils 4.7 thou/uL (1.40-6.50); %Basophils 0.3 % (0.0-1.0); %Eosinophils 1.3 % (0.0-10.0); %Lymphocytes 28.9 % (21.0-51.0); %Monocytes 10.9 % (0.0-10.0); %Neutrophils 58.6 % (42.0-75.0); Hemoglobin 10.5 g/dL (12.0-16.0); Mean Corpuscular HGB CONC 31.4 g/dL (32.0-36.0); Mean Corpuscular Hemoglobin 28.7 pg (27.0-31.0); Mean Corpuscular Volume 91.2 fL (78.0-98.0); Mean Platelet Volume 7.3 fL (7.4-10.4); Platelet Count 350 thou/uL (130-400); RBC Distribution Width 14.1 % (11.5-14.5); Red Blood Cell (RBC) Count 3.65 mill/uL (4.20-5.40)
[2019-11-19 17:52] LABS: ALT (SGPT) 63 U/L (8-55); AST (SGOT) 28 U/L (5-34); Albumin 3.7 g/dL (3.4-4.8); Alkaline Phosphatase 212 U/L (40-110); Anion Gap 10 mmol/L (10-20); BUN (Urea Nitrogen) 14 mg/dL (9.8-20.1); Bilirubin, Total 0.3 mg/dL (0.2-1.2); Calc. Creatinine Clearance 0 mL/min (70-130); Calcium 8.9 mg/dL (7.8-10.44); Carbon Dioxide 34 mmol/L (23-31); Chloride 99 mmol/L (98-107); Estimated GFR-MDRD 88; Globulin 3.6 g/dL (2.4-3.5); Glucose 227 mg/dL (80-115); Potassium 4.6 mmol/L (3.5-5.1); Protein, Total 7.3 g/dL (6.0-8.3); Sodium 138 mmol/L (136-145)
[2019-11-19] MEDS ORDERED: Ketorolac Tromethamine 30 MG/ML VIAL ONE (18:32)
== END 2019-11-19 19:00 | disposition home or self-care (01) ==
LOC: ERS 15:01
DX: R07.9 Chest pain, unspecified (principal); R06.00 Dyspnea, unspecified; R06.2 Wheezing; E11.9 Type 2 diabetes mellitus without complications; J43.9 Emphysema, unspecified; I25.10 Atherosclerotic heart disease of native coronary artery without angina pectoris; I50.9 Heart failure, unspecified; B19.10 Unspecified viral hepatitis B without hepatic coma; B19.20 Unspecified viral hepatitis C without hepatic coma; F31.9 Bipolar disorder, unspecified; F20.9 Schizophrenia, unspecified; Z86.711 Personal history of pulmonary embolism; Z86.718 Personal history of other venous thrombosis and embolism; Z77.22 Contact with and (suspected) exposure to environmental tobacco smoke (acute) (chronic); Z79.899 Other long term (current) drug therapy; Z79.84 Long term (current) use of oral hypoglycemic drugs; Z79.51 Long term (current) use of inhaled steroids; Z79.82 Long term (current) use of aspirin; Z79.01 Long term (current) use of anticoagulants
CPT/HCPCS: 36415; 71045; 80076; 81001; 83880; 84484; 85025; 87517; 93005; 96374; J1885

== ENCOUNTER 2019-11-28 14:36 | Outpatient (CLI) | payer OTHER ==
--- NOTE | 2019-11-28 15:20 | RAD ---
PA AND LATERAL VIEWS OF THE CHEST: 11/28/19 HISTORY: Swelling in the chest. Shortness of breath. COMPARISON: 11/19/19. The heart size is stable. Chronic changes in the lung [place] are again seen bilaterally with mediasti nal shift to the right and volume loss in the right hemithorax. No pneumothoraces, lobar consolidatio n, or large effusions are seen. The heart size is stable. IMPRESSION: No acute process. POS: AH
== END 2019-11-28 14:37 | disposition home or self-care (01) ==
LOC: BICRAD 14:36
PROVIDERS: ATTEND Nurse Practitioner
DX: R22.2 Localized swelling, mass and lump, trunk (principal)
CPT/HCPCS: 71046

== ENCOUNTER 2019-12-06 14:48 | Emergency (ER) | payer OTHER ==
[2019-12-06] MEDS ORDERED: Albuterol Sulfate 2.5 mg/3 ml Neb ONE (15:25)
--- NOTE | 2019-12-06 15:36 | RAD ---
XR Chest 1 View Portable History: Dyspnea Comparison: Radiograph November 28, 2019 Findings: Continued rightward mediastinal shift with chronic volume loss and scar of the right lung. Left lung relatively clear. No pneumothorax. Hyperexpansion right lower lobe. No acute osseous abnormality. Impression: No acute intrathoracic abnormality. No significant change.
[2019-12-06 16:06] LABS: #Basophils 0.1 thou/uL (0.0-0.2); #Eosinphils 0.1 thou/uL (0.0-0.7); #Lymphocytes 3.6 thou/uL (1.20-3.40); #Monocytes 0.6 thou/uL (0.11-0.59); #Neutrophils 5.1 thou/uL (1.40-6.50); %Basophils 0.5 % (0.0-1.0); %Eosinophils 0.7 % (0.0-10.0); %Lymphocytes 38.3 % (21.0-51.0); %Monocytes 6.1 % (0.0-10.0); %Neutrophils 54.3 % (42.0-75.0); Mean Corpuscular HGB CONC 30.9 g/dL (32.0-36.0); Mean Corpuscular Hemoglobin 27.4 pg (27.0-31.0); Mean Corpuscular Volume 88.7 fL (78.0-98.0); Mean Platelet Volume 7.2 fL (7.4-10.4); Platelet Count 391 thou/uL (130-400); RBC Distribution Width 14.6 % (11.5-14.5); Red Blood Cell (RBC) Count 4.02 mill/uL (4.20-5.40); White Blood Cell (WBC) Count 9.5 thou/uL (4.8-10.8)
[2019-12-06 16:27] LABS: ALT (SGPT) 48 U/L (8-55); AST (SGOT) 29 U/L (5-34); Albumin 3.8 g/dL (3.4-4.8); Alkaline Phosphatase 134 U/L (40-110); Anion Gap 13 mmol/L (10-20); BUN (Urea Nitrogen) 9 mg/dL (9.8-20.1); Bilirubin, Total 0.7 mg/dL (0.2-1.2); CK (CPK) 108 U/L (29-168); Calc. Creatinine Clearance 0 mL/min (70-130); Calcium 8.7 mg/dL (7.8-10.44); Carbon Dioxide 29 mmol/L (23-31); Chloride 101 mmol/L (98-107); Estimated GFR-MDRD 83; Globulin 3.2 g/dL (2.4-3.5); Glucose 183 mg/dL (80-115); Lipase 19 U/L (8-78); Sodium 140 mmol/L (136-145)
[2019-12-06] MEDS ORDERED: Potassium Chloride 20 MEQ TAB ONE (17:34)
== END 2019-12-06 18:47 | disposition home or self-care (01) ==
LOC: ERS 14:48
DX: J44.1 Chronic obstructive pulmonary disease with (acute) exacerbation (principal); E87.6 Hypokalemia; E11.9 Type 2 diabetes mellitus without complications; Z86.718 Personal history of other venous thrombosis and embolism; I50.9 Heart failure, unspecified; F41.9 Anxiety disorder, unspecified; F31.9 Bipolar disorder, unspecified; F20.9 Schizophrenia, unspecified; Z79.84 Long term (current) use of oral hypoglycemic drugs; Z79.82 Long term (current) use of aspirin; Z79.51 Long term (current) use of inhaled steroids; Z79.899 Other long term (current) drug therapy
CPT/HCPCS: 36415; 71045; 80053; 82550; 83690; 83880; 84484; 85025; 93005; 94640; J7611; J7620

== ENCOUNTER 2020-02-05 01:14 | Emergency (ER) | payer OTHER ==
[2020-02-05 02:05] LABS: Bacteria/HPF None Seen HPF (None Seen); Bilirubin Negative (Negative); Blood, Urine 2+ (Negative); Clarity Clear (Clear); Glucose, Urine (Dipstick) Normal (Negative); Ketone, Urine Negative (Negative); Leukocyte Negative Leu/uL (Negative); Nitrite Negative (Negative); Protein, Urine (Dipstick) Negative (Neg-Trace); Specific Gravity, Urine 1.005 (1.002-1.036); Squamous Epithelial None Seen HPF (0-3); Urobilinogen Normal mg/dL (Less than 2); WBC/HPF 0-3 HPF (0-3)
[2020-02-05 02:21] LABS: Amphetamine Not Detected (NotDetected); Barbiturates Screen Not Detected (NotDetected); Benzodiazepine Screen Not Detected (NotDetected); Cocaine Metabolite Screen Not Detected (NotDetected); Medtox Control Line Valid? VALID (VALID); Medtox Reader # READER 4; Methadone Not Detected (NotDetected); Methamphetamine Not Detected (NotDetected); Opiate Screen Detected (NotDetected); Oxycodone Screen Not Detected (NotDetected); Phencyclidine (PCP) Not Detected (NotDetected); THC/Cannabinoid Screen Not Detected (NotDetected); Tricyclic Screen Detected (NotDetected)
== END 2020-02-05 02:14 | disposition home or self-care (01) ==
LOC: ERS 01:14
DX: Z00.00 Encounter for general adult medical examination without abnormal findings (principal); I25.10 Atherosclerotic heart disease of native coronary artery without angina pectoris; I50.9 Heart failure, unspecified; F41.9 Anxiety disorder, unspecified; F20.9 Schizophrenia, unspecified; F31.9 Bipolar disorder, unspecified; J43.9 Emphysema, unspecified; B19.20 Unspecified viral hepatitis C without hepatic coma; Z77.22 Contact with and (suspected) exposure to environmental tobacco smoke (acute) (chronic); Z79.84 Long term (current) use of oral hypoglycemic drugs; Z79.899 Other long term (current) drug therapy; Z79.82 Long term (current) use of aspirin; Z86.73 Personal history of transient ischemic attack (TIA), and cerebral infarction without residual deficits; M81.0 Age-related osteoporosis without current pathological fracture
CPT/HCPCS: 51701; 80306; 81003; 81015; 99281

== ENCOUNTER 2020-02-12 00:41 | Emergency (ER) | payer OTHER ==
[2020-02-12 08:04] LABS: ALT (SGPT) 22 U/L (8-55); AST (SGOT) 24 U/L (5-34); Albumin 3.7 g/dL (3.4-4.8); Alkaline Phosphatase 129 U/L (40-110); Anion Gap 13 mmol/L (10-20); BUN (Urea Nitrogen) 7 mg/dL (9.8-20.1); Bilirubin, Total 0.4 mg/dL (0.2-1.2); Calc. Creatinine Clearance 0 mL/min (70-130); Calcium 9.7 mg/dL (7.8-10.44); Carbon Dioxide 31 mmol/L (23-31); Chloride 99 mmol/L (98-107); Estimated GFR-MDRD Greater than 90; Globulin 3.3 g/dL (2.4-3.5); Glucose 159 mg/dL (80-115); Lipase 20 U/L (8-78); Potassium 3.2 mmol/L (3.5-5.1); Sodium 140 mmol/L (136-145)
[2020-02-12 09:57] LABS: #Basophils 0.1 thou/uL (0.0-0.2); #Eosinphils 0.1 thou/uL (0.0-0.7); #Lymphocytes 2.1 thou/uL (1.20-3.40); #Monocytes 0.7 thou/uL (0.11-0.59); %Basophils 1.1 % (0.0-1.0); %Eosinophils 1.7 % (0.0-10.0); %Monocytes 11.1 % (0.0-10.0); %Neutrophils 51.1 % (42.0-75.0); Hemoglobin 9.5 g/dL (12.0-16.0); Mean Corpuscular HGB CONC 30.2 g/dL (32.0-36.0); Mean Corpuscular Hemoglobin 25.8 pg (27.0-31.0); Mean Corpuscular Volume 85.6 fL (78.0-98.0); Mean Platelet Volume 7.3 fL (7.4-10.4); Platelet Count 338 thou/uL (130-400); RBC Distribution Width 14.7 % (11.5-14.5); Red Blood Cell (RBC) Count 3.67 mill/uL (4.20-5.40)
== END 2020-02-12 07:44 | disposition left against medical advice (07) ==
LOC: ERS 00:41
DX: R10.9 Unspecified abdominal pain (principal); R19.7 Diarrhea, unspecified; I11.0 Hypertensive heart disease with heart failure; I50.9 Heart failure, unspecified; I25.10 Atherosclerotic heart disease of native coronary artery without angina pectoris; E11.9 Type 2 diabetes mellitus without complications; J43.9 Emphysema, unspecified; M81.0 Age-related osteoporosis without current pathological fracture; Z86.73 Personal history of transient ischemic attack (TIA), and cerebral infarction without residual deficits; F31.9 Bipolar disorder, unspecified; F20.9 Schizophrenia, unspecified; Z86.711 Personal history of pulmonary embolism; F41.9 Anxiety disorder, unspecified; Z86.718 Personal history of other venous thrombosis and embolism; Z79.82 Long term (current) use of aspirin; Z79.899 Other long term (current) drug therapy
CPT/HCPCS: 80053; 83690; 85025; 93005

== ENCOUNTER 2020-02-18 14:19 | Emergency (ER) | payer OTHER ==
[2020-02-18] MEDS ORDERED: Aspirin 325 MG TAB ONE ×2 (15:30→15:32)
[2020-02-18] MEDS ORDERED: Albuterol Sulfate 2.5 mg/3 ml Neb ONE ×2 (15:34→16:39)
[2020-02-18] MEDS ORDERED: Albuterol 200 PUFF (6.7GM INHALER) ONE (15:34)
--- NOTE | 2020-02-18 15:39 | RAD ---
Exam: Chest one view HISTORY:COPD. Cough. Pain. Comparison: 01/01/2020 FINDINGS: Cardiac silhouette:Stable rightward deviation cardiomediastinal silhouette Aorta: Unremarkable Pulmonary vessels: Normal Costophrenic angles: Clear LUNGS: Chronic diminished right lung volume with compensatory hyperinflation of the left lung. Chroni c lung parenchymal changes. Pneumothorax: None Osseous abnormalities: None IMPRESSION: 1. Chronic changes. 2. No acute cardiopulmonary process.
[2020-02-18 16:01] LABS: #Eosinphils 0.1 thou/uL (0.0-0.7); #Lymphocytes 1.8 thou/uL (1.20-3.40); #Monocytes 0.8 thou/uL (0.11-0.59); #Neutrophils 3.8 thou/uL (1.40-6.50); %Basophils 0.3 % (0.0-1.0); %Eosinophils 1.7 % (0.0-10.0); %Lymphocytes 27.2 % (21.0-51.0); %Monocytes 12.3 % (0.0-10.0); %Neutrophils 58.4 % (42.0-75.0); Hemoglobin 9.9 g/dL (12.0-16.0); Mean Corpuscular HGB CONC 29.9 g/dL (32.0-36.0); Mean Corpuscular Hemoglobin 25.9 pg (27.0-31.0); Mean Corpuscular Volume 86.7 fL (78.0-98.0); Platelet Count 397 thou/uL (130-400); RBC Distribution Width 15.1 % (11.5-14.5); Red Blood Cell (RBC) Count 3.82 mill/uL (4.20-5.40); White Blood Cell (WBC) Count 6.5 thou/uL (4.8-10.8)
[2020-02-18 16:10] LABS: ALT (SGPT) 20 U/L (8-55); AST (SGOT) 24 U/L (5-34); Albumin 3.6 g/dL (3.4-4.8); Alkaline Phosphatase 110 U/L (40-110); BUN (Urea Nitrogen) 7 mg/dL (9.8-20.1); Bilirubin, Total 0.6 mg/dL (0.2-1.2); Calc. Creatinine Clearance 0 mL/min (70-130); Calcium 8.9 mg/dL (7.8-10.44); Estimated GFR-MDRD Greater than 90; Globulin 3.4 g/dL (2.4-3.5); Glucose 180 mg/dL (80-115); Lipase 16 U/L (8-78)
[2020-02-18 16:18] LABS: Anion Gap 9 mmol/L (10-20); Carbon Dioxide 38 mmol/L (23-31); Chloride 97 mmol/L (98-107); Potassium 3.5 mmol/L (3.5-5.1); Sodium 140 mmol/L (136-145)
[2020-02-18 16:24] LABS: Elliptocytes SLIGHT = 2-5 cells (100X) (0-1/hpf); Hypochromia MODERATE=16-30 cells (100X) (0-5/hpf); MDiff Complete? YES; Ovalocytes SLIGHT = 2-5 cells (100X) (0-1/hpf); Platelet Morphology Comment Appears Adequate; Polychromasia SLIGHT = 2-3 cells (100X) (0-2/hpf); Reflex for Review?? NO; Target Cells SLIGHT = 2-5 cells (100X) (0-1/hpf); Tear Drops SLIGHT = 2-5 cells (100X) (0-1/hpf)
[2020-02-18] MEDS ORDERED: Ipratropium Bromide 2.5 ml Neb ONE (16:29)
[2020-02-18] MEDS ORDERED: Albuterol Sulfate 1.25 MG/3 ML NEB ONE (16:29)
[2020-02-18] MEDS ORDERED: Albuterol Sulfate 2.5 mg/0.5 ml Neb ONE (16:29)
[2020-02-18] MEDS ORDERED: predniSONE 20 MG TAB ONE (16:40)
--- NOTE | 2020-02-21 14:07 | EKG ---
Test Reason : Blood Pressure : / mmHG Vent. Rate : 115 BPM Atrial Rate : 115 BPM P-R Int : 148 ms QRS Dur : 070 ms QT Int : 336 ms P-R-T Axes : 062 030 072 degrees QTc Int : 464 ms Sinus tachycardia Nonspecific T wave abnormality Abnormal ECG Confirmed by CAROL WRIGHT ([id number]), rewrite editor ESTELITA LAI ([id number]) on 02/21/2020 2:07:52 PM Referred By: Confirmed By:CAROL George
== END 2020-02-18 18:06 | disposition home or self-care (01) ==
LOC: ERS 14:19
DX: J44.1 Chronic obstructive pulmonary disease with (acute) exacerbation (principal); I25.10 Atherosclerotic heart disease of native coronary artery without angina pectoris; I50.9 Heart failure, unspecified; F41.9 Anxiety disorder, unspecified; F31.9 Bipolar disorder, unspecified; F20.9 Schizophrenia, unspecified; Z87.442 Personal history of urinary calculi; Z86.718 Personal history of other venous thrombosis and embolism; Z86.711 Personal history of pulmonary embolism; Z86.73 Personal history of transient ischemic attack (TIA), and cerebral infarction without residual deficits; Z79.82 Long term (current) use of aspirin; Z79.899 Other long term (current) drug therapy
CPT/HCPCS: 36415; 71045; 80053; 82607; 82728; 82746; 83540; 83550; 83690; 84484; 85025; 93005; 94644; 94664; J7512; J7611

== ENCOUNTER 2020-02-25 14:24 | Emergency (ER) | payer OTHER ==
[2020-02-25 17:34] LABS: Bilirubin Negative (Negative); Blood, Urine Negative (Negative); Clarity Clear (Clear); Glucose, Urine (Dipstick) Normal (Negative); Ketone, Urine Negative (Negative); Leukocyte Negative Leu/uL (Negative); Nitrite Negative (Negative); Protein, Urine (Dipstick) Negative (Neg-Trace); Specific Gravity, Urine 1.007 (1.002-1.036); Urobilinogen Normal mg/dL (Less than 2)
== END 2020-02-25 18:56 | disposition home or self-care (01) ==
LOC: ERS 14:24
DX: G62.9 Polyneuropathy, unspecified (principal); E11.9 Type 2 diabetes mellitus without complications; J43.9 Emphysema, unspecified; I25.10 Atherosclerotic heart disease of native coronary artery without angina pectoris; F31.9 Bipolar disorder, unspecified; F41.9 Anxiety disorder, unspecified; F20.9 Schizophrenia, unspecified; I50.9 Heart failure, unspecified; Z77.22 Contact with and (suspected) exposure to environmental tobacco smoke (acute) (chronic); Z86.73 Personal history of transient ischemic attack (TIA), and cerebral infarction without residual deficits; Z86.711 Personal history of pulmonary embolism; Z86.718 Personal history of other venous thrombosis and embolism; Z79.899 Other long term (current) drug therapy; Z79.82 Long term (current) use of aspirin
CPT/HCPCS: 51701; 81003

== ENCOUNTER 2020-04-12 12:09 | Inpatient (IN) | payer OTHER ==
[2020-04-12 13:09] LABS: #Eosinphils 0.2 thou/uL (0.0-0.7); #Lymphocytes 1.7 thou/uL (1.20-3.40); #Monocytes 0.7 thou/uL (0.11-0.59); #Neutrophils 2.9 thou/uL (1.40-6.50); %Basophils 0.7 % (0.0-1.0); %Eosinophils 3.4 % (0.0-10.0); %Lymphocytes 30.7 % (21.0-51.0); %Neutrophils 53.3 % (42.0-75.0); Hemoglobin 11.6 g/dL (12.0-16.0); Mean Corpuscular Volume 93.1 fL (78.0-98.0); Mean Platelet Volume 7.4 fL (7.4-10.4); Platelet Count 253 thou/uL (130-400); RBC Distribution Width 16.4 % (11.5-14.5); Red Blood Cell (RBC) Count 4.14 mill/uL (4.20-5.40); White Blood Cell (WBC) Count 5.5 thou/uL (4.8-10.8)
[2020-04-12] MEDS ORDERED: Iopamidol-370 76% 500 ML 1 ML ONE (13:10)
[2020-04-12 13:13] LABS: Bilirubin Negative (Negative); Blood, Urine Negative (Negative); Clarity Clear (Clear); Glucose, Urine (Dipstick) Normal (Negative); Ketone, Urine Negative (Negative); Leukocyte 25 Leu/uL (Negative); Nitrite Negative (Negative); Protein, Urine (Dipstick) 10 mg/dL (Neg-Trace); RBC/HPF 0-3 HPF (0-3); Specific Gravity, Urine 1.013 (1.002-1.036); Squamous Epithelial 0-3 HPF (0-3); Urobilinogen Normal mg/dL (Less than 2); pH, Urine 5.5 (5.0-9.0)
[2020-04-12 13:14] LABS: Bacteria/HPF 1+ HPF (None Seen)
[2020-04-12 13:17] LABS: Medtox Reader # READER 1
[2020-04-12 13:18] LABS: Amphetamine Not Detected (NotDetected); Barbiturates Screen Not Detected (NotDetected); Benzodiazepine Screen Detected (NotDetected); Cocaine Metabolite Screen Not Detected (NotDetected); Medtox Control Line Valid? VALID (VALID); Methadone Not Detected (NotDetected); Methamphetamine Not Detected (NotDetected); Opiate Screen Not Detected (NotDetected); Oxycodone Screen Not Detected (NotDetected); Phencyclidine (PCP) Not Detected (NotDetected); THC/Cannabinoid Screen Not Detected (NotDetected); Tricyclic Screen Detected (NotDetected)
[2020-04-12 13:27] LABS: INR-International Normal Ratio 0.9; PTT 30.4 sec (22.9-36.1); Prothrombin Time 12.8 sec (12.0-14.7)
[2020-04-12 13:28] LABS: D-Dimer Test 0.64 *mcg/mL (0.27-0.43)
[2020-04-12] MEDS ORDERED: Azithromycin 250 MG TAB ONE (13:32)
[2020-04-12] MEDS ORDERED: Dexamethasone 10 MG/ML VIAL ONE (13:32)
[2020-04-12] MEDS ORDERED: cefTRIAXone\\ROCEPHIN 1 GM VIAL ONE (13:32)
[2020-04-12 13:36] LABS: ALT (SGPT) 99 U/L (8-55); AST (SGOT) 48 U/L (5-34); Albumin 3.6 g/dL (3.4-4.8); Alkaline Phosphatase 124 U/L (40-110); BUN (Urea Nitrogen) 6 mg/dL (9.8-20.1); Bilirubin, Total 0.5 mg/dL (0.2-1.2); Calc. Creatinine Clearance 0 mL/min (70-130); Globulin 2.9 g/dL (2.4-3.5); Glucose 142 mg/dL (80-115); Lipase 8 U/L (8-78); Protein, Total 6.5 g/dL (6.0-8.3)
[2020-04-12 13:46] LABS: Anion Gap 12 mmol/L (10-20); Carbon Dioxide 37 mmol/L (23-31); Chloride 98 mmol/L (98-107); Potassium 4.1 mmol/L (3.5-5.1); Sodium 143 mmol/L (136-145)
[2020-04-12] MEDS ORDERED: Albuterol 200 PUFF (6.7GM INHALER) ONE (14:07)
--- NOTE | 2020-04-12 14:12 | RAD ---
PORTABLE CHEST: Date: 04/12/2020 HISTORY: Dyspnea. COMPARISON: 02/18/2020 exam. FINDINGS: The heart size is difficult to assess. It appears borderline in size. It has shifted to the right. Th ere are associated chronic pleural and parenchymal changes in the right lung. Left lung remains clear . IMPRESSION: Chronic right lung changes. No acute process. Stable chest. POS: ANNE
[2020-04-12 15:32] LABS: SARS-CoV-2 NAA Rapid Test Not Detected (NotDetected)
[2020-04-12] MEDS ORDERED: Magnesium 2 GM/50 ML BAG (IN WATER) ONE (17:17)
--- NOTE | 2020-04-12 17:21 | CT ---
CT ANGIO CHEST PERFORMED WITH IV CONTRAST ENHANCEMENT WITH 3D RECONSTRUCTIONS: Date: 04/12/2020 HISTORY: Chest pain, shortness of breath, and productive cough. COMPARISON: 11/10/2019 exam. FINDINGS: Emphysematous lung changes are again demonstrated. Right upper lobe pleural and parenchymal scarring has a similar appearance to the previous exam. Left upper lobe scarring is also unchanged. I see no e vidence of any new infiltrative process. No pleural effusion. Thoracic aorta is normal in caliber. There is good pulmonary artery opacification. Calcification gab g the region of the right upper lobe pulmonary artery is again demonstrated. IMPRESSION: 1. Severe chronic lung change. 2. No CT evidence for pulmonary embolus. 3. Stable multilevel compression changes. POS: ANNE
--- NOTE | 2020-04-12 17:43 | PDOC.HHP ---
Hospitalist HPI - History of Present Illness Shortness of breath and generalized weakness History of Present Illness: 65-year-old female who was sent from clinic for tachycardia, patient was having generalized weakness and shortness of breath, patient has multiple admission in our hospital, patient was noncompliant with her oxygen use, when she came to emergency room without oxygen she was hypoxic but with oxygen her saturation improved, she was tachycardic, patient has increasing shortness of breath and productive cough, she has underlying history of COPD and asthma with frequent exacerbation, Patient is very poor historian, when I saw in the emergency room she was tachycardic, tachypneic, she was wheezing in her both lung field, routine laboratory parameters were unremarkable except for mild transaminitis, her troponin negative, BNP normal, her urine drug screen is positive for benzos and tricyclic, her D-dimer was elevated and that is why CT angio was done which was negative for pulmonary embolism, patient does have chronic lung changes. ED Course: In emergency room patient is given Rocephin 1 g, dexamethasone 10 mg, magnesium sulfate 2 g, azithromycin 500 mg p.o., DuoNeb and albuterol nebulization. BP: 124/78, Pulse: 124, Resp: 22, Temp: 98.5 (Oral), Pain: 10, O2 sat: 100 on (Room Air), Time: 04/12/2020 12:10. VITAL SIGNS SunApr 12, 2020 12:26 [facility]: 113/74, Pulse: 112, Resp: 20, Pain: 10 CALM, O2 sat: 100 on (2L Oxygen), Ti me: 04/12/2020 12:26. Hospitalist ROS - Review of Systems Constitutional: reports: weakness, malaise. denies: fever, chills, sweats, o ther ENT: denies: ear pain, ear discharge, nose pain, nose discharge, nose congestion, mouth pain, mouth swelling, throat pain, throat swelling, other Respiratory: reports: cough, shortness of breath, SOB with excertion, wheezing. denies: dry, hemoptysis, pleuritic pain, sputum, other Cardiovascular: denies: chest pain, palpitations, orthopnea, paroxysmal noc. dyspnea, edema, light headedness, other Gastrointestinal: denies: nausea, vomiting, abdominal pain, diarrhea, constipation, melena, hematochezia, other Genitourinary: denies: dysuria, frequency, incontinence, hematuria, retention, other Musculoskeletal: denies: neck pain, shoulder pain, arm pain, back pain, hand pain, leg pain, foot pain, other Skin: denies: rash, lesions, mandy, bruising, other Hospitalist History - Past Medical History Other Medical History: Chronic respiratory failure on home oxygen COPD History of pulmonary embolism in 2010 Hypertension Polysubstance abuse Chronic hepatitis C Bipolar disorder Schizophrenia Osteoporosis Chronic low back pain Medication noncompliance Diabetes type 2 - Past Surgical History Other Surgical History: Oophorectomy CABG Cataract surgery Kidney stent placement for kidney stone - Family History Other Family History: Family history positive for diabetes and hypertension among several family members - Social History Other Social History: Patient has history of polysubstance abuse, she intermittently abuses marijuana and cocaine, drinks alcohol socially, she continues to smoke cigarettes. - Exam General Appearance: NAD, ill appearing Eye: PERRL, anicteric sclera ENT: normocephalic atraumatic, no oropharyngeal lesions Neck: supple, symmetric, no JVD, no thyromegaly Heart: RRR, no murmur, no gallops, no rubs Heart - other findings: Tachycardia Respiratory: no rales, rhonchi, tachypneic, wheezes Gastrointestinal: soft, non-tender, non-distended, normal bowel sounds Extremities: no clubbing, no edema Skin: normal turgor, no lesions Neurological: no focal deficits Musculoskeletal: normal tone, normal strength Psychiatric: normal affect, normal behavior Hospitalist Results - Labs Result Diagrams: 04/12/20 12:52 04/12/20 12:52 Lab results: WBC 5.5 thou/uL (4.8-10.8) 04/12/20 12:52 Hgb 11.6 g/dL (12.0-16.0) L 04/12/20 12:52 Hct 38.6 % (36.0-47.0) 04/12/20 12:52 MCV 93.1 fL (78.0-98.0) 04/12/20 12:52 Plt Count 253 thou/uL (130-400) 04/12/20 12:52 Neutrophils % 53.3 % (42.0-75.0) 04/12/20 12:52 Sodium 143 mmol/L (136-145) 04/12/20 12:52 Potassium 4.1 mmol/L (3.5-5.1) 04/12/20 12:52 Chloride 98 mmol/L (98-107) 04/12/20 12:52 Carbon Dioxide 37 mmol/L (23-31) H 04/12/20 12:52 BUN 6 mg/dL (9.8-20.1) L 04/12/20 12:52 Creatinine 0.70 mg/dL (0.6-1.1) 04/12/20 12:52 Glucose 142 mg/dL (80-115) H 04/12/20 12:52 Lactic Acid 0.7 mmol/L (0.5-2.2) 04/12/20 12:52 Calcium 9.0 mg/dL (7.8-10.44) 04/12/20 12:52 Total Bilirubin 0.5 mg/dL (0.2-1.2) 04/12/20 12:52 AST 48 U/L (5-34) H 04/12/20 12:52 ALT 99 U/L (8-55) H 04/12/20 12:52 Alkaline Phosphatase 124 U/L (40-110) H 04/12/20 12:52 Troponin I Less than 0.010 ng/mL (< 0.028) 04/12/20 12:52 B-Natriuretic Peptide Less than 10.0 pg/mL (0-100) 04/12/20 12:52 Serum Total Protein 6.5 g/dL (6.0-8.3) 04/12/20 12:52 Albumin 3.6 g/dL (3.4-4.8) 04/12/20 12:52 Lipase 8 U/L (8-78) 04/12/20 12:52 Urine Ketones Negative mg/dL (Negative) 04/12/20 12:52 Urine Blood Negative (Negative) 04/12/20 12:52 Urine Nitrite Negative (Negative) 04/12/20 12:52 Ur Leukocyte Esterase 25 Reggie/uL (Negative) A 04/12/20 12:52 Urine RBC 0-3 HPF (0-3) 04/12/20 12:52 Urine WBC 7-10 HPF (0-3) A 04/12/20 12:52 Ur Squamous Epith Cells 0-3 HPF (0-3) 04/12/20 12:52 Urine Bacteria 1+ HPF (None Seen) A 04/12/20 12:52 - EKG Interpretation EKG: Sinus tachycardia, nonspecific ST-T changes - Radiology Interpretation Other Status: image reviewed by me Additional Comment: Chest x-ray consistent with a chronic changes on the right lung patient has chronic pleural and parenchymal changes in the right lung, left lung remains clear CT angiography showing severe chronic lung changes, no evidence of a pulmonary embolism, multilevel compression changes noted, no infiltration, Hospitalist H&P A/P - Problem (1) COPD with acute exacerbation Code(s): J44.1 - CHRONIC OBSTRUCTIVE PULMONARY DISEASE W (ACUTE) EXACERBATION Status: Acute (2) Sinus tachycardia Code(s): R00.0 - TACHYCARDIA, UNSPECIFIED Status: Acute (3) Generalized weakness Code(s): R53.1 - WEAKNESS Status: Acute (4) Normocytic anemia Code(s): D64.9 - ANEMIA, UNSPECIFIED Status: Chronic (5) Osteoporosis Code(s): M81.0 - AGE-RELATED OSTEOPOROSIS W/O CURRENT PATHOLOGICAL FRACTURE Status: Chronic Qualifiers: Osteoporosis type: localized (6) Schizophrenia Code(s): F20.9 - SCHIZOPHRENIA, UNSPECIFIED Status: Chronic (7) Bipolar 2 disorder Code(s): F31.81 - BIPOLAR II DISORDER Status: Chronic (8) CAD (coronary artery disease), [place] coronary artery Code(s): I25.10 - ATHSCL HEART DISEASE OF [place] CORONARY ARTERY W/O ANG PCTRS Status: Chronic (9) Hypertension Code(s): I10 - ESSENTIAL (PRIMARY) HYPERTENSION Status: Chronic Qualifiers: Hypertension type: essential hypertension Qualified Code(s): I10 - Essential (primary) hypertension (10) Tobacco abuse Code(s): Z72.0 - TOBACCO USE Status: Chronic (11) Polysubstance abuse Code(s): F19.10 - OTHER PSYCHOACTIVE SUBSTANCE ABUSE, UNCOMPLICATED Status: Chronic (12) Abnormal LFTs Code(s): R94.5 - ABNORMAL RESULTS OF LIVER FUNCTION STUDIES Status: Chronic (13) Chronic hepatitis C Code(s): B18.2 - CHRONIC VIRAL HEPATITIS C Status: Chronic Qualifiers: Hepatic coma status: without hepatic coma Qualified Code(s): B18.2 - Chronic viral hepatitis C (14) Diabetes type 2, controlled Code(s): E11.9 - TYPE 2 DIABETES MELLITUS WITHOUT COMPLICATIONS Status: Chronic Qualifiers: Diabetes mellitus long filler cigar roller machine insulin use: with prison use Diabetes mellitus complication status: without complication Qualified Code(s): E11.9 - Type 2 diabetes mellitus without complications; Z79.4 - FPC (current) use of insulin (15) Chronic respiratory failure with hypoxia, on home O2 therapy Code(s): J96.11 - CHRONIC RESPIRATORY FAILURE WITH HYPOXIA; Z99.81 - DEPENDENCE ON SUPPLEMENTAL OXYGEN Status: Chronic - Plan Plan: Admission to telemetry floor because of tachycardia Solu-Medrol 40 mg IV every 6 hourly DuoNeb every 4 hourly and as needed Her home medication will be reconciled Empiric Rocephin and p.o. azithromycin IV fluid half-normal saline 100 mL/h Symptomatic treatment for cough, pain, PT OT evaluation Tomorrow we will repeat labs DVT prophylaxis Lovenox 40 mg subcu daily GI prophylaxis Protonix 40 mg p.o. daily CODE STATUS patient is full code Disposition plan based on clinical course.
[2020-04-12] MEDS ORDERED: Lorazepam 2 MG/ML VIAL ONE (20:41)
[2020-04-12] MEDS ORDERED: HYDROcodone/Acetaminophen 5/325 mg Tablet PO PRN (20:53)
[2020-04-12] MEDS ORDERED: Acetaminophen 325 MG TAB PO PRN (20:53)
[2020-04-12] MEDS ORDERED: hydrALAZINE 20 MG/ML VIAL SLOW IVP PRN (20:53)
[2020-04-12] MEDS ORDERED: Diabetic Tussin 200 MG/10 ML UDCUP PO PRN (20:53)
[2020-04-12] MEDS ORDERED: Benzonatate 100 MG CAP PO PRN (20:53)
[2020-04-12] MEDS ORDERED: Ondansetron ODT 4 MG TAB PO PRN (20:53)
[2020-04-12] MEDS ORDERED: cloNIDine 0.1 MG TAB PO PRN (20:53)
[2020-04-12] MEDS ORDERED: Nicotine 21 MG PATCH TD PRN (20:53)
[2020-04-12] MEDS ORDERED: traMADol HCl 50 MG TAB PO PRN (20:53)
[2020-04-12] MEDS ORDERED: Bisacodyl 10 MG SUPP PR PRN (20:53)
[2020-04-12] MEDS ORDERED: Zolpidem Tartrate 5 MG TAB PO PRN (20:53)
[2020-04-12] MEDS ORDERED: Senokot S 8.6-50 MG TAB PO PRN (20:53)
[2020-04-12] MEDS ORDERED: Loperamide HCl 2 MG CAP PO PRN (20:53)
[2020-04-12] MEDS ORDERED: Sodium Chloride 0.65% Nasal 44 ML BOT EA NARE PRN (20:53)
[2020-04-12] MEDS ORDERED: Calcium Carbonate 500 MG ChewTAB PO PRN (20:53)
[2020-04-12] MEDS ORDERED: Cepastat Lozenges 1 LOZ PO PRN (20:53)
[2020-04-12] MEDS ORDERED: Loratadine 10 MG TAB PO PRN (20:53)
[2020-04-12] MEDS ORDERED: Ondansetron PF 4 MG/2 ML Vial IVP PRN (20:53)
[2020-04-12] MEDS ORDERED: Enoxaparin Sodium 100 MG/ML SYRINGE ONE (20:58)
[2020-04-12] MEDS ORDERED: Apixaban 5 MG TAB PO SCH (21:00)
[2020-04-12] MEDS ORDERED: Lorazepam 2 MG/ML VIAL SLOW IVP SCH (21:00)
[2020-04-13 00:05] VITALS: BMI 25.2
[2020-04-13] MEDS ORDERED: Apixaban 5 MG TAB PO SCH ×2 (01:15→09:00)
[2020-04-13] MEDS: methylPREDNISolone Sod Succ/PF 125 MG/2 ML VIAL IVP SCH ×3 (01:31→09:05)
[2020-04-13 04:56] LABS: #Lymphocytes 0.8 thou/uL (1.20-3.40); #Monocytes 0.1 thou/uL (0.11-0.59); #Neutrophils 5.2 thou/uL (1.40-6.50); %Basophils 0.5 % (0.0-1.0); %Eosinophils 0.1 % (0.0-10.0); %Lymphocytes 13.7 % (21.0-51.0); %Monocytes 1.7 % (0.0-10.0); %Neutrophils 84.1 % (42.0-75.0); Hemoglobin 12.1 g/dL (12.0-16.0); Mean Corpuscular HGB CONC 30.8 g/dL (32.0-36.0); Mean Corpuscular Hemoglobin 28.1 pg (27.0-31.0); Mean Corpuscular Volume 91.2 fL (78.0-98.0); Mean Platelet Volume 7.6 fL (7.4-10.4); Platelet Count 282 thou/uL (130-400); RBC Distribution Width 16.3 % (11.5-14.5); Red Blood Cell (RBC) Count 4.29 mill/uL (4.20-5.40); White Blood Cell (WBC) Count 6.2 thou/uL (4.8-10.8)
[2020-04-13 05:20] LABS: ALT (SGPT) 85 U/L (8-55); AST (SGOT) 36 U/L (5-34); Albumin 3.6 g/dL (3.4-4.8); Alkaline Phosphatase 120 U/L (40-110); Anion Gap 14 mmol/L (10-20); BUN (Urea Nitrogen) 8 mg/dL (9.8-20.1); Bilirubin, Total 0.3 mg/dL (0.2-1.2); Calc. Creatinine Clearance 75 mL/min (70-130); Calcium 8.8 mg/dL (7.8-10.44); Carbon Dioxide 31 mmol/L (23-31); Chloride 98 mmol/L (98-107); Globulin 3.4 g/dL (2.4-3.5); Glucose 219 mg/dL (80-115); Potassium 4.2 mmol/L (3.5-5.1); Sodium 139 mmol/L (136-145)
[2020-04-13] MEDS ORDERED: Mometasone 200 MCG/Formoterol 5 MCG 120 PUFF INHALER INH SCH (06:30)
--- NOTE | 2020-04-13 08:37 | PDOC.FM ---
- Subjective Subjective: Patient is feeling better this AM. At baseline. On home O2 level of 2LPM. She asks for some prednisone and the shot for arthritis pain. Denies pain on urination. - Objective MAR Reviewed: Yes Vital Signs & Weight: Vital Signs (12 hours) Temp Pulse Resp BP Pulse Ox 04/13/20 07:55 98.2 F 108 H 19 107/85 99 04/13/20 06:59 102 H 16 94 L 04/13/20 06:56 102 H 20 94 L 04/13/20 03:57 97.5 F L 100 20 129/71 100 04/13/20 02:23 103 H 12 04/13/20 00:10 97 04/12/20 23:30 98.6 F 107 H 16 116/59 L 97 04/12/20 23:16 98 Weight Weight 56.245 kg I&O: 04/12/20 04/13/20 04/14/20 06:59 06:59 06:59 Intake Total 0 Balance 0 Result Diagrams: 04/13/20 04:24 04/13/20 04:24 Phys Exam - Physical Examination Constitutional: NAD Respiratory: no wheezing, clear to auscultation bilateral Cardiovascular: RRR, no significant murmur Gastrointestinal: soft, non-tender, no distention Musculoskeletal: no edema, pulses present Psychiatric: normal affect, A&O x 3 Dx/Plan - Plan Plan: COPD exacerbation - resolved. Switch to PO prednisone burst. - continue duoNebs. - restart home meds. - finish azithromycin Asymptomatic bacteriuria - received 1 g rocephin in ED - will await cultures and send PO abx if returns positive. - urinalysis w/ WBC, LE, and bacteria without squamous cells For her chronic arthritis pain, will give 1 IM dose of toradol 30 mg. Dispo: plan for discharge today. Will send w/ standard COPD meds. F/U w/ PCP sometime this week or early next week. Addendum - Attending - Attending Attestation Date/Time: 04/13/20 1113 I personally evaluated the patient and discussed the management with Dr. Forbes. I agree with the History, Examination, Assessment and Plan documented above with any addition or exceptions noted below. Patient improved. She typically makes quick turnarounds during her COPD exacerbations. She never required extra o2 on top of her baseline O2 requirement. She is feeling better today and is stable for discharge home with steroid taper. No indication or need for further antimicrobials.
[2020-04-13] MEDS ORDERED: Azithromycin 250 MG TAB PO SCH (09:00)
[2020-04-13] MEDS ORDERED: Enoxaparin Sodium 40 MG/0.4 ML SYRINGE SC SCH (09:00)
[2020-04-13] MEDS ORDERED: Amitriptyline HCl 25 MG TAB PO SCH (09:00)
[2020-04-13] MEDS ORDERED: Citalopram 10 MG TAB PO SCH (09:00)
[2020-04-13] MEDS ORDERED: Amlodipine 5 MG TAB PO SCH (09:00)
[2020-04-13] MEDS ORDERED: Aspirin 81 mg Enteric Coated Tablet PO SCH (09:00)
[2020-04-13] MEDS ORDERED: FLU VACC QS2020-21(6MOS UP)/PF 60 MCG/0.5 ML SYRINGE IM ONE (09:00)
[2020-04-13] MEDS ORDERED: Gabapentin 300 MG CAP PO SCH (09:00)
[2020-04-13] MEDS ORDERED: predniSONE 50 MG TAB PO SCH (09:45)
[2020-04-13] MEDS ORDERED: Ketorolac Tromethamine 30 MG/ML VIAL IM SCH (10:00)
[2020-04-13] MEDS: Insulin Glargine 20 UNITS in Pre-Filled Syringe 1 EACH SC SCH ×2 (11:13→11:38)
[2020-04-13 11:44] VITALS: BP 128/62; TEMP 98.5
[2020-04-13] MEDS ORDERED: HumaLOG 300 UNITS/3 ML VIAL SC SCH (11:45)
[2020-04-13] MEDS ORDERED: cefTRIAXone\\ROCEPHIN 1 GM in Sodium Chloride 0.9% 100 ML IVPB SCH (12:00)
[2020-04-13] MEDS ORDERED: OLANZapine 5 MG TAB PO SCH (21:00)
[2020-04-14] MEDS ORDERED: predniSONE 50 MG TAB PO SCH (08:00)
--- NOTE | 2020-04-15 08:53 | DIS ---
DATE OF ADMISSION: 04/12/2020 DATE OF DISCHARGE: 04/13/2020 RESIDENT: Laurence Forbes MD DISCHARGE ATTENDING: Jeyson Eden MD PROCEDURES: 1. Chest x-ray. 2. CT angio of the chest. PRIMARY DIAGNOSES: 1. Chronic obstructive pulmonary disease exacerbation. 2. Asymptomatic bacteriuria, ruled out. SECONDARY DIAGNOSES: 1. Chronic obstructive pulmonary disease. 2. Chronic respiratory failure on 2 L of home oxygen. 3. History of pulmonary embolism in 2010. 4. Hypertension. 5. Polysubstance abuse. 6. Chronic hep C. 7. Bipolar disorder. 8. Schizophrenia. 9. Osteoporosis. 10. Chronic low back pain. 11. Medication noncompliance. 12. Type 2 diabetes mellitus. DISCHARGE MEDICATIONS: 1. DuoNeb 3 mL nebulizer q.4 hours p.r.n. 2. Aspirin 81 mg p.o. daily. 3. Amitriptyline 25 mg p.o. daily. 4. Lantus 20 units subcu every morning. 5. Prednisone 50 mg p.o. every morning with breakfast for 5 days. 6. Tessalon Perles 100 mg p.o. q.6 hours p.r.n. 7. Azithromycin 250 mg p.o. daily x3 days. 8. Symbicort one puff inhalation twice daily. 9. Citalopram 10 mg p.o. daily. 10. Amlodipine 5 mg p.o. daily. 11. Gabapentin 600 mg p.o. t.i.d. 12. Spiriva 2 inhalations daily. 13. Albuterol 1 puff inhalation q.4 hours p.r.n. 14. Apixaban 5 mg p.o. twice daily. 15. Olanzapine 10 mg p.o. at bedtime. 16. Tenofovir 300 mg p.o. daily. 17. Trazodone 50 mg p.o. at bedtime. 18. Hydroxyzine 25 mg p.o. daily. 19. Nitroglycerin 0.4 mg sublingual q.5 minutes p.r.n. 20. Metformin 1000 mg p.o. twice daily with meals. DISCONTINUED MEDICATIONS: None. HISTORY OF PRESENT ILLNESS AND HOSPITAL COURSE: This 65-year-old female, who is a patient at [facility] and [facility], was inadvertently admitted to the Hospitalist group on 04/12/2020. She was sent from the clinic from tachycardia and was having generalized weakness and shortness of breath. The patient's urine drug screen was positive for benzodiazepines and tricyclics. The patient's D-dimer was elevated; so she had a CT angio, which was negative for pulmonary embolism. The patient is on chronic anticoagulation. In the emergency room, the patient was given Rocephin 1 g, dexamethasone 10 mg, magnesium sulfate 2 g, azithromycin 500 mg p.o., DuoNebs and albuterol nebulizers. The patient made a very quick turnaround; and on the day after admission, she was on her baseline 2 L of home oxygen and asking for some prednisone to go home. She also asked for a shot of Toradol for her arthritis pain. The patient's labs on her stay were overwhelmingly normal. Initially, urinalysis was indicative of urinary tract infection; however, the final culture had no growth at 24 hours. The patient had received 1 g of Rocephin on admission. The patient was asymptomatic with regard to the urination. The patient made a quicker than expected turnaround given her initial presentation. She was sent home with a steroid taper and to continue her baseline oxygen requirements. DISCHARGE INSTRUCTIONS: 1. Discharge location: Home. 2. Activity: As tolerated. 3. Diet: Heart healthy and diabetic diet. 4. Oxygen 2 L/minute. 5. Follow up with [facility]. Job ID: [id number] MTDD
== END 2020-04-13 13:10 | disposition home or self-care (01) | DRG 191 ==
LOC: ERS 12:09 → ERHOLD 17:29 → 2NO 23:21
PROVIDERS: ADMIT Internal Medicine; ATTEND Internal Medicine
DX: J44.1 Chronic obstructive pulmonary disease with (acute) exacerbation (principal); J96.11 Chronic respiratory failure with hypoxia; Z20.828 Contact with and (suspected) exposure to other viral communicable diseases; B18.2 Chronic viral hepatitis C; F31.9 Bipolar disorder, unspecified; F20.9 Schizophrenia, unspecified; M19.90 Unspecified osteoarthritis, unspecified site; M54.5 Low back pain; I25.10 Atherosclerotic heart disease of native coronary artery without angina pectoris; F17.210 Nicotine dependence, cigarettes, uncomplicated; F19.10 Other psychoactive substance abuse, uncomplicated; I10 Essential (primary) hypertension; R82.71 Bacteriuria; E11.9 Type 2 diabetes mellitus without complications; Z91.14 Patient's other noncompliance with medication regimen; Z95.1 Presence of aortocoronary bypass graft; Z90.710 Acquired absence of both cervix and uterus; Z91.19 Patient's noncompliance with other medical treatment and regimen; Z86.711 Personal history of pulmonary embolism; Z79.01 Long term (current) use of anticoagulants; Z99.81 Dependence on supplemental oxygen; Z88.5 Allergy status to narcotic agent; Z79.82 Long term (current) use of aspirin; Z79.52 Long term (current) use of systemic steroids; Z79.51 Long term (current) use of inhaled steroids; Z79.84 Long term (current) use of oral hypoglycemic drugs; Z79.899 Other long term (current) drug therapy
CPT/HCPCS: 36415; 36416; 51701; 71045; 71275; 80053; 80306; 81003; 81015; 83605; 83690; 83880; 84145; 84484; 85025; 85379; 85610; 85730; 87086; 93005; 94640; 94664; 94760; 96365; 96367; 96375; J0696; J1100; J1650; J1815; J1885; J2060; J2930; J3475; J7512; J7620; Q9967; U0002

== ENCOUNTER 2020-05-14 11:01 | Emergency (ER) | payer OTHER ==
[2020-05-14 11:38] LABS: #Eosinphils 0.2 thou/uL (0.0-0.7); #Monocytes 0.4 thou/uL (0.11-0.59); #Neutrophils 1.9 thou/uL (1.40-6.50); %Basophils 0.5 % (0.0-1.0); %Eosinophils 3.6 % (0.0-10.0); %Lymphocytes 44.9 % (21.0-51.0); %Monocytes 8.8 % (0.0-10.0); %Neutrophils 42.3 % (42.0-75.0); Hemoglobin 12.7 g/dL (12.0-16.0); Mean Corpuscular HGB CONC 31.8 g/dL (32.0-36.0); Mean Corpuscular Hemoglobin 29.2 pg (27.0-31.0); Mean Corpuscular Volume 91.9 fL (78.0-98.0); Mean Platelet Volume 6.8 fL (7.4-10.4); Platelet Count 297 thou/uL (130-400); RBC Distribution Width 15.1 % (11.5-14.5); Red Blood Cell (RBC) Count 4.33 mill/uL (4.20-5.40); White Blood Cell (WBC) Count 4.5 thou/uL (4.8-10.8)
[2020-05-14 12:12] LABS: ALT (SGPT) 24 U/L (8-55); AST (SGOT) 26 U/L (5-34); Alkaline Phosphatase 119 U/L (40-110); Anion Gap 11 mmol/L (10-20); BUN (Urea Nitrogen) 6 mg/dL (9.8-20.1); Bilirubin, Total 0.5 mg/dL (0.2-1.2); Calc. Creatinine Clearance 0 mL/min (70-130); Calcium 8.9 mg/dL (7.8-10.44); Carbon Dioxide 37 mmol/L (23-31); Chloride 95 mmol/L (98-107); Globulin 3.4 g/dL (2.4-3.5); Glucose 99 mg/dL (80-115); Potassium 3.2 mmol/L (3.5-5.1); Protein, Total 7.4 g/dL (6.0-8.3); Sodium 140 mmol/L (136-145)
[2020-05-14] MEDS ORDERED: Lorazepam 2 MG/ML VIAL ONE (12:36)
[2020-05-14] MEDS ORDERED: Lorazepam 1 MG TAB ONE (12:39)
[2020-05-14 12:49] LABS: Bacteria/HPF None Seen HPF (None Seen); Bilirubin Negative (Negative); Clarity Clear (Clear); Glucose, Urine (Dipstick) Normal (Negative); Ketone, Urine Negative (Negative); Leukocyte 250 Leu/uL (Negative); Mucous/LPF 1+ LPF (<2+); Nitrite Negative (Negative); Protein, Urine (Dipstick) Negative (Neg-Trace); Squamous Epithelial 0-3 HPF (0-3); Urobilinogen Normal mg/dL (Less than 2)
[2020-05-14 12:51] LABS: Benzodiazepine Screen Detected (NotDetected); Medtox Reader # READER 1
[2020-05-14 12:52] LABS: Amphetamine Not Detected (NotDetected); Barbiturates Screen Not Detected (NotDetected); Blood, Urine Small (Negative); Cocaine Metabolite Screen Not Detected (NotDetected); Medtox Control Line Valid? VALID (VALID); Methadone Not Detected (NotDetected); Methamphetamine Not Detected (NotDetected); Opiate Screen Not Detected (NotDetected); Oxycodone Screen Not Detected (NotDetected); Phencyclidine (PCP) Not Detected (NotDetected); THC/Cannabinoid Screen Not Detected (NotDetected); Tricyclic Screen Not Detected (NotDetected)
[2020-05-14 13:56] LABS: Acetaminophen Less than 6.0 mcg/mL (10.0-30.0); Alcohol Less than 10 mg/dL (Less than 10); Salicylate Less than 8.0 mg/dL (15.0-30.0)
[2020-05-14] MEDS ORDERED: Nitrofurantoin Monohyd/M-Cryst 100 MG CAP PO SCH (15:30)
[2020-05-14] MEDS ORDERED: risperiDONE 1 MG TAB ONE (21:27)
== END 2020-05-15 09:22 ==
LOC: ERS 11:01
DX: F20.0 Paranoid schizophrenia (principal); I25.10 Atherosclerotic heart disease of native coronary artery without angina pectoris; E11.40 Type 2 diabetes mellitus with diabetic neuropathy, unspecified; J44.9 Chronic obstructive pulmonary disease, unspecified; I50.9 Heart failure, unspecified; Z86.711 Personal history of pulmonary embolism; Z86.73 Personal history of transient ischemic attack (TIA), and cerebral infarction without residual deficits; Z77.22 Contact with and (suspected) exposure to environmental tobacco smoke (acute) (chronic); Z79.82 Long term (current) use of aspirin; Z79.51 Long term (current) use of inhaled steroids; Z79.4 Long term (current) use of insulin; Z79.899 Other long term (current) drug therapy
CPT/HCPCS: 36415; 80053; 80306; 80307; 81003; 81015; 85025; 87086; J2060

== ENCOUNTER 2020-05-28 00:10 | Emergency (ER) | payer OTHER ==
[2020-05-28] MEDS ORDERED: hydrOXYzine 25 MG TAB ONE (00:49)
== END 2020-05-28 01:10 | disposition home or self-care (01) ==
LOC: ERS 00:10
DX: F41.9 Anxiety disorder, unspecified (principal); E11.9 Type 2 diabetes mellitus without complications; J44.9 Chronic obstructive pulmonary disease, unspecified; Z86.718 Personal history of other venous thrombosis and embolism; Z86.73 Personal history of transient ischemic attack (TIA), and cerebral infarction without residual deficits; I50.9 Heart failure, unspecified; Z77.22 Contact with and (suspected) exposure to environmental tobacco smoke (acute) (chronic); Z79.82 Long term (current) use of aspirin; Z79.84 Long term (current) use of oral hypoglycemic drugs; Z79.01 Long term (current) use of anticoagulants; Z79.899 Other long term (current) drug therapy
CPT/HCPCS: 99284

== ENCOUNTER 2020-05-30 23:28 | Emergency (ER) | payer OTHER ==
[2020-05-30] MEDS ORDERED: Acetaminophen 500 MG TAB ONE (23:50)
[2020-05-31 06:56] LABS: SARS-CoV-2 PCR by NAA Not Detected (NotDetected)
== END 2020-05-30 23:56 | disposition home or self-care (01) ==
LOC: ERS 23:28
DX: M54.5 Low back pain (principal); G89.29 Other chronic pain; Z86.718 Personal history of other venous thrombosis and embolism; I25.10 Atherosclerotic heart disease of native coronary artery without angina pectoris; I50.9 Heart failure, unspecified; Z86.73 Personal history of transient ischemic attack (TIA), and cerebral infarction without residual deficits; Z20.822 Contact with and (suspected) exposure to COVID-19
CPT/HCPCS: 87635; 99283; U0003; U0005

== ENCOUNTER 2020-06-06 11:45 | Emergency (ER) | payer OTHER ==
[2020-06-06 12:21] LABS: Bacteria/HPF None Seen HPF (None Seen); Bilirubin Negative (Negative); Blood, Urine 2+ (Negative); Clarity Clear (Clear); Glucose, Urine (Dipstick) Normal (Negative); Ketone, Urine Negative (Negative); Leukocyte 25 Leu/uL (Negative); Nitrite Negative (Negative); Protein, Urine (Dipstick) Negative (Neg-Trace); RBC/HPF 21-50 HPF (0-3); Specific Gravity, Urine 1.005 (1.002-1.036); Squamous Epithelial 0-3 HPF (0-3); Urobilinogen Normal mg/dL (Less than 2); WBC/HPF 0-3 HPF (0-3); pH, Urine 7.5 (5.0-9.0)
== END 2020-06-06 12:59 | disposition home or self-care (01) ==
LOC: ERS 11:45
DX: R30.0 Dysuria (principal); E11.9 Type 2 diabetes mellitus without complications; J43.9 Emphysema, unspecified; Z86.73 Personal history of transient ischemic attack (TIA), and cerebral infarction without residual deficits
CPT/HCPCS: 51701; 81003; 81015; 87086; 94760

== ENCOUNTER 2020-06-16 14:50 | Emergency (ER) | payer OTHER ==
[2020-06-16 15:21] LABS: #Basophils 0.1 thou/uL (0.0-0.2); #Eosinphils 0.2 thou/uL (0.0-0.7); #Lymphocytes 2.4 thou/uL (1.20-3.40); #Monocytes 0.5 thou/uL (0.11-0.59); %Lymphocytes 29.5 % (21.0-51.0); %Monocytes 6.1 % (0.0-10.0); %Neutrophils 61.4 % (42.0-75.0); Hemoglobin 10.9 g/dL (12.0-16.0); Mean Corpuscular HGB CONC 32.1 g/dL (32.0-36.0); Mean Corpuscular Hemoglobin 30.3 pg (27.0-31.0); Mean Corpuscular Volume 94.3 fL (78.0-98.0); Mean Platelet Volume 6.3 fL (7.4-10.4); Platelet Count 282 thou/uL (130-400); RBC Distribution Width 13.3 % (11.5-14.5); Red Blood Cell (RBC) Count 3.61 mill/uL (4.20-5.40); White Blood Cell (WBC) Count 8.2 thou/uL (4.8-10.8)
[2020-06-16 15:43] LABS: ALT (SGPT) 21 U/L (8-55); AST (SGOT) 22 U/L (5-34); Albumin 3.8 g/dL (3.4-4.8); Alkaline Phosphatase 108 U/L (40-110); Anion Gap 13 mmol/L (10-20); BUN (Urea Nitrogen) 6 mg/dL (9.8-20.1); Bilirubin, Total 0.4 mg/dL (0.2-1.2); Calc. Creatinine Clearance 0 mL/min (70-130); Calcium 9.2 mg/dL (7.8-10.44); Carbon Dioxide 32 mmol/L (23-31); Chloride 99 mmol/L (98-107); Globulin 2.8 g/dL (2.4-3.5); Glucose 87 mg/dL (80-115); Protein, Total 6.6 g/dL (5.8-8.1); Sodium 140 mmol/L (136-145)
[2020-06-16 15:49] LABS: Bilirubin Negative (Negative); Blood, Urine 3+ (Negative); Clarity Clear (Clear); Glucose, Urine (Dipstick) Normal (Negative); Ketone, Urine Negative (Negative); Leukocyte Negative Leu/uL (Negative); Nitrite 1+ (Negative); Protein, Urine (Dipstick) 10 mg/dL (Neg-Trace); RBC/HPF Greater than 50 HPF (0-3); Specific Gravity, Urine 1.011 (1.002-1.036); Squamous Epithelial None Seen HPF (0-3); pH, Urine 7.5 (5.0-9.0)
[2020-06-16 15:50] LABS: Bacteria/HPF 1+ HPF (None Seen)
[2020-06-16] MEDS ORDERED: Dexamethasone 10 MG/ML VIAL ONE (16:30)
== END 2020-06-16 16:35 | disposition home or self-care (01) ==
LOC: ERS 14:50
DX: N39.0 Urinary tract infection, site not specified (principal); E11.40 Type 2 diabetes mellitus with diabetic neuropathy, unspecified; J43.9 Emphysema, unspecified; Z86.711 Personal history of pulmonary embolism; Z86.718 Personal history of other venous thrombosis and embolism; I25.10 Atherosclerotic heart disease of native coronary artery without angina pectoris; I50.9 Heart failure, unspecified; Z86.73 Personal history of transient ischemic attack (TIA), and cerebral infarction without residual deficits; Z77.22 Contact with and (suspected) exposure to environmental tobacco smoke (acute) (chronic)
CPT/HCPCS: 36415; 51701; 80053; 81003; 81015; 85025; J1100

== ENCOUNTER 2020-07-02 23:30 | Emergency (ER) | payer OTHER ==
[2020-07-03 00:22] LABS: #Eosinphils 0.1 thou/uL (0.0-0.7); #Lymphocytes 1.9 thou/uL (1.20-3.40); #Monocytes 0.7 thou/uL (0.11-0.59); #Neutrophils 7.6 thou/uL (1.40-6.50); %Basophils 0.2 % (0.0-1.0); %Eosinophils 0.6 % (0.0-10.0); %Lymphocytes 18.4 % (21.0-51.0); %Monocytes 6.9 % (0.0-10.0); %Neutrophils 73.9 % (42.0-75.0); Hemoglobin 11.5 g/dL (12.0-16.0); Mean Corpuscular HGB CONC 33.5 g/dL (32.0-36.0); Mean Corpuscular Hemoglobin 31.4 pg (27.0-31.0); Mean Corpuscular Volume 93.7 fL (78.0-98.0); Mean Platelet Volume 6.2 fL (7.4-10.4); Platelet Count 330 thou/uL (130-400); RBC Distribution Width 12.7 % (11.5-14.5); Red Blood Cell (RBC) Count 3.67 mill/uL (4.20-5.40); White Blood Cell (WBC) Count 10.3 thou/uL (4.8-10.8)
[2020-07-03 00:43] LABS: ALT (SGPT) 93 U/L (8-55); AST (SGOT) 44 U/L (5-34); Albumin 3.8 g/dL (3.4-4.8); Alkaline Phosphatase 147 U/L (40-110); Anion Gap 12 mmol/L (10-20); BUN (Urea Nitrogen) 12 mg/dL (9.8-20.1); Bilirubin, Total 0.4 mg/dL (0.2-1.2); Calc. Creatinine Clearance 0 mL/min (70-130); Calcium 9.2 mg/dL (7.8-10.44); Carbon Dioxide 30 mmol/L (23-31); Chloride 102 mmol/L (98-107); Globulin 3.2 g/dL (2.4-3.5); Glucose 117 mg/dL (80-115); Potassium 3.4 mmol/L (3.5-5.1); Sodium 141 mmol/L (136-145)
[2020-07-03] MEDS ORDERED: Dexamethasone 10 MG/ML VIAL ONE (01:06)
--- NOTE | 2020-07-03 08:47 | RAD ---
EXAM: XR Chest Pa Lat STANDARD PROVIDED CLINICAL HISTORY: Cough, atrial fibrillation, shortness of breath COMPARISON: 11/28/2019 FINDINGS: Cardiac and mediastinal silhouette is unchanged in appearance. The lung parenchyma appears hyperlucen t in the lungs are hyperinflated, similar to prior. Multiple thoracic compression deformities are redemonstrated. There is no pleural fluid or pneumothorax apparent. IMPRESSION: Stable radiographic appearance of the chest.
--- NOTE | 2020-07-03 08:49 | CT ---
PRELIMINARY REPORT/[facility]/EMERGENCY AFTER HOURS PROCEDURE EXAM: CT Head Without Intravenous Contrast. CLINICAL HISTORY: BYERS. PT CONTINUED TO MAKE SMALL MOVEMENTS WITH HEAD DURING SCAN AFTER MULTIPLE REQUESTS TO STOP TECHNIQUE: Axial computed tomography images of the head/brain without intravenous contrast. COMPARISON: CT\SR - CT BRAIN WO CON - 03/31/2019 10:39 PM LEGAL RESEARCHER FINDINGS: Limited by motion. BRAIN: Mild white matter change. No acute intraparenchymal hemorrhage. No mass lesion. No CT evidence for acute territorial infarct. N o midline shift or extra-axial collection. VENTRICLES: No hydrocephalus. ORBITS: The orbits are unremarkable. SINUSES AND MASTOIDS: The paranasal sinuses and mastoid air cells are clear. SOFT TISSUES: No significant facial or scalp soft tissue swelling evident. No radiopaque foreign body is seen. BONES: No acute skull fracture. IMPRESSION: No acute intracranial abnormality. ELECTRONICALLY SIGNED BY: Rossana Christine MD Jul 03, 2020 12:42:33 AM LEGAL RESEARCHER This report is intended for review by the ordering physician only, in accordance of law. If you recei ve this report in error, please call [facility] at [phone]. FINAL REPORT FINAL REPORT: CT brain PROVIDED CLINICAL HISTORY: Headache COMPARISON: 03/31/2019 FINDINGS/IMPRESSION: Agree with the preliminary interpretation given by [facility]. Transcribed Date/Time: 07/03/2020 9:16 AM
== END 2020-07-03 01:47 | disposition home or self-care (01) ==
LOC: ERS 23:30
DX: J44.1 Chronic obstructive pulmonary disease with (acute) exacerbation (principal); E11.40 Type 2 diabetes mellitus with diabetic neuropathy, unspecified; I50.9 Heart failure, unspecified; Z86.718 Personal history of other venous thrombosis and embolism; Z86.711 Personal history of pulmonary embolism; Z86.73 Personal history of transient ischemic attack (TIA), and cerebral infarction without residual deficits; I25.10 Atherosclerotic heart disease of native coronary artery without angina pectoris; Z77.22 Contact with and (suspected) exposure to environmental tobacco smoke (acute) (chronic); Z79.899 Other long term (current) drug therapy; Z79.4 Long term (current) use of insulin; Z79.01 Long term (current) use of anticoagulants; Z79.82 Long term (current) use of aspirin
CPT/HCPCS: 36415; 70450; 71046; 80053; 83880; 84484; 85025; 93005; 94640; 94760; 96374; J1100; J7620

== ENCOUNTER 2020-07-25 12:39 | Emergency (ER) | payer OTHER ==
[2020-07-25 13:34] LABS: Bilirubin Negative (Negative); Blood, Urine Negative (Negative); Clarity Clear (Clear); Glucose, Urine (Dipstick) Normal (Negative); Ketone, Urine Negative (Negative); Leukocyte 500 Leu/uL (Negative); Nitrite Negative (Negative); Protein, Urine (Dipstick) Negative (Neg-Trace); RBC/HPF 0-3 HPF (0-3); Specific Gravity, Urine 1.008 (1.002-1.036); Squamous Epithelial 0-3 HPF (0-3); Urobilinogen Normal mg/dL (Less than 2); pH, Urine 6.5 (5.0-9.0)
[2020-07-25 13:35] LABS: Bacteria/HPF Rare-Few HPF (None Seen)
== END 2020-07-25 14:32 | disposition home or self-care (01) ==
LOC: ERS 12:39
DX: N39.0 Urinary tract infection, site not specified (principal); J43.9 Emphysema, unspecified; I25.10 Atherosclerotic heart disease of native coronary artery without angina pectoris; I50.9 Heart failure, unspecified; E11.40 Type 2 diabetes mellitus with diabetic neuropathy, unspecified; M81.0 Age-related osteoporosis without current pathological fracture; Z86.73 Personal history of transient ischemic attack (TIA), and cerebral infarction without residual deficits; Z87.442 Personal history of urinary calculi
CPT/HCPCS: 51701; 81003; 81015; 87086

== ENCOUNTER 2020-07-26 12:19 | Emergency (ER) | payer OTHER | END 2020-07-26 14:39 | disposition home or self-care (01) | LOC: ERS 12:19 | DX: R06.2 Wheezing (principal); J43.9 Emphysema, unspecified; I50.9 Heart failure, unspecified; E11.21 Type 2 diabetes mellitus with diabetic nephropathy; Z86.73 Personal history of transient ischemic attack (TIA), and cerebral infarction without residual deficits; Z86.718 Personal history of other venous thrombosis and embolism; Z77.22 Contact with and (suspected) exposure to environmental tobacco smoke (acute) (chronic) | CPT/HCPCS: 93005 ==

== ENCOUNTER 2020-08-02 12:24 | Outpatient (CLI) | payer OTHER | END 2020-08-02 12:25 | disposition home or self-care (01) | LOC: BICCT 12:24 | PROVIDERS: ATTEND Urology | DX: N20.0 Calculus of kidney (principal); R39.14 Feeling of incomplete bladder emptying; G89.29 Other chronic pain; K57.30 Diverticulosis of large intestine without perforation or abscess without bleeding; S22.079A Unspecified fracture of T9-T10 vertebra, initial encounter for closed fracture; S22.089A Unspecified fracture of T11-T12 vertebra, initial encounter for closed fracture; S32.011A Stable burst fracture of first lumbar vertebra, initial encounter for closed fracture; K76.9 Liver disease, unspecified | CPT/HCPCS: 74178; 82565; Q9967 ==

== ENCOUNTER 2020-08-03 15:25 | Emergency (ER) | payer OTHER ==
[2020-08-03] MEDS ORDERED: Dexamethasone 10 MG/ML VIAL ONE (19:53)
== END 2020-08-03 21:45 | disposition home or self-care (01) ==
LOC: ERS 15:25
DX: R06.02 Shortness of breath (principal); E11.40 Type 2 diabetes mellitus with diabetic neuropathy, unspecified; J43.9 Emphysema, unspecified; I50.9 Heart failure, unspecified; I25.10 Atherosclerotic heart disease of native coronary artery without angina pectoris; Z86.711 Personal history of pulmonary embolism; Z86.718 Personal history of other venous thrombosis and embolism; Z86.73 Personal history of transient ischemic attack (TIA), and cerebral infarction without residual deficits; Z77.22 Contact with and (suspected) exposure to environmental tobacco smoke (acute) (chronic)
CPT/HCPCS: 71045; 94664; J1100; J7620

== ENCOUNTER 2020-08-15 13:01 | Emergency (ER) | payer OTHER ==
[2020-08-15 14:28] LABS: #Eosinphils 0.2 thou/uL (0.0-0.7); #Lymphocytes 1.7 thou/uL (1.20-3.40); #Monocytes 0.4 thou/uL (0.11-0.59); #Neutrophils 5.6 thou/uL (1.40-6.50); %Basophils 0.1 % (0.0-1.0); %Eosinophils 2.6 % (0.0-10.0); %Lymphocytes 21.3 % (21.0-51.0); %Monocytes 5.3 % (0.0-10.0); %Neutrophils 70.7 % (42.0-75.0); Hemoglobin 12.7 g/dL (12.0-16.0); Mean Corpuscular HGB CONC 31.9 g/dL (32.0-36.0); Mean Corpuscular Hemoglobin 31.3 pg (27.0-31.0); Mean Corpuscular Volume 98.1 fL (78.0-98.0); Mean Platelet Volume 6.5 fL (7.4-10.4); Platelet Count 287 thou/uL (130-400); RBC Distribution Width 12.8 % (11.5-14.5); Red Blood Cell (RBC) Count 4.07 mill/uL (4.20-5.40); White Blood Cell (WBC) Count 7.9 thou/uL (4.8-10.8)
[2020-08-15 14:46] LABS: ALT (SGPT) 18 U/L (8-55); AST (SGOT) 20 U/L (5-34); Albumin 3.6 g/dL (3.4-4.8); Alkaline Phosphatase 131 U/L (40-110); Anion Gap 13 mmol/L (10-20); BUN (Urea Nitrogen) 12 mg/dL (9.8-20.1); Bilirubin, Total 0.5 mg/dL (0.2-1.2); Calc. Creatinine Clearance 0 mL/min (70-130); Calcium 9.1 mg/dL (7.8-10.44); Carbon Dioxide 27 mmol/L (23-31); Chloride 102 mmol/L (98-107); Globulin 3.2 g/dL (2.4-3.5); Glucose 128 mg/dL (80-115); Potassium 3.8 mmol/L (3.5-5.1); Protein, Total 6.8 g/dL (5.8-8.1); Sodium 138 mmol/L (136-145)
[2020-08-15 15:36] LABS: Bacteria/HPF None Seen HPF (None Seen); Bilirubin Negative (Negative); Blood, Urine Negative (Negative); Clarity Clear (Clear); Glucose, Urine (Dipstick) Normal (Negative); Ketone, Urine Negative (Negative); Leukocyte 75 Leu/uL (Negative); Nitrite Negative (Negative); Protein, Urine (Dipstick) Negative (Neg-Trace); Specific Gravity, Urine 1.015 (1.002-1.036); Squamous Epithelial 0-3 HPF (0-3); Urobilinogen Normal mg/dL (Less than 2)
== END 2020-08-15 16:43 | disposition home or self-care (01) ==
LOC: ERS 13:01
DX: R06.02 Shortness of breath (principal); R30.0 Dysuria; E11.9 Type 2 diabetes mellitus without complications; J43.9 Emphysema, unspecified; I50.9 Heart failure, unspecified; Z86.73 Personal history of transient ischemic attack (TIA), and cerebral infarction without residual deficits; Z79.84 Long term (current) use of oral hypoglycemic drugs; Z79.899 Other long term (current) drug therapy
CPT/HCPCS: 36415; 71045; 80053; 81003; 81015; 84484; 85025; 87086; 93005

== ENCOUNTER 2020-08-30 16:32 | Emergency (ER) | payer OTHER ==
[2020-08-30 17:20] LABS: #Eosinphils 0.1 thou/uL (0.0-0.7); #Lymphocytes 1.8 thou/uL (1.20-3.40); #Monocytes 0.5 thou/uL (0.11-0.59); #Neutrophils 2.7 thou/uL (1.40-6.50); %Basophils 0.7 % (0.0-1.0); %Eosinophils 2.9 % (0.0-10.0); %Lymphocytes 35.1 % (21.0-51.0); %Monocytes 9.6 % (0.0-10.0); %Neutrophils 51.7 % (42.0-75.0); Hemoglobin 13.3 g/dL (12.0-16.0); Mean Corpuscular HGB CONC 32.7 g/dL (32.0-36.0); Mean Corpuscular Hemoglobin 30.6 pg (27.0-31.0); Mean Corpuscular Volume 93.5 fL (78.0-98.0); Mean Platelet Volume 6.4 fL (7.4-10.4); Platelet Count 277 thou/uL (130-400); RBC Distribution Width 12.1 % (11.5-14.5); Red Blood Cell (RBC) Count 4.35 mill/uL (4.20-5.40); White Blood Cell (WBC) Count 5.2 thou/uL (4.8-10.8)
[2020-08-30 17:44] LABS: ALT (SGPT) 19 U/L (8-55); AST (SGOT) 20 U/L (5-34); Albumin 4.1 g/dL (3.4-4.8); Alkaline Phosphatase 128 U/L (40-110); Anion Gap 11 mmol/L (10-20); BUN (Urea Nitrogen) 7 mg/dL (9.8-20.1); Bilirubin, Total 0.7 mg/dL (0.2-1.2); Calc. Creatinine Clearance 0 mL/min (70-130); Calcium 9.9 mg/dL (7.8-10.44); Carbon Dioxide 35 mmol/L (23-31); Chloride 101 mmol/L (98-107); Globulin 3.5 g/dL (2.4-3.5); Glucose 98 mg/dL (80-115); Potassium 3.6 mmol/L (3.5-5.1); Protein, Total 7.6 g/dL (5.8-8.1); Sodium 143 mmol/L (136-145)
[2020-08-30] MEDS ORDERED: Doxycycline 100 MG CAP PO SCH (17:45)
[2020-08-30] MEDS ORDERED: Albuterol 200 PUFF (6.7GM INHALER) ONE (17:47)
[2020-08-30] MEDS ORDERED: predniSONE 20 MG TAB ONE (17:47)
[2020-08-30 18:53] LABS: Amphetamine Not Detected (NotDetected); Barbiturates Screen Not Detected (NotDetected); Benzodiazepine Screen Not Detected (NotDetected); Cocaine Metabolite Screen Not Detected (NotDetected); Medtox Control Line Valid? VALID (VALID); Medtox Reader # READER 4; Methadone Not Detected (NotDetected); Methamphetamine Not Detected (NotDetected); Opiate Screen Not Detected (NotDetected); Oxycodone Screen Not Detected (NotDetected); Phencyclidine (PCP) Not Detected (NotDetected); THC/Cannabinoid Screen Not Detected (NotDetected); Tricyclic Screen Not Detected (NotDetected)
[2020-08-30 18:54] LABS: Bilirubin Negative (Negative); Blood, Urine Negative (Negative); Clarity Turbid (Clear); Glucose, Urine (Dipstick) Normal (Negative); Ketone, Urine Negative (Negative); Leukocyte 250 Leu/uL (Negative); Nitrite 1+ (Negative); Protein, Urine (Dipstick) Negative (Neg-Trace); RBC/HPF 0-3 HPF (0-3); Specific Gravity, Urine 1.007 (1.002-1.036); Squamous Epithelial 0-3 HPF (0-3); pH, Urine 6.5 (5.0-9.0)
[2020-08-30 18:56] LABS: Bacteria/HPF 1+ HPF (None Seen)
[2020-08-31 01:21] LABS: SARS-CoV-2 PCR by NAA Not Detected (NotDetected)
== END 2020-08-30 19:22 | disposition home or self-care (01) ==
LOC: ERS 16:32
DX: J44.9 Chronic obstructive pulmonary disease, unspecified (principal); I10 Essential (primary) hypertension; N39.0 Urinary tract infection, site not specified; E11.9 Type 2 diabetes mellitus without complications; I50.9 Heart failure, unspecified; Z79.899 Other long term (current) drug therapy
CPT/HCPCS: 36415; 71045; 80053; 80306; 81003; 81015; 83605; 85025; 87040; 87635; 93005; 94640; J7512; J7620; U0003; U0005

== ENCOUNTER 2020-09-07 15:18 | Emergency (ER) | payer OTHER ==
[2020-09-07 21:52] LABS: SARS-CoV-2 PCR by NAA Not Detected (NotDetected)
== END 2020-09-07 16:53 | disposition home or self-care (01) ==
LOC: ERS 15:18
DX: R05 Cough (principal); Z20.822 Contact with and (suspected) exposure to COVID-19; J43.9 Emphysema, unspecified; I50.9 Heart failure, unspecified; I25.10 Atherosclerotic heart disease of native coronary artery without angina pectoris; E11.9 Type 2 diabetes mellitus without complications; Z86.711 Personal history of pulmonary embolism; Z79.84 Long term (current) use of oral hypoglycemic drugs; Z79.899 Other long term (current) drug therapy
CPT/HCPCS: 71045; 87635; 93005; U0003; U0005

== ENCOUNTER 2020-09-26 11:43 | Emergency (ER) | payer OTHER ==
[2020-09-26 12:55] LABS: Bilirubin Negative (Negative); Blood, Urine Negative (Negative); Clarity Clear (Clear); Glucose, Urine (Dipstick) Normal (Negative); Ketone, Urine Negative (Negative); Leukocyte Negative Leu/uL (Negative); Nitrite Negative (Negative); Protein, Urine (Dipstick) Negative (Neg-Trace); Specific Gravity, Urine 1.011 (1.002-1.036); Urobilinogen Normal mg/dL (Less than 2); pH, Urine 7.5 (5.0-9.0)
[2020-09-26] MEDS ORDERED: Acetaminophen 325 MG TAB ONE (14:25)
[2020-09-26] MEDS ORDERED: Ondansetron PF 4 MG/2 ML Vial ONE (14:50)
[2020-09-26] MEDS ORDERED: Morphine 4 MG/ML VIAL ONE (14:50)
[2020-09-26 15:05] LABS: #Basophils 0.1 thou/uL (0.0-0.2); #Eosinphils 0.3 thou/uL (0.0-0.7); #Lymphocytes 2.5 thou/uL (1.20-3.40); #Monocytes 0.5 thou/uL (0.11-0.59); %Basophils 1.4 % (0.0-1.0); %Eosinophils 3.8 % (0.0-10.0); %Lymphocytes 34.2 % (21.0-51.0); %Monocytes 6.2 % (0.0-10.0); %Neutrophils 54.4 % (42.0-75.0); Hemoglobin 13.9 g/dL (12.0-16.0); Mean Corpuscular Hemoglobin 31.1 pg (27.0-31.0); Mean Corpuscular Volume 94.3 fL (78.0-98.0); Mean Platelet Volume 6.3 fL (7.4-10.4); Platelet Count 260 thou/uL (130-400); RBC Distribution Width 12.5 % (11.5-14.5); Red Blood Cell (RBC) Count 4.47 mill/uL (4.20-5.40); White Blood Cell (WBC) Count 7.4 thou/uL (4.8-10.8)
[2020-09-26 15:28] LABS: ALT (SGPT) 20 U/L (8-55); AST (SGOT) 22 U/L (5-34); Albumin 3.8 g/dL (3.4-4.8); Alkaline Phosphatase 151 U/L (40-110); Anion Gap 11 mmol/L (10-20); BUN (Urea Nitrogen) 11 mg/dL (9.8-20.1); Bilirubin, Total 0.3 mg/dL (0.2-1.2); Calc. Creatinine Clearance 0 mL/min (70-130); Calcium 9.8 mg/dL (7.8-10.44); Carbon Dioxide 33 mmol/L (23-31); Chloride 101 mmol/L (98-107); Globulin 3.7 g/dL (2.4-3.5); Glucose 93 mg/dL (80-115); Protein, Total 7.5 g/dL (5.8-8.1); Sodium 141 mmol/L (136-145)
== END 2020-09-26 16:16 | disposition home or self-care (01) ==
LOC: ERS 11:43
DX: N20.0 Calculus of kidney (principal); E11.9 Type 2 diabetes mellitus without complications; J43.9 Emphysema, unspecified; I50.9 Heart failure, unspecified; Z79.899 Other long term (current) drug therapy
CPT/HCPCS: 51701; 74176; 80053; 81003; 85025; 93005; 96374; 96375; J2270; J2405; J7620

== ENCOUNTER 2020-10-12 18:35 | Emergency (ER) | payer OTHER ==
[2020-10-12 20:19] LABS: #Eosinphils 0.1 thou/uL (0.0-0.7); #Lymphocytes 1.7 thou/uL (1.20-3.40); #Monocytes 0.4 thou/uL (0.11-0.59); #Neutrophils 5.3 thou/uL (1.40-6.50); %Basophils 0.4 % (0.0-1.0); %Eosinophils 1.9 % (0.0-10.0); %Lymphocytes 22.7 % (21.0-51.0); %Monocytes 5.2 % (0.0-10.0); %Neutrophils 69.7 % (42.0-75.0); Hemoglobin 12.4 g/dL (12.0-16.0); Mean Corpuscular HGB CONC 33.3 g/dL (32.0-36.0); Mean Platelet Volume 6.3 fL (7.4-10.4); Platelet Count 429 thou/uL (130-400); RBC Distribution Width 12.5 % (11.5-14.5); Red Blood Cell (RBC) Count 4.01 mill/uL (4.20-5.40); White Blood Cell (WBC) Count 7.5 thou/uL (4.8-10.8)
[2020-10-12 20:39] LABS: ALT (SGPT) 20 U/L (8-55); AST (SGOT) 18 U/L (5-34); Albumin 3.8 g/dL (3.4-4.8); Alkaline Phosphatase 161 U/L (40-110); Anion Gap 13 mmol/L (10-20); BUN (Urea Nitrogen) 14 mg/dL (9.8-20.1); Bilirubin, Total 0.3 mg/dL (0.2-1.2); Calc. Creatinine Clearance 0 mL/min (70-130); Calcium 9.6 mg/dL (7.8-10.44); Carbon Dioxide 31 mmol/L (23-31); Chloride 103 mmol/L (98-107); Globulin 3.5 g/dL (2.4-3.5); Glucose 86 mg/dL (80-115); Potassium 3.5 mmol/L (3.5-5.1); Protein, Total 7.3 g/dL (5.8-8.1); Sodium 143 mmol/L (136-145)
[2020-10-13 10:32] LABS: SARS-CoV-2 PCR by NAA Not Detected (NotDetected)
== END 2020-10-12 21:58 | disposition home or self-care (01) ==
LOC: ERS 18:35
DX: R06.00 Dyspnea, unspecified (principal); R06.2 Wheezing; R05 Cough; Z20.822 Contact with and (suspected) exposure to COVID-19; J43.9 Emphysema, unspecified; I25.10 Atherosclerotic heart disease of native coronary artery without angina pectoris; I50.9 Heart failure, unspecified; M81.0 Age-related osteoporosis without current pathological fracture; E11.40 Type 2 diabetes mellitus with diabetic neuropathy, unspecified; Z86.718 Personal history of other venous thrombosis and embolism; Z87.42 Personal history of other diseases of the female genital tract; Z77.22 Contact with and (suspected) exposure to environmental tobacco smoke (acute) (chronic); Z86.73 Personal history of transient ischemic attack (TIA), and cerebral infarction without residual deficits
CPT/HCPCS: 36415; 36416; 71045; 80053; 83880; 85025; U0003; U0005

== ENCOUNTER 2020-10-26 15:44 | Emergency (ER) | payer OTHER ==
[2020-10-26 18:37] LABS: Bilirubin Negative (Negative); Blood, Urine Negative (Negative); Clarity Clear (Clear); Glucose, Urine (Dipstick) Normal (Negative); Ketone, Urine Negative (Negative); Leukocyte Negative Leu/uL (Negative); Nitrite Negative (Negative); Protein, Urine (Dipstick) Negative (Neg-Trace); Specific Gravity, Urine 1.009 (1.002-1.036); Urobilinogen Normal mg/dL (Less than 2); pH, Urine 7.5 (5.0-9.0)
== END 2020-10-26 19:10 | disposition home or self-care (01) ==
LOC: ERS 15:44
DX: M54.5 Low back pain (principal); J43.9 Emphysema, unspecified; I50.9 Heart failure, unspecified; E11.40 Type 2 diabetes mellitus with diabetic neuropathy, unspecified; Z86.711 Personal history of pulmonary embolism; Z86.718 Personal history of other venous thrombosis and embolism; Z86.73 Personal history of transient ischemic attack (TIA), and cerebral infarction without residual deficits
CPT/HCPCS: 51701; 81003

== ENCOUNTER 2020-11-05 14:32 | Emergency (ER) | payer OTHER | END 2020-11-05 15:38 | disposition home or self-care (01) | LOC: ERS 14:32 | DX: R06.02 Shortness of breath (principal); I25.10 Atherosclerotic heart disease of native coronary artery without angina pectoris; I50.9 Heart failure, unspecified; Z86.73 Personal history of transient ischemic attack (TIA), and cerebral infarction without residual deficits; Z86.718 Personal history of other venous thrombosis and embolism | CPT/HCPCS: 93005 ==

== ENCOUNTER 2020-11-11 16:18 | Emergency (ER) | payer OTHER ==
[2020-11-11 19:10] LABS: #Lymphocytes 0.6 thou/uL (1.20-3.40); #Monocytes 0.2 thou/uL (0.11-0.59); #Neutrophils 5.3 thou/uL (1.40-6.50); %Eosinophils 0.4 % (0.0-10.0); %Lymphocytes 10.3 % (21.0-51.0); %Monocytes 3.7 % (0.0-10.0); %Neutrophils 85.6 % (42.0-75.0); Hemoglobin 13.6 g/dL (12.0-16.0); Mean Corpuscular HGB CONC 32.6 g/dL (32.0-36.0); Mean Corpuscular Volume 95.3 fL (78.0-98.0); Mean Platelet Volume 6.5 fL (7.4-10.4); Platelet Count 272 thou/uL (130-400); RBC Distribution Width 13.6 % (11.5-14.5); Red Blood Cell (RBC) Count 4.38 mill/uL (4.20-5.40); White Blood Cell (WBC) Count 6.1 thou/uL (4.8-10.8)
[2020-11-11 19:30] LABS: ALT (SGPT) 25 U/L (8-55); AST (SGOT) 20 U/L (5-34); Albumin 3.8 g/dL (3.4-4.8); Alkaline Phosphatase 178 U/L (40-110); Anion Gap 9 mmol/L (10-20); BUN (Urea Nitrogen) 10 mg/dL (9.8-20.1); Bilirubin, Total 0.6 mg/dL (0.2-1.2); Calc. Creatinine Clearance 0 mL/min (70-130); Calcium 9.4 mg/dL (7.8-10.44); Carbon Dioxide 37 mmol/L (23-31); Chloride 99 mmol/L (98-107); Globulin 3.3 g/dL (2.4-3.5); Glucose 144 mg/dL (80-115); Potassium 4.3 mmol/L (3.5-5.1); Protein, Total 7.1 g/dL (5.8-8.1); Sodium 141 mmol/L (136-145)
[2020-11-11] MEDS ORDERED: predniSONE 20 MG TAB ONE (19:55)
[2020-11-11] MEDS ORDERED: PROVENTIL INHALER 6.7 G (200 INHALATIONS) ONE (19:58)
[2020-11-11] MEDS ORDERED: Albuterol 200 PUFF (6.7GM INHALER) ONE (20:11)
== END 2020-11-11 21:00 | disposition home or self-care (01) ==
LOC: ERS 16:18
DX: J44.1 Chronic obstructive pulmonary disease with (acute) exacerbation (principal); E11.9 Type 2 diabetes mellitus without complications; I25.10 Atherosclerotic heart disease of native coronary artery without angina pectoris; I50.9 Heart failure, unspecified; M81.0 Age-related osteoporosis without current pathological fracture; Z87.442 Personal history of urinary calculi; Z86.73 Personal history of transient ischemic attack (TIA), and cerebral infarction without residual deficits; Z86.718 Personal history of other venous thrombosis and embolism; Z86.711 Personal history of pulmonary embolism; Z77.22 Contact with and (suspected) exposure to environmental tobacco smoke (acute) (chronic); Z79.84 Long term (current) use of oral hypoglycemic drugs; Z79.899 Other long term (current) drug therapy
CPT/HCPCS: 36415; 71045; 80053; 83880; 84484; 85025; 93005; J7512

== ENCOUNTER 2020-11-23 12:27 | Emergency (ER) | payer OTHER | END 2020-11-23 16:18 | disposition home or self-care (01) | LOC: ERS 12:27 | DX: J44.1 Chronic obstructive pulmonary disease with (acute) exacerbation (principal); E11.40 Type 2 diabetes mellitus with diabetic neuropathy, unspecified; I25.10 Atherosclerotic heart disease of native coronary artery without angina pectoris; I50.9 Heart failure, unspecified; M81.0 Age-related osteoporosis without current pathological fracture; Z86.718 Personal history of other venous thrombosis and embolism; Z86.711 Personal history of pulmonary embolism; Z87.442 Personal history of urinary calculi; Z86.73 Personal history of transient ischemic attack (TIA), and cerebral infarction without residual deficits; Z79.84 Long term (current) use of oral hypoglycemic drugs; Z79.899 Other long term (current) drug therapy | CPT/HCPCS: 94640; J7620 ==

== ENCOUNTER 2020-12-12 18:12 | Emergency (ER) | payer OTHER ==
[2020-12-12] MEDS ORDERED: Dexamethasone 4 mg/ml Vial ONE (20:33)
== END 2020-12-12 20:15 | disposition home or self-care (01) ==
LOC: ERS 18:12
DX: J44.9 Chronic obstructive pulmonary disease, unspecified (principal); I50.9 Heart failure, unspecified; Z87.891 Personal history of nicotine dependence; Z79.899 Other long term (current) drug therapy
CPT/HCPCS: 71045; 93005; 94640; 94760; J1100; J7620

== ENCOUNTER 2020-12-18 17:47 | Emergency (ER) | payer OTHER | END 2020-12-18 21:46 | disposition home or self-care (01) | LOC: ERS 17:47 | DX: Z00.8 Encounter for other general examination (principal); J44.9 Chronic obstructive pulmonary disease, unspecified; Z87.891 Personal history of nicotine dependence; I50.9 Heart failure, unspecified | CPT/HCPCS: 94640; J7620 ==

== ENCOUNTER 2020-12-20 15:08 | Emergency (ER) | payer OTHER | END 2020-12-20 19:02 | disposition home or self-care (01) | LOC: ERS 15:08 | DX: K29.70 Gastritis, unspecified, without bleeding (principal); J44.9 Chronic obstructive pulmonary disease, unspecified; I50.9 Heart failure, unspecified; Z87.891 Personal history of nicotine dependence | CPT/HCPCS: 99281 ==

== ENCOUNTER 2020-12-27 15:04 | Emergency (ER) | payer OTHER | END 2020-12-27 18:33 | disposition home or self-care (01) | LOC: ERS 15:04 | DX: J44.9 Chronic obstructive pulmonary disease, unspecified (principal); I50.9 Heart failure, unspecified; Z87.891 Personal history of nicotine dependence | CPT/HCPCS: 99281 ==

== ENCOUNTER 2021-01-06 15:03 | Emergency (ER) | payer OTHER ==
[2021-01-06 17:58] LABS: %Eosinophils 0.1 % (0.0-10.0); %Lymphocytes 22.9 % (21.0-51.0)
[2021-01-06 18:05] LABS: #Lymphocytes 1.4 thou/uL (1.20-3.40); #Monocytes 0.3 thou/uL (0.11-0.59); #Neutrophils 4.5 thou/uL (1.40-6.50); %Basophils 0.1 % (0.0-1.0); %Monocytes 5.5 % (0.0-10.0); %Neutrophils 71.4 % (42.0-75.0); Hemoglobin 12.7 g/dL (12.0-16.0); Mean Corpuscular HGB CONC 32.6 g/dL (32.0-36.0); Mean Corpuscular Hemoglobin 30.6 pg (27.0-31.0); Mean Corpuscular Volume 93.8 fL (78.0-98.0); Platelet Count 228 thou/uL (130-400); RBC Distribution Width 13.1 % (11.5-14.5); Red Blood Cell (RBC) Count 4.14 mill/uL (4.20-5.40); White Blood Cell (WBC) Count 6.3 thou/uL (4.8-10.8)
[2021-01-06 18:21] LABS: ALT (SGPT) 24 U/L (8-55); AST (SGOT) 19 U/L (5-34); Albumin 3.7 g/dL (3.4-4.8); Alkaline Phosphatase 146 U/L (40-110); BUN (Urea Nitrogen) 10 mg/dL (9.8-20.1); Bilirubin, Total 0.4 mg/dL (0.2-1.2); CK (CPK) 120 U/L (29-168); Calc. Creatinine Clearance 0 mL/min (70-130); Calcium 9.6 mg/dL (7.8-10.44); Globulin 3.5 g/dL (2.4-3.5); Glucose 137 mg/dL (80-115); Protein, Total 7.2 g/dL (5.8-8.1)
[2021-01-06 18:30] LABS: Anion Gap 16 mmol/L (10-20); Carbon Dioxide 30 mmol/L (23-31); Chloride 99 mmol/L (98-107); Sodium 141 mmol/L (136-145)
== END 2021-01-06 19:36 | disposition home or self-care (01) ==
LOC: ERS 15:03
DX: R53.81 Other malaise (principal); J44.9 Chronic obstructive pulmonary disease, unspecified; I50.9 Heart failure, unspecified; Z87.891 Personal history of nicotine dependence; Z79.899 Other long term (current) drug therapy
CPT/HCPCS: 36415; 80053; 82550; 85025; 99283

== ENCOUNTER 2021-01-11 18:07 | Emergency (ER) | payer OTHER ==
[2021-01-11 19:09] LABS: #Eosinphils 0.1 thou/uL (0.0-0.7); #Lymphocytes 2.5 thou/uL (1.20-3.40); #Monocytes 1.1 thou/uL (0.11-0.59); #Neutrophils 7.6 thou/uL (1.40-6.50); %Eosinophils 1.1 % (0.0-10.0); %Lymphocytes 21.9 % (21.0-51.0); Hemoglobin 12.9 g/dL (12.0-16.0); Mean Corpuscular HGB CONC 31.8 g/dL (32.0-36.0); Mean Corpuscular Hemoglobin 29.8 pg (27.0-31.0); Mean Corpuscular Volume 93.7 fL (78.0-98.0); Mean Platelet Volume 6.7 fL (7.4-10.4); Platelet Count 292 thou/uL (130-400); Red Blood Cell (RBC) Count 4.32 mill/uL (4.20-5.40); White Blood Cell (WBC) Count 11.4 thou/uL (4.8-10.8)
[2021-01-11 19:51] LABS: ALT (SGPT) 22 U/L (8-55); AST (SGOT) 17 U/L (5-34); Albumin 3.8 g/dL (3.4-4.8); Alkaline Phosphatase 150 U/L (40-110); BUN (Urea Nitrogen) 14 mg/dL (9.8-20.1); Bilirubin, Total 0.3 mg/dL (0.2-1.2); Calc. Creatinine Clearance 0 mL/min (70-130); Calcium 10.1 mg/dL (7.8-10.44); Globulin 3.1 g/dL (2.4-3.5); Glucose 107 mg/dL (80-115); Lipase 16 U/L (8-78); Protein, Total 6.9 g/dL (5.8-8.1)
[2021-01-11 20:00] LABS: Anion Gap 15 mmol/L (10-20); Carbon Dioxide 34 mmol/L (23-31); Chloride 99 mmol/L (98-107); Potassium 3.5 mmol/L (3.5-5.1); Sodium 144 mmol/L (136-145)
[2021-01-11] MEDS ORDERED: Ketorolac Tromethamine 30 MG/ML VIAL ONE (22:22)
[2021-01-11] MEDS ORDERED: Dexamethasone 10 MG/ML VIAL ONE (22:22)
== END 2021-01-11 23:40 | disposition home or self-care (01) ==
LOC: ERS 18:07
DX: R00.0 Tachycardia, unspecified (principal); R07.9 Chest pain, unspecified; I11.0 Hypertensive heart disease with heart failure; I50.9 Heart failure, unspecified; J45.909 Unspecified asthma, uncomplicated; J43.9 Emphysema, unspecified; E11.40 Type 2 diabetes mellitus with diabetic neuropathy, unspecified; E78.5 Hyperlipidemia, unspecified; Z86.73 Personal history of transient ischemic attack (TIA), and cerebral infarction without residual deficits; Z87.891 Personal history of nicotine dependence; Z79.84 Long term (current) use of oral hypoglycemic drugs; Z79.899 Other long term (current) drug therapy
CPT/HCPCS: 36416; 71045; 80053; 83690; 84484; 85025; 93005; 94640; 96372; J1100; J1885; J7620

== ENCOUNTER 2021-01-18 19:21 | Emergency (ER) | payer OTHER ==
[2021-01-18 20:08] LABS: #Basophils 0.1 thou/uL (0.0-0.2); #Eosinphils 0.2 thou/uL (0.0-0.7); #Lymphocytes 2.1 thou/uL (1.20-3.40); #Monocytes 0.6 thou/uL (0.11-0.59); #Neutrophils 5.2 thou/uL (1.40-6.50); %Eosinophils 2.5 % (0.0-10.0); %Lymphocytes 26.2 % (21.0-51.0); %Monocytes 6.8 % (0.0-10.0); %Neutrophils 63.5 % (42.0-75.0); Hemoglobin 13.1 g/dL (12.0-16.0); Mean Corpuscular HGB CONC 32.6 g/dL (32.0-36.0); Mean Corpuscular Hemoglobin 30.6 pg (27.0-31.0); Mean Corpuscular Volume 93.9 fL (78.0-98.0); Mean Platelet Volume 6.4 fL (7.4-10.4); Platelet Count 274 thou/uL (130-400); Red Blood Cell (RBC) Count 4.29 mill/uL (4.20-5.40); White Blood Cell (WBC) Count 8.1 thou/uL (4.8-10.8)
[2021-01-18 20:29] LABS: ALT (SGPT) 19 U/L (8-55); AST (SGOT) 18 U/L (5-34); Albumin 3.5 g/dL (3.4-4.8); Alkaline Phosphatase 135 U/L (40-110); BUN (Urea Nitrogen) 7 mg/dL (9.8-20.1); Bilirubin, Total 0.4 mg/dL (0.2-1.2); Calc. Creatinine Clearance 0 mL/min (70-130); Calcium 9.7 mg/dL (7.8-10.44); Globulin 2.8 g/dL (2.4-3.5); Glucose 176 mg/dL (80-115); Protein, Total 6.3 g/dL (5.8-8.1)
[2021-01-18 20:39] LABS: Anion Gap 16 mmol/L (10-20); Carbon Dioxide 33 mmol/L (23-31); Chloride 98 mmol/L (98-107); Potassium 3.4 mmol/L (3.5-5.1); Sodium 144 mmol/L (136-145)
[2021-01-18 20:49] LABS: Acetaminophen Less than 6.0 mcg/mL (10.0-30.0); Alcohol Less than 10 mg/dL (Less than 10); Salicylate Less than 8.0 mg/dL (15.0-30.0)
[2021-01-18] MEDS ORDERED: Albuterol 200 PUFF (6.7GM INHALER) ONE (21:52)
[2021-01-18 22:09] LABS: Amphetamine Not Detected (NotDetected); Barbiturates Screen Not Detected (NotDetected); Benzodiazepine Screen Not Detected (NotDetected); Cocaine Metabolite Screen Not Detected (NotDetected); Methadone Not Detected (NotDetected); Methamphetamine Not Detected (NotDetected); Opiate Screen Not Detected (NotDetected); Oxycodone Screen Not Detected (NotDetected); Phencyclidine (PCP) Not Detected (NotDetected); THC/Cannabinoid Screen Not Detected (NotDetected); Tricyclic Screen Not Detected (NotDetected)
[2021-01-18 22:22] LABS: Clarity Cloudy (Clear); Leukocyte Negative Leu/uL (Negative); Nitrite Negative (Negative); Protein, Urine (Dipstick) Negative (Neg-Trace); Specific Gravity, Urine 1.014 (1.002-1.036); pH, Urine 7.5 (5.0-9.0)
[2021-01-18 22:23] LABS: Bacteria/HPF Rare-Few HPF (None Seen); Bilirubin Negative (Negative); Blood, Urine 1+ (Negative); Glucose, Urine (Dipstick) Negative (Negative); Ketone, Urine Negative (Negative); RBC/HPF 21-50 HPF (0-3); Squamous Epithelial 0-3 HPF (0-3); Urobilinogen 0.2 mg/dL (Less than 2)
== END 2021-01-18 23:21 | disposition home or self-care (01) ==
LOC: ERS 19:21
DX: R06.02 Shortness of breath (principal); E78.5 Hyperlipidemia, unspecified; I11.0 Hypertensive heart disease with heart failure; I50.9 Heart failure, unspecified; J43.9 Emphysema, unspecified; E11.40 Type 2 diabetes mellitus with diabetic neuropathy, unspecified; Z87.891 Personal history of nicotine dependence
CPT/HCPCS: 36415; 51701; 71045; 80053; 80306; 80307; 81003; 81015; 83880; 84484; 85025; 93005

== ENCOUNTER 2021-10-21 09:30 | Emergency (ER) | payer MEDICARE, MEDICAID ==
[2021-10-21] MEDS ORDERED: Ondansetron PF 4 MG/2 ML Vial ONE (10:21)
[2021-10-21 10:23] LABS: #Eosinphils 0.1 thou/uL (0.0-0.7); #Lymphocytes 1.6 thou/uL (1.20-3.40); #Monocytes 0.7 thou/uL (0.11-0.59); #Neutrophils 4.1 thou/uL (1.40-6.50); %Basophils 0.2 % (0.0-1.0); %Lymphocytes 24.7 % (21.0-51.0); %Monocytes 10.8 % (0.0-10.0); %Neutrophils 62.2 % (42.0-75.0); Hemoglobin 11.8 g/dL (12.0-16.0); Mean Corpuscular HGB CONC 31.1 g/dL (32.0-36.0); Mean Corpuscular Hemoglobin 30.5 pg (27.0-31.0); Mean Corpuscular Volume 98.2 fL (78.0-98.0); Platelet Count 223 thou/uL (130-400); Red Blood Cell (RBC) Count 3.87 mill/uL (4.20-5.40); White Blood Cell (WBC) Count 6.6 thou/uL (4.8-10.8)
[2021-10-21] MEDS ORDERED: Fentanyl 100 MCG/2 ML VIAL ONE (10:37)
[2021-10-21 10:44] LABS: ALT (SGPT) 50 U/L (8-55); AST (SGOT) 29 U/L (5-34); Albumin 3.8 g/dL (3.4-4.8); Alkaline Phosphatase 62 U/L (40-110); Anion Gap 13 mmol/L (10-20); BUN (Urea Nitrogen) 12 mg/dL (9.8-20.1); Bilirubin, Total 0.9 mg/dL (0.2-1.2); Calc. Creatinine Clearance 0 mL/min (70-130); Calcium 9.2 mg/dL (7.8-10.44); Carbon Dioxide 32 mmol/L (23-31); Chloride 103 mmol/L (98-107); Globulin 2.8 g/dL (2.4-3.5); Glucose 80 mg/dL (80-115); Lipase 21 U/L (8-78); Protein, Total 6.6 g/dL (5.8-8.1); Sodium 145 mmol/L (136-145)
[2021-10-21 11:02] LABS: Potassium 2.9 mmol/L (3.5-5.1)
[2021-10-21] MEDS ORDERED: Potassium Chloride 20 MEQ TAB ONE (11:43)
[2021-10-21] MEDS ORDERED: ISOVUE-370 76%-LOCM 1 ML ONE (12:15)
[2021-10-21 13:09] LABS: Bacteria/HPF 2+ HPF (None Seen); Bilirubin Negative (Negative); Blood, Urine Negative (Negative); Clarity Clear (Clear); Glucose, Urine (Dipstick) Normal (Negative); Ketone, Urine Negative (Negative); Leukocyte 500 Leu/uL (Negative); Nitrite Negative (Negative); Protein, Urine (Dipstick) 10 mg/dL (Neg-Trace); Specific Gravity, Urine 1.032 (1.002-1.036); Squamous Epithelial 0-3 HPF (0-3); Urobilinogen Normal mg/dL (Less than 2); WBC/HPF 21-50 HPF (0-3); pH, Urine 6.5 (5.0-9.0)
[2021-10-21 14:41] LABS: Bacteria/HPF 4+ HPF (None Seen); Bilirubin Negative (Negative); Blood, Urine Negative (Negative); Calcium Oxalate Crystals Rare HPF (None Seen); Clarity Clear (Clear); Glucose, Urine (Dipstick) Normal (Negative); Ketone, Urine Negative (Negative); Leukocyte 250 Leu/uL (Negative); Nitrite Negative (Negative); Protein, Urine (Dipstick) Negative (Neg-Trace); Specific Gravity, Urine 1.035 (1.002-1.036); Squamous Epithelial None Seen HPF (0-3); Urobilinogen Normal mg/dL (Less than 2); WBC/HPF 21-50 HPF (0-3); pH, Urine 6.5 (5.0-9.0)
== END 2021-10-21 15:21 | disposition home or self-care (01) ==
LOC: ERS 09:30
DX: N20.2 Calculus of kidney with calculus of ureter (principal); E87.6 Hypokalemia; N39.0 Urinary tract infection, site not specified; I11.0 Hypertensive heart disease with heart failure; I50.9 Heart failure, unspecified; J43.9 Emphysema, unspecified; E11.40 Type 2 diabetes mellitus with diabetic neuropathy, unspecified; E78.5 Hyperlipidemia, unspecified; Z86.73 Personal history of transient ischemic attack (TIA), and cerebral infarction without residual deficits
CPT/HCPCS: 36415; 51701; 74177; 80053; 81003; 81015; 83690; 85025; 87077; 87086; 87186; 96374; J2405; J3010; Q9966

== ENCOUNTER 2021-12-11 08:18 | Emergency (ER) | payer MEDICARE, MEDICAID ==
[2021-12-11 09:10] LABS: #Eosinphils 0.2 thou/uL (0.0-0.7); #Lymphocytes 1.4 thou/uL (1.20-3.40); #Monocytes 0.3 thou/uL (0.11-0.59); #Neutrophils 2.2 thou/uL (1.40-6.50); %Basophils 0.4 % (0.0-1.0); %Eosinophils 4.4 % (0.0-10.0); %Lymphocytes 33.9 % (21.0-51.0); %Monocytes 8.3 % (0.0-10.0); Hemoglobin 11.6 g/dL (12.0-16.0); Mean Corpuscular HGB CONC 32.6 g/dL (32.0-36.0); Mean Corpuscular Hemoglobin 31.1 pg (27.0-31.0); Mean Corpuscular Volume 95.4 fL (78.0-98.0); Mean Platelet Volume 6.8 fL (7.4-10.4); Platelet Count 223 thou/uL (130-400); RBC Distribution Width 12.1 % (11.5-14.5); Red Blood Cell (RBC) Count 3.72 mill/uL (4.20-5.40); White Blood Cell (WBC) Count 4.1 thou/uL (4.8-10.8)
[2021-12-11 09:29] LABS: ALT (SGPT) 30 U/L (8-55); AST (SGOT) 32 U/L (5-34); Albumin 3.7 g/dL (3.4-4.8); Alkaline Phosphatase 69 U/L (40-110); Anion Gap 12 mmol/L (10-20); BUN (Urea Nitrogen) 6 mg/dL (9.8-20.1); Bilirubin, Total 0.8 mg/dL (0.2-1.2); Calc. Creatinine Clearance 0 mL/min (70-130); Calcium 9.1 mg/dL (7.8-10.44); Carbon Dioxide 32 mmol/L (23-31); Chloride 103 mmol/L (98-107); Estimated GFR 96; Globulin 2.6 g/dL (2.4-3.5); Glucose 78 mg/dL (80-115); Protein, Total 6.3 g/dL (5.8-8.1); Sodium 143 mmol/L (136-145)
[2021-12-11 09:52] LABS: Bacteria/HPF 4+ HPF (None Seen); Bilirubin Negative (Negative); Blood, Urine Negative (Negative); Clarity Clear (Clear); Glucose, Urine (Dipstick) Normal (Negative); Ketone, Urine Negative (Negative); Leukocyte 75 Leu/uL (Negative); Nitrite Negative (Negative); Protein, Urine (Dipstick) Negative (Neg-Trace); RBC/HPF 0-3 HPF (0-3); Specific Gravity, Urine 1.009 (1.002-1.036); Squamous Epithelial None Seen HPF (0-3); Urobilinogen Normal mg/dL (Less than 2); pH, Urine 6.5 (5.0-9.0)
[2021-12-11 12:55] LABS: SARS-CoV-2 NAA Rapid Test Not Detected (NotDetected)
== END 2021-12-11 16:05 | disposition home or self-care (01) ==
LOC: ERS 08:18
DX: J44.1 Chronic obstructive pulmonary disease with (acute) exacerbation (principal); N39.0 Urinary tract infection, site not specified; Z20.822 Contact with and (suspected) exposure to COVID-19; I11.0 Hypertensive heart disease with heart failure; I50.9 Heart failure, unspecified; E11.65 Type 2 diabetes mellitus with hyperglycemia; E11.39 Type 2 diabetes mellitus with other diabetic ophthalmic complication; H42 Glaucoma in diseases classified elsewhere; E78.5 Hyperlipidemia, unspecified; Z86.73 Personal history of transient ischemic attack (TIA), and cerebral infarction without residual deficits; Z87.891 Personal history of nicotine dependence
CPT/HCPCS: 71045; 80053; 83880; 84484; 85025; 93005; 94640; U0002; 36415; 51701; 81003; 81015; J7620

== ENCOUNTER 2021-12-13 08:42 | Emergency (ER) | payer MEDICARE, OTHER ==
[2021-12-13] MEDS ORDERED: methylPREDNISolone Sod Succ/PF 125 MG/2 ML VIAL ONE (09:11)
[2021-12-13] MEDS ORDERED: Magnesium 2 GM/50 ML BAG (IN WATER) ONE (09:11)
[2021-12-13 09:19] LABS: #Lymphocytes 0.9 thou/uL (1.20-3.40); #Monocytes 0.2 thou/uL (0.11-0.59); #Neutrophils 2.8 thou/uL (1.40-6.50); %Basophils 0.2 % (0.0-1.0); %Eosinophils 0.1 % (0.0-10.0); %Lymphocytes 23.4 % (21.0-51.0); %Neutrophils 70.3 % (42.0-75.0); Hemoglobin 11.6 g/dL (12.0-16.0); Mean Corpuscular HGB CONC 31.7 g/dL (32.0-36.0); Mean Corpuscular Hemoglobin 30.5 pg (27.0-31.0); Mean Platelet Volume 6.9 fL (7.4-10.4); Platelet Count 255 thou/uL (130-400); RBC Distribution Width 12.2 % (11.5-14.5); Red Blood Cell (RBC) Count 3.81 mill/uL (4.20-5.40)
[2021-12-13 09:42] LABS: ALT (SGPT) 28 U/L (8-55); AST (SGOT) 27 U/L (5-34); Alkaline Phosphatase 74 U/L (40-110); Anion Gap 14 mmol/L (10-20); BUN (Urea Nitrogen) 12 mg/dL (9.8-20.1); Bilirubin, Total 0.6 mg/dL (0.2-1.2); Calc. Creatinine Clearance 0 mL/min (70-130); Calcium 9.6 mg/dL (7.8-10.44); Carbon Dioxide 29 mmol/L (23-31); Chloride 100 mmol/L (98-107); Estimated GFR 96; Glucose 95 mg/dL (80-115); Potassium 4.6 mmol/L (3.5-5.1); Sodium 138 mmol/L (136-145)
[2021-12-13] MEDS ORDERED: Ketorolac Tromethamine 30 MG/ML VIAL ONE (12:29)
== END 2021-12-13 12:40 | disposition home or self-care (01) ==
LOC: ERS 08:42
DX: N20.0 Calculus of kidney (principal); R06.00 Dyspnea, unspecified; J43.9 Emphysema, unspecified; E78.5 Hyperlipidemia, unspecified; E11.40 Type 2 diabetes mellitus with diabetic neuropathy, unspecified; Z86.73 Personal history of transient ischemic attack (TIA), and cerebral infarction without residual deficits; Z87.891 Personal history of nicotine dependence; Z79.899 Other long term (current) drug therapy; Z79.84 Long term (current) use of oral hypoglycemic drugs
CPT/HCPCS: 71045; 74176; 80053; 81001; 85025; 87086; 93005; 96365; 96375; J1885; J2930; J3475

== ENCOUNTER 2022-05-06 16:25 | Emergency (ER) | payer MEDICARE, MEDICAID ==
[2022-05-06] MEDS ORDERED: Dexamethasone 10 MG/ML VIAL ONE (17:10)
== END 2022-05-06 17:50 | disposition home or self-care (01) ==
LOC: ERS 16:25
DX: J44.1 Chronic obstructive pulmonary disease with (acute) exacerbation (principal); I11.0 Hypertensive heart disease with heart failure; I50.9 Heart failure, unspecified; E11.9 Type 2 diabetes mellitus without complications; E78.5 Hyperlipidemia, unspecified; Z86.73 Personal history of transient ischemic attack (TIA), and cerebral infarction without residual deficits; Z79.899 Other long term (current) drug therapy; Z79.84 Long term (current) use of oral hypoglycemic drugs
CPT/HCPCS: 71045; 94640; J1100

== ENCOUNTER 2022-05-18 09:52 | Emergency (ER) | payer MEDICARE, OTHER ==
[2022-05-18 10:46] LABS: #Eosinphils 0.3 thou/uL (0.0-0.7); #Lymphocytes 1.8 thou/uL (1.20-3.40); #Monocytes 0.8 thou/uL (0.11-0.59); #Neutrophils 4.7 thou/uL (1.40-6.50); %Basophils 0.1 % (0.0-1.0); %Eosinophils 3.8 % (0.0-10.0); %Lymphocytes 23.8 % (21.0-51.0); %Monocytes 10.3 % (0.0-10.0); %Neutrophils 62.1 % (42.0-75.0); Hemoglobin 12.1 g/dL (12.0-16.0); Mean Corpuscular HGB CONC 31.2 g/dL (32.0-36.0); Mean Corpuscular Hemoglobin 30.5 pg (27.0-31.0); Mean Corpuscular Volume 97.8 fl (78.0-98.0); Mean Platelet Volume 5.8 fL (7.4-10.4); Platelet Count 341 10x3/uL (130-400); RBC Distribution Width 13.4 % (11.5-14.5); Red Blood Cell (RBC) Count 3.96 mill/uL (4.20-5.40); White Blood Cell (WBC) Count 7.6 10x3/uL (4.8-10.8)
[2022-05-18 11:10] LABS: ALT (SGPT) 16 U/L (8-55); AST (SGOT) 15 U/L (5-34); Albumin 3.5 g/dL (3.4-4.8); Alkaline Phosphatase 94 U/L (40-110); Anion Gap 10 mmol/L (10-20); BUN (Urea Nitrogen) 9 mg/dL (9.8-20.1); Bilirubin, Total 0.4 mg/dL (0.2-1.2); Calc. Creatinine Clearance 0 mL/min (70-130); Calcium 9.2 mg/dL (7.8-10.44); Carbon Dioxide 34 mmol/L (23-31); Chloride 101 mmol/L (98-107); Estimated GFR 91; Globulin 2.6 g/dL (2.4-3.5); Glucose 85 mg/dL (80-115); Lipase 44 U/L (8-78); Potassium 4.1 mmol/L (3.5-5.1); Protein, Total 6.1 g/dL (5.8-8.1); Sodium 141 mmol/L (136-145)
[2022-05-18] MEDS ORDERED: Albuterol 2.5 MG/0.5 ML NEB ONE (12:03)
[2022-05-18] MEDS ORDERED: Ipratropium/Albuterol 3 ML NEB ONE (12:03)
[2022-05-18 12:34] LABS: Bacteria/HPF 3+ HPF (None Seen); Bilirubin Negative (Negative); Blood, Urine Negative (Negative); Clarity Turbid (Clear); Glucose, Urine (Dipstick) Normal (Negative); Ketone, Urine Negative (Negative); Leukocyte 250 Leu/uL (Negative); Nitrite Negative (Negative); Protein, Urine (Dipstick) Negative (Neg-Trace); RBC/HPF 0-3 HPF (0-3); Specific Gravity, Urine 1.026 (1.002-1.036); Squamous Epithelial 0-3 HPF (0-3); Urobilinogen Normal mg/dL (Less than 2); WBC/HPF 21-50 HPF (0-3)
== END 2022-05-18 13:36 | disposition home or self-care (01) ==
LOC: ERS 09:52
DX: N39.0 Urinary tract infection, site not specified (principal); I11.0 Hypertensive heart disease with heart failure; I50.9 Heart failure, unspecified; E78.5 Hyperlipidemia, unspecified; E11.40 Type 2 diabetes mellitus with diabetic neuropathy, unspecified; J44.9 Chronic obstructive pulmonary disease, unspecified; Z79.899 Other long term (current) drug therapy; Z79.84 Long term (current) use of oral hypoglycemic drugs
CPT/HCPCS: 36415; 71045; 74177; 80053; 81003; 81015; 83605; 83690; 85025; 87077; 87086; 94640; J7611; J7620

== ENCOUNTER 2022-06-23 13:01 | Emergency (ER) | payer MEDICARE, MEDICAID ==
[2022-06-23 13:57] LABS: #Lymphocytes 1.3 thou/uL (1.20-3.40); #Monocytes 0.3 thou/uL (0.11-0.59); #Neutrophils 3.3 thou/uL (1.40-6.50); %Basophils 0.9 % (0.0-1.0); %Eosinophils 0.5 % (0.0-10.0); %Lymphocytes 25.3 % (21.0-51.0); %Monocytes 5.7 % (0.0-10.0); %Neutrophils 67.6 % (42.0-75.0); Hemoglobin 13.1 g/dL (12.0-16.0); Mean Corpuscular Hemoglobin 30.8 pg (27.0-31.0); Mean Corpuscular Volume 96.2 fl (78.0-98.0); Mean Platelet Volume 6.3 fL (7.4-10.4); Platelet Count 251 10x3/uL (130-400); Red Blood Cell (RBC) Count 4.26 mill/uL (4.20-5.40); White Blood Cell (WBC) Count 4.9 10x3/uL (4.8-10.8)
[2022-06-23 14:22] LABS: ALT (SGPT) 21 U/L (8-55); AST (SGOT) 20 U/L (5-34); Albumin 3.6 g/dL (3.4-4.8); Alkaline Phosphatase 90 U/L (40-110); Anion Gap 10 mmol/L (10-20); BUN (Urea Nitrogen) 8 mg/dL (9.8-20.1); Bilirubin, Total 0.7 mg/dL (0.2-1.2); Calc. Creatinine Clearance 0 mL/min (70-130); Calcium 9.4 mg/dL (7.8-10.44); Carbon Dioxide 33 mmol/L (23-31); Chloride 102 mmol/L (98-107); Estimated GFR 96; Globulin 3.1 g/dL (2.4-3.5); Glucose 118 mg/dL (80-115); Protein, Total 6.7 g/dL (5.8-8.1); Sodium 141 mmol/L (136-145)
[2022-06-23] MEDS ORDERED: Ipratropium/Albuterol 3 ML NEB ONE (14:30)
[2022-06-23] MEDS ORDERED: Dexamethasone 10 MG/ML VIAL ONE (14:31)
== END 2022-06-23 15:39 | disposition home or self-care (01) ==
LOC: ERS 13:01
DX: J44.1 Chronic obstructive pulmonary disease with (acute) exacerbation (principal); E11.40 Type 2 diabetes mellitus with diabetic neuropathy, unspecified; E78.5 Hyperlipidemia, unspecified; I10 Essential (primary) hypertension; Z79.899 Other long term (current) drug therapy
CPT/HCPCS: 36415; 71045; 80053; 84484; 85025; 93005; J1100; J7620

== ENCOUNTER 2022-06-25 13:09 | Emergency (ER) | payer MEDICARE, MEDICAID | END 2022-06-25 14:34 | LOC: ERS 13:09 | DX: S16.1XXA Strain of muscle, fascia and tendon at neck level, initial encounter (principal); I11.0 Hypertensive heart disease with heart failure; I50.9 Heart failure, unspecified; J44.9 Chronic obstructive pulmonary disease, unspecified; E78.5 Hyperlipidemia, unspecified; E11.40 Type 2 diabetes mellitus with diabetic neuropathy, unspecified; Z79.84 Long term (current) use of oral hypoglycemic drugs; Z79.899 Other long term (current) drug therapy; W18.39XA Other fall on same level, initial encounter | CPT/HCPCS: 70450; 72125 ==

== ENCOUNTER 2022-07-13 13:41 | Emergency (ER) | payer MEDICARE, OTHER ==
[2022-07-13 15:00] LABS: #Eosinphils 0.2 thou/uL (0.0-0.7); #Lymphocytes 1.3 thou/uL (1.20-3.40); #Monocytes 0.4 thou/uL (0.11-0.59); #Neutrophils 1.7 thou/uL (1.40-6.50); %Basophils 0.3 % (0.0-1.0); %Eosinophils 6.5 % (0.0-10.0); %Lymphocytes 35.8 % (21.0-51.0); %Neutrophils 47.4 % (42.0-75.0); Hemoglobin 11.9 g/dL (12.0-16.0); Mean Corpuscular HGB CONC 31.3 g/dL (32.0-36.0); Mean Corpuscular Hemoglobin 29.9 pg (27.0-31.0); Mean Corpuscular Volume 95.7 fl (78.0-98.0); Mean Platelet Volume 6.3 fL (7.4-10.4); Platelet Count 309 10x3/uL (130-400); RBC Distribution Width 12.6 % (11.5-14.5); Red Blood Cell (RBC) Count 3.97 mill/uL (4.20-5.40); White Blood Cell (WBC) Count 3.6 10x3/uL (4.8-10.8)
[2022-07-13 15:16] LABS: ALT (SGPT) 18 U/L (8-55); AST (SGOT) 21 U/L (5-34); Albumin 3.4 g/dL (3.4-4.8); Alkaline Phosphatase 79 U/L (40-110); Anion Gap 11 mmol/L (10-20); BUN (Urea Nitrogen) 6 mg/dL (9.8-20.1); Bilirubin, Total 0.3 mg/dL (0.2-1.2); Calc. Creatinine Clearance 0 mL/min (70-130); Carbon Dioxide 30 mmol/L (23-31); Chloride 103 mmol/L (98-107); Estimated GFR 94; Glucose 78 mg/dL (80-115); Potassium 3.4 mmol/L (3.5-5.1); Protein, Total 6.4 g/dL (5.8-8.1); Sodium 141 mmol/L (136-145)
[2022-07-13 15:39] LABS: Bacteria/HPF 4+ HPF (None Seen); Bilirubin Negative (Negative); Blood, Urine Negative (Negative); Clarity Clear (Clear); Glucose, Urine (Dipstick) Normal (Negative); Ketone, Urine Negative (Negative); Leukocyte 75 Leu/uL (Negative); Nitrite Negative (Negative); Protein, Urine (Dipstick) Negative (Neg-Trace); RBC/HPF 0-3 HPF (0-3); Specific Gravity, Urine 1.017 (1.002-1.036); Squamous Epithelial None Seen HPF (0-3); Urobilinogen Normal mg/dL (Less than 2); WBC/HPF 21-50 HPF (0-3)
[2022-07-13] MEDS ORDERED: Ipratropium Bromide 2.5 ml Neb ONE (15:53)
[2022-07-13] MEDS ORDERED: Dexamethasone 10 MG/ML VIAL ONE (15:53)
== END 2022-07-13 17:20 | disposition home or self-care (01) ==
LOC: ERS 13:41
DX: J44.1 Chronic obstructive pulmonary disease with (acute) exacerbation (principal); N39.0 Urinary tract infection, site not specified; I50.9 Heart failure, unspecified; I11.0 Hypertensive heart disease with heart failure; E11.40 Type 2 diabetes mellitus with diabetic neuropathy, unspecified; Z86.73 Personal history of transient ischemic attack (TIA), and cerebral infarction without residual deficits
CPT/HCPCS: 36415; 51701; 71045; 80053; 81003; 81015; 83880; 84484; 85025; 87086; 93005; 94640; 96374; J1100; J7611

== ENCOUNTER 2022-08-29 10:20 | Emergency (ER) | payer MEDICARE, OTHER ==
[2022-08-29] MEDS ORDERED: Proparacaine 0.5% Opth 15 ML BOT ONE (10:48)
[2022-08-29] MEDS ORDERED: Fluorescein Opthalmic Strip ONE (10:48)
== END 2022-08-29 11:47 | disposition home or self-care (01) ==
LOC: ERS 10:20
DX: H57.89 Other specified disorders of eye and adnexa (principal); I11.0 Hypertensive heart disease with heart failure; I50.9 Heart failure, unspecified; E11.40 Type 2 diabetes mellitus with diabetic neuropathy, unspecified; E78.5 Hyperlipidemia, unspecified; Z86.73 Personal history of transient ischemic attack (TIA), and cerebral infarction without residual deficits; J44.9 Chronic obstructive pulmonary disease, unspecified
CPT/HCPCS: 99283

== ENCOUNTER 2022-09-10 15:54 | Emergency (ER) | payer OTHER ==
[~2022-09-10 15:54] MED LIST changes: +Iopamidol 370 76% 100 ML VIAL ONE; -Iopamidol-370 76% 500 ML 1 ML ONE
[2022-09-10] MEDS ORDERED: Dexamethasone 10 MG/ML VIAL ONE (17:12)
[2022-09-10] MEDS ORDERED: Ipratropium/Albuterol 3 ML NEB ONE (17:12)
[2022-09-10 17:41] LABS: #Eosinphils 0.2 thou/uL (0.0-0.7); #Lymphocytes 1.2 thou/uL (1.20-3.40); #Monocytes 0.4 thou/uL (0.11-0.59); #Neutrophils 3.1 thou/uL (1.40-6.50); %Basophils 0.4 % (0.0-1.0); %Eosinophils 4.1 % (0.0-10.0); %Monocytes 7.3 % (0.0-10.0); %Neutrophils 63.2 % (42.0-75.0); Hemoglobin 13.6 g/dL (12.0-16.0); Mean Corpuscular HGB CONC 31.9 g/dL (32.0-36.0); Mean Corpuscular Hemoglobin 30.2 pg (27.0-31.0); Mean Corpuscular Volume 94.9 fl (78.0-98.0); Mean Platelet Volume 6.2 fL (7.4-10.4); Platelet Count 304 10x3/uL (130-400); RBC Distribution Width 13.3 % (11.5-14.5); Red Blood Cell (RBC) Count 4.49 mill/uL (4.20-5.40); White Blood Cell (WBC) Count 4.9 10x3/uL (4.8-10.8)
[2022-09-10 18:00] LABS: ALT (SGPT) 20 U/L (8-55); AST (SGOT) 19 U/L (5-34); Albumin 3.8 g/dL (3.4-4.8); Alkaline Phosphatase 152 U/L (40-110); Anion Gap 12 mmol/L (10-20); BUN (Urea Nitrogen) 8 mg/dL (9.8-20.1); Bilirubin, Total 0.4 mg/dL (0.2-1.2); Calc. Creatinine Clearance 0 mL/min (70-130); Calcium 9.6 mg/dL (7.8-10.44); Carbon Dioxide 32 mmol/L (23-31); Chloride 103 mmol/L (98-107); Estimated GFR 85; Globulin 3.4 g/dL (2.4-3.5); Glucose 104 mg/dL (80-115); Protein, Total 7.2 g/dL (5.8-8.1); Sodium 143 mmol/L (136-145)
[2022-09-10 18:52] LABS: Bacteria/HPF 2+ HPF (None Seen); Bilirubin Negative (Negative); Blood, Urine Negative (Negative); Clarity Turbid (Clear); Glucose, Urine (Dipstick) Normal (Negative); Ketone, Urine Negative (Negative); Leukocyte 500 Leu/uL (Negative); Nitrite Negative (Negative); Protein, Urine (Dipstick) Negative (Neg-Trace); RBC/HPF 0-3 HPF (0-3); Specific Gravity, Urine 1.007 (1.002-1.036); Squamous Epithelial None Seen HPF (0-3); Urobilinogen Normal mg/dL (Less than 2); WBC/HPF 21-50 HPF (0-3)
[2022-09-10] MEDS ORDERED: cefTRIAXone (ROCEPHIN) 1 GM VIAL ONE (19:11)
[2022-09-10 19:30] LABS: Acetaminophen Less than 10.0 mcg/mL (10.0-30.0); Alcohol Less than 10 mg/dL (Less than 10); Salicylate Less than 8.0 mg/dL (15.0-30.0)
[2022-09-10 20:06] LABS: SARS-CoV-2 NAA Rapid Test Not Detected (NotDetected)
[2022-09-10 20:29] LABS: Amphetamine Not Detected (NotDetected); Barbiturates Screen Not Detected (NotDetected); Benzodiazepine Screen Not Detected (NotDetected); Cocaine Metabolite Screen Not Detected (NotDetected); Methadone Not Detected (NotDetected); Methamphetamine Not Detected (NotDetected); Opiate Screen Detected (NotDetected); Oxycodone Screen Not Detected (NotDetected); Phencyclidine (PCP) Not Detected (NotDetected); THC/Cannabinoid Screen Not Detected (NotDetected); Tricyclic Screen Not Detected (NotDetected)
[2022-09-10 21:31] LABS: Troponin I Less than 0.010 ng/mL (< 0.028)
== END 2022-09-10 23:48 | disposition home or self-care (01) ==
LOC: ERS 15:54
DX: J43.9 Emphysema, unspecified (principal); I11.0 Hypertensive heart disease with heart failure; I50.9 Heart failure, unspecified; E11.40 Type 2 diabetes mellitus with diabetic neuropathy, unspecified; E11.9 Type 2 diabetes mellitus without complications; E78.5 Hyperlipidemia, unspecified
CPT/HCPCS: 71045; 71275; 80306; 80307; 83605; 84484 ×2; 87077; 87086; 87186; 93005; 94640; 96361; 96374; 96375; 99285; U0002; 36415; 80053; 81003; 81015; 84443; 85025; J0696; J1100; J7620; Q9967

== ENCOUNTER 2022-11-13 10:03 | Emergency (ER) | payer MEDICARE, OTHER ==
[2022-11-13 12:45] LABS: SARS-CoV-2 NAA Rapid Test Not Detected (NotDetected)
== END 2022-11-13 11:51 | disposition home or self-care (01) ==
LOC: ERS 10:03
DX: Z77.110 Contact with and (suspected) exposure to air pollution (principal); E11.40 Type 2 diabetes mellitus with diabetic neuropathy, unspecified; E78.5 Hyperlipidemia, unspecified; J43.9 Emphysema, unspecified; I11.0 Hypertensive heart disease with heart failure; I50.9 Heart failure, unspecified; Z86.73 Personal history of transient ischemic attack (TIA), and cerebral infarction without residual deficits; Z79.899 Other long term (current) drug therapy; Z20.822 Contact with and (suspected) exposure to COVID-19
CPT/HCPCS: 0240U; 71045; 93005; 99285

== ENCOUNTER 2022-12-08 11:05 | Emergency (ER) | payer OTHER ==
[2022-12-08 12:00] LABS: #Eosinphils 0.3 thou/uL (0.0-0.7); #Neutrophils 5.5 thou/uL (1.40-6.50); %Basophils 0.2 % (0.0-1.0); %Eosinophils 3.9 % (0.0-10.0); %Lymphocytes 15.9 % (21.0-51.0); %Monocytes 11.8 % (0.0-10.0); %Neutrophils 67.6 % (42.0-75.0); Hemoglobin 12.8 g/dL (12.0-16.0); Mean Corpuscular HGB CONC 32.8 g/dL (32.0-36.0); Mean Corpuscular Hemoglobin 30.3 pg (27.0-31.0); Mean Corpuscular Volume 92.2 fl (78.0-98.0); Mean Platelet Volume 8.6 fL (7.4-10.4); Platelet Count 253 10x3/uL (130-400); RBC Distribution Width 13.5 % (11.5-14.5); Red Blood Cell (RBC) Count 4.23 mill/uL (4.20-5.40); White Blood Cell (WBC) Count 8.2 10x3/uL (4.8-10.8)
[2022-12-08 12:25] LABS: ALT (SGPT) 19 U/L (8-55); AST (SGOT) 21 U/L (5-34); Albumin 3.7 g/dL (3.4-4.8); Alkaline Phosphatase 93 U/L (40-110); Anion Gap 14 mmol/L (10-20); BUN (Urea Nitrogen) 14 mg/dL (9.8-20.1); CK (CPK) 94 U/L (29-168); Calc. Creatinine Clearance 0 mL/min (70-130); Calcium 9.6 mg/dL (7.8-10.44); Carbon Dioxide 25 mmol/L (23-31); Chloride 100 mmol/L (98-107); Estimated GFR 76; Globulin 3.1 g/dL (2.4-3.5); Glucose 96 mg/dL (80-115); Protein, Total 6.8 g/dL (5.8-8.1); Sodium 135 mmol/L (136-145)
[2022-12-08] MEDS ORDERED: methylPREDNISolone Sod Succ/PF 125 MG/2 ML VIAL ONE (12:25)
[2022-12-08] MEDS ORDERED: Ipratropium/Albuterol 3 ML NEB ONE (12:40)
== END 2022-12-08 13:15 | disposition home or self-care (01) ==
LOC: ERS 11:05
DX: J44.1 Chronic obstructive pulmonary disease with (acute) exacerbation (principal); I11.0 Hypertensive heart disease with heart failure; I50.9 Heart failure, unspecified; E11.9 Type 2 diabetes mellitus without complications; Z86.73 Personal history of transient ischemic attack (TIA), and cerebral infarction without residual deficits; Z79.899 Other long term (current) drug therapy
CPT/HCPCS: 71045; 80053; 82550; 84484; 85025; 93005; 96374; J2930; J7620

== ENCOUNTER 2022-12-21 20:47 | Emergency (ER) | payer OTHER, MEDICARE ==
[2022-12-21] MEDS ORDERED: Ipratropium/Albuterol 3 ML NEB ONE (21:14)
[2022-12-21 21:21] LABS: Actual Bicarbonate (HCO3v) 28.4 mEq/L (22-28); Analyzer IN Cardio ER; Base Excess 3.6 mEq/L (-2.0 to +3.0); Calcium, Ionized (venous) 1.08 mmol/L (1.16-1.32); Chloride (VBG) 103 mmol/L (98-106); Hematocrit-VBG 36 % (36.0-47.0); Hemoglobin (Hb) 12.4 g/dL (11.7-16.1); Potassium (VBG) 3.56 mmol/L (3.70-5.30); Sodium 139.2 mmol/L (133-146)
[2022-12-21] MEDS ORDERED: Magnesium 2 GM/50 ML BAG (IN WATER) ONE (21:21)
[2022-12-21] MEDS ORDERED: predniSONE 20 MG TAB ONE (21:21)
[2022-12-21] MEDS ORDERED: cefTRIAXone (ROCEPHIN) 1 GM VIAL ONE (21:21)
[2022-12-21] MEDS ORDERED: Azithromycin 250 MG TAB ONE (21:21)
[2022-12-21 21:25] LABS: #Eosinphils 0.2 thou/uL (0.0-0.7); #Monocytes 0.5 thou/uL (0.11-0.59); #Neutrophils 3.9 thou/uL (1.40-6.50); %Basophils 0.2 % (0.0-1.0); %Eosinophils 2.9 % (0.0-10.0); %Lymphocytes 25.2 % (21.0-51.0); %Monocytes 8.5 % (0.0-10.0); %Neutrophils 62.6 % (42.0-75.0); Hematocrit 34.6 % (36.0-47.0); Hemoglobin 11.3 g/dL (12.0-16.0); Mean Corpuscular HGB CONC 32.7 g/dL (32.0-36.0); Mean Corpuscular Hemoglobin 29.7 pg (27.0-31.0); Mean Corpuscular Volume 91.1 fl (78.0-98.0); Mean Platelet Volume 8.7 fL (7.4-10.4); Platelet Count 241 10x3/uL (130-400); RBC Distribution Width 13.9 % (11.5-14.5); White Blood Cell (WBC) Count 6.2 10x3/uL (4.8-10.8)
[2022-12-21 21:46] LABS: ALT (SGPT) 15 U/L (8-55); AST (SGOT) 16 U/L (5-34); Albumin 3.3 g/dL (3.4-4.8); Alkaline Phosphatase 109 U/L (40-110); Anion Gap 9 mmol/L (10-20); BUN (Urea Nitrogen) 10 mg/dL (9.8-20.1); Bilirubin, Total 0.3 mg/dL (0.2-1.2); Calc. Creatinine Clearance 0 mL/min (70-130); Calcium 8.8 mg/dL (7.8-10.44); Carbon Dioxide 30 mmol/L (23-31); Chloride 104 mmol/L (98-107); Estimated GFR 85; Globulin 2.7 g/dL (2.4-3.5); Glucose 133 mg/dL (80-115); Potassium 3.5 mmol/L (3.5-5.1); Sodium 139 mmol/L (136-145)
[2022-12-21 21:50] LABS: Troponin I Less than 0.010 ng/mL (< 0.028)
== END 2022-12-21 23:34 | disposition home or self-care (01) ==
LOC: ERS 20:47
DX: J44.1 Chronic obstructive pulmonary disease with (acute) exacerbation (principal); I11.0 Hypertensive heart disease with heart failure; I50.9 Heart failure, unspecified; E78.5 Hyperlipidemia, unspecified; E11.40 Type 2 diabetes mellitus with diabetic neuropathy, unspecified; Z79.51 Long term (current) use of inhaled steroids; Z79.899 Other long term (current) drug therapy; Z87.891 Personal history of nicotine dependence
CPT/HCPCS: 36415; 71045; 80053; 82805; 83880; 84484; 85025; 93005; 94640; 94760; 96365; 96367; J0696; J3475; J7512; J7620

== ENCOUNTER 2022-12-26 11:34 | Emergency (ER) | payer OTHER ==
[2022-12-26] MEDS ORDERED: methylPREDNISolone Sod Succ/PF 125 MG/2 ML VIAL ONE (11:55)
[2022-12-26] MEDS ORDERED: Ipratropium Bromide 2.5 ml Neb ONE (12:18)
[2022-12-26 12:21] LABS: #Monocytes 0.1 thou/uL (0.11-0.59); #Neutrophils 5.1 thou/uL (1.40-6.50); %Lymphocytes 8.1 % (21.0-51.0); %Monocytes 1.2 % (0.0-10.0); %Neutrophils 90.2 % (42.0-75.0); Hematocrit 42.5 % (36.0-47.0); Hemoglobin 13.8 g/dL (12.0-16.0); Mean Corpuscular HGB CONC 32.5 g/dL (32.0-36.0); Mean Corpuscular Hemoglobin 29.7 pg (27.0-31.0); Mean Corpuscular Volume 91.4 fl (78.0-98.0); Mean Platelet Volume 8.8 fL (7.4-10.4); Platelet Count 329 10x3/uL (130-400); RBC Distribution Width 14.2 % (11.5-14.5); Red Blood Cell (RBC) Count 4.65 mill/uL (4.20-5.40); White Blood Cell (WBC) Count 5.7 10x3/uL (4.8-10.8)
[2022-12-26 13:01] LABS: Anion Gap 14 mmol/L (10-20); BUN (Urea Nitrogen) 19 mg/dL (9.8-20.1); Calc. Creatinine Clearance 0 mL/min (70-130); Carbon Dioxide 29 mmol/L (23-31); Chloride 101 mmol/L (98-107); Estimated GFR 74; Potassium 3.7 mmol/L (3.5-5.1); Sodium 140 mmol/L (136-145)
[2022-12-26 13:02] LABS: ALT (SGPT) 19 U/L (8-55); AST (SGOT) 17 U/L (5-34); Albumin 3.9 g/dL (3.4-4.8); Alkaline Phosphatase 131 U/L (40-110); Bilirubin, Total 0.3 mg/dL (0.2-1.2); Calcium 9.8 mg/dL (7.6-10.4); Globulin 3.5 g/dL (2.4-3.5); Glucose 176 mg/dL (80-115); Protein, Total 7.4 g/dL (5.8-8.1)
[2022-12-26 13:03] LABS: Troponin I Less than 0.010 ng/mL (< 0.028)
[2022-12-26] MEDS ORDERED: Magnesium 2 GM/50 ML BAG (IN WATER) ONE (13:39)
[2022-12-26 13:57] LABS: Bacteria/HPF None Seen HPF (None Seen); Bilirubin Negative (Negative); Blood, Urine Negative (Negative); CAUTI Indications for Culture Dysuria,urgency,freq; Clarity Clear (Clear); Glucose, Urine (Dipstick) Normal (Negative); Ketone, Urine Negative (Negative); Leukocyte Negative Leu/uL (Negative); Nitrite Negative (Negative); Protein, Urine (Dipstick) Negative (Neg-Trace); RBC/HPF 0-3 HPF (0-3); Specific Gravity, Urine 1.019 (1.002-1.036); Squamous Epithelial None Seen HPF (0-3); Urobilinogen Normal mg/dL (Less than 2); WBC/HPF 0-3 HPF (0-3); pH, Urine 6.5 (5.0-9.0)
[2022-12-26 13:58] LABS: Urine Culture Reflex No No
[2022-12-26 16:10] LABS: Lactic Acid 6.2 mmol/L (0.5-2.2)
== END 2022-12-26 17:21 | disposition home or self-care (01) ==
LOC: ERS 11:34
DX: J44.1 Chronic obstructive pulmonary disease with (acute) exacerbation (principal); I11.0 Hypertensive heart disease with heart failure; I50.9 Heart failure, unspecified; E11.40 Type 2 diabetes mellitus with diabetic neuropathy, unspecified; E78.5 Hyperlipidemia, unspecified; Z87.891 Personal history of nicotine dependence; Z79.51 Long term (current) use of inhaled steroids; Z79.899 Other long term (current) drug therapy
CPT/HCPCS: 36415; 51701; 71045; 80053; 81001; 83605; 83880; 84484; 85025; 93005; 94644; 96365; 96375; J2930; J3475; J7611

== ENCOUNTER 2022-12-28 17:18 | Emergency (ER) | payer OTHER ==
[2022-12-28 18:16] LABS: #Eosinphils 0.1 thou/uL (0.0-0.7); #Monocytes 0.7 thou/uL (0.11-0.59); #Neutrophils 6.2 thou/uL (1.40-6.50); %Basophils 0.1 % (0.0-1.0); %Eosinophils 0.9 % (0.0-10.0); %Lymphocytes 10.1 % (21.0-51.0); %Monocytes 8.8 % (0.0-10.0); %Neutrophils 79.7 % (42.0-75.0); Hematocrit 38.5 % (36.0-47.0); Hemoglobin 12.5 g/dL (12.0-16.0); Mean Corpuscular HGB CONC 32.5 g/dL (32.0-36.0); Mean Corpuscular Hemoglobin 29.6 pg (27.0-31.0); Mean Corpuscular Volume 91.2 fl (78.0-98.0); Mean Platelet Volume 8.4 fL (7.4-10.4); Platelet Count 277 10x3/uL (130-400); RBC Distribution Width 14.3 % (11.5-14.5); Red Blood Cell (RBC) Count 4.22 mill/uL (4.20-5.40); White Blood Cell (WBC) Count 7.7 10x3/uL (4.8-10.8)
[2022-12-28 18:37] LABS: ALT (SGPT) 18 U/L (8-55); AST (SGOT) 15 U/L (5-34); Albumin 3.6 g/dL (3.4-4.8); Alkaline Phosphatase 132 U/L (40-110); Anion Gap 10 mmol/L (10-20); BUN (Urea Nitrogen) 27 mg/dL (9.8-20.1); Bilirubin, Total 0.3 mg/dL (0.2-1.2); Calc. Creatinine Clearance 0 mL/min (70-130); Calcium 9.2 mg/dL (7.8-10.44); Carbon Dioxide 34 mmol/L (23-31); Chloride 103 mmol/L (98-107); Estimated GFR 85; Globulin 2.4 g/dL (2.4-3.5); Glucose 97 mg/dL (80-115); Lipase 16 U/L (8-78); Potassium 4.3 mmol/L (3.5-5.1); Sodium 143 mmol/L (136-145)
[2022-12-28 18:41] LABS: Troponin I Less than 0.010 ng/mL (< 0.028)
[2022-12-28] MEDS ORDERED: Dicyclomine 20 MG TAB ONE (22:10)
== END 2022-12-28 22:30 | disposition home or self-care (01) ==
LOC: ERS 17:18
DX: R10.9 Unspecified abdominal pain (principal); I11.0 Hypertensive heart disease with heart failure; I50.9 Heart failure, unspecified; E11.22 Type 2 diabetes mellitus with diabetic chronic kidney disease; E78.5 Hyperlipidemia, unspecified; J44.9 Chronic obstructive pulmonary disease, unspecified; Z79.899 Other long term (current) drug therapy; Z79.4 Long term (current) use of insulin; Z86.73 Personal history of transient ischemic attack (TIA), and cerebral infarction without residual deficits
CPT/HCPCS: 36415; 71045; 80053; 83690; 84484; 85025; 93005

== ENCOUNTER 2023-01-14 16:39 | Emergency (ER) | payer OTHER, MEDICARE ==
[~2023-01-14 16:39] MED LIST changes: -Iopamidol 370 76% 100 ML VIAL ONE; +Iopamidol-370 76% 500 ML MDV (1 ML CHARGE) ONE
[2023-01-14 17:21] LABS: #Eosinphils 0.2 thou/uL (0.0-0.7); #Monocytes 0.5 thou/uL (0.11-0.59); #Neutrophils 2.5 thou/uL (1.40-6.50); %Basophils 0.4 % (0.0-1.0); %Lymphocytes 27.7 % (21.0-51.0); %Monocytes 11.9 % (0.0-10.0); %Neutrophils 55.3 % (42.0-75.0); Hematocrit 36.1 % (36.0-47.0); Hemoglobin 11.5 g/dL (12.0-16.0); Mean Corpuscular HGB CONC 31.9 g/dL (32.0-36.0); Mean Corpuscular Hemoglobin 29.9 pg (27.0-31.0); Platelet Count 210 10x3/uL (130-400); RBC Distribution Width 14.3 % (11.5-14.5); Red Blood Cell (RBC) Count 3.84 mill/uL (4.20-5.40); White Blood Cell (WBC) Count 4.5 10x3/uL (4.8-10.8)
[2023-01-14 17:51] LABS: ALT (SGPT) 18 U/L (8-55); AST (SGOT) 19 U/L (5-34); Albumin 3.4 g/dL (3.4-4.8); Alkaline Phosphatase 131 U/L (40-110); Anion Gap 9 mmol/L (10-20); BUN (Urea Nitrogen) 12 mg/dL (9.8-20.1); Bilirubin, Total 0.3 mg/dL (0.2-1.2); Calc. Creatinine Clearance 0 mL/min (70-130); Calcium 9.2 mg/dL (7.8-10.44); Carbon Dioxide 30 mmol/L (23-31); Chloride 103 mmol/L (98-107); Estimated GFR 92; Globulin 2.8 g/dL (2.4-3.5); Glucose 76 mg/dL (80-115); Lipase 20 U/L (8-78); Magnesium 1.8 mg/dL (1.6-2.6); Potassium 3.9 mmol/L (3.5-5.1); Protein, Total 6.2 g/dL (5.8-8.1); Sodium 138 mmol/L (136-145)
[2023-01-14 17:54] LABS: Troponin I Less than 0.010 ng/mL (< 0.028)
[2023-01-14] MEDS ORDERED: Ipratropium/Albuterol 3 ML NEB ONE (19:43)
[2023-01-14 19:54] LABS: Bacteria/HPF None Seen HPF (None Seen); Bilirubin Negative (Negative); Blood, Urine Negative (Negative); CAUTI Indications for Culture < 2yrs of age; Clarity Clear (Clear); Glucose, Urine (Dipstick) Normal (Negative); Ketone, Urine Negative (Negative); Leukocyte 75 Leu/uL (Negative); Nitrite Negative (Negative); Protein, Urine (Dipstick) Negative (Neg-Trace); RBC/HPF 0-3 HPF (0-3); Specific Gravity, Urine 1.044 (1.002-1.036); Squamous Epithelial 0-3 HPF (0-3); Urobilinogen Normal mg/dL (Less than 2); WBC/HPF 0-3 HPF (0-3); pH, Urine 6.5 (5.0-9.0)
[2023-01-14] MEDS ORDERED: fentaNYL 50 mcg/mL 1 mL Vial ONE (20:14)
[2023-01-14 20:35] LABS: Urine Culture Reflex Yes Yes
== END 2023-01-14 21:02 | disposition home or self-care (01) ==
LOC: ERS 16:39
DX: J44.1 Chronic obstructive pulmonary disease with (acute) exacerbation (principal); K59.00 Constipation, unspecified; R35.0 Frequency of micturition; I11.0 Hypertensive heart disease with heart failure; I50.9 Heart failure, unspecified; E78.5 Hyperlipidemia, unspecified; E11.9 Type 2 diabetes mellitus without complications; J45.909 Unspecified asthma, uncomplicated; Z87.891 Personal history of nicotine dependence
CPT/HCPCS: 71045; 74177; 80053; 81001; 83690; 83735; 84484; 85025; 87086; 93005; 94640; 96374; 99285; J3010; 36415; J7620; Q9967

== ENCOUNTER 2023-01-23 18:32 | Emergency (ER) | payer OTHER ==
[2023-01-23] MEDS ORDERED: Ipratropium/Albuterol 3 ML NEB ONE (20:17)
[2023-01-23] MEDS ORDERED: Albuterol 2.5 MG/0.5 ML NEB ONE ×2 (20:25→21:30)
[2023-01-23 20:34] LABS: #Eosinphils 0.3 thou/uL (0.0-0.7); #Monocytes 0.6 thou/uL (0.11-0.59); #Neutrophils 2.4 thou/uL (1.40-6.50); %Basophils 0.2 % (0.0-1.0); %Eosinophils 6.7 % (0.0-10.0); %Lymphocytes 28.7 % (21.0-51.0); %Monocytes 12.3 % (0.0-10.0); %Neutrophils 51.9 % (42.0-75.0); Hematocrit 37.2 % (36.0-47.0); Hemoglobin 12.1 g/dL (12.0-16.0); Mean Corpuscular HGB CONC 32.5 g/dL (32.0-36.0); Mean Corpuscular Hemoglobin 29.7 pg (27.0-31.0); Mean Corpuscular Volume 91.2 fl (78.0-98.0); Mean Platelet Volume 8.7 fL (7.4-10.4); Platelet Count 225 10x3/uL (130-400); Red Blood Cell (RBC) Count 4.08 mill/uL (4.20-5.40); White Blood Cell (WBC) Count 4.6 10x3/uL (4.8-10.8)
[2023-01-23 21:02] LABS: ALT (SGPT) 14 U/L (8-55); AST (SGOT) 16 U/L (5-34); Albumin 3.5 g/dL (3.4-4.8); Alkaline Phosphatase 128 U/L (40-110); Anion Gap 12 mmol/L (10-20); BUN (Urea Nitrogen) 12 mg/dL (9.8-20.1); Bilirubin, Total 0.3 mg/dL (0.2-1.2); Calc. Creatinine Clearance 0 mL/min (70-130); Calcium 9.3 mg/dL (7.8-10.44); Carbon Dioxide 27 mmol/L (23-31); Chloride 105 mmol/L (98-107); Estimated GFR 95; Globulin 2.9 g/dL (2.4-3.5); Glucose 104 mg/dL (80-115); Potassium 3.7 mmol/L (3.5-5.1); Protein, Total 6.4 g/dL (5.8-8.1); Sodium 140 mmol/L (136-145)
[2023-01-23] MEDS ORDERED: Ipratropium Bromide 2.5 ml Neb ONE (21:30)
[2023-01-23] MEDS ORDERED: Acetaminophen 500 MG TAB ONE (21:30)
== END 2023-01-23 22:57 | disposition home or self-care (01) ==
LOC: ERS 18:32
DX: J44.1 Chronic obstructive pulmonary disease with (acute) exacerbation (principal); E11.40 Type 2 diabetes mellitus with diabetic neuropathy, unspecified; I11.0 Hypertensive heart disease with heart failure; E78.5 Hyperlipidemia, unspecified; Z79.82 Long term (current) use of aspirin; Z79.899 Other long term (current) drug therapy
CPT/HCPCS: 36415; 71045; 80053; 85025; J7611; J7620

== ENCOUNTER 2023-02-05 19:11 | Emergency (ER) | payer OTHER ==
[2023-02-05 19:52] LABS: #Eosinphils 0.1 thou/uL (0.0-0.7); #Monocytes 0.8 thou/uL (0.11-0.59); #Neutrophils 2.6 thou/uL (1.40-6.50); %Basophils 0.4 % (0.0-1.0); %Lymphocytes 23.1 % (21.0-51.0); %Monocytes 17.1 % (0.0-10.0); %Neutrophils 56.7 % (42.0-75.0); Hematocrit 37.9 % (36.0-47.0); Hemoglobin 12.7 g/dL (12.0-16.0); Mean Corpuscular HGB CONC 33.5 g/dL (32.0-36.0); Mean Corpuscular Hemoglobin 30.1 pg (27.0-31.0); Mean Corpuscular Volume 89.8 fl (78.0-98.0); Mean Platelet Volume 8.5 fL (7.4-10.4); Platelet Count 296 10x3/uL (130-400); RBC Distribution Width 13.8 % (11.5-14.5); Red Blood Cell (RBC) Count 4.22 mill/uL (4.20-5.40); White Blood Cell (WBC) Count 4.5 10x3/uL (4.8-10.8)
[2023-02-05 20:20] LABS: Troponin I Less than 0.010 ng/mL (< 0.028)
[2023-02-05 20:24] LABS: ALT (SGPT) 24 U/L (8-55); AST (SGOT) 24 U/L (5-34); Albumin 3.9 g/dL (3.4-4.8); Alkaline Phosphatase 109 U/L (40-110); Anion Gap 13 mmol/L (10-20); BUN (Urea Nitrogen) 12 mg/dL (9.8-20.1); Bilirubin, Total 1.1 mg/dL (0.2-1.2); Calc. Creatinine Clearance 0 mL/min (70-130); Calcium 9.6 mg/dL (7.8-10.44); Carbon Dioxide 28 mmol/L (23-31); Chloride 103 mmol/L (98-107); Estimated GFR 74; Globulin 2.6 g/dL (2.4-3.5); Glucose 73 mg/dL (80-115); Potassium 2.9 mmol/L (3.5-5.1); Protein, Total 6.5 g/dL (5.8-8.1); Sodium 141 mmol/L (136-145)
[2023-02-05] MEDS ORDERED: Ipratropium/Albuterol 3 ML NEB ONE (20:33)
[2023-02-05] MEDS ORDERED: Potassium Chloride 20 MEQ TAB ONE (20:33)
[2023-02-05] MEDS ORDERED: predniSONE 20 MG TAB ONE (20:33)
== END 2023-02-05 22:21 | disposition home or self-care (01) ==
LOC: ERS 19:11
DX: J44.1 Chronic obstructive pulmonary disease with (acute) exacerbation (principal); E87.6 Hypokalemia; E11.40 Type 2 diabetes mellitus with diabetic neuropathy, unspecified; I50.9 Heart failure, unspecified; E78.5 Hyperlipidemia, unspecified; Z79.899 Other long term (current) drug therapy; Z87.891 Personal history of nicotine dependence
CPT/HCPCS: 36415; 71045; 80053; 84484; 85025; 93005; 94640; J7512; J7620

== ENCOUNTER 2023-02-10 18:58 | Emergency (ER) | payer OTHER, MEDICARE ==
[2023-02-10] MEDS ORDERED: Ipratropium/Albuterol 3 ML NEB ONE (19:53)
[2023-02-10 20:19] LABS: #Eosinphils 0.1 thou/uL (0.0-0.7); #Monocytes 0.4 thou/uL (0.11-0.59); #Neutrophils 4.3 thou/uL (1.40-6.50); %Basophils 0.3 % (0.0-1.0); %Lymphocytes 19.5 % (21.0-51.0); %Monocytes 6.9 % (0.0-10.0); %Neutrophils 71.1 % (42.0-75.0); Hematocrit 35.9 % (36.0-47.0); Hemoglobin 11.6 g/dL (12.0-16.0); Mean Corpuscular HGB CONC 32.3 g/dL (32.0-36.0); Mean Corpuscular Hemoglobin 29.4 pg (27.0-31.0); Mean Corpuscular Volume 91.1 fl (78.0-98.0); Mean Platelet Volume 8.7 fL (7.4-10.4); Platelet Count 284 10x3/uL (130-400); RBC Distribution Width 14.5 % (11.5-14.5); Red Blood Cell (RBC) Count 3.94 mill/uL (4.20-5.40); White Blood Cell (WBC) Count 6.1 10x3/uL (4.8-10.8)
[2023-02-10 20:41] LABS: ALT (SGPT) 25 U/L (8-55); AST (SGOT) 20 U/L (5-34); Albumin 3.8 g/dL (3.4-4.8); Alkaline Phosphatase 115 U/L (40-110); Anion Gap 12 mmol/L (10-20); BUN (Urea Nitrogen) 15 mg/dL (9.8-20.1); Bilirubin, Total 0.3 mg/dL (0.2-1.2); Calc. Creatinine Clearance 0 mL/min (70-130); Carbon Dioxide 30 mmol/L (23-31); Chloride 105 mmol/L (98-107); Estimated GFR 93; Globulin 2.9 g/dL (2.4-3.5); Glucose 93 mg/dL (80-115); Potassium 3.2 mmol/L (3.5-5.1); Protein, Total 6.7 g/dL (5.8-8.1); Sodium 144 mmol/L (136-145)
[2023-02-10 20:44] LABS: Troponin I Less than 0.010 ng/mL (< 0.028)
[2023-02-10] MEDS ORDERED: Magnesium 2 GM/50 ML BAG (IN WATER) ONE (21:15)
[2023-02-10] MEDS ORDERED: predniSONE 20 MG TAB ONE (21:15)
== END 2023-02-10 22:00 | disposition home or self-care (01) ==
LOC: ERS 18:58
DX: J44.1 Chronic obstructive pulmonary disease with (acute) exacerbation (principal); I11.0 Hypertensive heart disease with heart failure; I50.9 Heart failure, unspecified; J43.9 Emphysema, unspecified; E11.39 Type 2 diabetes mellitus with other diabetic ophthalmic complication; H42 Glaucoma in diseases classified elsewhere; E11.40 Type 2 diabetes mellitus with diabetic neuropathy, unspecified; Z86.73 Personal history of transient ischemic attack (TIA), and cerebral infarction without residual deficits; Z87.891 Personal history of nicotine dependence; Z79.899 Other long term (current) drug therapy
CPT/HCPCS: 71045; 80053; 84484; 85025; 93005; 94640; 96374; J3475; J7512; J7620

== ENCOUNTER 2023-02-25 12:28 | Emergency (ER) | payer OTHER ==
[2023-02-25 13:07] LABS: #Monocytes 0.2 thou/uL (0.11-0.59); #Neutrophils 5.2 thou/uL (1.40-6.50); %Basophils 0.2 % (0.0-1.0); %Eosinophils 0.3 % (0.0-10.0); %Lymphocytes 6.7 % (21.0-51.0); %Monocytes 2.9 % (0.0-10.0); %Neutrophils 89.2 % (42.0-75.0); Hematocrit 43.2 % (36.0-47.0); Mean Corpuscular HGB CONC 32.4 g/dL (32.0-36.0); Mean Corpuscular Hemoglobin 30.1 pg (27.0-31.0); Mean Corpuscular Volume 92.9 fl (78.0-98.0); Mean Platelet Volume 8.8 fL (7.4-10.4); Platelet Count 312 10x3/uL (130-400); RBC Distribution Width 14.6 % (11.5-14.5); Red Blood Cell (RBC) Count 4.65 mill/uL (4.20-5.40); White Blood Cell (WBC) Count 5.8 10x3/uL (4.8-10.8)
[2023-02-25] MEDS ORDERED: Dexamethasone 4 mg/ml Vial ONE (13:24)
[2023-02-25] MEDS ORDERED: Dexamethasone 4 MG TAB ONE (13:27)
[2023-02-25 13:36] LABS: ALT (SGPT) 22 U/L (8-55); AST (SGOT) 20 U/L (5-34); Albumin 4.3 g/dL (3.4-4.8); Alkaline Phosphatase 124 U/L (40-110); Anion Gap 15 mmol/L (10-20); BUN (Urea Nitrogen) 18 mg/dL (9.8-20.1); Bilirubin, Total 0.7 mg/dL (0.2-1.2); Calc. Creatinine Clearance 0 mL/min (70-130); Calcium 9.7 mg/dL (7.8-10.44); Carbon Dioxide 30 mmol/L (23-31); Chloride 99 mmol/L (98-107); Estimated GFR 81; Glucose 119 mg/dL (80-115); Potassium 3.5 mmol/L (3.5-5.1); Protein, Total 7.3 g/dL (5.8-8.1); Sodium 140 mmol/L (136-145)
[2023-02-25 13:39] LABS: Troponin I Less than 0.010 ng/mL (< 0.028)
[2023-02-25] MEDS ORDERED: Morphine 4 MG/ML VIAL ONE (17:00)
== END 2023-02-25 17:10 | disposition home or self-care (01) ==
LOC: ERS 12:28
DX: J44.9 Chronic obstructive pulmonary disease, unspecified (principal); I11.0 Hypertensive heart disease with heart failure; I50.9 Heart failure, unspecified; E78.5 Hyperlipidemia, unspecified; E11.40 Type 2 diabetes mellitus with diabetic neuropathy, unspecified; Z86.73 Personal history of transient ischemic attack (TIA), and cerebral infarction without residual deficits; Z79.899 Other long term (current) drug therapy; Z87.891 Personal history of nicotine dependence
CPT/HCPCS: 36415; 71045; 80053; 84484; 85025; 93005; 96374; J1100; J2270; J8540

== ENCOUNTER 2023-03-19 21:17 | Emergency (ER) | payer OTHER ==
[2023-03-20] MEDS ORDERED: Ipratropium/Albuterol 3 ML NEB ONE (00:50)
[2023-03-20] MEDS ORDERED: methylPREDNISolone Sod Succ/PF 125 MG/2 ML VIAL ONE (03:04)
[2023-03-20 03:15] LABS: #Monocytes 0.7 thou/uL (0.11-0.59); #Neutrophils 3.8 thou/uL (1.40-6.50); %Basophils 0.2 % (0.0-1.0); %Eosinophils 0.2 % (0.0-10.0); %Monocytes 12.2 % (0.0-10.0); Hematocrit 38.1 % (36.0-47.0); Hemoglobin 12.5 g/dL (12.0-16.0); Mean Corpuscular HGB CONC 32.8 g/dL (32.0-36.0); Mean Corpuscular Hemoglobin 30.2 pg (27.0-31.0); Mean Platelet Volume 9.3 fL (7.4-10.4); Platelet Count 241 10x3/uL (130-400); Red Blood Cell (RBC) Count 4.14 mill/uL (4.20-5.40); White Blood Cell (WBC) Count 5.6 10x3/uL (4.8-10.8)
[2023-03-20] MEDS ORDERED: Acetaminophen 325 MG TAB ONE (03:28)
[2023-03-20 03:29] LABS: Prothrombin Time 13.1 sec (12.0-14.7)
[2023-03-20 03:30] LABS: PTT 23.6 sec (22.9-36.1)
[2023-03-20 03:42] LABS: Troponin I Less than 0.010 ng/mL (< 0.028)
[2023-03-20 04:07] LABS: ALT (SGPT) 22 U/L (8-55); AST (SGOT) 28 U/L (5-34); Alkaline Phosphatase 116 U/L (40-110); Anion Gap 15 mmol/L (10-20); BUN (Urea Nitrogen) 15 mg/dL (9.8-20.1); Bilirubin, Total 0.6 mg/dL (0.2-1.2); Calc. Creatinine Clearance 0 mL/min (70-130); Calcium 9.1 mg/dL (7.8-10.44); Carbon Dioxide 28 mmol/L (23-31); Chloride 102 mmol/L (98-107); Estimated GFR 89; Globulin 2.7 g/dL (2.4-3.5); Glucose 133 mg/dL (80-115); Magnesium 2.1 mg/dL (1.6-2.6); Potassium 4.2 mmol/L (3.5-5.1); Protein, Total 6.7 g/dL (5.8-8.1); Sodium 141 mmol/L (136-145)
[2023-03-20 06:17] LABS: Lactic Acid 1.4 mmol/L (0.5-2.2)
== END 2023-03-20 06:35 | disposition home or self-care (01) ==
LOC: ERS 21:17
DX: J44.1 Chronic obstructive pulmonary disease with (acute) exacerbation (principal); E11.40 Type 2 diabetes mellitus with diabetic neuropathy, unspecified; I10 Essential (primary) hypertension; E78.5 Hyperlipidemia, unspecified; Z87.891 Personal history of nicotine dependence; Z79.51 Long term (current) use of inhaled steroids; Z79.899 Other long term (current) drug therapy
CPT/HCPCS: 36415; 71045; 80053; 83605; 83735; 83880; 84484; 85025; 85610; 85730; 93005; 94760; 96374; J2930; J7620

== ENCOUNTER 2023-03-29 22:31 | Emergency (ER) | payer OTHER ==
[2023-03-29 23:10] LABS: #Eosinphils 0.1 thou/uL (0.0-0.7); #Monocytes 0.6 thou/uL (0.11-0.59); #Neutrophils 3.2 thou/uL (1.40-6.50); %Basophils 0.3 % (0.0-1.0); %Eosinophils 1.8 % (0.0-10.0); %Lymphocytes 41.6 % (21.0-51.0); %Monocytes 9.1 % (0.0-10.0); %Neutrophils 46.9 % (42.0-75.0); Hematocrit 40.6 % (36.0-47.0); Mean Corpuscular Hemoglobin 29.7 pg (27.0-31.0); Mean Corpuscular Volume 92.9 fl (78.0-98.0); Mean Platelet Volume 8.5 fL (7.4-10.4); Platelet Count 237 10x3/uL (130-400); RBC Distribution Width 14.2 % (11.5-14.5); Red Blood Cell (RBC) Count 4.37 mill/uL (4.20-5.40); White Blood Cell (WBC) Count 6.8 10x3/uL (4.8-10.8)
[2023-03-29 23:37] LABS: ALT (SGPT) 24 U/L (8-55); AST (SGOT) 22 U/L (5-34); Albumin 3.6 g/dL (3.4-4.8); Alkaline Phosphatase 123 U/L (40-110); Anion Gap 15 mmol/L (10-20); BUN (Urea Nitrogen) 7 mg/dL (9.8-20.1); Bilirubin, Total 0.9 mg/dL (0.2-1.2); Calc. Creatinine Clearance 0 mL/min (70-130); Calcium 8.9 mg/dL (7.8-10.44); Carbon Dioxide 31 mmol/L (23-31); Chloride 102 mmol/L (98-107); Estimated GFR 89; Glucose 114 mg/dL (80-115); Magnesium 3.2 mg/dL (1.6-2.6); Potassium 3.2 mmol/L (3.5-5.1); Protein, Total 6.6 g/dL (5.8-8.1); Sodium 144 mmol/L (136-145)
[2023-03-29 23:42] LABS: Troponin I Less than 0.010 ng/mL (< 0.028)
[2023-03-30] MEDS ORDERED: Albuterol 2.5 MG/0.5 ML NEB ONE ×2 (01:40→03:32)
[2023-03-30] MEDS ORDERED: Ipratropium/Albuterol 3 ML NEB ONE ×2 (01:41→03:32)
[2023-03-30] MEDS ORDERED: Dexamethasone 4 MG TAB ONE (01:41)
[2023-03-30] MEDS ORDERED: Benzonatate 100 MG CAP ONE (06:46)
[2023-03-30] MEDS ORDERED: Iopamidol-370 76% 500 ML MDV (1 ML CHARGE) ONE (11:10)
== END 2023-03-30 06:58 | disposition home or self-care (01) ==
LOC: ERS 22:31
DX: S22.089A Unspecified fracture of T11-T12 vertebra, initial encounter for closed fracture (principal); J44.1 Chronic obstructive pulmonary disease with (acute) exacerbation; E11.40 Type 2 diabetes mellitus with diabetic neuropathy, unspecified; I10 Essential (primary) hypertension; Z87.891 Personal history of nicotine dependence; Z86.73 Personal history of transient ischemic attack (TIA), and cerebral infarction without residual deficits; X58.XXXA Exposure to other specified factors, initial encounter; Z79.899 Other long term (current) drug therapy
CPT/HCPCS: 36415; 71045; 71275; 80053; 83735; 83880; 84484; 85025; 85379; 93005; J7611; J7620; J8540; Q9967

== ENCOUNTER 2023-03-31 20:15 | Emergency (ER) | payer OTHER ==
[2023-03-31] MEDS ORDERED: Furosemide 20 MG/2 ML VIAL ONE (20:39)
[2023-03-31] MEDS ORDERED: LORazepam 2 MG/ML SYR.(CARPUJECT) ONE (20:39)
[2023-03-31] MEDS ORDERED: Magnesium 2 GM/50 ML BAG (IN WATER) ONE (20:40)
[2023-03-31] MEDS ORDERED: methylPREDNISolone Sod Succ/PF 125 MG/2 ML VIAL ONE (20:40)
[2023-03-31] MEDS ORDERED: Ipratropium/Albuterol 3 ML NEB ONE (20:42)
[2023-03-31 21:00] LABS: #Monocytes 0.2 thou/uL (0.11-0.59); #Neutrophils 5.5 thou/uL (1.40-6.50); %Lymphocytes 15.8 % (21.0-51.0); %Monocytes 2.4 % (0.0-10.0); %Neutrophils 81.5 % (42.0-75.0); Hematocrit 36.2 % (36.0-47.0); Hemoglobin 11.5 g/dL (12.0-16.0); Mean Corpuscular HGB CONC 31.8 g/dL (32.0-36.0); Mean Corpuscular Hemoglobin 30.1 pg (27.0-31.0); Mean Corpuscular Volume 94.8 fl (78.0-98.0); Mean Platelet Volume 8.3 fL (7.4-10.4); Platelet Count 199 10x3/uL (130-400); RBC Distribution Width 14.3 % (11.5-14.5); Red Blood Cell (RBC) Count 3.82 mill/uL (4.20-5.40); White Blood Cell (WBC) Count 6.8 10x3/uL (4.8-10.8)
[2023-03-31 21:22] LABS: ALT (SGPT) 23 U/L (8-55); AST (SGOT) 20 U/L (5-34); Albumin 3.5 g/dL (3.4-4.8); Alkaline Phosphatase 131 U/L (40-110); Anion Gap 12 mmol/L (10-20); BUN (Urea Nitrogen) 12 mg/dL (9.8-20.1); Bilirubin, Total 0.5 mg/dL (0.2-1.2); Calc. Creatinine Clearance 0 mL/min (70-130); Calcium 8.8 mg/dL (7.8-10.44); Carbon Dioxide 31 mmol/L (23-31); Chloride 102 mmol/L (98-107); Estimated GFR 90; Globulin 2.2 g/dL (2.4-3.5); Glucose 173 mg/dL (80-115); Potassium 3.5 mmol/L (3.5-5.1); Protein, Total 5.7 g/dL (5.8-8.1); Sodium 141 mmol/L (136-145)
[2023-03-31 21:26] LABS: Troponin I Less than 0.010 ng/mL (< 0.028)
[2023-04-01] MEDS ORDERED: Acetaminophen 500 MG TAB ONE (03:09)
== END 2023-04-01 03:10 | disposition home or self-care (01) ==
LOC: ERS 20:15
DX: J45.901 Unspecified asthma with (acute) exacerbation (principal); I11.0 Hypertensive heart disease with heart failure; I50.9 Heart failure, unspecified; E78.5 Hyperlipidemia, unspecified; E11.9 Type 2 diabetes mellitus without complications; Z87.891 Personal history of nicotine dependence; Z79.899 Other long term (current) drug therapy
CPT/HCPCS: 71045; 80053; 84484; 85025; 85379; 94640; J2060; 36415; 93005; 96365; 96375; J1940; J2930; J3475; J7620

== ENCOUNTER 2023-09-13 22:15 | Inpatient (IN) | payer OTHER ==
[2023-09-13] MEDS ORDERED: methylPREDNISolone Sod Succ/PF 125 MG/2 ML VIAL ONE (22:29)
[2023-09-13] MEDS ORDERED: Magnesium 2 GM/50 ML BAG (IN WATER) ONE (22:29)
[2023-09-13] MEDS ORDERED: Albuterol 2.5 MG (0.5 mL) NEB ONE (22:34)
[2023-09-13] MEDS ORDERED: Ipratropium/Albuterol 3 ML NEB ONE (22:34)
[2023-09-13 22:49] LABS: #Basophils Less than 0.03 10x3/uL (0.0-0.2); %Basophils 0.2 % (0.0-1.0); %Eosinophils 0.6 % (0.0-10.0); %Lymphocytes 15.2 % (21.0-51.0); %Neutrophils 73.1 % (42.0-75.0); Hematocrit 40.1 % (36.0-47.0); Hemoglobin 12.9 g/dL (12.0-16.0); Mean Corpuscular HGB CONC 32.2 g/dL (32.0-36.0); Mean Corpuscular Hemoglobin 29.7 pg (27.0-31.0); Mean Corpuscular Volume 92.4 fL (78.0-98.0); Mean Platelet Volume 8.9 fL (7.4-10.4); Platelet Count 227 10x3/uL (130-400); RBC Distribution Width 13.9 % (11.5-14.5); Red Blood Cell (RBC) Count 4.34 mill/uL (4.20-5.40)
[2023-09-13 22:52] LABS: Base Excess 4.2 mEq/L (-2.0 to +3.0); Calcium, Ionized (venous) 1.08 mmol/L (1.16-1.32); Chloride (VBG) 98 mmol/L (98-106); Hematocrit-VBG 38 % (36.0-47.0); Potassium (VBG) 3.64 mmol/L (3.70-5.30); Sodium 133 mmol/L (133-146); pH (venous) 7.398 (7.32-7.43)
[2023-09-13 23:32] LABS: ALT (SGPT) 27 U/L (8-55); AST (SGOT) 20 U/L (5-34); Albumin 3.3 g/dL (3.4-4.8); Alkaline Phosphatase 149 U/L (40-110); Anion Gap 17 mmol/L (10-20); BUN (Urea Nitrogen) 8 mg/dL (9.8-20.1); Bilirubin, Total 0.5 mg/dL (0.2-1.2); Calc. Creatinine Clearance 0 mL/min (70-130); Calcium 9.5 mg/dL (7.8-10.44); Carbon Dioxide 32 mmol/L (23-31); Chloride 98 mmol/L (98-107); Estimated GFR 95; Globulin 2.5 g/dL (2.4-3.5); Glucose 87 mg/dL (80-115); Potassium 3.7 mmol/L (3.5-5.1); Protein, Total 5.8 g/dL (5.8-8.1); Sodium 143 mmol/L (136-145)
[2023-09-13 23:35] LABS: Troponin I 0.011 ng/mL (< 0.028)
[2023-09-14] MEDS ORDERED: Ipratropium/Albuterol 3 ML NEB ONE (00:14)
[2023-09-14] MEDS ORDERED: Sodium Chloride 0.9% 100 ML ONE (00:15)
[2023-09-14] MEDS ORDERED: cefTRIAXone (ROCEPHIN) 2 GM VIAL ONE (00:15)
[2023-09-14] MEDS ORDERED: Acetaminophen 650 MG Suppository PR PRN (01:17)
[2023-09-14] MEDS ORDERED: Ondansetron PF 4 MG/2 ML Vial IVP PRN (01:17)
[2023-09-14] MEDS ORDERED: Ondansetron ODT 4 MG TAB PO PRN (01:17)
[2023-09-14] MEDS ORDERED: Acetaminophen 325 MG TAB PO PRN (01:17)
[2023-09-14] MEDS ORDERED: Azithromycin 500 MG VIAL ONE (01:27)
[2023-09-14] MEDS ORDERED: Ipratropium/Albuterol 3 ML NEB NEB PRN (01:52)
[2023-09-14] MEDS: Ipratropium/Albuterol 3 ML NEB NEB SCH (02:30)
[2023-09-14] MEDS ORDERED: Glucagon 1 MG/ML KIT IM PRN (02:42)
[2023-09-14] MEDS ORDERED: Dextrose 50% Abboject 50 ML SYRINGE SLOW IVP PRN (02:42)
[2023-09-14] MEDS ORDERED: HumaLOG 300 UNITS/3 ML VIAL SC PRN (02:42)
[2023-09-14] MEDS ORDERED: Dextrose 5% in Water 1,000 ML IV PRN (02:42)
[2023-09-14 02:50] VITALS: BMI 13.4
[2023-09-14] MEDS: HumaLOG 300 UNITS/3 ML VIAL SC PRN (05:17)
[2023-09-14 05:43] LABS: #Basophils Less than 0.03 10x3/uL (0.0-0.2); #Eosinphils Less than 0.03 10x3/uL (0.0-0.7); %Basophils 0.1 % (0.0-1.0); %Lymphocytes 1.3 % (21.0-51.0); %Neutrophils 96.5 % (42.0-75.0); Hematocrit 37.3 % (36.0-47.0); Mean Corpuscular HGB CONC 32.2 g/dL (32.0-36.0); Mean Corpuscular Volume 93.3 fL (78.0-98.0); Mean Platelet Volume 8.4 fL (7.4-10.4); Platelet Count 197 10x3/uL (130-400)
[2023-09-14 06:06] LABS: Anion Gap 15 mmol/L (10-20); BUN (Urea Nitrogen) 10 mg/dL (9.8-20.1); Calc. Creatinine Clearance 51 mL/min (70-130); Carbon Dioxide 31 mmol/L (23-31); Chloride 98 mmol/L (98-107); Estimated GFR 89; Glucose 228 mg/dL (80-115); Potassium 3.8 mmol/L (3.5-5.1); Sodium 140 mmol/L (136-145); Troponin I 0.013 ng/mL (< 0.028)
[2023-09-14 10:55] VITALS: BMI 13.4
[2023-09-14 12:20] LABS: Troponin I Less than 0.010 ng/mL (< 0.028)
[2023-09-14] MEDS ORDERED: hydrALAZINE 25 MG TAB PO PRN (15:41)
[2023-09-14] MEDS: cefTRIAXone\\ROCEPHIN 1 GM in Sodium Chloride 0.9% 100 ML IVPB SCH (20:55)
[2023-09-14] MEDS: Lorazepam 0.5 MG TAB PO SCH (22:48)
[2023-09-15 10:18] LABS: Bilirubin Negative (Negative); Blood, Urine Trace (Negative); Glucose, Urine (Dipstick) Negative (Negative); Ketone, Urine Negative (Negative); Leukocyte Large (Negative); Nitrite Positive (Negative); Protein, Urine (Dipstick) Negative (Neg-Trace); Urobilinogen 0.2 mg/dL (Less than 2)
[2023-09-15 10:19] LABS: Clarity Hazy (Clear)
[2023-09-15 10:22] LABS: Bacteria/HPF 2+ HPF (None Seen); RBC/HPF 0-3 HPF (0-3); Squamous Epithelial 0-3 HPF (0-3)
[2023-09-15 10:23] LABS: WBC/HPF 21-50 HPF (0-3)
[2023-09-15] MEDS: HYDROcodone/Acetaminophen 5/325 mg Tablet PO PRN (10:49)
[2023-09-15] MEDS ORDERED: Ipratropium Bromide 2.5 ml Neb NEB SCH (13:00)
[2023-09-15] MEDS: metFORMIN 500 MG TAB PO SCH (16:30)
[2023-09-15] MEDS: Mometasone 200 MCG/Formoterol 5 MCG 120 PUFF INHALER INH SCH (18:56)
[2023-09-15] MEDS: Lorazepam 0.5 MG TAB PO PRN (21:08)
[2023-09-16 06:58] LABS: #Basophils Less than 0.03 10x3/uL (0.0-0.2); #Eosinphils Less than 0.03 10x3/uL (0.0-0.7); %Basophils 0.1 % (0.0-1.0); %Eosinophils 0.2 % (0.0-10.0); %Lymphocytes 11.6 % (21.0-51.0); %Monocytes 8.7 % (0.0-10.0); %Neutrophils 78.7 % (42.0-75.0); Hematocrit 36.9 % (36.0-47.0); Hemoglobin 11.6 g/dL (12.0-16.0); Mean Corpuscular HGB CONC 31.4 g/dL (32.0-36.0); Mean Corpuscular Hemoglobin 28.9 pg (27.0-31.0); Mean Corpuscular Volume 91.8 fL (78.0-98.0); Mean Platelet Volume 8.6 fL (7.4-10.4); Platelet Count 202 10x3/uL (130-400); RBC Distribution Width 14.1 % (11.5-14.5); Red Blood Cell (RBC) Count 4.02 mill/uL (4.20-5.40)
[2023-09-16 07:12] LABS: Anion Gap 12 mmol/L (10-20); BUN (Urea Nitrogen) 15 mg/dL (9.8-20.1); Calc. Creatinine Clearance 53 mL/min (70-130); Calcium 8.9 mg/dL (7.8-10.44); Carbon Dioxide 36 mmol/L (23-31); Chloride 93 mmol/L (98-107); Estimated GFR 93; Glucose 86 mg/dL (80-115); Potassium 4.5 mmol/L (3.5-5.1); Sodium 136 mmol/L (136-145)
[2023-09-16] MEDS: Pantoprazole DR 40 MG TAB PO SCH (08:45)
[2023-09-17 07:51] VITALS: BP 121/67; TEMP 97.8
== END 2023-09-17 14:48 | disposition home or self-care (01) | DRG 189 ==
LOC: ERS 22:15 → T4-A 09-14 01:24 → OBSVTOIN 09-15 16:36
PROVIDERS: ADMIT Student in an Organized Health Care Education/Training Program; ATTEND Hospitalist
DX: J96.21 Acute and chronic respiratory failure with hypoxia (principal); J44.1 Chronic obstructive pulmonary disease with (acute) exacerbation; N39.0 Urinary tract infection, site not specified; E11.40 Type 2 diabetes mellitus with diabetic neuropathy, unspecified; E78.5 Hyperlipidemia, unspecified; M19.90 Unspecified osteoarthritis, unspecified site; N64.4 Mastodynia; F20.9 Schizophrenia, unspecified; R33.9 Retention of urine, unspecified; Z21 Asymptomatic human immunodeficiency virus [HIV] infection status; Z88.8 Allergy status to other drugs, medicaments and biological substances; Z79.899 Other long term (current) drug therapy; Z79.2 Long term (current) use of antibiotics; Z98.890 Other specified postprocedural states; Z79.4 Long term (current) use of insulin
CPT/HCPCS: 36415; 36416; 71045; 80048; 80053; 81001; 82805; 83605; 83735; 84484; 85025; 87086; 93005; 94640; J0456; J0696; J1815; J2930; J3475; J3490; J7611; J7620

== ENCOUNTER 2023-09-26 17:07 | Emergency (ER) | payer MEDICARE, OTHER ==
[2023-09-26 19:56] LABS: #Basophils Less than 0.03 10x3/uL (0.0-0.2); %Basophils 0.5 % (0.0-1.0); %Eosinophils 1.3 % (0.0-10.0); %Lymphocytes 19.7 % (21.0-51.0); %Monocytes 9.1 % (0.0-10.0); %Neutrophils 66.4 % (42.0-75.0); Hematocrit 36.4 % (36.0-47.0); Hemoglobin 11.4 g/dL (12.0-16.0); Mean Corpuscular HGB CONC 31.3 g/dL (32.0-36.0); Mean Corpuscular Hemoglobin 28.8 pg (27.0-31.0); Mean Corpuscular Volume 91.9 fL (78.0-98.0); Mean Platelet Volume 8.6 fL (7.4-10.4); Platelet Count 306 10x3/uL (130-400); RBC Distribution Width 14.3 % (11.5-14.5); Red Blood Cell (RBC) Count 3.96 mill/uL (4.20-5.40)
[2023-09-26 20:18] LABS: ALT (SGPT) 23 U/L (8-55); AST (SGOT) 15 U/L (5-34); Albumin 3.1 g/dL (3.4-4.8); Alkaline Phosphatase 121 U/L (40-110); Anion Gap 11 mmol/L (10-20); BUN (Urea Nitrogen) 12 mg/dL (9.8-20.1); Bilirubin, Total 0.6 mg/dL (0.2-1.2); Calc. Creatinine Clearance 0 mL/min (70-130); Calcium 8.8 mg/dL (7.8-10.44); Carbon Dioxide 36 mmol/L (23-31); Chloride 100 mmol/L (98-107); Estimated GFR 82; Globulin 2.7 g/dL (2.4-3.5); Glucose 93 mg/dL (80-115); Potassium 3.8 mmol/L (3.5-5.1); Protein, Total 5.8 g/dL (5.8-8.1); Sodium 143 mmol/L (136-145)
[2023-09-26 20:26] LABS: Troponin I Less than 0.010 ng/mL (< 0.028)
[2023-09-26] MEDS ORDERED: Ipratropium/Albuterol 3 ML NEB ONE ×2 (20:46→22:16)
[2023-09-26] MEDS ORDERED: predniSONE 20 MG TAB ONE (21:21)
== END 2023-09-26 23:55 | disposition home or self-care (01) ==
LOC: ERS 17:07
DX: R06.2 Wheezing (principal); I10 Essential (primary) hypertension; E11.42 Type 2 diabetes mellitus with diabetic polyneuropathy; J44.9 Chronic obstructive pulmonary disease, unspecified
CPT/HCPCS: 36415; 71045; 80053; 83880; 84484; 85025; 93005; J7512; J7620

== ENCOUNTER 2023-09-27 18:25 | Emergency (ER) | payer OTHER ==
[2023-09-27] MEDS ORDERED: Ipratropium/Albuterol 3 ML NEB ONE (19:25)
== END 2023-09-27 20:05 | disposition home or self-care (01) ==
LOC: ERS 18:25
DX: J44.9 Chronic obstructive pulmonary disease, unspecified (principal); B37.9 Candidiasis, unspecified; J02.9 Acute pharyngitis, unspecified; E11.9 Type 2 diabetes mellitus without complications; I10 Essential (primary) hypertension
CPT/HCPCS: 71045; 93005; 94640; J7620

== ENCOUNTER 2023-10-03 22:09 | Emergency (ER) | payer OTHER ==
[2023-10-03] MEDS ORDERED: Ipratropium/Albuterol 3 ML NEB ONE ×3 (22:24→23:53)
[2023-10-03] MEDS ORDERED: Magnesium 2 GM/50 ML BAG (IN WATER) ONE (22:45)
[2023-10-03] MEDS ORDERED: methylPREDNISolone Sod Succ/PF 125 MG/2 ML VIAL ONE (22:45)
[2023-10-03 23:26] LABS: #Basophils Less than 0.03 10x3/uL (0.0-0.2); #Eosinphils Less than 0.03 10x3/uL (0.0-0.7); %Basophils 0.1 % (0.0-1.0); %Lymphocytes 12.9 % (21.0-51.0); %Monocytes 3.6 % (0.0-10.0); %Neutrophils 82.2 % (42.0-75.0); Hematocrit 35.4 % (36.0-47.0); Hemoglobin 11.6 g/dL (12.0-16.0); Mean Corpuscular HGB CONC 32.8 g/dL (32.0-36.0); Mean Corpuscular Hemoglobin 30.1 pg (27.0-31.0); Mean Corpuscular Volume 91.7 fL (78.0-98.0); Mean Platelet Volume 8.8 fL (7.4-10.4); Platelet Count 212 10x3/uL (130-400); RBC Distribution Width 14.3 % (11.5-14.5); Red Blood Cell (RBC) Count 3.86 mill/uL (4.20-5.40)
[2023-10-03 23:40] LABS: ALT (SGPT) 26 U/L (8-55); AST (SGOT) 23 U/L (5-34); Albumin 3.3 g/dL (3.4-4.8); Alkaline Phosphatase 121 U/L (40-110); Anion Gap 12 mmol/L (10-20); BUN (Urea Nitrogen) 11 mg/dL (9.8-20.1); Bilirubin, Total 0.5 mg/dL (0.2-1.2); Calc. Creatinine Clearance 0 mL/min (70-130); Calcium 8.5 mg/dL (7.8-10.44); Carbon Dioxide 29 mmol/L (23-31); Chloride 103 mmol/L (98-107); Estimated GFR 87; Globulin 3.3 g/dL (2.4-3.5); Glucose 180 mg/dL (80-115); Lipase 31 U/L (8-78); Potassium 3.8 mmol/L (3.5-5.1); Protein, Total 6.6 g/dL (5.8-8.1); Sodium 140 mmol/L (136-145)
[2023-10-03 23:45] LABS: Troponin I Less than 0.010 ng/mL (< 0.028)
== END 2023-10-04 01:07 | disposition home or self-care (01) ==
LOC: ERS 22:09
DX: R06.2 Wheezing (principal); Y80 Physical medicine devices associated with adverse incidents; I10 Essential (primary) hypertension; E11.9 Type 2 diabetes mellitus without complications; J44.9 Chronic obstructive pulmonary disease, unspecified; Z55.6 Problems related to health literacy
CPT/HCPCS: 36415; 71045; 80053; 83690; 83735; 84484; 85025; 93005; 96365; 96375; J2930; J3475; J7620

== ENCOUNTER 2023-10-07 01:26 | Observation (INO) | payer OTHER, MEDICAID ==
[2023-10-07] MEDS ORDERED: Ipratropium/Albuterol 3 ML NEB ONE ×2 (01:31)
[2023-10-07 02:32] LABS: #Basophils Less than 0.03 10x3/uL (0.0-0.2); #Eosinphils Less than 0.03 10x3/uL (0.0-0.7); %Basophils 0.1 % (0.0-1.0); %Eosinophils 0.1 % (0.0-10.0); %Lymphocytes 16.4 % (21.0-51.0); %Monocytes 10.8 % (0.0-10.0); %Neutrophils 71.7 % (42.0-75.0); Hematocrit 35.4 % (36.0-47.0); Hemoglobin 11.2 g/dL (12.0-16.0); Mean Corpuscular HGB CONC 31.6 g/dL (32.0-36.0); Mean Corpuscular Hemoglobin 29.5 pg (27.0-31.0); Mean Corpuscular Volume 93.2 fL (78.0-98.0); Mean Platelet Volume 8.8 fL (7.4-10.4); Platelet Count 219 10x3/uL (130-400); RBC Distribution Width 14.5 % (11.5-14.5)
[2023-10-07 02:34] LABS: Bacteria/HPF None Seen HPF (None Seen); Bilirubin Negative (Negative); Blood, Urine Negative (Negative); CAUTI Indications for Culture Dysuria,urgency,freq; Clarity Clear (Clear); Glucose, Urine (Dipstick) Normal (Negative); Ketone, Urine Negative (Negative); Leukocyte Negative Leu/uL (Negative); Nitrite Negative (Negative); Protein, Urine (Dipstick) 10 mg/dL (Neg-Trace); RBC/HPF 0-3 HPF (0-3); Specific Gravity, Urine 1.018 (1.002-1.036); Squamous Epithelial None Seen HPF (0-3); Urobilinogen Normal mg/dL (Less than 2); WBC/HPF 0-3 HPF (0-3); pH, Urine 6.5 (5.0-9.0)
[2023-10-07 02:37] LABS: Urine Culture Reflex No No
[2023-10-07 02:50] LABS: ALT (SGPT) 25 U/L (8-55); AST (SGOT) 23 U/L (5-34); Albumin 3.1 g/dL (3.4-4.8); Alkaline Phosphatase 123 U/L (40-110); Anion Gap 13 mmol/L (10-20); BUN (Urea Nitrogen) 19 mg/dL (9.8-20.1); Bilirubin, Total 0.5 mg/dL (0.2-1.2); Calc. Creatinine Clearance 0 mL/min (70-130); Calcium 8.9 mg/dL (7.8-10.44); Carbon Dioxide 32 mmol/L (23-31); Chloride 100 mmol/L (98-107); Estimated GFR 84; Globulin 2.6 g/dL (2.4-3.5); Glucose 145 mg/dL (80-115); Potassium 3.6 mmol/L (3.5-5.1); Protein, Total 5.7 g/dL (5.8-8.1); Sodium 141 mmol/L (136-145)
[2023-10-07 02:51] LABS: Troponin I Less than 0.010 ng/mL (< 0.028)
[2023-10-07] MEDS ORDERED: Ondansetron ODT 4 MG TAB PO PRN (03:48)
[2023-10-07] MEDS ORDERED: Ondansetron PF 4 MG/2 ML Vial IVP PRN (03:48)
[2023-10-07] MEDS ORDERED: Acetaminophen 650 MG Suppository PR PRN (03:48)
[2023-10-07] MEDS ORDERED: Ipratropium/Albuterol 3 ML NEB NEB PRN (03:48)
[2023-10-07] MEDS ORDERED: HumaLOG 300 UNITS/3 ML VIAL SC PRN ×2 (03:57)
[2023-10-07] MEDS ORDERED: Glucagon 1 MG/ML KIT IM PRN (03:57)
[2023-10-07] MEDS ORDERED: Dextrose 5% in Water 1,000 ML IV PRN (03:57)
[2023-10-07] MEDS ORDERED: Dextrose 50% Abboject 50 ML SYRINGE SLOW IVP PRN (03:57)
[2023-10-07] MEDS: methylPREDNISolone Sod Succ 40 MG VIAL IVP SCH ×3 (05:18→08:28)
[2023-10-07 05:19] VITALS: BMI 20.2
[2023-10-07] MEDS: Ipratropium/Albuterol 3 ML NEB NEB SCH (07:01)
[2023-10-07] MEDS: metFORMIN 500 MG TAB PO SCH (08:33)
[2023-10-07] MEDS: Pantoprazole DR 40 MG TAB PO SCH (08:33)
[2023-10-07] MEDS: Acetaminophen/Codeine 30-300mg Tablet PO PRN (08:43)
[2023-10-07] MEDS ORDERED: Non-Formulary Item 1 EACH (Tiotropium Bromide 4 GM Mist.Inhal) IH SCH (09:00)
[2023-10-07] MEDS: HYDROcodone/Acetaminophen 5/325 mg Tablet PO PRN (17:54)
[2023-10-07] MEDS: Acetaminophen 325 MG TAB PO PRN (17:54)
[2023-10-07] MEDS: Mometasone 200 MCG/Formoterol 5 MCG 120 PUFF INHALER INH SCH (19:01)
[2023-10-07] MEDS: QUEtiapine 25 MG TAB PO SCH (20:48)
[2023-10-07] MEDS: Lorazepam 0.5 MG TAB PO PRN (21:18)
[2023-10-08 06:36] LABS: #Basophils Less than 0.03 10x3/uL (0.0-0.2); %Basophils 0.1 % (0.0-1.0); %Eosinophils 0.5 % (0.0-10.0); %Lymphocytes 14.7 % (21.0-51.0); %Monocytes 9.9 % (0.0-10.0); %Neutrophils 73.6 % (42.0-75.0); Hemoglobin 11.6 g/dL (12.0-16.0); Mean Corpuscular HGB CONC 31.4 g/dL (32.0-36.0); Mean Corpuscular Hemoglobin 29.4 pg (27.0-31.0); Mean Corpuscular Volume 93.7 fL (78.0-98.0); Mean Platelet Volume 8.6 fL (7.4-10.4); Platelet Count 226 10x3/uL (130-400); RBC Distribution Width 14.3 % (11.5-14.5); Red Blood Cell (RBC) Count 3.95 mill/uL (4.20-5.40)
[2023-10-08 06:57] LABS: Anion Gap 11 mmol/L (10-20); BUN (Urea Nitrogen) 16 mg/dL (9.8-20.1); Calc. Creatinine Clearance 57 mL/min (70-130); Calcium 8.8 mg/dL (7.8-10.44); Carbon Dioxide 33 mmol/L (23-31); Chloride 100 mmol/L (98-107); Estimated GFR 95; Glucose 102 mg/dL (80-115); Potassium 3.8 mmol/L (3.5-5.1); Sodium 140 mmol/L (136-145)
[2023-10-08 07:58] VITALS: TEMP 97.2
[2023-10-08] MEDS ORDERED: Ipratropium/Albuterol 3 ML NEB ONE (08:33)
[2023-10-08 11:41] VITALS: BP 143/80
== END 2023-10-08 15:44 | disposition home or self-care (01) ==
LOC: ERS 01:26 → T4-B 03:39
PROVIDERS: ADMIT Student in an Organized Health Care Education/Training Program; ATTEND Internal Medicine
PROC: 0T9B70Z Drainage of Bladder with Drainage Device, Via Natural or Artificial Opening (ICD-10-PCS; principal; 2023-10-07)
DX: J96.20 Acute and chronic respiratory failure, unspecified whether with hypoxia or hypercapnia (principal); J44.1 Chronic obstructive pulmonary disease with (acute) exacerbation; E11.9 Type 2 diabetes mellitus without complications; D64.9 Anemia, unspecified; J96.21 Acute and chronic respiratory failure with hypoxia; E11.65 Type 2 diabetes mellitus with hyperglycemia; F41.9 Anxiety disorder, unspecified; I10 Essential (primary) hypertension; Z88.6 Allergy status to analgesic agent; Z79.84 Long term (current) use of oral hypoglycemic drugs; Z79.51 Long term (current) use of inhaled steroids; Z79.899 Other long term (current) drug therapy
CPT/HCPCS: 51701; 71045; 80048; 80053; 81001; 82962 ×2; 83880; 84484; 85025 ×2; 87040; 93005; 94640 ×5; 94644; 96374; 96376; 99285; G0378 ×3; J2920 ×2; 36415; 36416; J7620

== ENCOUNTER 2023-10-09 23:16 | Inpatient (IN) | payer MEDICARE, OTHER ==
[2023-10-10 01:00] LABS: #Basophils Less than 0.03 10x3/uL (0.0-0.2); %Basophils 0.1 % (0.0-1.0); %Eosinophils 0.7 % (0.0-10.0); %Lymphocytes 28.1 % (21.0-51.0); %Monocytes 7.5 % (0.0-10.0); %Neutrophils 61.8 % (42.0-75.0); Hematocrit 35.4 % (36.0-47.0); Hemoglobin 11.3 g/dL (12.0-16.0); Mean Corpuscular HGB CONC 31.9 g/dL (32.0-36.0); Mean Corpuscular Hemoglobin 29.6 pg (27.0-31.0); Mean Corpuscular Volume 92.7 fL (78.0-98.0); Mean Platelet Volume 8.8 fL (7.4-10.4); Platelet Count 220 10x3/uL (130-400); RBC Distribution Width 14.3 % (11.5-14.5); Red Blood Cell (RBC) Count 3.82 mill/uL (4.20-5.40)
[2023-10-10 01:06] LABS: Actual Bicarbonate (HCO3a) 33.8 mEq/L (22-28); Analyzer IN Cardio ER; Base Excess (BEa) 6.4 mEq/L (-2.0 to +3.0); Calcium, Ionized (arterial) 1.13 mmol/L (1.12-1.30); Carboxyhemoglobin (COHb) 1.1 gm% (0.0-3.0); Hematocrit-ABG 32 % (36.0-47.0); Potassium - ABG Lab 3.45 mmol/L (3.70-5.30); pH, Arterial 7.337 (7.35-7.45)
[2023-10-10] MEDS ORDERED: Albuterol 2.5 MG (3 mL) NEB ONE ×2 (01:09→02:41)
[2023-10-10] MEDS ORDERED: Ipratropium/Albuterol 3 ML NEB ONE (01:09)
[2023-10-10 01:11] LABS: Influenza A by NAA Not Detected (NotDetected); Influenza B by NAA Not Detected (NotDetected); SARS-CoV-2 NAA Rapid Test Not Detected (NotDetected)
[2023-10-10] MEDS ORDERED: Dexamethasone 10 MG/ML VIAL ONE (01:18)
[2023-10-10 01:22] LABS: ALT (SGPT) 22 U/L (8-55); AST (SGOT) 22 U/L (5-34); Alkaline Phosphatase 172 U/L (40-110); Anion Gap 14 mmol/L (10-20); BUN (Urea Nitrogen) 10 mg/dL (9.8-20.1); Bilirubin, Total 0.4 mg/dL (0.2-1.2); Calc. Creatinine Clearance 0 mL/min (70-130); Carbon Dioxide 31 mmol/L (23-31); Chloride 102 mmol/L (98-107); Estimated GFR 82; Glucose 133 mg/dL (80-115); Potassium 3.8 mmol/L (3.5-5.1); Sodium 143 mmol/L (136-145)
[2023-10-10] MEDS ORDERED: Albuterol 2.5 MG (3 mL) NEB NEB PRN (03:12)
[2023-10-10] MEDS ORDERED: cefTRIAXone\\ROCEPHIN 1 GM in Sodium Chloride 0.9% 100 ML IVPB SCH (03:15)
[2023-10-10 03:53] LABS: CO2 Tension 64.5 mmHg (35.0-45.0); O2 Tension (PaO2), arterial 39.3 mmHg (> 80.0)
[2023-10-10 03:54] LABS: ALV-art Gradient 79.715 mmHg (0-20); Puncture Site RRA
[2023-10-10] MEDS ORDERED: HumaLOG 300 UNITS/3 ML VIAL SC PRN (04:38)
[2023-10-10] MEDS ORDERED: Dextrose 50% Abboject 50 ML SYRINGE SLOW IVP PRN (04:38)
[2023-10-10] MEDS ORDERED: Dextrose 5% in Water 1,000 ML IV PRN (04:38)
[2023-10-10] MEDS ORDERED: Glucagon 1 MG/ML KIT IM PRN (04:38)
[2023-10-10] MEDS ORDERED: Acetaminophen 325 MG TAB PO PRN (04:39)
[2023-10-10] MEDS ORDERED: Ondansetron ODT 4 MG TAB PO PRN (04:39)
[2023-10-10] MEDS ORDERED: Ondansetron PF 4 MG/2 ML Vial IVP PRN (04:39)
[2023-10-10 07:13] VITALS: BMI 19.8
[2023-10-10] MEDS: Mometasone 100 MCG/Formoterol 5 MCG 120 PUFF INHALER INH SCH ×2 (07:27→19:01)
[2023-10-10] MEDS: Ipratropium/Albuterol 3 ML NEB EZPAP SCH (07:30)
[2023-10-10] MEDS ORDERED: Ipratropium/Albuterol 3 ML NEB EZPAP PRN (07:51)
[2023-10-10] MEDS: guaiFENesin/DM ER PO SCH (08:19)
[2023-10-10] MEDS: Doxycycline 100 MG CAP PO SCH (08:19)
[2023-10-10] MEDS: methylPREDNISolone Sod Succ 40 MG VIAL IVP SCH (08:19)
[2023-10-10] MEDS: Enoxaparin 40 MG (0.4 mL) SYRINGE SC SCH (08:19)
[2023-10-10] MEDS: Magnesium 2 GM/50 ML(in water) 2 GM in Premix 1 BAG IVPB SCH ×2 (08:22)
[2023-10-10] MEDS ORDERED: Lorazepam 0.5 MG TAB PO PRN (12:01)
[2023-10-10] MEDS: HumaLOG 300 UNITS/3 ML VIAL SC PRN (17:48)
[2023-10-10] MEDS ORDERED: TOLTERODINE TARTRATE 2 MG PO SCH (21:00)
[2023-10-10] MEDS: Trospium 20 MG TAB PO SCH (23:08)
[2023-10-10] MEDS: Acyclovir 400 mg Tablet PO SCH (23:08)
[2023-10-11 05:03] LABS: #Basophils Less than 0.03 10x3/uL (0.0-0.2); #Eosinphils Less than 0.03 10x3/uL (0.0-0.7); %Basophils 0.1 % (0.0-1.0); %Lymphocytes 4.1 % (21.0-51.0); %Monocytes 2.8 % (0.0-10.0); %Neutrophils 91.2 % (42.0-75.0); Hematocrit 34.6 % (36.0-47.0); Mean Corpuscular HGB CONC 31.8 g/dL (32.0-36.0); Mean Corpuscular Hemoglobin 29.2 pg (27.0-31.0); Mean Corpuscular Volume 91.8 fL (78.0-98.0); Mean Platelet Volume 8.8 fL (7.4-10.4); Platelet Count 244 10x3/uL (130-400); RBC Distribution Width 14.1 % (11.5-14.5); Red Blood Cell (RBC) Count 3.77 mill/uL (4.20-5.40)
[2023-10-11 05:20] LABS: Anion Gap 12 mmol/L (10-20); BUN (Urea Nitrogen) 11 mg/dL (9.8-20.1); Calc. Creatinine Clearance 50 mL/min (70-130); Calcium 9.1 mg/dL (7.8-10.44); Carbon Dioxide 33 mmol/L (23-31); Chloride 98 mmol/L (98-107); Estimated GFR 84; Glucose 228 mg/dL (80-115); Potassium 4.6 mmol/L (3.5-5.1); Sodium 138 mmol/L (136-145)
[2023-10-11] MEDS: HYDROcodone/Acetaminophen 5/325 mg Tablet PO PRN (07:03)
[2023-10-11] MEDS: Enoxaparin 30 MG (0.3 mL) SYRINGE SC SCH (08:23)
[2023-10-11] MEDS: Pantoprazole DR 40 MG TAB PO SCH (08:24)
[2023-10-11 12:11] VITALS: BP 160/76; TEMP 98.2
== END 2023-10-11 16:00 | disposition home or self-care (01) | DRG 189 ==
LOC: ERS 23:16 → ERHOLD 10-10 03:27 → 2SW 10-10 04:26
PROVIDERS: ADMIT Physician Assistant; ATTEND Family Medicine
PROC: 4A033R1 Measurement of Arterial Saturation, Peripheral, Percutaneous Approach (ICD-10-PCS; principal; 2023-10-10)
DX: J96.21 Acute and chronic respiratory failure with hypoxia (principal); J44.1 Chronic obstructive pulmonary disease with (acute) exacerbation; J96.22 Acute and chronic respiratory failure with hypercapnia; E11.9 Type 2 diabetes mellitus without complications; I10 Essential (primary) hypertension; Z88.8 Allergy status to other drugs, medicaments and biological substances; Z79.899 Other long term (current) drug therapy; Z98.890 Other specified postprocedural states; J96.20 Acute and chronic respiratory failure, unspecified whether with hypoxia or hypercapnia; D64.9 Anemia, unspecified; E11.65 Type 2 diabetes mellitus with hyperglycemia; F41.9 Anxiety disorder, unspecified; Z88.6 Allergy status to analgesic agent; Z79.84 Long term (current) use of oral hypoglycemic drugs; Z79.51 Long term (current) use of inhaled steroids
CPT/HCPCS: 36415; 36416; 36600; 51701; 71045; 80048; 80053; 81001; 82805; 83605; 83880; 84484; 85025; 85379; 87040; 93005; 94640; 94644; 94760; 96361; 96374; 96376; G0378; J1100; J1650; J1815; J2920; J3475; J7611; J7620

== ENCOUNTER 2023-10-12 18:46 | Inpatient (IN) | payer OTHER ==
[2023-10-12 20:10] LABS: #Basophils Less than 0.03 10x3/uL (0.0-0.2); #Eosinphils Less than 0.03 10x3/uL (0.0-0.7); %Basophils 0.1 % (0.0-1.0); %Eosinophils 0.3 % (0.0-10.0); %Lymphocytes 15.6 % (21.0-51.0); %Monocytes 13.5 % (0.0-10.0); Hematocrit 36.2 % (36.0-47.0); Hemoglobin 11.4 g/dL (12.0-16.0); Mean Corpuscular HGB CONC 31.5 g/dL (32.0-36.0); Mean Corpuscular Hemoglobin 29.5 pg (27.0-31.0); Mean Corpuscular Volume 93.8 fL (78.0-98.0); Mean Platelet Volume 8.3 fL (7.4-10.4); Platelet Count 246 10x3/uL (130-400); RBC Distribution Width 14.3 % (11.5-14.5); Red Blood Cell (RBC) Count 3.86 mill/uL (4.20-5.40)
[2023-10-12 20:23] LABS: ALT (SGPT) 30 U/L (8-55); AST (SGOT) 21 U/L (5-34); Albumin 3.2 g/dL (3.4-4.8); Alkaline Phosphatase 135 U/L (40-110); Anion Gap 13 mmol/L (10-20); BUN (Urea Nitrogen) 13 mg/dL (9.8-20.1); Bilirubin, Total 0.4 mg/dL (0.2-1.2); Calc. Creatinine Clearance 0 mL/min (70-130); Calcium 8.9 mg/dL (7.8-10.44); Carbon Dioxide 31 mmol/L (23-31); Chloride 101 mmol/L (98-107); Estimated GFR 86; Glucose 114 mg/dL (80-115); Lipase 52 U/L (8-78); Magnesium 1.8 mg/dL (1.6-2.6); Potassium 3.9 mmol/L (3.5-5.1); Protein, Total 6.2 g/dL (5.8-8.1); Sodium 141 mmol/L (136-145)
[2023-10-12 20:27] LABS: Troponin I Less than 0.010 ng/mL (< 0.028)
[2023-10-13] MEDS ORDERED: Ondansetron PF 4 MG/2 ML Vial IVP PRN (00:21)
[2023-10-13] MEDS ORDERED: Acetaminophen 325 MG TAB PO PRN (00:21)
[2023-10-13] MEDS ORDERED: Glucagon 1 MG/ML KIT IM PRN (00:30)
[2023-10-13] MEDS ORDERED: Dextrose 5% in Water 1,000 ML IV PRN (00:30)
[2023-10-13] MEDS ORDERED: Dextrose 50% Abboject 50 ML SYRINGE SLOW IVP PRN (00:30)
[2023-10-13 00:36] LABS: Actual Bicarbonate (HCO3a) 29.1 mEq/L (22-28); Analyzer IN Cardio ER; CO2 Tension 51.7 mmHg (35.0-45.0); Carboxyhemoglobin (COHb) 0.8 gm% (0.0-3.0); Hematocrit-ABG 33 % (36.0-47.0); Hemoglobin (Hb) 11.2 g/dL (12.0-16.0); Potassium - ABG Lab 3.81 mmol/L (3.70-5.30); pH, Arterial 7.368 (7.35-7.45)
[2023-10-13 00:45] LABS: ALV-art Gradient 115.535 mmHg (0-20); Puncture Site RBA
[2023-10-13] MEDS: Ipratropium/Albuterol 3 ML NEB NEB SCH (02:00)
[2023-10-13] MEDS: methylPREDNISolone Sod Succ/PF 125 MG/2 ML VIAL IVP SCH (03:41)
[2023-10-13 04:21] VITALS: BMI 17.9
[2023-10-13 05:28] LABS: #Basophils Less than 0.03 10x3/uL (0.0-0.2); #Eosinphils Less than 0.03 10x3/uL (0.0-0.7); %Basophils 0.2 % (0.0-1.0); %Eosinophils 0.2 % (0.0-10.0); %Lymphocytes 14.1 % (21.0-51.0); %Monocytes 6.2 % (0.0-10.0); %Neutrophils 77.5 % (42.0-75.0); Hematocrit 35.9 % (36.0-47.0); Hemoglobin 11.2 g/dL (12.0-16.0); Mean Corpuscular HGB CONC 31.2 g/dL (32.0-36.0); Mean Platelet Volume 8.7 fL (7.4-10.4); Platelet Count 248 10x3/uL (130-400); RBC Distribution Width 14.4 % (11.5-14.5); Red Blood Cell (RBC) Count 3.86 mill/uL (4.20-5.40)
[2023-10-13 05:46] LABS: Anion Gap 9 mmol/L (10-20); BUN (Urea Nitrogen) 12 mg/dL (9.8-20.1); Calc. Creatinine Clearance 53 mL/min (70-130); Carbon Dioxide 36 mmol/L (23-31); Chloride 100 mmol/L (98-107); Estimated GFR 95; Glucose 144 mg/dL (80-115); Potassium 4.2 mmol/L (3.5-5.1); Sodium 141 mmol/L (136-145)
[2023-10-13] MEDS: Mometasone 200 MCG/Formoterol 5 MCG 120 PUFF INHALER INH SCH (07:41)
[2023-10-13] MEDS: Enoxaparin 40 MG (0.4 mL) SYRINGE SC SCH (08:43)
[2023-10-13] MEDS: Doxycycline 100 MG CAP PO SCH (08:45)
[2023-10-13] MEDS: HumaLOG 300 UNITS/3 ML VIAL SC PRN ×2 (13:13→21:37)
[2023-10-13 13:55] VITALS: BMI 17.9
[2023-10-14] MEDS: hydrALAZINE 20 MG/ML VIAL SLOW IVP PRN (00:11)
[2023-10-14] MEDS: dilTIAZem CD 120 MG CAP PO SCH ×2 (00:11→09:32)
[2023-10-14] MEDS: predniSONE 20 MG TAB PO SCH (09:33)
[2023-10-14] MEDS: Enoxaparin 30 MG (0.3 mL) SYRINGE SC SCH (09:33)
[2023-10-14 13:07] LABS: Bacteria/HPF None Seen HPF (None Seen); Bilirubin Negative (Negative); Blood, Urine Negative (Negative); CAUTI Indications for Culture Alt mental st,lethar; Clarity Clear (Clear); Glucose, Urine (Dipstick) 300 mg/dL (Negative); Ketone, Urine Negative (Negative); Leukocyte Negative Leu/uL (Negative); Nitrite Negative (Negative); Protein, Urine (Dipstick) Negative (Neg-Trace); RBC/HPF 0-3 HPF (0-3); Specific Gravity, Urine 1.008 (1.002-1.036); Squamous Epithelial 0-3 HPF (0-3); Urobilinogen Normal mg/dL (Less than 2); WBC/HPF 0-3 HPF (0-3)
[2023-10-14 13:09] LABS: Urine Culture Reflex No No
[2023-10-14] MEDS: Ipratropium/Albuterol 3 ML NEB NEB SCH (13:43)
[2023-10-15] MEDS: diphenhydrAMINE 50 MG/ML VIAL IVP SCH (12:43)
[2023-10-16 08:26] VITALS: BP 168/96; TEMP 97.5
== END 2023-10-16 10:15 | DRG 191 ==
LOC: ERS 18:46 → 2SW 10-13 01:43 → OBSVTOIN 10-15 10:37
PROVIDERS: ADMIT Internal Medicine; ATTEND Internal Medicine
PROC: 4A033R1 Measurement of Arterial Saturation, Peripheral, Percutaneous Approach (ICD-10-PCS; principal; 2023-10-13)
DX: J44.1 Chronic obstructive pulmonary disease with (acute) exacerbation (principal); J96.11 Chronic respiratory failure with hypoxia; E11.9 Type 2 diabetes mellitus without complications; I10 Essential (primary) hypertension; F22 Delusional disorders; R46.89 Other symptoms and signs involving appearance and behavior; Z88.8 Allergy status to other drugs, medicaments and biological substances; Z79.899 Other long term (current) drug therapy; Z98.890 Other specified postprocedural states; Z91.199 Patient's noncompliance with other medical treatment and regimen due to unspecified reason
CPT/HCPCS: 36415; 36416; 36600; 71045; 80048; 80053; 81001; 82805; 83690; 83735; 83880; 84484; 85025; 93005; 94640; 96372; 96374; 96375; G0378; J0360; J1650; J1815; J2930; J7512; J7620

== ENCOUNTER 2023-10-24 18:35 | Emergency (ER) | payer OTHER ==
[2023-10-24 19:06] LABS: Hematocrit 38.1 % (36.0-47.0); Hemoglobin 12.2 g/dL (12.0-16.0); Mean Corpuscular Volume 90.7 fL (78.0-98.0); Mean Platelet Volume 8.9 fL (7.4-10.4); Platelet Count 256 10x3/uL (130-400); RBC Distribution Width 15.1 % (11.5-14.5)
[2023-10-24 19:20] LABS: ALT (SGPT) 34 U/L (8-55); AST (SGOT) 30 U/L (5-34); Albumin 3.5 g/dL (3.4-4.8); Alkaline Phosphatase 144 U/L (40-110); Anion Gap 11 mmol/L (10-20); BUN (Urea Nitrogen) 15 mg/dL (9.8-20.1); Bilirubin, Total 0.4 mg/dL (0.2-1.2); Calc. Creatinine Clearance 0 mL/min (70-130); Calcium 9.1 mg/dL (7.8-10.44); Carbon Dioxide 36 mmol/L (23-31); Chloride 99 mmol/L (98-107); Estimated GFR 92; Glucose 93 mg/dL (80-115); Potassium 4.1 mmol/L (3.5-5.1); Protein, Total 6.5 g/dL (5.8-8.1); Sodium 142 mmol/L (136-145)
[2023-10-24 19:22] LABS: PTT 23.5 sec (22.9-36.1)
[2023-10-24 19:23] LABS: Troponin I 0.015 ng/mL (< 0.028)
[2023-10-24 19:29] LABS: Band 4 % (5-11); Eosinophils 1 % (0-10); INR-International Normal Ratio 0.9; Lymphocytes 15 % (21-51); Metamyelocyte 3 % (0-0); Monocytes 7 % (0-10); Neutrophil 69 % (42-75); Ovalocytes SLIGHT = 2-5 cells HPF (0-1); Platelet Adequacy Comment Platelets Normal; Polychromasia SLIGHT = 2-3 cells HPF (0-2); Prothrombin Time 11.6 sec (12.0-14.7)
== END 2023-10-25 01:00 | disposition home or self-care (01) ==
LOC: ERS 18:35
DX: R06.02 Shortness of breath (principal); R60.0 Localized edema; J44.9 Chronic obstructive pulmonary disease, unspecified; I10 Essential (primary) hypertension; E11.42 Type 2 diabetes mellitus with diabetic polyneuropathy; Z55.6 Problems related to health literacy; Z86.73 Personal history of transient ischemic attack (TIA), and cerebral infarction without residual deficits
CPT/HCPCS: 71045; 80053; 83880; 84484; 85025; 85610; 85730; 93005; 93970; 94640

== ENCOUNTER 2024-01-24 02:43 | Emergency (ER) | payer OTHER ==
[2024-01-24] MEDS ORDERED: Ipratropium/Albuterol 3 ML NEB ONE (03:13)
[2024-01-24] MEDS ORDERED: methylPREDNISolone Sod Succ/PF 125 MG/2 ML VIAL ONE (04:04)
[2024-01-24 04:10] LABS: #Basophils Less than 0.03 10x3/uL (0.0-0.2); #Eosinphils Less than 0.03 10x3/uL (0.0-0.7); %Basophils 0.2 % (0.0-1.0); %Eosinophils 0.3 % (0.0-10.0); %Lymphocytes 21.3 % (21.0-51.0); %Monocytes 5.1 % (0.0-10.0); %Neutrophils 72.8 % (42.0-75.0); Hematocrit 39.9 % (36.0-47.0); Hemoglobin 12.2 g/dL (12.0-16.0); Mean Corpuscular HGB CONC 30.6 g/dL (32.0-36.0); Mean Corpuscular Hemoglobin 28.4 pg (27.0-31.0); Platelet Count 218 10x3/uL (130-400); RBC Distribution Width 14.1 % (11.5-14.5); Red Blood Cell (RBC) Count 4.29 mill/uL (4.20-5.40)
[2024-01-24 04:34] LABS: ALT (SGPT) 16 U/L (8-55); AST (SGOT) 20 U/L (5-34); Albumin 3.4 g/dL (3.4-4.8); Alkaline Phosphatase 125 U/L (40-110); Anion Gap 11 mmol/L (10-20); BUN (Urea Nitrogen) 8 mg/dL (9.8-20.1); Bilirubin, Total 0.5 mg/dL (0.2-1.2); Calc. Creatinine Clearance 0 mL/min (70-130); Calcium 9.1 mg/dL (7.8-10.44); Carbon Dioxide 32 mmol/L (23-31); Chloride 99 mmol/L (98-107); Estimated GFR 93; Globulin 3.4 g/dL (2.4-3.5); Glucose 155 mg/dL (80-115); Protein, Total 6.8 g/dL (5.8-8.1); Sodium 138 mmol/L (136-145)
== END 2024-01-24 06:20 | disposition home or self-care (01) ==
LOC: ERS 02:43
DX: J44.1 Chronic obstructive pulmonary disease with (acute) exacerbation (principal); I10 Essential (primary) hypertension; E11.9 Type 2 diabetes mellitus without complications
CPT/HCPCS: 71045; 80053; 85025; 93005; 94640; 96374; 99285; J2919; J7620

== ENCOUNTER 2024-01-26 00:29 | Emergency (ER) | payer OTHER ==
[2024-01-26 01:55] LABS: #Basophils Less than 0.03 10x3/uL (0.0-0.2); %Basophils 0.2 % (0.0-1.0); %Eosinophils 2.1 % (0.0-10.0); %Lymphocytes 24.3 % (21.0-51.0); %Neutrophils 60.7 % (42.0-75.0); Hematocrit 36.7 % (36.0-47.0); Hemoglobin 11.5 g/dL (12.0-16.0); Mean Corpuscular HGB CONC 31.3 g/dL (32.0-36.0); Mean Corpuscular Volume 92.7 fL (78.0-98.0); Mean Platelet Volume 8.2 fL (7.4-10.4); Platelet Count 206 10x3/uL (130-400); RBC Distribution Width 14.4 % (11.5-14.5); Red Blood Cell (RBC) Count 3.96 mill/uL (4.20-5.40)
[2024-01-26 02:12] LABS: ALT (SGPT) 18 U/L (8-55); AST (SGOT) 18 U/L (5-34); Albumin 3.3 g/dL (3.4-4.8); Alkaline Phosphatase 118 U/L (40-110); Anion Gap 11 mmol/L (10-20); BUN (Urea Nitrogen) 18 mg/dL (9.8-20.1); Bilirubin, Total 0.3 mg/dL (0.2-1.2); Calc. Creatinine Clearance 0 mL/min (70-130); Calcium 9.3 mg/dL (7.8-10.44); Carbon Dioxide 37 mmol/L (23-31); Chloride 100 mmol/L (98-107); Estimated GFR 92; Globulin 2.9 g/dL (2.4-3.5); Glucose 101 mg/dL (80-115); Lipase 34 U/L (8-78); Protein, Total 6.2 g/dL (5.8-8.1); Sodium 144 mmol/L (136-145)
[2024-01-26 02:16] LABS: Troponin I Less than 0.010 ng/mL (< 0.028)
[2024-01-26 03:05] LABS: Bacteria/HPF 4+ HPF (None Seen); Bilirubin Negative (Negative); Blood, Urine Negative (Negative); CAUTI Indications for Culture Pelvic or flank pain; Clarity Clear (Clear); Glucose, Urine (Dipstick) 50 mg/dL (Negative); Ketone, Urine Negative (Negative); Leukocyte 250 Leu/uL (Negative); Nitrite 1+ (Negative); Protein, Urine (Dipstick) Negative (Neg-Trace); RBC/HPF 0-3 HPF (0-3); Specific Gravity, Urine 1.013 (1.002-1.036); Squamous Epithelial 0-3 HPF (0-3); Urobilinogen Normal mg/dL (Less than 2)
[2024-01-26 03:06] LABS: Urine Culture Reflex No No
== END 2024-01-26 05:38 | disposition home or self-care (01) ==
LOC: ERS 00:29
DX: N39.0 Urinary tract infection, site not specified (principal); E11.39 Type 2 diabetes mellitus with other diabetic ophthalmic complication; H42 Glaucoma in diseases classified elsewhere; I10 Essential (primary) hypertension; E11.42 Type 2 diabetes mellitus with diabetic polyneuropathy; J44.9 Chronic obstructive pulmonary disease, unspecified; J43.9 Emphysema, unspecified; Z86.73 Personal history of transient ischemic attack (TIA), and cerebral infarction without residual deficits
CPT/HCPCS: 71045; 80053; 81001; 83690; 83880; 84484; 85025; 93005

== ENCOUNTER 2024-02-09 21:59 | Inpatient (IN) | payer OTHER ==
[2024-02-09] MEDS ORDERED: Albuterol 2.5 MG (0.5 mL) NEB ONE (22:26)
[2024-02-09] MEDS ORDERED: Albuterol 2.5 MG (3 mL) NEB ONE (22:26)
[2024-02-09 22:54] LABS: #Basophils Less than 0.03 10x3/uL (0.0-0.2); %Basophils 0.2 % (0.0-1.0); %Eosinophils 1.9 % (0.0-10.0); %Lymphocytes 26.7 % (21.0-51.0); %Monocytes 6.2 % (0.0-10.0); %Neutrophils 64.4 % (42.0-75.0); Hemoglobin 11.2 g/dL (12.0-16.0); Mean Corpuscular HGB CONC 30.3 g/dL (32.0-36.0); Mean Corpuscular Hemoglobin 28.5 pg (27.0-31.0); Mean Corpuscular Volume 94.1 fL (78.0-98.0); Mean Platelet Volume 8.2 fL (7.4-10.4); Platelet Count 226 10x3/uL (130-400); RBC Distribution Width 14.6 % (11.5-14.5); Red Blood Cell (RBC) Count 3.93 mill/uL (4.20-5.40)
[2024-02-09] MEDS ORDERED: Ondansetron PF 4 MG/2 ML Vial ONE (22:58)
[2024-02-09] MEDS ORDERED: Azithromycin 500 MG VIAL ONE (22:59)
[2024-02-09] MEDS ORDERED: Magnesium 2 GM/50 ML BAG (IN WATER) ONE (22:59)
[2024-02-09] MEDS ORDERED: methylPREDNISolone Sod Succ/PF 125 MG/2 ML VIAL ONE (22:59)
[2024-02-09 23:11] LABS: ALT (SGPT) 23 U/L (8-55); AST (SGOT) 25 U/L (5-34); Albumin 3.5 g/dL (3.4-4.8); Alkaline Phosphatase 169 U/L (40-110); Anion Gap 14 mmol/L (10-20); BUN (Urea Nitrogen) 16 mg/dL (9.8-20.1); Bilirubin, Total 0.3 mg/dL (0.2-1.2); Calc. Creatinine Clearance 0 mL/min (70-130); Calcium 9.2 mg/dL (7.8-10.44); Carbon Dioxide 29 mmol/L (23-31); Chloride 100 mmol/L (98-107); Estimated GFR 81; Globulin 3.1 g/dL (2.4-3.5); Glucose 176 mg/dL (80-115); Potassium 3.5 mmol/L (3.5-5.1); Protein, Total 6.6 g/dL (5.8-8.1); Sodium 139 mmol/L (136-145)
[2024-02-09 23:17] LABS: Troponin I Less than 0.010 ng/mL (< 0.028)
[2024-02-09] MEDS ORDERED: Ondansetron PF 4 MG/2 ML Vial IVP PRN (23:45)
[2024-02-09] MEDS ORDERED: Albuterol 2.5 MG (3 mL) NEB NEB PRN (23:47)
[2024-02-09] MEDS ORDERED: Ipratropium/Albuterol 3 ML NEB NEB PRN (23:48)
[2024-02-09] MEDS ORDERED: Acetaminophen 500 MG TAB ONE (23:56)
[2024-02-10] MEDS ORDERED: Dextrose 50% Abboject 50 ML SYRINGE SLOW IVP PRN (00:07)
[2024-02-10] MEDS ORDERED: Glucagon 1 MG/ML KIT IM PRN (00:07)
[2024-02-10] MEDS ORDERED: Dextrose 5% in Water 1,000 ML IV PRN (00:07)
[2024-02-10] MEDS ORDERED: Insulin Lispro 100 UNIT/ML 10 ML VIAL SC PRN (00:07)
[2024-02-10 02:24] VITALS: BMI 21.5
[2024-02-10] MEDS ORDERED: Ipratropium/Albuterol 3 ML NEB NEB SCH (02:30)
[2024-02-10] MEDS: cefTRIAXone\\ROCEPHIN 1 GM in Sodium Chloride 0.9% 100 ML IVPB SCH (02:38)
[2024-02-10 03:08] LABS: Influenza A by NAA Not Detected (NotDetected); Influenza B by NAA Not Detected (NotDetected); SARS-CoV-2 NAA Rapid Test Not Detected (NotDetected)
[2024-02-10] MEDS: Ipratropium/Albuterol 3 ML NEB NEB SCH (03:23)
[2024-02-10 05:44] LABS: #Basophils Less than 0.03 10x3/uL (0.0-0.2); #Eosinphils Less than 0.03 10x3/uL (0.0-0.7); %Basophils 0.1 % (0.0-1.0); %Eosinophils 0.1 % (0.0-10.0); %Lymphocytes 2.2 % (21.0-51.0); %Monocytes 0.9 % (0.0-10.0); %Neutrophils 95.8 % (42.0-75.0); Hematocrit 37.6 % (36.0-47.0); Hemoglobin 11.4 g/dL (12.0-16.0); Mean Corpuscular HGB CONC 30.3 g/dL (32.0-36.0); Mean Corpuscular Hemoglobin 28.8 pg (27.0-31.0); Mean Corpuscular Volume 94.9 fL (78.0-98.0); Mean Platelet Volume 8.7 fL (7.4-10.4); Platelet Count 239 10x3/uL (130-400); RBC Distribution Width 14.4 % (11.5-14.5); Red Blood Cell (RBC) Count 3.96 mill/uL (4.20-5.40)
[2024-02-10] MEDS ORDERED: methylPREDNISolone Sod Succ/PF 125 MG/2 ML VIAL IVP SCH (06:00)
[2024-02-10] MEDS: methylPREDNISolone Sod Succ 40 MG VIAL IVP SCH (06:15)
[2024-02-10 06:38] LABS: Troponin I Less than 0.010 ng/mL (< 0.028)
[2024-02-10 06:40] LABS: Anion Gap 10 mmol/L (10-20); BUN (Urea Nitrogen) 11 mg/dL (9.8-20.1); Calc. Creatinine Clearance 59 mL/min (70-130); Calcium 8.5 mg/dL (7.8-10.44); Carbon Dioxide 29 mmol/L (23-31); Chloride 102 mmol/L (98-107); Estimated GFR 94; Glucose 195 mg/dL (80-115); Potassium 3.4 mmol/L (3.5-5.1); Sodium 138 mmol/L (136-145)
[2024-02-10] MEDS: Mometasone 200 MCG/Formoterol 5 MCG 120 PUFF INHALER INH SCH (07:09)
[2024-02-10] MEDS ORDERED: Docusate 100 MG CAP PO PRN (08:04)
[2024-02-10] MEDS ORDERED: Polyethylene Glycol 3350 17 GM Packet PO PRN (08:04)
[2024-02-10 08:11] LABS: Troponin I 0.016 ng/mL (< 0.028)
[2024-02-10] MEDS: Pantoprazole DR 40 MG TAB PO SCH (09:15)
[2024-02-10] MEDS: FLU (Fluad Triv) TS24-25 (65UP)/MF59C/PF 45 MCG/0.5 ML Syringe IM ONE (09:16)
[2024-02-10] MEDS: Enoxaparin 30 MG (0.3 mL) SYRINGE SC SCH (09:16)
[2024-02-10] MEDS: Acetaminophen 325 MG TAB PO PRN (09:28)
[2024-02-10 09:39] LABS: Bacteria/HPF 4+ HPF (None Seen); Bilirubin Negative (Negative); Blood, Urine Negative (Negative); CAUTI Indications for Culture Dysuria,urgency,freq; Clarity Turbid (Clear); Glucose, Urine (Dipstick) 500 mg/dL (Negative); Ketone, Urine Negative (Negative); Leukocyte 75 Leu/uL (Negative); Nitrite Negative (Negative); Protein, Urine (Dipstick) Negative (Neg-Trace); RBC/HPF 0-3 HPF (0-3); Specific Gravity, Urine 1.007 (1.002-1.036); Squamous Epithelial 0-3 HPF (0-3); Urobilinogen Normal mg/dL (Less than 2); pH, Urine 5.5 (5.0-9.0)
[2024-02-10 09:48] LABS: Urine Culture Reflex Yes Yes
[2024-02-10] MEDS: Amlodipine 10 MG TAB PO SCH (11:44)
[2024-02-10] MEDS: Guaifenesin DM 100-10/5 ML UDCUP PO PRN (11:44)
[2024-02-10] MEDS: Potassium Chloride 20 MEQ TAB PO SCH (11:44)
[2024-02-10] MEDS: traMADol HCl 50 MG TAB PO PRN (11:49)
[2024-02-10] MEDS: Insulin Lispro 100 UNIT/ML 10 ML VIAL SC PRN (17:40)
[2024-02-10] MEDS: Doxycycline 100 MG in Sodium Chloride 0.9% 100 ML IVPB SCH (21:12)
[2024-02-11] MEDS: cefTRIAXone\\ROCEPHIN 1 GM in Sodium Chloride 0.9% 100 ML IVPB SCH (02:00)
[2024-02-11 04:26] LABS: #Basophils Less than 0.03 10x3/uL (0.0-0.2); #Eosinphils Less than 0.03 10x3/uL (0.0-0.7); %Basophils 0.1 % (0.0-1.0); %Lymphocytes 3.7 % (21.0-51.0); %Monocytes 3.8 % (0.0-10.0); %Neutrophils 91.7 % (42.0-75.0); Hematocrit 37.1 % (36.0-47.0); Hemoglobin 11.2 g/dL (12.0-16.0); Mean Corpuscular HGB CONC 30.2 g/dL (32.0-36.0); Mean Corpuscular Hemoglobin 28.9 pg (27.0-31.0); Mean Corpuscular Volume 95.6 fL (78.0-98.0); Mean Platelet Volume 8.8 fL (7.4-10.4); Platelet Count 231 10x3/uL (130-400); RBC Distribution Width 14.5 % (11.5-14.5); Red Blood Cell (RBC) Count 3.88 mill/uL (4.20-5.40)
[2024-02-11 04:43] LABS: Anion Gap 11 mmol/L (10-20); BUN (Urea Nitrogen) 9 mg/dL (9.8-20.1); Calc. Creatinine Clearance 59 mL/min (70-130); Calcium 9.2 mg/dL (7.8-10.44); Carbon Dioxide 33 mmol/L (23-31); Chloride 98 mmol/L (98-107); Estimated GFR 94; Glucose 226 mg/dL (80-115); Potassium 4.4 mmol/L (3.5-5.1); Sodium 138 mmol/L (136-145)
[2024-02-11 08:17] VITALS: TEMP 98.1
[2024-02-11] MEDS: Aripiprazole 10 MG TAB PO SCH (08:27)
[2024-02-11] MEDS: Amlodipine 5 MG TAB PO SCH (08:28)
[2024-02-11] MEDS ORDERED: Amlodipine 10 MG TAB PO SCH (09:00)
[2024-02-11 12:38] VITALS: BP 126/87
== END 2024-02-11 14:02 | disposition home or self-care (01) | DRG 191 ==
LOC: ERS 21:59 → 2SE 23:45 → OBSVTOIN 02-10 09:38
PROVIDERS: ADMIT Internal Medicine; ATTEND Internal Medicine
DX: J44.1 Chronic obstructive pulmonary disease with (acute) exacerbation (principal); J96.11 Chronic respiratory failure with hypoxia; N39.0 Urinary tract infection, site not specified; E78.5 Hyperlipidemia, unspecified; I10 Essential (primary) hypertension; E11.40 Type 2 diabetes mellitus with diabetic neuropathy, unspecified; E87.6 Hypokalemia; D64.9 Anemia, unspecified; F31.9 Bipolar disorder, unspecified; Z98.890 Other specified postprocedural states; Z99.81 Dependence on supplemental oxygen; Z88.8 Allergy status to other drugs, medicaments and biological substances; Z86.73 Personal history of transient ischemic attack (TIA), and cerebral infarction without residual deficits; Z79.899 Other long term (current) drug therapy; Z82.49 Family history of ischemic heart disease and other diseases of the circulatory system; Z87.891 Personal history of nicotine dependence
CPT/HCPCS: 36415; 36416; 71045; 80048; 80053; 81001; 83880; 84484; 85025; 87040; 87077; 87086; 87186; 90653; 93005; 94640; 94660; 96365; 96368; 96372; 96375; 96376; G0378; J0456; J0696; J1650; J2405; J2919; J3475; J7611; J7620

== ENCOUNTER 2024-02-13 01:00 | Emergency (ER) | payer MEDICARE, OTHER ==
[2024-02-13 02:21] LABS: #Basophils Less than 0.03 10x3/uL (0.0-0.2); %Basophils 0.1 % (0.0-1.0); %Eosinophils 1.2 % (0.0-10.0); %Lymphocytes 14.2 % (21.0-51.0); %Monocytes 5.6 % (0.0-10.0); %Neutrophils 78.3 % (42.0-75.0); Hematocrit 37.5 % (36.0-47.0); Hemoglobin 11.7 g/dL (12.0-16.0); Mean Corpuscular HGB CONC 31.2 g/dL (32.0-36.0); Mean Corpuscular Hemoglobin 28.5 pg (27.0-31.0); Mean Corpuscular Volume 91.5 fL (78.0-98.0); Mean Platelet Volume 8.5 fL (7.4-10.4); Platelet Count 217 10x3/uL (130-400); RBC Distribution Width 14.8 % (11.5-14.5)
[2024-02-13 02:43] LABS: ALT (SGPT) 27 U/L (8-55); AST (SGOT) 25 U/L (5-34); Albumin 3.3 g/dL (3.4-4.8); Alkaline Phosphatase 118 U/L (40-110); Anion Gap 11 mmol/L (10-20); BUN (Urea Nitrogen) 14 mg/dL (9.8-20.1); Bilirubin, Total 0.5 mg/dL (0.2-1.2); Calc. Creatinine Clearance 0 mL/min (70-130); Carbon Dioxide 37 mmol/L (23-31); Chloride 100 mmol/L (98-107); Estimated GFR 80; Globulin 2.7 g/dL (2.4-3.5); Glucose 139 mg/dL (80-115); Potassium 3.9 mmol/L (3.5-5.1); Sodium 144 mmol/L (136-145)
[2024-02-13 02:47] LABS: Troponin I Less than 0.010 ng/mL (< 0.028)
== END 2024-02-13 03:50 | disposition home or self-care (01) ==
LOC: ERS 01:00
DX: J44.9 Chronic obstructive pulmonary disease, unspecified (principal); I10 Essential (primary) hypertension; E11.42 Type 2 diabetes mellitus with diabetic polyneuropathy; Z86.73 Personal history of transient ischemic attack (TIA), and cerebral infarction without residual deficits; Z55.6 Problems related to health literacy
CPT/HCPCS: 36415; 71045; 80053; 83880; 84484; 85025; 93005; 96374; J1100; J7620

== ENCOUNTER 2024-03-03 16:03 | Inpatient (IN) | payer OTHER ==
[2024-03-03] MEDS ORDERED: Ipratropium/Albuterol 3 ML NEB ONE (16:43)
[2024-03-03] MEDS ORDERED: Magnesium 2 GM/50 ML BAG (IN WATER) ONE (16:45)
[2024-03-03 16:53] LABS: #Basophils Less than 0.03 10x3/uL (0.0-0.2); #Eosinophils Less than 0.03 10x3/uL (0.0-0.7); %Eosinophils 0.2 % (0.0-10.0); %Lymphocytes 19.2 % (21.0-51.0); %Monocytes 7.1 % (0.0-10.0); %Neutrophils 72.8 % (42.0-75.0); Hematocrit 34.4 % (36.0-47.0); Hemoglobin 10.6 g/dL (12.0-16.0); Mean Corpuscular HGB CONC 30.8 g/dL (32.0-36.0); Mean Corpuscular Hemoglobin 28.7 pg (27.0-31.0); Mean Corpuscular Volume 93.2 fL (78.0-98.0); Mean Platelet Volume 8.9 fL (7.4-10.4); Platelet Count 208 10x3/uL (130-400); RBC Distribution Width 14.2 % (11.5-14.5); Red Blood Cell (RBC) Count 3.69 mill/uL (4.20-5.40)
[2024-03-03 17:02] LABS: ALT (SGPT) 21 U/L (8-55); AST (SGOT) 26 U/L (5-34); Albumin 3.3 g/dL (3.4-4.8); Alkaline Phosphatase 130 U/L (40-110); Anion Gap 14 mmol/L (10-20); BUN (Urea Nitrogen) 9 mg/dL (9.8-20.1); Bilirubin, Total 0.5 mg/dL (0.2-1.2); Calc. Creatinine Clearance 0 mL/min (70-130); Calcium 8.4 mg/dL (7.8-10.44); Carbon Dioxide 25 mmol/L (23-31); Chloride 102 mmol/L (98-107); Estimated GFR 94; Globulin 3.3 g/dL (2.4-3.5); Glucose 186 mg/dL (80-115); Potassium 4.7 mmol/L (3.5-5.1); Protein, Total 6.6 g/dL (5.8-8.1); Sodium 136 mmol/L (136-145)
[2024-03-03 17:08] LABS: Troponin I Less than 0.010 ng/mL (< 0.028)
[2024-03-03] MEDS ORDERED: Doxycycline 100 MG CAP ONE (20:42)
[2024-03-03 20:43] LABS: Bacteria/HPF None Seen HPF (None Seen); Bilirubin Negative (Negative); Blood, Urine Negative (Negative); CAUTI Indications for Culture Alt mental st,lethar; Clarity Clear (Clear); Glucose, Urine (Dipstick) >=1000 mg/dL (Negative); Ketone, Urine Negative (Negative); Leukocyte Negative Leu/uL (Negative); Nitrite Negative (Negative); Protein, Urine (Dipstick) Negative (Neg-Trace); RBC/HPF 0-3 HPF (0-3); Specific Gravity, Urine 1.002 (1.002-1.036); Squamous Epithelial 0-3 HPF (0-3); Urobilinogen Normal mg/dL (Less than 2); WBC/HPF 0-3 HPF (0-3); pH, Urine 6.5 (5.0-9.0)
[2024-03-03 20:50] LABS: Urine Culture Reflex No No
[2024-03-03] MEDS ORDERED: Dextrose 50% Abboject 50 ML SYRINGE SLOW IVP PRN (23:00)
[2024-03-03] MEDS ORDERED: Glucagon 1 MG/ML KIT IM PRN (23:00)
[2024-03-03] MEDS ORDERED: Dextrose 5% in Water 1,000 ML IV PRN (23:00)
[2024-03-03 23:18] VITALS: BMI 20.9
[2024-03-03] MEDS ORDERED: Acetaminophen 650 MG Suppository PR PRN (23:32)
[2024-03-03] MEDS ORDERED: Ondansetron ODT 4 MG TAB PO PRN (23:32)
[2024-03-04] MEDS: Acetaminophen 325 MG TAB PO SCH (00:48)
[2024-03-04] MEDS: methylPREDNISolone Sod Succ 40 MG VIAL IVP SCH (00:49)
[2024-03-04] MEDS: Ipratropium/Albuterol 3 ML NEB NEB SCH (03:48)
[2024-03-04 04:41] LABS: #Basophils Less than 0.03 10x3/uL (0.0-0.2); #Eosinophils Less than 0.03 10x3/uL (0.0-0.7); %Basophils 0.1 % (0.0-1.0); %Monocytes 2.3 % (0.0-10.0); %Neutrophils 90.8 % (42.0-75.0); Hematocrit 34.7 % (36.0-47.0); Hemoglobin 10.3 g/dL (12.0-16.0); Mean Corpuscular HGB CONC 29.7 g/dL (32.0-36.0); Mean Corpuscular Hemoglobin 28.6 pg (27.0-31.0); Mean Corpuscular Volume 96.4 fL (78.0-98.0); Mean Platelet Volume 8.7 fL (7.4-10.4); Platelet Count 198 10x3/uL (130-400); RBC Distribution Width 13.9 % (11.5-14.5)
[2024-03-04 04:56] LABS: ALT (SGPT) 20 U/L (8-55); AST (SGOT) 14 U/L (5-34); Albumin 3.2 g/dL (3.4-4.8); Alkaline Phosphatase 189 U/L (40-110); Anion Gap 14 mmol/L (10-20); BUN (Urea Nitrogen) 7 mg/dL (9.8-20.1); Bilirubin, Total 0.3 mg/dL (0.2-1.2); Calc. Creatinine Clearance 49 mL/min (70-130); Calcium 8.2 mg/dL (7.8-10.44); Carbon Dioxide 27 mmol/L (23-31); Chloride 100 mmol/L (98-107); Estimated GFR 78; Globulin 2.9 g/dL (2.4-3.5); Glucose 347 mg/dL (80-115); Potassium 4.6 mmol/L (3.5-5.1); Protein, Total 6.1 g/dL (5.8-8.1); Sodium 136 mmol/L (136-145)
[2024-03-04] MEDS: Albuterol 200 PUFF (6.7GM INHALER) INH PRN (05:08)
[2024-03-04] MEDS ORDERED: Dextrose 5% in Water 1,000 ML IV PRN (05:16)
[2024-03-04] MEDS: Insulin Lispro 100 UNIT/ML 10 ML VIAL SC PRN (05:42)
[2024-03-04] MEDS: Mometasone 200 MCG/Formoterol 5 MCG 120 PUFF INHALER INH SCH (07:13)
[2024-03-04] MEDS: Doxycycline 100 MG CAP PO SCH (08:48)
[2024-03-04] MEDS: Aripiprazole 10 MG TAB PO SCH (08:49)
[2024-03-04] MEDS: Potassium Chloride 20 MEQ TAB PO SCH (08:49)
[2024-03-04] MEDS: Pantoprazole DR 40 MG TAB PO SCH (08:49)
[2024-03-04] MEDS: Amlodipine 5 MG TAB PO SCH (08:49)
[2024-03-04] MEDS ORDERED: Iopamidol-370 76% 500 ML MDV (1 ML CHARGE) ONE (10:22)
[2024-03-04] MEDS: HYDROcodone/Acetaminophen 7.5/325 mg Tablet PO PRN (14:06)
[2024-03-04] MEDS: Lorazepam 0.5 MG TAB PO PRN (21:10)
[2024-03-05 04:49] LABS: #Basophils Less than 0.03 10x3/uL (0.0-0.2); #Eosinophils Less than 0.03 10x3/uL (0.0-0.7); %Lymphocytes 3.1 % (21.0-51.0); %Monocytes 3.4 % (0.0-10.0); %Neutrophils 92.6 % (42.0-75.0); Hematocrit 36.2 % (36.0-47.0); Hemoglobin 10.8 g/dL (12.0-16.0); Mean Corpuscular HGB CONC 29.8 g/dL (32.0-36.0); Mean Corpuscular Hemoglobin 28.7 pg (27.0-31.0); Mean Corpuscular Volume 96.3 fL (78.0-98.0); Mean Platelet Volume 8.8 fL (7.4-10.4); Platelet Count 226 10x3/uL (130-400); RBC Distribution Width 13.8 % (11.5-14.5); Red Blood Cell (RBC) Count 3.76 mill/uL (4.20-5.40)
[2024-03-05 04:59] LABS: ALT (SGPT) 22 U/L (8-55); AST (SGOT) 16 U/L (5-34); Albumin 3.1 g/dL (3.4-4.8); Alkaline Phosphatase 186 U/L (40-110); Anion Gap 8 mmol/L (10-20); BUN (Urea Nitrogen) 11 mg/dL (9.8-20.1); Bilirubin, Total 0.3 mg/dL (0.2-1.2); Calc. Creatinine Clearance 45 mL/min (70-130); Calcium 9.2 mg/dL (7.8-10.44); Carbon Dioxide 34 mmol/L (23-31); Chloride 94 mmol/L (98-107); Estimated GFR 71; Glucose 242 mg/dL (80-115); Potassium 4.9 mmol/L (3.5-5.1); Protein, Total 6.1 g/dL (5.8-8.1); Sodium 131 mmol/L (136-145)
[2024-03-05] MEDS: Ondansetron PF 4 MG/2 ML Vial IVP PRN (20:39)
[2024-03-05] MEDS: Insulin Lispro 100 UNIT/ML 10 ML VIAL SC PRN (21:30)
[2024-03-06] MEDS: predniSONE 20 MG TAB PO SCH (14:15)
[2024-03-07] MEDS ORDERED: Ziprasidone 20 MG VIAL IM SCH (03:00)
[2024-03-07] MEDS: Ziprasidone 20 MG CAP PO SCH ×2 (03:56→05:32)
[2024-03-07] MEDS: Sterile Water 10 ML VIAL FS SCH (05:33)
[2024-03-07] MEDS: predniSONE 20 MG TAB PO SCH (08:19)
[2024-03-07 08:24] VITALS: BP 153/79; TEMP 97
== END 2024-03-07 13:18 | disposition home or self-care (01) | DRG 191 ==
LOC: ERS 16:03 → OBS 19:58 → OBSVTOIN 03-05 13:55
PROVIDERS: ADMIT Student in an Organized Health Care Education/Training Program; ATTEND Internal Medicine
DX: J44.1 Chronic obstructive pulmonary disease with (acute) exacerbation (principal); E87.1 Hypo-osmolality and hyponatremia; I50.32 Chronic diastolic (congestive) heart failure; M87.852 Other osteonecrosis, left femur; M87.851 Other osteonecrosis, right femur; J96.10 Chronic respiratory failure, unspecified whether with hypoxia or hypercapnia; E11.9 Type 2 diabetes mellitus without complications; I10 Essential (primary) hypertension; E78.5 Hyperlipidemia, unspecified; F20.9 Schizophrenia, unspecified; Z98.890 Other specified postprocedural states; Z88.8 Allergy status to other drugs, medicaments and biological substances; I11.0 Hypertensive heart disease with heart failure; E88.09 Other disorders of plasma-protein metabolism, not elsewhere classified
CPT/HCPCS: 36415; 36416; 71045; 72146; 72148; 72170; 74177; 80053; 81001; 83036; 83880; 84484; 85025; 87086; 87428; 93005; 94640; 96374; 96375; 96376; G0378; J1815; J2405; J2919; J3475; J7512; J7620; Q9967

== ENCOUNTER 2024-03-15 16:27 | Emergency (ER) | payer OTHER ==
[2024-03-15] MEDS ORDERED: Magnesium 2 GM/50 ML BAG (IN WATER) ONE (17:04)
[2024-03-15] MEDS ORDERED: methylPREDNISolone Sod Succ/PF 125 MG/2 ML VIAL ONE (17:04)
[2024-03-15] MEDS ORDERED: Ipratropium/Albuterol 3 ML NEB ONE (17:05)
[2024-03-15 17:27] LABS: #Basophils 0.03 10x3/uL (0.0-0.2); %Basophils 0.2 % (0.0-1.0); %Eosinophils 0.3 % (0.0-10.0); %Lymphocytes 16.1 % (21.0-51.0); %Monocytes 6.4 % (0.0-10.0); %Neutrophils 74.6 % (42.0-75.0); Hematocrit 36.1 % (36.0-47.0); Hemoglobin 11.2 g/dL (12.0-16.0); Mean Corpuscular Hemoglobin 28.7 pg (27.0-31.0); Mean Corpuscular Volume 92.6 fL (78.0-98.0); Mean Platelet Volume 8.2 fL (7.4-10.4); Platelet Count 247 10x3/uL (130-400); RBC Distribution Width 14.1 % (11.5-14.5)
[2024-03-15 17:44] LABS: ALT (SGPT) 23 U/L (8-55); AST (SGOT) 21 U/L (5-34); Albumin 3.5 g/dL (3.4-4.8); Alkaline Phosphatase 127 U/L (40-110); Anion Gap 12 mmol/L (10-20); BUN (Urea Nitrogen) 20 mg/dL (9.8-20.1); Bilirubin, Total 0.7 mg/dL (0.2-1.2); Calc. Creatinine Clearance 0 mL/min (70-130); Calcium 9.8 mg/dL (7.8-10.44); Carbon Dioxide 31 mmol/L (23-31); Chloride 100 mmol/L (98-107); Estimated GFR 85; Globulin 2.7 g/dL (2.4-3.5); Glucose 129 mg/dL (80-115); Potassium 3.3 mmol/L (3.5-5.1); Protein, Total 6.2 g/dL (5.8-8.1); Sodium 140 mmol/L (136-145)
[2024-03-15 17:48] LABS: Troponin I Less than 0.010 ng/mL (< 0.028)
== END 2024-03-15 21:05 | disposition home or self-care (01) ==
LOC: ERS 16:27
DX: J44.1 Chronic obstructive pulmonary disease with (acute) exacerbation (principal); I10 Essential (primary) hypertension; E11.42 Type 2 diabetes mellitus with diabetic polyneuropathy; Z55.6 Problems related to health literacy
CPT/HCPCS: 71045; 80053; 83880; 84484; 85025; 93005; J2919; J3475; 36415; 96374; 96375; J7620

== ENCOUNTER 2024-04-08 17:39 | Emergency (ER) | payer OTHER ==
[2024-04-08 19:18] LABS: #Basophils 0.03 10x3/uL (0.0-0.2); #Eosinophils Less than 0.03 10x3/uL (0.0-0.7); %Basophils 0.2 % (0.0-1.0); %Eosinophils 0.2 % (0.0-10.0); %Lymphocytes 10.8 % (21.0-51.0); %Monocytes 7.1 % (0.0-10.0); %Neutrophils 78.5 % (42.0-75.0); Hematocrit 39.9 % (36.0-47.0); Hemoglobin 12.9 g/dL (12.0-16.0); Mean Corpuscular HGB CONC 32.3 g/dL (32.0-36.0); Mean Corpuscular Hemoglobin 30.1 pg (27.0-31.0); Mean Corpuscular Volume 93.2 fL (78.0-98.0); Mean Platelet Volume 8.6 fL (7.4-10.4); Platelet Count 217 10x3/uL (130-400); RBC Distribution Width 14.9 % (11.5-14.5); Red Blood Cell (RBC) Count 4.28 mill/uL (4.20-5.40)
[2024-04-08 19:35] LABS: ALT (SGPT) 38 U/L (8-55); AST (SGOT) 31 U/L (5-34); Albumin 3.7 g/dL (3.4-4.8); Alkaline Phosphatase 175 U/L (40-110); Anion Gap 11 mmol/L (10-20); BUN (Urea Nitrogen) 13 mg/dL (9.8-20.1); Bilirubin, Total 0.4 mg/dL (0.2-1.2); Calc. Creatinine Clearance 0 mL/min (70-130); Calcium 9.2 mg/dL (7.8-10.44); Carbon Dioxide 31 mmol/L (23-31); Chloride 97 mmol/L (98-107); Estimated GFR 77; Globulin 3.3 g/dL (2.4-3.5); Glucose 130 mg/dL (80-115); Potassium 3.7 mmol/L (3.5-5.1); Sodium 135 mmol/L (136-145)
[2024-04-08 19:40] LABS: Troponin I Less than 0.010 ng/mL (< 0.028)
[2024-04-08] MEDS ORDERED: Ipratropium/Albuterol 3 ML NEB ONE (20:47)
== END 2024-04-08 21:19 | disposition home or self-care (01) ==
LOC: ERS 17:39
DX: R06.02 Shortness of breath (principal); I10 Essential (primary) hypertension; E11.42 Type 2 diabetes mellitus with diabetic polyneuropathy
CPT/HCPCS: 36415; 71045; 80053; 83880; 84484; 85025; 93005; J7620

== ENCOUNTER 2024-04-20 20:53 | Emergency (ER) | payer OTHER ==
[2024-04-20 22:09] LABS: #Basophils Less than 0.03 10x3/uL (0.0-0.2); #Eosinophils Less than 0.03 10x3/uL (0.0-0.7); %Basophils 0.1 % (0.0-1.0); %Eosinophils 0.1 % (0.0-10.0); %Lymphocytes 7.1 % (21.0-51.0); %Monocytes 7.3 % (0.0-10.0); %Neutrophils 84.6 % (42.0-75.0); Hematocrit 39.2 % (36.0-47.0); Hemoglobin 12.9 g/dL (12.0-16.0); Mean Corpuscular HGB CONC 32.9 g/dL (32.0-36.0); Mean Corpuscular Hemoglobin 30.5 pg (27.0-31.0); Mean Corpuscular Volume 92.7 fL (78.0-98.0); Mean Platelet Volume 8.4 fL (7.4-10.4); Platelet Count 222 10x3/uL (130-400); RBC Distribution Width 14.4 % (11.5-14.5); Red Blood Cell (RBC) Count 4.23 mill/uL (4.20-5.40)
[2024-04-20] MEDS ORDERED: Ipratropium/Albuterol 3 ML NEB ONE (22:18)
[2024-04-20 22:19] LABS: ALT (SGPT) 34 U/L (8-55); AST (SGOT) 28 U/L (5-34); Albumin 3.5 g/dL (3.4-4.8); Alkaline Phosphatase 100 U/L (40-110); Anion Gap 13 mmol/L (10-20); BUN (Urea Nitrogen) 7 mg/dL (9.8-20.1); Bilirubin, Total 0.5 mg/dL (0.2-1.2); Calc. Creatinine Clearance 0 mL/min (70-130); Calcium 9.4 mg/dL (7.8-10.44); Carbon Dioxide 33 mmol/L (23-31); Chloride 94 mmol/L (98-107); Estimated GFR 77; Globulin 3.2 g/dL (2.4-3.5); Glucose 170 mg/dL (80-115); Potassium 3.8 mmol/L (3.5-5.1); Protein, Total 6.7 g/dL (5.8-8.1); Sodium 136 mmol/L (136-145)
[2024-04-20 22:25] LABS: Troponin I Less than 0.010 ng/mL (< 0.028)
== END 2024-04-20 23:42 | disposition home or self-care (01) ==
LOC: ERS 20:53
DX: J44.1 Chronic obstructive pulmonary disease with (acute) exacerbation (principal); J43.9 Emphysema, unspecified; E78.5 Hyperlipidemia, unspecified; I11.0 Hypertensive heart disease with heart failure; I50.9 Heart failure, unspecified; E11.40 Type 2 diabetes mellitus with diabetic neuropathy, unspecified
CPT/HCPCS: 36415; 71045; 80053; 83880; 84145; 84484; 85025; 93005; J7620

== ENCOUNTER 2024-05-05 13:58 | Emergency (ER) | payer OTHER, MEDICARE ==
[2024-05-05] MEDS ORDERED: Magnesium 2 GM/50 ML BAG (IN WATER) ONE (14:33)
[2024-05-05] MEDS ORDERED: Dexamethasone 10 MG/ML VIAL ONE (14:33)
[2024-05-05] MEDS ORDERED: Albuterol 2.5 MG (0.5 mL) NEB ONE (14:40)
[2024-05-05] MEDS ORDERED: LevoFLOXacin 750 mg/D5W 150 ml Premix Bag ONE (14:40)
[2024-05-05 15:10] LABS: #Basophils Less than 0.03 10x3/uL (0.0-0.2); %Basophils 0.3 % (0.0-1.0); %Eosinophils 0.7 % (0.0-10.0); %Lymphocytes 23.9 % (21.0-51.0); %Monocytes 11.9 % (0.0-10.0); %Neutrophils 62.5 % (42.0-75.0); Hematocrit 37.7 % (36.0-47.0); Hemoglobin 11.8 g/dL (12.0-16.0); Mean Corpuscular HGB CONC 31.3 g/dL (32.0-36.0); Mean Corpuscular Hemoglobin 29.6 pg (27.0-31.0); Mean Corpuscular Volume 94.5 fL (78.0-98.0); Mean Platelet Volume 8.4 fL (7.4-10.4); Platelet Count 238 10x3/uL (130-400); RBC Distribution Width 13.7 % (11.5-14.5); Red Blood Cell (RBC) Count 3.99 mill/uL (4.20-5.40)
[2024-05-05 15:31] LABS: Troponin I Less than 0.010 ng/mL (< 0.028)
[2024-05-05 15:35] LABS: ALT (SGPT) 25 U/L (8-55); AST (SGOT) 23 U/L (5-34); Alkaline Phosphatase 100 U/L (40-110); Anion Gap 14 mmol/L (10-20); BUN (Urea Nitrogen) Less than 4 mg/dL (9.8-20.1); Bilirubin, Total 0.2 mg/dL (0.2-1.2); Calc. Creatinine Clearance 0 mL/min (70-130); Calcium 9.5 mg/dL (7.8-10.44); Carbon Dioxide 39 mmol/L (23-31); Chloride 92 mmol/L (98-107); Estimated GFR 97; Globulin 2.8 g/dL (2.4-3.5); Glucose 126 mg/dL (80-115); Potassium 3.7 mmol/L (3.5-5.1); Protein, Total 5.8 g/dL (5.8-8.1); Sodium 141 mmol/L (136-145)
[2024-05-05] MEDS ORDERED: LevoFLOXacin 250 MG TAB ONE (15:38)
[2024-05-05] MEDS ORDERED: Timolol 0.5% Ophth Soln 5 ml Bottle R EYE SCH (16:00)
[2024-05-05] MEDS ORDERED: AcetaZOLAMIDE ER 500 MG CAP PO SCH (16:00)
== END 2024-05-05 19:03 | disposition home or self-care (01) ==
LOC: ERS 13:58
DX: J44.1 Chronic obstructive pulmonary disease with (acute) exacerbation (principal); J18.9 Pneumonia, unspecified organism; H57.11 Ocular pain, right eye; E11.9 Type 2 diabetes mellitus without complications; I10 Essential (primary) hypertension; Z55.6 Problems related to health literacy
CPT/HCPCS: 71045; 80053; 83880; 84484; 85025; 87428; 93005; 94760; 96374; 96375; 99285; J1100; J3475; 36415; J1956; J7611